=== PATIENT | male | born 1940 | race Hispanic/Latino ===

== ENCOUNTER 2017-03-26 11:15 | Emergency (ER) | payer OTHER, MEDICARE ==
[~2017-03-26] VITALS: Ht 170.2 cm; Wt 89.8 kg
[~2017-03-26 11:15] MED LIST: ASPIR 8181 MG PO; BYETTA5 MCG/0.02; EFFIENT10 MG PO; GABAPENTIN100 MG PO; HUMULIN N100 UNITS/; LISINOPRIL-HCT1 EAC1 PO; LOPRESSOR25 MG PO; METFORMIN HCL500 M1 PO; SIMVASTATIN40 MG PO
--- OUTSIDE RECORDS SUMMARY | 2017-03-26 11:18 | XMS REPORT | Clinical Summary ---
Author Author [facility] Organization [facility] Address Unknown Phone Unavailable Care Team Providers Care Intervention Manager Name Role Phone Shima Virgen MD PCP Allergies No Known Allergies Current Medications Prescription Sig. Disp. Refills Start End Date Status Date clopidogrel (PLAVIX) 75 Take 75 mg by mouth every 09/27/19 Active mg tablet morning. 17 gabapentin (NEURONTIN) Take 300 mg by mouth 2 09/27/19 Active 300 mg capsule (two) times a day. 17 lisinopril-hydrochlorothi Take 1 tablet by mouth 09/27/19 Active azide every morning. 17 (PRINZIDE,ZESTORETIC) 20-25 mg per tablet metFORMIN (GLUCOPHAGE) Take 1,000 mg by mouth 2 09/27/19 Active 1,000 mg tablet (two) times a day. 17 metoprolol tartrate Take 25 mg by mouth every 1 09/27/19 Active (LOPRESSOR) 25 mg tablet morning. 17 LANTUS SOLOSTAR 100 Inject 30 Units under the 09/27/19 Active unit/mL injection (pen) skin every evening. 17 simvastatin (ZOCOR) 20 MG Take 20 mg by mouth Active tablet nightly. insulin ASPART (NovoLOG) Inject 15 Units under the Active 100 unit/mL injection skin 3 (three) times a day before meals. atorvastatin (LIPITOR) 40 Take 40 mg by mouth every 09/27/19 Discontin MG tablet evening. 17 17 ued isosorbide mononitrate Take 1 tablet (30 mg 30 tablet 0 12/01/1902/06 (IMDUR) 30 MG 24 hr total) by mouth daily for 17 17 tablet 30 days. Active Problems Problem Noted Date Diabetic ketoacidosis without coma associated with type 1 diabetes mellitus 11/28/2016 Encounters Date Type Specialty Care Team Description 11/28/2016 [facility] General Internal Medicine Brennan Guillen MD Diabetic ketoacidosis - Encounter Maura Escobar MD without coma associated 11/30/2016 with type 1 diabetes mellitus (Primary Dx);Dizziness;Near syncope;Hyperglycemia 11/28/2016 Procedure Pass General Internal Medicine after 03/25/2016 Social History Tobacco Use Types Packs/Day Years Used Date Former Smoker Cigarettes Alcohol Use Drinks/Week oz/Week Comments No Sex Assigned at Date Recorded Not on file Last Filed Vital Signs Vital Sign Reading Time Taken Blood Pressure 126/84 11/30/2016 7:18 AM CDT Pulse 65 11/30/2016 12:59 PM CDT Temperature 36.3 C (97.4 F) 11/30/2016 7:18 AM CDT Respiratory Rate 14 11/30/2016 7:18 AM CDT Oxygen Saturation 96% 11/30/2016 7:18 AM CDT Inhaled Oxygen - - Concentration Weight 83.5 kg (184 lb) 11/28/2016 10:51 PM CDT Height 170.2 cm (5' 7") 11/28/2016 10:51 PM CDT Body Mass Index 28.82 11/28/2016 10:51 PM CDT Plan of Treatment Health Maintenance Due Date Last Done Comments FOOT EXAM 1950 OPHTHALMOLOGY EXAM 1950 URINE MICROALBUMIN 1950 ZOSTER VACCINE 2000 PNEUMOCOCCAL 2005 POLYSACCHARIDE VACCINE AGE 65 AND OVER PNEUMOCOCCAL-13 2005 INFLUENZA VACCINE 09/18/2016 Procedures Procedure Name Priority Date/Time Associated Diagnosis Comments ECHOCARDIOGRAM 2D Routine 11/29/2016 Results for this COMPLETE W MMODE SPECTRAL 1:45 PM CDT procedure are in the [facility] (51713) results section. SC CRITICAL CARE, E/M Routine 11/29/2016 Results for this 30-74 MINUTES 1:25 PM CDT procedure are in the results section. after 03/25/2016 Results * POC glucose (11/30/2016 11:36 AM) Only the most recent of 16 results within the time period is included. Component Value Ref Range POC glucose 312 (H) 65 - 99 mg/dL Comment: Meter ID: [id number] Footwear Production Machine Operator: Stacie Olvera Specimen Performing Laboratory [facility] DEPARTMENT OF PATHOLOGY AND GENOMIC MEDICINE [address] [place] [address] * Estimated GFR (11/30/2016 4:17 AM) Only the most recent of 6 results within the time period is included. Component Value Ref Range GFR Non Af Amer >90 mL/min/1.73 m2 GFR Af Amer >90 mL/min/1.73 m2 Comment: Chronic kidney disease: <60 mL/min/1.73m2 Kidney failure: <15 mL/min/1.73m2 The estimated GFR is calculated from the IDMS-traceable Modification of Diet in Renal Disease Equation. The accuracy of the calculation is poor when the creatinine is normal. Calculated values >90 mL/min/1.73m2 are not reported. This equation has not been validated in children (<18 years), women, the elderly (>70 years), or ethnic groups other than Caucasians and Americans. Specimen Performing Laboratory Plasma specimen [facility] DEPARTMENT OF PATHOLOGY AND [employer] MEDICINE [address] [place] [address] * CBC with platelet and differential (11/30/2016 4:17 AM) Only the most recent of 2 results within the time period is included. Component Value Ref Range WBC 6.35 4.50 - 11.00 k/uL RBC 4.35 (L) 4.40 - 6.00 m/uL HGB 13.0 (L) 14.0 - 18.0 g/dL HCT 37.6 (L) 41.0 - 51.0 % MCV 86.4 82.0 - 100.0 fL MCH 29.9 27.0 - 34.0 pg MCHC 34.6 31.0 - 37.0 g/dL RDW - SD 40.1 37.0 - 55.0 fL MPV 12.2 8.8 - 13.2 fL Platelet count 189 150 - 400 k/uL Nucleated RBC 0.00 /100 WBC Neutrophils 57.2 39.0 - 69.0 % Lymphocytes 29.8 25.0 - 45.0 % Monocytes 7.9 0.0 - 10.0 % Eosinophils 4.6 0.0 - 5.0 % Basophils 0.3 0.0 - 1.0 % Immature granulocytes 0.2Comment: "Immature granulocytes" 0.0 - 1.0 % (promyelocytes, myelocytes, metamyelocytes) Specimen Performing Laboratory Blood [facility] DEPARTMENT OF PATHOLOGY AND [address] [place] [address] * Magnesium level (11/30/2016 4:17 AM) Component Value Ref Range Magnesium 1.8 1.6 - 2.4 mg/dL Specimen Performing Laboratory Plasma specimen [facility] DEPARTMENT PATHOLOGY AND [address] [place] [address] * Basic metabolic panel (11/30/2016 4:17 AM) Only the most recent of 5 results within the time period is included. Component Value Ref Range Sodium 140 135 - 148 mEq/L Potassium 3.3 (L) 3.5 - 5.0 mEq/L Chloride 104 98 - 112 mEq/L CO2 24 24 - 31 mEq/L Anion gap 12 7 - 15 mEq/L Comment: Starting from May , anion gap calculation no longer incorporates potassium. Please note the change. BUN 11 8 - 23 mg/dL Creatinine 0.6 (L) 0.7 - 1.2 mg/dL Glucose 104 (H) 65 - 99 mg/dL Calcium 8.7 (L) 8.8 - 10.2 mg/dL Specimen Performing Laboratory Plasma specimen [facility] DEPARTMENT OF PATHOLOGY AND [address] [place] [address] * MRI Brain Wo Contrast (11/29/2016 10:00 PM) Specimen Performing Laboratory [facility] [address] [place] [id number] Narrative Study:MRI BRAIN WO CONTRAST History:dizziness with hx of cva COMPARISON:CT head yesterday TECHNIQUE: Precontrast Sagittal, coronal, axial T1, T2, FLAIR, gradient, diffusionMR images of the brain performed. FINDINGS: Parenchymal volume is normal. There are changes of chronic small vessel ischemic disease, moderate. There is no acute infarct, hemorrhage, midline shift , hydrocephalus, extra-axial collections, or edema. The orbits are unremarkable. There is some mild mucosal thickening of the paranasal sinuses. The mastoid air cells are without significant fluid signal. The calvarium is unremarkable. IMPRESSION: No acute intracranial abnormality. [facility]-[id number] Procedure Note Interface, Radiology Results Incoming - 11/29/2016 10:07 PM CDT Study:MRI BRAIN WO CONTRAST History:dizziness with hx of cva COMPARISON:CT head yesterday TECHNIQUE: Precontrast Sagittal, coronal, axial T1, T2, FLAIR, gradient, diffusion MR images of the brain performed. FINDINGS: Parenchymal volume is normal. There are changes of chronic small vessel ischemic disease, moderate. There is no acute infarct, hemorrhage, midline shift , hydrocephalus, extra-axial collections, or edema. The orbits are unremarkable. There is some mild mucosal thickening of the paranasal sinuses. The mastoid air cells are without significant fluid signal. The calvarium is unremarkable. IMPRESSION: No acute intracranial abnormality. [facility]-[id number] * Echocardiogram complete w contrast and 3D if needed (11/29/2016 1:45 PM) Component Value Ref Range Velocity Ratio (V1/V2) 0.77 m/s IVS,d 1.14 0.6 - 1.2 cm EF 54.94 % LVPWD,d 1.20 cm AoV Mean PG 3.67 mmHg AV LVOT peak gradient 3.93 mmHg MV valve area p 1/2 4.12 cm2 method E/A ratio 0.93 E wave decelartion time 160.74 msec LVOT Diam,S 2.09 cm LVOT area 3.43 cm2 LVOT Vmax 0.99 m/s LVOT VTI 0.19 m AoV Peak PG 6.56 mmHg MV Peak E Viraj 1.10 m/s MV stenosis pressure 1/2 53.35 ms time MV Peak A Viraj 1.18 m/s AoV Area, Vmax 2.65 cm2 AoV Area, VTI 2.52 cm2 AoV Vmax 1.28 m/s LV,d 4.21 cm LV,s 3.02 cm TR Vpeak 2.70 mm/s MV E A ratio 0.94 mmHg TR pk grad 29.27 mmHg MR peak grad 77.94 mmHg AR Press Half Time 705.26 ms LV SYS VOL 35.54 ml LV JAVIER VOL 78.87 ml LV SV Teich 2D 43.33 ml LVOT SI 33.06 ml/m2 AoV Cusp sep 2.07 AoV Vmn 0.91 AR slope 2.13 Ar Vmax 5.19 IVS s 2D 1.36 LA Ao Ratio Mmode 0.97 PV AT 93.43 msec AoV VTI 0.26 m MR Vmax 4.41 m/s LVOT Vmn 0.65 Pt Size 170.18 Pt Wt 83.46 LVOT mean grad 1.86 mmHg AR DT 2431.91 msec AR pk grad 107.61 mmHg LVPW s PLAX 1.63 cm MV Decel slope 6.87 m/s2 RVSP (TR) 34.27 mmHg RA pressure 5 mmHg RVSP 34.27 mmHg LA diam s 3.50 cm LA area s A4C 19.70 cm2 Aortic Root 3.65 SC End Javier Grad 2.59 SC End Diat Viraj 0.80 AR maxPG 107.61 D E excurs 2.20 E f slope 0.07 E prime lat 0.07 E brayden sept 0.05 PV acc T slope 8.40 Specimen Performing Laboratory [facility] [address] [place] [address] Narrative The left ventricle chamber size is normal. Left Ventricular ejection fraction is 55 - 60%. Right ventricular size is normal. No pericardial effusion Spectral Doppler shows impaired relaxation pattern of left ventricular diastolic filling. * ECG ED Preliminary Interpretation - NOT AN ORDER (11/29/2016 1:25 PM) Hill Guillen MD 11/29/20161:25 PM ECG ED Preliminary Interpretation - Not an Order Performed by: BRENNAN GUILLEN Authorized by: BRENNAN GUILLEN ECG reviewed by ED Physician in the absence of a air export operations agent: yes Rate: ECG rate:111 ECG rate assessment: tachycardic Rhythm: Rhythm: sinus rhythm Ectopy: Ectopy: none QRS: QRS axis:Normal Conduction: Conduction: abnormal Abnormal conduction: 1st degree * Critical Care (11/29/2016 1:25 PM) Hill Guillen MD 11/29/20161:25 PM Critical Care Performed by: BRENNAN GUILLEN Authorized by: BRENNAN GUILLEN Critical care provider statement: Critical care time (minutes):35 Critical care time was exclusive of:Separately billable procedures and treating other patients Critical care was necessary to treat or prevent imminent or life-threatening deterioration of the following conditions:Endocrine crisis, 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 or 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 and renal failure (DKA) Critical care was time spent personally by me on the following activities:Development of treatment plan with patient or surrogate, discussions with consultants, evaluation of patient's response to treatment, examination of patient, interpretation of cardiac output measurements, obtaining history from patient or surrogate, ordering and performing treatments and interventions, ordering and review of laboratory studies, ordering and review of radiographic studies and re-evaluation of patient's condition * Troponin (11/28/2016 11:21 PM) Only the most recent of 2 results within the time period is included. Component Value Ref Range Troponin <0.300 0.000 - 0.300 ng/mL Comment: 0.30 - 1.49 ng/ml May indicate increased risk of acute coronary syndrome. >=1.5 ng/ml Consistent with acute myocardial infarction. The diagnostic value of a single normal or non-diagnostic result is questionable. Serial samples at 2-6 hour intervals are required to rule out acute myocardial injury. Specimen Performing Laboratory Plasma specimen [facility] PATHOLOGY AND [address] [place] [address] * Lactic acid level (11/28/2016 11:21 PM) Only the most recent of 2 results within the time period is included. Component Value Ref Range Lactic acid 1.7 0.5 - 2.2 mmol/L Specimen Performing Laboratory Plasma specimen [address] [place] [address] * Hemoglobin A1c (11/28/2016 7:34 PM) Component Value Ref Range Hemoglobin A1C 12.4 (H) 4.0 - 6.0 % Comment: Less than 6% - Goal of therapy for Type II Diabetes Less than 7%- Goal of therapy for Type I Diabetes Less than 8%- Acceptable control for Type I or Type II Diabetes Greater than 8%- Unacceptable control; action indicated. (A DA94) Specimen Performing Laboratory Blood [address] [place] [address] * Venous blood gas (11/28/2016 7:34 PM) Component Value Ref Range pH, venous 7.47 (H) 7.32 - 7.42 pCO2, venous 32 (L) 45 - 51 mmHg pO2, venous 50 (H) 25 - 40 mmHg Base excess, venous 0 -2 - 2 meq/L O2 saturation, venous 88 (H) 40 - 70 % Bicarbonate, venous 24.5 21.0 - 28.0 mmol/L FiO2, inspired O2% NT % Specimen Performing Laboratory Blood [address] [place] [address] * ECG 12 lead (11/28/2016 6:42 PM) Component Value Ref Range Ventricular rate 111 Atrial rate 111 SC interval 218 QRSD interval 80 QT interval 314 QTC interval 427 P axis 1 34 QRS axis 1 -54 T wave axis 16 EKG impression Sinus tachycardia with 1st degree AV block-Left axis deviation-Inferior infarct , age undetermined-Abnormal ECG-No previous ECGs available- Specimen Performing Laboratory [facility] [address] [place] [address] * CT Head Wo Contrast (11/28/2016 6:27 PM) Specimen Performing Laboratory [facility] [address] [place] [address] Narrative EXAMINATION: CT HEAD WO CONTRAST CLINICAL HISTORY: dizziness COMPARISON:None TECHNIQUE: Noncontrast enhanced images of the brain were obtained from the skull base to the vertex. Both soft tissue and bone reconstruction algorithms were performed.CT imaging was performed with iterative reconstruction technique and/or automated exposure control to reduce radiation dose. FINDINGS: There is no evidence of acute intracranial hemorrhage, intracranial mass, mass effect, midline shift or focal extra-axial collection. The young-white matter differentiation is preserved. There are predominantly confluent foci of low density involving the periventricular and deep white matter at the level of the centrum semiovale and garcia radiata. Although these are nonspecific by imaging, they are most commonly associated with chronic small vessel ischemic disease. Small lacune in the right putamen. There are extensive vascular calcifications along the cavernous segments of the internal carotid arteries and intradural vertebral arteries. No acute soft tissue hematoma or laceration. Paranasal sinuses shows no acute air-fluid levels. Mastoid air cells are clear.No skull fractures or aggressive bony lesions. IMPRESSION: No acute intracranial abnormality identified. [id number] Procedure Note Interface, Radiology Results Incoming - 11/28/2016 6:37 PM CDT EXAMINATION: CT HEAD WO CONTRAST CLINICAL HISTORY: dizziness COMPARISON: None TECHNIQUE: Noncontrast enhanced images of the brain were obtained from the skull base to the vertex. Both soft tissue and bone reconstruction algorithms were performed. CT imaging was performed with iterative reconstruction technique and/or automated exposure control to reduce radiation dose. FINDINGS: There is no evidence of acute intracranial hemorrhage, intracranial mass, mass effect, midline shift or focal extra-axial collection. The young-white matter differentiation is preserved. There are predominantly confluent foci of low density involving the periventricular and deep white matter at the level of the centrum semiovale and garcia radiata. Although these are nonspecific by imaging, they are most commonly associated with chronic small vessel ischemic disease. Small lacune in the right putamen. There are extensive vascular calcifications along the cavernous segments of the internal carotid arteries and intradural vertebral arteries. No acute soft tissue hematoma or laceration. Paranasal sinuses shows no acute air-fluid levels. Mastoid air cells are clear. No skull fractures or aggressive bony lesions. IMPRESSION: No acute intracranial abnormality identified. [id number] * Partial thromboplastin time, activated (11/28/2016 6:25 PM) Component Value Ref Range PTT 25.9 23.0 - 36.0 sec Comment: PTT therapeutic range for unfractionated heparin is 61.0-112.0 seconds which corresponds to Anti-Xa 0.3-0.7 U/ml. Specimen Performing Laboratory Blood [facility] DEPARTMENT OF PATHOLOGY AND GENOMIC MEDICINE [address] [place] [address] * Prothrombin time with INR (11/28/2016 6:25 PM) Component Value Ref Range Prothrombin time 12.7 12.0 - 15.0 sec INR 1.0 Comment: The International Normalized Ratio (INR) is a therapeutic monitoring tool for patients who are stable on oral anticoagulant therapy. An INR of 2.0-3.0 is suggested for deep vein thrombosis/pulmonary embolism. Specimen Performing Laboratory Blood [facility] DEPARTMENT OF PATHOLOGY AND [facility] MEDICINE [address] [place] [address] * B natriuretic peptide (11/28/2016 6:25 PM) Component Value Ref Range BNP 45 0 - 100 pg/mL Specimen Performing Laboratory Blood [facility] DEPARTMENT OF PATHOLOGY AND GENOMIC MEDICINE [address] [place] [address] * Comprehensive metabolic panel (11/28/2016 6:25 PM) Component Value Ref Range Sodium 132 (L) 135 - 148 mEq/L Potassium 3.6 3.5 - 5.0 mEq/L Chloride 92 (L) 98 - 112 mEq/L CO2 21 (L) 24 - 31 mEq/L Anion gap 19 (H) 7 - 15 mEq/L Comment: Starting from May , anion gap calculation no longer incorporates potassium. Please note the change. BUN 24 (H) 8 - 23 mg/dL Creatinine 0.7 0.7 - 1.2 mg/dL Glucose 569 (HH)Comment: Results called to and read back 65 - 99 mg/dL by RIC TAYLOR at 19:04 11/28/2016 Calcium 9.1 8.8 - 10.2 mg/dL Protein 7.1 6.3 - 8.3 g/dL Comment: 4.6-7.0 g/dL 1 week 4.4-7.6 g/dL 7 months-1year 5.1-7.3 g/dL 1-2 years 5.6-7.5 g/dL >3 years 6.0-8.0 g/dL 18-150 6.3-8.3 g/dL Albumin 3.6 3.5 - 5.0 g/dL A/G ratio 1.0 0.7 - 3.8 Alkaline phosphatase 101 40 - 129 U/L AST 14 10 - 50 U/L ALT 11 5 - 50 U/L Total bilirubin 0.4 0.0 - 1.2 mg/dL Specimen Performing Laboratory Plasma specimen [facility] DEPARTMENT OF PATHOLOGY AND GENOMIC MEDICINE [address] [place] [address] * XR Chest 1 Vw Portable (11/28/2016 6:21 PM) Specimen Performing Laboratory [facility] [address] [place] [address] Narrative EXAMINATION:XR CHEST 1 VW PORTABLE CLINICAL HISTORY:lightheaded COMPARISON:None. IMPRESSION: Single frontal view reveals a normal cardiomediastinal silhouette, apart from a tortuous atherosclerotic aorta. Lungs are clear. Pleural margins as visualized are sharp. The remainder of the examination is unremarkable. [facility]-[id number] Procedure Note Interface, Radiology Results Incoming - 11/28/2016 6:26 PM CDT EXAMINATION: XR CHEST 1 VW PORTABLE CLINICAL HISTORY: lightheaded COMPARISON: None. IMPRESSION: Single frontal view reveals a normal cardiomediastinal silhouette, apart from a tortuous atherosclerotic aorta. Lungs are clear. Pleural margins as visualized are sharp. The remainder of the examination is unremarkable. [facility]-[id number] after 03/25/2016 Insurance Payer Benefit Subscriber ID Type Phone Address Plan / Group BELÉN MELISSA OPEN [id number] HMO ACCESS/NET WORK MEDICARE MEDICARE [id number] Medicare [place], [place] PART A AND B
[2017-03-26] MEDS ORDERED: LEVAQUIN500 MG PO (12:00)
[2017-03-26] MEDS ORDERED: INSULIN SC (12:00)
[2017-03-26] MEDS ORDERED: ISOSORBIDE MONO30 MG PO (12:03)
[2017-03-26] MEDS ORDERED: GABAPENTIN300 MG PO (12:03)
[2017-03-26] MEDS ORDERED: SIMVASTATIN20 MG PO (12:03)
[2017-03-26] MEDS ORDERED: LISINOPRIL10 MG PO (12:03)
[2017-03-26] MEDS ORDERED: PLAVIX75 MG PO (12:03)
[2017-03-26] MEDS ORDERED: METFORMIN HCL500 MG PO (12:03)
[2017-03-26] MEDS ORDERED: HYDROCHLOROTHIA25 MG PO (12:03)
[2017-03-26] MEDS ORDERED: LISINOPRIL-HCT1 EAC1 PO (13:26)
[2017-03-26 13:37] LABS: BASOPHILS % 0.2 % (0.0-1.0); EOSINOPHILS # (AUTO) 0.1 (0.0-0.4); EOSINOPHILS % 1.2 % (0.0-6.0); HEMATOCRIT 40.1 % (38.2-49.6); LYMPHOCYTES # (AUTO) 1.7 (1.0-3.2); LYMPHOCYTES % 27.8 % (18.0-39.1); MEAN CORPUSCULAR HEMOGLOBIN 30.3 pg (28-32); MEAN CORPUSCULAR HGB CONC 34.9 g/dL (31-35); MEAN CORPUSCULAR VOLUME 86.8 fL (81-99); MONOCYTES # (AUTO) 0.5 (0.2-0.8); MONOCYTES % 8.7 % (4.4-11.3); NEUTROPHILS # (AUTO) 3.7 (2.1-6.9); NEUTROPHILS % 61.9 % (38.7-80.0); PLATELET COUNT 217 x10e3/uL (140-360); RED BLOOD COUNT 4.62 x10e6/uL (4.3-5.7); RED CELL DISTRIBUTION WIDTH 12.5 % (11.7-14.4)
[2017-03-26 13:47] LABS: INR 0.95; PROTHROMBIN TIME 13.2 seconds (11.9-14.5)
[2017-03-26 13:48] LABS: PARTIAL THROMBOPLASTIN TIME 26.6 seconds (23.8-35.5)
--- NOTE | 2017-03-26 13:48 | Diagnostic Imaging Report ---
Exam: Head CT without contrast History: Nausea, blurry vision Comparison studies: None Technique: Axial images were obtained from the skull base to the vertex. Coronal and sagittal images reconstructed from the axial data. Intravenous contrast: None Findings: Scalp: No abnormalities. Bones: No fractures, blastic or lytic lesions. Brain sulci: Appropriate for age. Ventricles: Normal in size and configuration. No hydrocephalus. Extra-axial spaces: No masses, no fluid collection. Parenchyma: No mass, acute hemorrhage or acute or chronic cortical vascular insults. Confluent hypodensities in the supratentorial white matter are nonspecific but most compatible with chronic small vessel ischemic changes. Small chronic lacunar infarct in the posterior right putamen. Sellar/suprasellar region: No abnormalities. Craniocervical junction: Patent foramen magnum. No Chiari one malformation. Incidental findings: Atherosclerotic calcifications in the carotid siphons and intradural vertebral arteries. IMPRESSION: 1. No acute abnormalities. 2. Moderately confluent supratentorial chronic microvascular changes with small chronic right putaminal lacunar infarct. Signed by: Dr. Josh Elkins M.D. on 03/26/2017 1:44 PM
--- NOTE | 2017-03-26 13:53 | Diagnostic Imaging Report ---
PROCEDURE: Frontal and lateral views of the chest. COMPARISON: Patients [facility], , CHEST 2 VIEWS, 01/18/2014, 10:16. INDICATIONS: COUGH, ALTERED MENTAL STATUS FINDINGS: Lines/tubes: None. Lungs: The lungs are well inflated and clear. There is no evidence of pneumonia or pulmonary edema. Pleura: There is no pleural effusion or pneumothorax. Heart and mediastinum: The thoracic aorta is tortuous. Cardiac silhouette is mildly enlarged. Bones: No acute bony abnormality. IMPRESSION: 1. mild cardiomegaly without pulmonary edema. No acute thoracic abnormality. Ladonna Naik M.D. Dictated by: Ladonna Naik M.D. on 03/26/2017 at 14:03 Electronically approved by: Ladonna Naik M.D. on 03/26/2017 at 14:03
[2017-03-26 13:57] LABS: ALBUMIN 3.4 g/dL (3.5-5.0); ALBUMIN/GLOBULIN RATIO 0.8 (0.8-2.0); CALCIUM 8.8 mg/dL (8.4-10.2); CREATININE, SERUM 1.29 mg/dL (0.72-1.25)
[2017-03-26 14:12] LABS: ANION GAP 16.3 mmol/L (8-16); POTASSIUM 3.3 mmol/L (3.5-5.1)
[2017-03-26 15:22] LABS: CREATINE KINASE MB 4.5 ng/mL (0.00-5.00)
[2017-03-26 18:40] VITALS: BP 128/80
== END 2017-03-26 18:31 | disposition home or self-care (01) ==
LOC: ER 11:15
DX: R11.2 Nausea with vomiting, unspecified (principal); R05 Cough; E11.9 Type 2 diabetes mellitus without complications; I10 Essential (primary) hypertension; I25.10 Atherosclerotic heart disease of native coronary artery without angina pectoris
CPT/HCPCS: 36415; 70450; 71046; 80053; 82550; 82553; 82948; 83880; 84484; 85025; 85610; 85730; 87040; 93005; 99283

== ENCOUNTER → 2017-12-19 | Day surgery (SDC) | payer OTHER, MEDICARE ==
[~2017-12-19] MED LIST changes: +ATORVASTATIN CA20 MG PO; +ATORVASTATIN CA40 MG PO; +CYMBALTA20 MG PO; +FENTANYL CITRATE/PF 100MCG/2 ML INJ ONE; +GABAPENTIN300 MG PO; +GLUCAGON FOR INJ 1 MG VIAL ONE; +HUMALOG100 UNIT/3 SC; +HUMULIN 70100 UNIT/1 SC; +HYDROCHLOROTHIA25 MG PO; +INSULIN REGULAR, HUMAN 100 UNIT/1 ML 3ML VIAL ONE; +INSULIN SC; +ISOSORBIDE MONO30 MG PO; +LEVAQUIN500 MG PO; +LEXAPRO10 MG PO; +LIDOCAINE HCL 2% LOCAL INJ 5 ML SDV VIAL INJ ONE; +LISINOPRIL10 MG PO; +METFORMIN HCL500 MG PO; +METOPROLOL TART50 MG PO; +MIDAZOLAM HCL 2 MG/2 ML VIAL ONE; +NORCO 7.5-3251 EACH PO; +NOVOLIN 70/30 SC; +NOVOLIN N100 UNIT/1 SC; +NYSTATIN100000 UNI PO; +OMEPRAZOLE40 MG PO; +PANTOPRAZOLE SO40 MG PO; +PLAVIX75 MG PO; +SIMVASTATIN20 MG PO; +TRESIBA SC
--- OUTSIDE RECORDS SUMMARY | 2017-12-19 12:30 | XMS REPORT ---
[facility] Address Unknown Phone Unavailable Care Team Providers Care Clinic Nurse Name Role Phone Ling LIANG Unavailable Unavailable Problems This patient has no known problems. Allergies, Adverse Reactions, Alerts This patient has no known allergies or adverse reactions. Medications This patient has no known medications. Results Test Description Test Time Test Comments Text Results Atomic Results Result Comments CT BRAIN WO [place] [address] Patient Name: CHARISSE FELIZ MR #: [id number] : 1940 Age/Sex: 76/M Req #: [id number] Adm Physician: Ordered by: THOMAS LIANG MD Report #: [id number] Location: ER Room/Bed: Procedure: [id number] CT/CT BRAIN WO Exam Date: 03/26/17 Exam Time: 1313 REPORT STATUS: Signed Exam: Head CT without contrast History: Nausea, blurry vision Comparison studies: None Technique: Axial images were obtained from the skull base to the vertex. Coronal and sagittal images reconstructed from the axial data. Intravenous contrast: None Findings: Scalp: No abnormalities. Bones: No fractures, blastic or lytic lesions. Brain sulci: Appropriate for age. Ventricles: Normal in size and configuration. No hydrocephalus. Extra- axial spaces: No masses, no fluid collection. Parenchyma: No mass, acute hemorrhage or acute or chronic cortical vascular insults. Confluent hypodensities in the supratentorial white matter are nonspecific but most compatible with chronic small vessel ischemic changes. Small chronic lacunar infarct in the posterior right putamen. Sellar/suprasellar region: No abnormalities. Craniocervical junction: Patent foramen magnum. No Chiari one malformation. Incidental findings: Atherosclerotic calcifications in the carotid siphons and intradural vertebral arteries. IMPRESSION: 1. No acute abnormalities. 2. Moderately confluent supratentorial chronic microvascular changes with small chronic right putaminal lacunar infarct. Signed by: Dr. Sarath Elkins M.D. on 03/26/2017 1:44 PM Dictated By: SARATH ELKINS MD 1344 Transcribed By: FLACO on 03/26/17 1344 COPY TO: THOMAS LIANG MD CHEST 2 VIEWS [place] [address] Patient Name: CHARISSE FELIZ MR #: [id number] : 1940 Age/Sex: 76/M Req #: [id number] Adm Physician: Ordered by: THOMAS LIANG MD Report #: [id number] Location: ER Room/Bed: Procedure: [id number] DX/CHEST 2 VIEWS Exam Date: 03/26/17 Exam Time: 1315 REPORT STATUS: Signed PROCEDURE: Frontal and lateral views of the chest. COMPARISON: [facility], DX, CHEST 2 VIEWS, 01/18/2014, 10:16. INDICATIONS: COUGH, ALTERED MENTAL STATUS FINDINGS: Lines/tubes: None. Lungs: The lungs are well inflated and clear. There is no evidence of pneumonia or pulmonary edema. Pleura: There is no pleural effusion or pneumothorax. Heart and mediastinum: The thoracic aorta is tortuous. Cardiac silhouette is mildly enlarged. Bones: No acute bony abnormality. IMPRESSION: 1. mild cardiomegaly without pulmonary edema. No acute thoracic abnormality. Ladonna Savage M.D. Dictated by: Ladonna Savage M.D. on 03/26/2017 at 14:03 Electronically approved by: Ladonna Savage M.D. on 03/26/2017 at 14:03 Dictated By: BEAU SAVAGE MD, MD 1403 Transcribed By: AMISH on 03/26/17 1403 COPY TO: THOMAS LIANG MD
--- OUTSIDE RECORDS SUMMARY | 2017-12-19 12:30 | XMS REPORT | Clinical Summary ---
Author Author [facility] Address Unknown Phone Unavailable Care Team Providers Care Creative Strategist Name Role Phone Caroline Virgen MD PCP Allergies No Known Allergies [...] 3 (three) times a day before meals. isosorbide mononitrate Take 1 tablet (30 mg 30 tablet 0 12/01/19 12/31/19 (IMDUR) 30 MG 24 hr total) by mouth daily for 17 17 tablet 30 days. Active Problems Problem Noted Date Diabetic ketoacidosis without coma associated with type 1 diabetes mellitus 11/28/2016 ([facility]) Social History Tobacco Use Types Packs/Day Years Used Date Former Smoker Cigarettes Alcohol Use Drinks/Week oz/Week Comments No Sex Assigned at Date Recorded Not on file Last Filed Vital Signs Not on file Plan of Treatment Health Maintenance Due Date Last Done Comments DIABETIC RETINAL EYE EXAM 1940 DIABETIC FOOT EXAM 1950 URINE MICROALBUMIN 1950 SHINGRIX VACCINE (#1) 1990 ZOSTER VACCINE 2000 PNEUMOCOCCAL 2005 POLYSACCHARIDE VACCINE AGE 65 AND OVER PNEUMOCOCCAL-13 2005 INFLUENZA VACCINE 09/18/2017 Results Not on fileafter 12/18/2016 Insurance Payer Benefit Subscriber ID Type Phone Address Plan / Group CIGNA CIGNA OPEN xxxxxxxxxxx HMO ACCESS/NET WORK MEDICARE MEDICARE xxxxxxxxxx Medicare [place], [place] [address]
--- NOTE | 2017-12-19 16:28 | Operative Report ---
DATE OF PROCEDURE: December 19, 2017 REFERRING PHYSICIAN: Dr. Caroline Muhammad. PROCEDURES PERFORMED: 1. Esophagogastroduodenoscopy with biopsies. 2. Colonoscopy with polypectomy. INDICATIONS FOR ESOPHAGOGASTRODUODENOSCOPY: Upper abdominal pain. INDICATIONS FOR COLONOSCOPY: Colorectal cancer screening. MEDICATION: Patient was done under MAC. Please see anesthesiologist's note. PROCEDURE: With patient in the left lateral decubitus position, the flexible fiberoptic Olympus gastroscope was introduced into the esophagus under direct visualization without any difficulty. There was some patchy erythema noted in the distal esophagus. The scope was then advanced with ease into the stomach, and the mucosa overlying the antrum revealed some patchy erythema and low-grade to moderate edema, and biopsies were obtained and sent to stain for H. pylori. There was somewhat atrophic gastric mucosa noted in the distal body, and biopsies were obtained to rule out atrophic gastritis. Pylorus appeared to be of normal contour and shape, was intubated with ease, and the scope was advanced all the way to the 2nd portion of the duodenum. Biopsies were obtained from the proximal 2nd portion to rule out sprue. Mucosa overlying the duodenal bulb appeared to be within normal limits. The scope was then withdrawn back into the stomach and retroflexed, and the mucosa overlying the fundus and the cardia appeared to be within normal limits. The scope was then straightened out. It was subsequently withdrawn. Patient tolerated the procedure well. IMPRESSION: 1. Distal esophagitis, mild. 2. Rule out atrophic gastritis, body, biopsied. 3. Gastritis, antrum, biopsied. Biopsies sent to stain for H. pylori. 4. Rule out sprue. PLAN: Follow up histology. Initiate Protonix 40 mg 1 p.o. q.a.m. a.c. Patient was then turned around and after adequate lubrication of the anal canal, a flexible fiberoptic Olympus colonoscope was inserted into the rectum with ease and advanced all the way to the cecum. An approximately 8 mm sessile polyp was snared from the cecum. The ascending, transverse, descending, sigmoid and rectum appeared to be within normal limits. The scope was then retroflexed into the distal rectum and small internal hemorrhoids were noted, none of which was actively bleeding. The scope was then straightened out. It was subsequently withdrawn. Patient tolerated the procedure well. IMPRESSION: 1. Cecal polyp snared. 2. Internal hemorrhoids, none actively bleeding. PLAN: Follow up histology. Initiate high-fiber low-fat diet. Initiate high-fiber supplement. Patient might benefit from a followup colonoscopy in 3 years. Job#: [id number] EV cc:CAROLINE MUHAMMAD MD
[2017-12-19 16:30] VITALS: BP 152/97
== END | disposition home or self-care (01) ==
LOC: OR 12:28
PROVIDERS: ATTEND Internal Medicine Gastroenterology
DX: Z12.11 Encounter for screening for malignant neoplasm of colon (principal); K20.9 Esophagitis, unspecified; K29.70 Gastritis, unspecified, without bleeding; D12.0 Benign neoplasm of cecum; K64.8 Other hemorrhoids; R10.10 Upper abdominal pain, unspecified; R19.7 Diarrhea, unspecified; R07.2 Precordial pain; I25.119 Atherosclerotic heart disease of native coronary artery with unspecified angina pectoris; R06.09 Other forms of dyspnea; Z95.5 Presence of coronary angioplasty implant and graft; I70.213 Atherosclerosis of native arteries of extremities with intermittent claudication, bilateral legs; I11.9 Hypertensive heart disease without heart failure; R94.31 Abnormal electrocardiogram [ECG] [EKG]; R26.81 Unsteadiness on feet; E78.00 Pure hypercholesterolemia, unspecified; E11.9 Type 2 diabetes mellitus without complications; Z87.891 Personal history of nicotine dependence; Z86.73 Personal history of transient ischemic attack (TIA), and cerebral infarction without residual deficits; E66.09 Other obesity due to excess calories; Z78.9 Other specified health status; G47.33 Obstructive sleep apnea (adult) (pediatric); Z79.4 Long term (current) use of insulin; Z83.3 Family history of diabetes mellitus; Z80.9 Family history of malignant neoplasm, unspecified; Z68.32 Body mass index [BMI] 32.0-32.9, adult
CPT/HCPCS: 36415; 43239; 45385; 82948; J1610; J1817; J2001; J2250

== ENCOUNTER 2017-12-23 13:11 | Inpatient (IN) | payer OTHER, MEDICARE ==
[~2017-12-23] VITALS: Ht 172.7 cm; Wt 91.6 kg
[~2017-12-23 13:11] MED LIST changes: -ATORVASTATIN CA40 MG PO; -CYMBALTA20 MG PO; -FENTANYL CITRATE/PF 100MCG/2 ML INJ ONE; -GLUCAGON FOR INJ 1 MG VIAL ONE; -HUMALOG100 UNIT/3 SC; -INSULIN REGULAR, HUMAN 100 UNIT/1 ML 3ML VIAL ONE; -LIDOCAINE HCL 2% LOCAL INJ 5 ML SDV VIAL INJ ONE; -MIDAZOLAM HCL 2 MG/2 ML VIAL ONE; -NORCO 7.5-3251 EACH PO; -OMEPRAZOLE40 MG PO; -PANTOPRAZOLE SO40 MG PO; -TRESIBA SC
--- OUTSIDE RECORDS SUMMARY | 2017-12-23 13:14 | XMS REPORT | Clinical Summary ---
Author Author [facility] Address Unknown Phone Unavailable Care Team Providers Care Brusher Tender Name Role Phone Caroline Virgen MD PCP [...] associated with type 1 diabetes mellitus 11/28/2016 ([facility]) Social History Tobacco Use Types Packs/Day Years [...] INFLUENZA VACCINE 09/18/2017 Results Not on fileafter 12/22/2016 Insurance Payer Benefit Subscriber ID Type Phone Address Plan / Group CIGNA CIGNA OPEN xxxxxxxxxxx HMO ACCESS/NET WORK MEDICARE MEDICARE xxxxxxxxxx Medicare [place], [place] [address]
[2017-12-23 13:58] LABS: BASOPHILS % 0.4 % (0.0-1.0); EOSINOPHILS # (AUTO) 0.3 (0.0-0.4); EOSINOPHILS % 3.7 % (0.0-6.0); HEMATOCRIT 40.7 % (38.2-49.6); HEMOGLOBIN 14.2 g/dL (14.0-18.0); LYMPHOCYTES % 23.5 % (18.0-39.1); MEAN CORPUSCULAR HEMOGLOBIN 30.3 pg (28-32); MEAN CORPUSCULAR HGB CONC 34.9 g/dL (31-35); MEAN CORPUSCULAR VOLUME 86.8 fL (81-99); MONOCYTES # (AUTO) 0.8 (0.2-0.8); MONOCYTES % 9.3 % (4.4-11.3); NEUTROPHILS # (AUTO) 5.3 (2.1-6.9); NEUTROPHILS % 62.9 % (38.7-80.0); PLATELET COUNT 241 x10e3/uL (140-360); RED BLOOD COUNT 4.69 x10e6/uL (4.3-5.7)
[2017-12-23 14:02] LABS: INR 0.9
[2017-12-23 14:03] LABS: PARTIAL THROMBOPLASTIN TIME 25.7 seconds (23.8-35.5)
[2017-12-23] MEDS ORDERED: LABETALOL HCL 5 MG/ML 20ML VIAL IV STA (14:04)
[2017-12-23 14:12] LABS: ALANINE AMINOTRANSFERASE 21 IU/L (0-55); ALBUMIN 3.4 g/dL (3.5-5.0); ALBUMIN/GLOBULIN RATIO 0.9 (0.8-2.0); ALKALINE PHOSPHATASE 79 IU/L (40-150); ANION GAP 14.1 mmol/L (8-16); BLOOD UREA NITROGEN 17 mg/dL (7-26); BUN/CREATININE RATIO 18 (6-25); CALCIUM 9.3 mg/dL (8.4-10.2); CARBON DIOXIDE 25 mmol/L (22-29); CHLORIDE 103 mmol/L (98-107); CREATINE KINASE 173 IU/L (30-200); CREATININE, SERUM 0.96 mg/dL (0.72-1.25); EST GLOMERULAR FILTRATION RATE > 60 ML/MIN (60-); GLUCOSE 240 mg/dL (74-118); POTASSIUM 3.1 mmol/L (3.5-5.1); SODIUM 139 mmol/L (136-145)
[2017-12-23] MEDS ORDERED: ASPIRIN 325 MG TAB PO ONE (14:15)
[2017-12-23] MEDS ORDERED: NITROGLYCERIN 0.4 MG SUBL SL ONE (14:15)
[2017-12-23] MEDS ORDERED: KETOROLAC TROMETHAMINE 30 MG/ML VIAL IV STA (14:28)
[2017-12-23] MEDS ORDERED: DEXAMETHASONE SOD PHOS 10 MG/1 ML VIAL IV ONE (14:30)
[2017-12-23] MEDS ORDERED: HYDROCODONE/APAP 7.5MG-325MG 1 EA TAB PO ONE (14:30)
--- NOTE | 2017-12-23 15:18 | Diagnostic Imaging Report ---
Examination: Single AP view of the chest. COMPARISON: None. INDICATION: Chest pain DISCUSSION: Lines/tubes: None. Lungs: The lungs are well inflated and clear. No pneumonia or pulmonary edema. Pleura: No pleural effusion or pneumothorax. Heart and mediastinum: Prominent heart size. Bones and soft tissues: No acute bony abnormalities. IMPRESSION: 1. No acute cardiopulmonary abnormalities. Signed by: Dr. Sergey Milton M.D. on 12/23/2017 3:15 PM
[2017-12-23] MEDS ORDERED: HYDROCODONE/APAP 5MG-325MG TAB PO PRN (15:30)
[2017-12-23] MEDS ORDERED: ASPIRIN 81 MG CHEW TAB PO ONE (15:30)
--- OUTSIDE RECORDS SUMMARY | 2017-12-23 15:53 | XMS REPORT | Clinical Summary ---
Author Author [facility] Address Unknown Phone Unavailable Care Team Providers Care Food Sampler Name Role Phone Caroline Virgen MD PCP [...] Medicare [place], [place] [address]
[2017-12-23] MEDS ORDERED: ENALAPRILAT IV INJ 1.25 MG/ML VIAL ONE (16:15)
[2017-12-23] MEDS ORDERED: ENALAPRILAT IV INJ 1.25 MG/ML VIAL IV STA (16:19)
[2017-12-23 18:00] LABS: BILIRUBIN,URINE NEGATIVE (NEGATIVE); CLARITY,URINE SL CLOUDY (CLEAR); COLOR,URINE YELLOW (YELLOW); KETONES,URINE NEGATIVE (NEGATIVE); LEUKOCYTE ESTERASE ,URINE NEGATIVE (NEGATIVE); NITRITE,URINE NEGATIVE (NEGATIVE); PROTEIN,URINE DIPSTICK 2+ (NEGATIVE); URINE UROBILINOGEN 0.2 mg/dL (0.2 - 1)
[2017-12-23] MEDS ORDERED: ATORVASTATIN CA40 MG PO (18:09)
[2017-12-23] MEDS ORDERED: HUMALOG100 UNIT/3 SC (18:09)
[2017-12-23] MEDS ORDERED: GABAPENTIN300 MG PO (18:09)
[2017-12-23] MEDS ORDERED: PANTOPRAZOLE SO40 MG PO (18:09)
[2017-12-23] MEDS ORDERED: TRESIBA SC (18:09)
[2017-12-23 18:11] LABS: AMORPHOUS SEDIMENT,URINE FEW (FEW); BACTERIA,URINE FEW /HPF; RBC,URINE 0-5 /HPF (0-5)
[2017-12-23 18:12] LABS: HYALINE CASTS 0-1 (0-1); MUCUS,URINE FEW (RARE)
--- NOTE | 2017-12-23 18:53 | Diagnostic Imaging Report ---
History: 77-year-old male with back pain and chest pain Comparison studies: None Technique: Axial were obtained without IV contrast through the thoracic region. Coronal and sagittal images reconstructed from the axial data. Dose modulation, iterative reconstruction, and/or weight based adjustment of the mA/kV was utilized to reduce the radiation dose to as low as reasonably achievable. Intravenous contrast: None Findings: Alignment: Normal kyphosis. No scoliosis. Soft tissues: No abnormalities.. Paraspinal muscles: Unremarkable Spinal cord: Can not be evaluated. Vertebrae: Incomplete fusion of the posterior elements of T2 and T3. A couple 5 mm bone islands are in the L1 vertebral body. Degenerative changes: The C5 and C6 vertebral bodies are fused. Severe right facet arthropathy at C5-C6 with moderate right foraminal stenosis. Moderate right facet arthropathy at C6-C7 with mild foraminal stenosis on the right. No thoracic degenerative changes. Incidental: * Subsegmental atelectasis in the dependent portion of both lower lobes. * Moderate coronary artery atherosclerosis. * Mild amount of calcified atherosclerotic in the aortic arch and proximal branch vessels. * Mild plaque in the upper abdominal aorta and proximal branch vessels. The common hepatic artery arises directly from the aorta. IMPRESSION: No acute abnormalities. Specifically, no fractures or dislocations. Preliminary report provided by Dr. Ana Valdovinos, neuroradiology fellow, on 12/23/2017 at 1852 hours. The images and preliminary report were reviewed and signed by Dr. Pinky Garces, neuroradiology faculty, on 12/23/2017 at 1940 hours.. Signed by: Dr. Pinky Garces M.D. on 12/23/2017 7:40 PM
[2017-12-23] MEDS ORDERED: DEXTROSE 50% SYRINGE 50 ML IV PRN (19:30)
[2017-12-23 20:30] VITALS: BP 171/92
[2017-12-23 20:45] VITALS: BP 171/92
[2017-12-23] MEDS: TRESIBA 30 UNIT SC SCH (21:00)
[2017-12-23] MEDS ORDERED: SIMVASTATIN 20 MG TAB PO SCH (21:00)
[2017-12-23] MEDS ORDERED: NON-FORMULARY MEDICATION (Atorvastatin Calcium 40 MG) PO SCH (21:00)
[2017-12-23] MEDS: GABAPENTIN 300 MG CAP PO SCH (21:28)
[2017-12-23] MEDS: INSULIN LISPRO 100 UNIT/1 ML 3ML VIAL SQ SCH (21:28)
[2017-12-23] MEDS: ATORVASTATIN 40 MG TAB PO SCH (21:29)
[2017-12-24] VITALS (16 sets, daily range): BP systolic 136–184; BP diastolic 80–99
[2017-12-24] MEDS: ENALAPRILAT IV INJ 1.25 MG/ML VIAL IV PRN ×2 (00:28→06:07)
[2017-12-24 05:10] LABS: BASOPHILS % 0.1 % (0.0-1.0); HEMATOCRIT 36.7 % (38.2-49.6); HEMOGLOBIN 12.9 g/dL (14.0-18.0); LYMPHOCYTES # (AUTO) 0.8 (1.0-3.2); LYMPHOCYTES % 9.1 % (18.0-39.1); MEAN CORPUSCULAR HEMOGLOBIN 30.1 pg (28-32); MEAN CORPUSCULAR HGB CONC 35.1 g/dL (31-35); MEAN CORPUSCULAR VOLUME 85.7 fL (81-99); MONOCYTES # (AUTO) 0.2 (0.2-0.8); MONOCYTES % 2.4 % (4.4-11.3); NEUTROPHILS # (AUTO) 7.5 (2.1-6.9); NEUTROPHILS % 88.2 % (38.7-80.0); PLATELET COUNT 206 x10e3/uL (140-360); RED BLOOD COUNT 4.28 x10e6/uL (4.3-5.7); RED CELL DISTRIBUTION WIDTH 13.1 % (11.7-14.4)
[2017-12-24 05:36] LABS: CREATINE KINASE MB 2.6 ng/mL (0-5.0)
[2017-12-24 05:52] LABS: ANION GAP 15.4 mmol/L (8-16); BLOOD UREA NITROGEN 20 mg/dL (7-26); BUN/CREATININE RATIO 22 (6-25); CARBON DIOXIDE 21 mmol/L (22-29); CHLORIDE 103 mmol/L (98-107); CHOL/HDL RATIO 2.8 (3.9-4.7); CHOLESTEROL 118 MD/DL (0-199); CREATININE, SERUM 0.93 mg/dL (0.72-1.25); EST GLOMERULAR FILTRATION RATE > 60 ML/MIN (60-); GLUCOSE 337 mg/dL (74-118); HDL CHOLESTEROL 42 MG/DL (40-60); LDL CHOLESTEROL 68 MG/DL (60-130); POTASSIUM 3.4 mmol/L (3.5-5.1); SODIUM 136 mmol/L (136-145); TRIGLYCERIDES 42 MG/DL (0-149)
[2017-12-24] MEDS: INSULIN LISPRO 100 UNIT/1 ML 3ML VIAL SQ SCH ×7 (08:30→21:10)
[2017-12-24] MEDS ORDERED: CLOPIDOGREL BISULFATE 75 MG TAB PO SCH (09:00)
[2017-12-24] MEDS ORDERED: METOPROLOL TARTRATE 50 MG TAB PO SCH (09:00)
[2017-12-24] MEDS ORDERED: ESCITALOPRAM OXALATE 10 MG TAB PO SCH (09:00)
[2017-12-24] MEDS ORDERED: ASPIRIN 81 MG ENTERIC COATED PO SCH (09:00)
[2017-12-24] MEDS ORDERED: PANTOPRAZOLE SOD 40 MG TABEC PO SCH (09:00)
[2017-12-24] MEDS: LISINOPRIL 20 MG TAB PO SCH (09:20)
[2017-12-24] MEDS: GABAPENTIN 300 MG CAP PO SCH ×3 (09:20→21:33)
[2017-12-24] MEDS: HYDROCHLOROTHIAZIDE 25 MG TAB PO SCH (09:20)
[2017-12-24] MEDS ORDERED: SODIUM CHLORIDE 0.9% 1000ML 1,000 ML IV SCH (09:30)
--- NOTE | 2017-12-24 09:40 | History and Physical ---
Mr. Arroyo is a 77-year-old man with a history of diabetes, coronary artery disease, status post stent, hypertension, hyperlipidemia, depression, who came to the clinic to see me complaining of 2 months of left-sided chest pain on and of that is getting worse and annoying and wakes him up at night. So, the patient was sent to the emergency room for further treatment and workup. PAST MEDICAL HISTORY: He has diabetes, coronary artery disease, status post stent times 4, hypertension, hyperlipidemia, depression. ALLERGIES: NO KNOWN DRUG ALLERGIES. SOCIAL HISTORY: He lives at home with his . He does not smoke and he does not drink. PAST SURGICAL HISTORY: He had appendectomy, left ankle surgery, prostate surgery. PHYSICAL EXAMINATION GENERAL: Today, he is awake and alert. He is feeling a little better. He states the pain woke him up at 3 in the morning. VITALS: Temperature 96.9, blood pressure 181/93. HEART: Regular rate. LUNGS: Clear to auscultation. ABDOMEN: Soft. BLOOD WORK: Potassium 3.4, glucose 313, creatinine is 0.93. Cardiac enzymes have been negative. Cholesterol was 118. Upon admission, he had a chest x-ray done that shows no acute findings. Had a CT of the thoracic spine that shows no acute abnormalities. ASSESSMENT AND PLAN 1. Left-sided chest pain: Rule out angina. 2. Uncontrolled hypertension. 3. Coronary artery disease: Status post stent times 4. 4. Diabetes, type 2 with hyperglycemia. 5. Depression. 6. Hyperlipidemia. PLAN: At the present time, is to admit the patient to the hospital. ADA diet and sliding scale with insulin. Continue his home medications. Continue aspirin 81 mg daily. Continue on statin. He is getting hydrocodone every 6 hours p.r.n. for pain. We are requesting cardiology consult. We continue to monitor blood pressure and adjust blood pressure medications. All this was discussed with the patient. All questions were answered to satisfaction. Job#: [id number] SHAYLA
[2017-12-24] MEDS ORDERED: FENTANYL CITRATE/PF 100MCG/2 ML INJ ONE (10:36)
[2017-12-24] MEDS ORDERED: IOPAMIDOL 370 MG/ML 200 ML INFUS..BTL INJ ONE (10:36)
[2017-12-24] MEDS ORDERED: MIDAZOLAM HCL 2 MG/2 ML VIAL ONE (10:36)
[2017-12-24] MEDS ORDERED: LIDOCAINE HCL 2% LOCAL 20 ML VIAL ONE (10:36)
[2017-12-24] MEDS ORDERED: HEPARIN SOD/SOD CHLORIDE 2,000 ML ONE (10:36)
[2017-12-24] MEDS ORDERED: SODIUM CHLORIDE 0.9% 1000ML 1,000 ML ONE (10:36)
[2017-12-24] MEDS ORDERED: IOPAMIDOL 300MG/ML 100 ML INFUS..BTL IV ONE (11:25)
--- NOTE | 2017-12-24 11:30 | Consultation ---
DATE OF CONSULTATION: December 24, 2017 CARDIOLOGY CONSULTATION REASON FOR CONSULTATION: Chest pain. HPI: This is a 77-year-old male well known to practice with history of CAD, status post PCI most recently in May 2016, hypertension, hyperlipidemia, diabetes, history of stroke with mild left-sided weakness, and reflux. Patient presents to [facility] with complaints of left-sided chest pain. He was at his PCP and continued to have left-sided chest pain so, therefore, he came to the ER for further evaluation. Of note, the patient has been seen in the office on multiple visits. He had an ischemic evaluation in August of this year. He has been on observation. However, the patient continues to have left-sided chest pain. Was suggested to have an EGD and colonoscopy for further evaluation. Patient underwent EGD and colonoscopy on December 19, 2017, which reportedly found some mild gastritis and mild esophagitis. Patient was seen in room with daughter at bedside. Reports the left-sided chest pain is sharp in nature, lasting a few minutes to hours. He went to his PCP yesterday because of the chest pain. At the PCP's office, the patient reports he was having chest pain was told to go to the ER. The patient reports symptoms have become worse in recent weeks. He states the symptoms are more frequent in nature. The patient reports being compliant with his prescriptions. Currently, the patient had an episode of chest pain while I was speaking to the patient. PAST MEDICAL HISTORY 1. CAD, status post PCI to LAD in January 2017. Subsequent PCI to the right posterolateral ventricle and right PDA in May 2016. 2. Hypertension. 3. Diabetes. 4. Peripheral vascular disease. 5. GERD. 6. History of stroke with left-sided weakness. PAST SURGICAL HISTORY 1. Left ankle surgery in 1969. 2. Lumbar laminectomy in 2011. 3. TURP in 2012. 4. Bilateral cataract surgery in 2013. 5. Left shoulder surgery in 2015. FAMILY HISTORY: Mother at age 72. History of hypertension and diabetes. Father is , unknown cause. He has 2 brothers apparently from murders. One from liver cirrhosis. One brother from cancer. HOME MEDICATIONS: Include: 1. Aspirin 81 mg once a day. 2. Plavix 75 mg once a day. 3. Simvastatin 20 mg once a day. 4. Metoprolol 25 mg twice a day. 5. Lisinopril/hydrochlorothiazide 20 and 25 mg once a day. 6. Insulin 70 per 30, 40 units q.a.m. and 35 units q.p.m. 7. Metformin 1,000 mg twice a day. 8. Gabapentin 1,000 mg twice a day. ALLERGIES: NO KNOWN ALLERGIES. REVIEW OF SYSTEMS General: Denies any weight changes, fatigue, weakness, fever, chills, night sweats. Skin: No rashes or bruises. HEENT: No nausea or vomiting. No vision changes. No blurred vision or double vision, vertigo, tinnitus, stuffiness, sneezing, epistaxis. CARDIAC: Positive chest pain as above. Occasional palpitations. Positive for dyspnea on exertion. Denies any orthopnea or PND. RESPIRATORY: Positive for shortness of breath. Denies any wheezing, coughing, any hemoptysis. GI: Good appetite. No nausea, vomiting, hematemesis. : Positive for frequency. Denies any hematuria. VASCULAR: Denies any lower extremity edema. Denies any claudication or varicose veins. MUSCULOSKELETAL: Slight left-sided muscle weakness. Uses a cane for assistance. NEUROLOGIC: Denies any tremors, paralysis, blackouts, seizures. HEMATOLOGY: Denies any anemia, any bruising. ENDOCRINE: Denies any heat or cold intolerance, any polyuria or polydipsia. PHYSICAL EXAMINATION VITALS: Height 68 inches. Weight 202 pounds. Current vital signs are temperature 96.9, pulse 62, respiratory rate 20, blood pressure 181/93. Pulse ox 96% on room air. GENERAL: Appears stated age. Reliable informant. SKIN: No rashes or bruises noted. HEENT: Normocephalic. Pupils are equal and reactive to light. Extraocular motor intact. Trachea is midline. Oral mucosa is pink. NECK: No JVD. No carotid bruit. HEART: Regular rate and rhythm. No murmur. No clicks. PMI in the 4th intercostal space. LUNGS: Bilaterally clear to auscultation. No wheezing. No rales. ABDOMEN: Soft. Nontender, nondistended. MUSCULOSKELETAL: Slight muscle weakness on the left side. VASCULAR: +2 bilateral radial pulses, +1 DP and PT pulses bilaterally. LABS: Sodium 136, potassium 3.4, chloride 103, BUN 20, creatinine 0.9. BNP 66. Troponin 0.05. Hematology: White count 8, hemoglobin 14.2, hematocrit 40, platelets 241. IMAGING: Chest x-ray showing no acute abnormalities. CT scan of chest showing severe right facet arthropathy at C5-C6 with moderate right foraminal stenosis. EKG showing 2nd degree type 1 and 2nd degree type 2. ASSESSMENT 1. Coronary artery disease with chest pain, unstable in nature with increased frequency in the past couple of weeks. 2. Hypertension. 3. Hyperlipidemia. 4. Diabetes. 5. History of cerebrovascular accident with residual left-sided weakness. 6. Gastroesophageal reflux disease. PLAN 1. The patient presents with chest pain ongoing. Reports the chest pain has been getting worse in the past couple of weeks and more intensity and frequency. Long discussion with patient and daughter at bedside regarding options for therapy and management. The patient wishes to proceed with left heart catheterization. Risks and benefits discussed with the patient and daughter at length. The patient, as stated, wants to proceed with left heart catheterization. Continue aspirin, Plavix and statin. Will hold beta elvia for now. On tele, the patient had intermittent 2nd degree type 1 and type 2, heart rates in the 70s. Denies any dizziness, lightheadedness or syncope. 2. Will continue tele monitoring. 3. Further recommendations post left heart catheterization. Seen and evaluated For cath/ PCI if needed, explained to patient and Dictated by: Josh Kamara NP Job#: [id number] BAM
[2017-12-24] MEDS: SODIUM CHLORIDE 0.9% 1000ML 1,000 ML IV SCH ×2 (11:48→21:45)
[2017-12-24] MEDS ORDERED: ACETAMINOPHEN 325 MG TAB PO PRN (12:00)
[2017-12-24] MEDS ORDERED: ONDANSETRON HCL INJ 2 MG/ML VIAL IV PRN (12:00)
--- NOTE | 2017-12-24 14:21 | Operative Report ---
DATE OF PROCEDURE: December 24, 2017 PROCEDURES PERFORMED 1. Left heart cardiac catheterization with coronary angiography. 1. Left ventriculography. INDICATION FOR PROCEDURE: A 77-year-old gentleman with a history of hypertension, hypercholesterolemia, type 2 diabetes, coronary artery disease with a prior history of PCI to the LAD as well as the RCA, who presents to this institution with chest pain at rest concerning for unstable angina pectoris. Patient had, of note, recent GI evaluation without any clear-cut source of his complaints within the past week. In light of his presenting symptoms and recent ischemic risk stratification a couple months ago, we decided to proceed with definitive ischemic evaluation due to this ongoing complaint. DESCRIPTION OF PROCEDURE: After risks, benefits, pros and cons of today's procedure were explained, patient agreed to proceed. Patient was brought to the cardiac catheterization laboratory where the right groin was prepped and draped in the usual sterile fashion. Lidocaine 1% solution was used to numb the right groin region. Access to the right femoral artery was obtained, and a 4-Albanian femoral sheath was placed. Selective coronary angiography of the [place] left and right coronary arteries was performed with a JL-4 and 3DRC diagnostic catheters respectively. An angled pigtail catheter was placed into the ventricle for ventriculography and hemodynamics assessment and ventricular filling pressures. After noting unchanged coronary anatomy from his previous heart catheterization in May of 2016, we decided to conclude the case. The 4-Albanian femoral sheath was then removed, and manual compression was applied successfully, achieving hemostasis. COMPLICATIONS: None. ESTIMATED BLOOD LOSS: Minimal. FINDINGS 1. The left main is angiographically normal and gives rise to an LAD and circumflex branch. 2. The LAD has a 40% proximal stenosis and gives rise to a midsegment LAD stent that jails the 1st diagonal branch with 30% in-segment restenosis. There is a distal LAD stent with 40% in-segment restenosis. The 1st diagonal branch is a small to moderate caliber vessel with 80% mid stenosis. Again, this is a jailed vessel and, hence, will not be revascularized. 3. The left circumflex artery gives rise to a small OM 1, a moderate caliber OM2 and moderate caliber OM3 which is a posterolateral marginal branch. Mid OM2 there is a 60% focal stenosis in its midsegment. 4. The RCA is dominant, quite large, gives rise to a right PDA and 2 large right PLV branches. There is a 40% mid RCA stenosis. The proximal right PDA and proximal right PLV branch stents are widely patent. The remainder of this vessel has just mild luminal irregularities. 5. The left ventricular ejection fraction is 60% with end-diastolic pressure of 20 mmHg. There is no significant LV to aortic pullback gradient. PLAN/RECOMMENDATIONS 1. Overall, patient's coronary anatomy is unchanged from May of 2016. His right PDA and right PLV branch stents are widely patent, and his LAD stents are with just mild in-stent restenosis. The OM2 branch stenosis at 60% is moderate with largely unchanged severity. 2. Will recommend just aggressive risk-factor modification medical therapy. 3. Will need to entertain alternative causes of chest pain symptoms. 4. Five-hour bed rest post cardiac catheterization today. Job#: [id number] EV
[2017-12-24] MEDS ORDERED: PANTOPRAZOLE SOD 40 MG TABEC PO PRN (16:45)
[2017-12-24] MEDS ORDERED: ESCITALOPRAM OXALATE 10 MG TAB PO PRN (16:45)
--- NOTE | 2017-12-24 17:28 | Consultation ---
DATE OF CONSULTATION: December 24, 2017 REASON FOR CONSULTATION: Left-sided chest pain. HISTORY OF PRESENT ILLNESS: Patient is a 77-year-old man who is well known to me status post lumbar laminectomy several years ago with good results. He now presents with a 3 month history of left-sided chest and shoulder pain. He also has had chronic neck pain for at least a year. The neck pain is exacerbated by neck extension and neck tilt to the left. He denies any radiating pain down the arm or numbness in the arms. He does, however, say that his gait has become progressively more unstable over the past year. He has been using a cane for several years and walker intermittently for the past year. He has undergone a full workup including a GI workup which has been negative. Today, he had a cardiac cath which did not reveal any severe disease that would account for his left-sided chest pain. CT of the thoracic spine revealed cervical spondylosis. An MRI of the cervical spine was performed today which is described below. PHYSICAL EXAMINATION: GENERAL: The patient is alert and oriented with intact memory and fluent speech. Cranial nerves are intact. Motor strength is mildly diminished in the deltoid, graded as 4/5. Sensory testing reveals no sensory level. Deep tendon reflexes are 1+ and symmetric throughout. Plantar responses are equivocal on the left and flexor on the. NECK: Limited range of motion and pain is provoked by neck extension and neck tilt to the left. EXTREMITIES: The Spurling test is positive on the left. Gait is mildly unstable. MRI of the cervical spine was reviewed. 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 He has developed C4-5 spondylolisthesis with a broad-based disk herniation eccentric to the left which produces severe spinal stenosis. worse on the left than on the right. The left side of the cord and the left C5 nerve root are flattened, likely responsible for the left C5 radiculopathy that accounts for his left-sided neck and upper chest pain. RECOMMENDATIONS: I recommend C4-5 anterior cervical diskectomy, Allograft fusion, and plating. We will plan to proceed with surgery on . Please keep him off Plavix until then. I have reviewed the patient's MRI with him and his daughter. I have gone over the operation and its risks and benefits and alternatives. Specifically, I have gone over the risk of infection, bleeding, nerve root injury, cerebrospinal fluid leakage, graft nonfusion, hardware failure, recurrent laryngeal nerve palsy, swallowing problems and the possibility of persistent pain. He fully understands all of these issues and gives informed consent to proceed with surgery. Job#: [id number]
[2017-12-24] MEDS ORDERED: OMEPRAZOLE40 MG PO (18:38)
[2017-12-24] MEDS: ATORVASTATIN 40 MG TAB PO SCH (21:33)
[2017-12-24] MEDS: TRESIBA 30 UNIT SC SCH (21:33)
[2017-12-25] VITALS (8 sets, daily range): BP systolic 147–198; BP diastolic 80–97
[2017-12-25] MEDS: ENALAPRILAT IV INJ 1.25 MG/ML VIAL IV PRN ×2 (05:50→12:07)
[2017-12-25 06:11] LABS: BASOPHILS % 0.3 % (0.0-1.0); EOSINOPHILS # (AUTO) 0.2 (0.0-0.4); EOSINOPHILS % 1.9 % (0.0-6.0); HEMATOCRIT 35.2 % (38.2-49.6); HEMOGLOBIN 12.1 g/dL (14.0-18.0); LYMPHOCYTES # (AUTO) 2.1 (1.0-3.2); LYMPHOCYTES % 23.7 % (18.0-39.1); MEAN CORPUSCULAR HEMOGLOBIN 30.1 pg (28-32); MEAN CORPUSCULAR HGB CONC 34.4 g/dL (31-35); MEAN CORPUSCULAR VOLUME 87.6 fL (81-99); MONOCYTES # (AUTO) 0.8 (0.2-0.8); MONOCYTES % 8.8 % (4.4-11.3); NEUTROPHILS # (AUTO) 5.8 (2.1-6.9); PLATELET COUNT 193 x10e3/uL (140-360); RED BLOOD COUNT 4.02 x10e6/uL (4.3-5.7); RED CELL DISTRIBUTION WIDTH 13.2 % (11.7-14.4)
[2017-12-25 06:13] LABS: ALANINE AMINOTRANSFERASE 16 IU/L (0-55); ALBUMIN 2.8 g/dL (3.5-5.0); ALBUMIN/GLOBULIN RATIO 0.9 (0.8-2.0); ALKALINE PHOSPHATASE 62 IU/L (40-150); ANION GAP 11.5 mmol/L (8-16); BLOOD UREA NITROGEN 17 mg/dL (7-26); BUN/CREATININE RATIO 21 (6-25); CALCIUM 8.8 mg/dL (8.4-10.2); CARBON DIOXIDE 27 mmol/L (22-29); CHLORIDE 101 mmol/L (98-107); CREATININE, SERUM 0.81 mg/dL (0.72-1.25); EST GLOMERULAR FILTRATION RATE > 60 ML/MIN (60-); GLUCOSE 219 mg/dL (74-118); POTASSIUM 3.5 mmol/L (3.5-5.1); SODIUM 136 mmol/L (136-145)
[2017-12-25] MEDS: SODIUM CHLORIDE 0.9% 1000ML 1,000 ML IV SCH (07:48)
[2017-12-25] MEDS: INSULIN LISPRO 100 UNIT/1 ML 3ML VIAL SQ SCH ×7 (08:30→22:00)
--- NOTE | 2017-12-25 08:33 | Consultation ---
DATE OF CONSULTATION: December 24, 2017 PSYCHIATRIC CONSULTATION REASON FOR CONSULTATION: Evaluate the patient's mood. HISTORY OF PRESENT ILLNESS: The patient is a 77-year-old male admitted to the hospital for chest pain. Psychiatric consultation is called to evaluate the patient's mood. As per medical record, the patient has a history of diabetes, coronary artery disease, status post stent, hypertension, hyperlipidemia, depression. The patient is admitted to the hospital for chest pain. Upon evaluation today, the patient is found to be in the room with his daughter. He is alert, awake and oriented to situation. The patient denies depression or anxiety. He does make comments randomly. He denies any hallucinations. He denies any suicidal or homicidal ideation. He denies any problems with sleep or appetite. He is evasive regarding the reason why he is seen by a psychiatrist. [facility] Denies any history of PTSD or taking any medications for psychiatry. As per the daughter, the patient was in the room while provider was not there. He made a statement about wanting to shoot himself. Daughter states that the patient does not mean it. This is his personality, and he has been doing this for many years as per the daughter. The patient does not own a gun as per the daughter. Daughter states that the patient has never attempted suicide. This is also confirmed by the patient. Daughter understands that because of his statement psychiatry was consulted to rule out any depression. The patient states he does not want any medication extra. PAST PSYCHIATRIC HISTORY: The patient denies any past psychiatric history, although in the note he does have a history of depression. He denies past suicide attempts. He denies alcohol or drug use. FAMILY HISTORY: Denied. SOCIAL HISTORY: States he lives with his and granddaughter. CURRENT MEDICATIONS 1. Insulin. 2. Sodium. 3. Hydrochlorothiazide. 4. Lisinopril. 5. Neurontin 300 mg p.o. 3 times a day. 6. Clopidogrel. 7. Enalapril. 8. Atorvastatin. 9. Pantoprazole. 10. Lexapro 10 mg p.o. daily. 11. Aspirin. 12. Ondansetron. 13. Hydrocodone. 14. Dextrose. CURRENT LABS: WBC is 8.46, RBC 4.28, hemoglobin 12.9, hematocrit is 36.7, and platelets 206,000. Potassium 3.4, creatinine is 0.93 and BUN is 2. ASSESSMENT: Adjustment disorder with mixed mood. PLAN: Continue with Lexapro 10 mg p.o. daily. Continue with Neurontin 300 mg p.o. 3 times a day. Monitor for mood. Supportive therapy. Discussed with family members. Discussed with nursing staff. Thank you for this consultation. DICTATED BY MARLEN LION Job#: [id number] SHAYLA
--- NOTE | 2017-12-25 09:15 | Progress Note ---
DATE: December 25, 2017 Mr. Arroyo is a 77-year-old man with a history of diabetes, coronary artery disease, status post stent, hypertension, hyperlipidemia, depression. He came to the emergency room complaining of a 2-month history of left-sided chest pain that wakes him up at night. He had an angiogram done yesterday where he had a stent. It did not show much change. He was seen by neurosurgeon because of cervical spinal stenosis. He is going for a surgical procedure tomorrow. PHYSICAL EXAMINATION GENERAL: Today, he is awake and alert. VITALS: Temperature 96.4, blood pressure 185/96. HEART: Regular rate. LUNGS: Clear to auscultation. ABDOMEN: Soft. BLOOD WORK: White count 8.9, hemoglobin 12.1, hematocrit 35.2. Glucose 183. Cervical spine MRI is pending. ASSESSMENT AND PLAN 1. Left-sided chest pain. 2. Uncontrolled hypertension. 3. Coronary artery disease, status post stent. 4. Diabetes, type 2, with hyperglycemia. 5. Depression. 6. Hyperlipidemia. 7. Spinal stenosis of the cervical spine. PLAN: At the present time, continue ADA diet. Continue aspirin and statin. The patient was seen already by straw boss. He is going to go for a laminectomy tomorrow morning. The plan is to discharge him home on Saturday if stable. All of this was discussed with the patient, and all questions were answered to satisfaction. Job#: [id number]
[2017-12-25] MEDS: LISINOPRIL 20 MG TAB PO SCH (09:35)
[2017-12-25] MEDS: HYDROCHLOROTHIAZIDE 25 MG TAB PO SCH (09:35)
[2017-12-25] MEDS: GABAPENTIN 300 MG CAP PO SCH ×2 (09:35→22:00)
--- NOTE | 2017-12-25 10:50 | Diagnostic Imaging Report ---
History: Neck pain Comparison studies: None Technique: Sagittal T1, T2 and IR, axial T2 and axial gradient echo Intravenous contrast: None Findings: Alignment: Straightening of the cervical spine lordosis. Grade 1 anterolisthesis of C4 over C5 (4 mm). No scoliosis. Cervicomedullary junction: No abnormalities. Patent foramen magnum. Soft tissues: No T2 hyperintense inflammatory changes. Spinal cord: Increased signal at the right lateral cord with associated volume loss at C4-5, the remaining signal intensity of the spinal cord appears normal down to T4. Vertebrae: Normal in height and signal intensity. No fractures, infection or neoplasm. Degenerative changes: C2-C3: Disc degeneration with loss of T2 signal. Moderate right facet hypertrophy without significant canal stenosis and moderate right foraminal narrowing. Bone marrow edema at the right facet joint C3-C4: Disc degeneration with loss of T2 signal. Central disc osteophyte complex, bilateral uncinate process hypertrophy, moderate right and mild left facet hypertrophy results in mild canal stenosis, moderate right and mild left foraminal narrowing. Bone marrow edema at the right facet joint C4-C5: Disc degeneration with low T2 signal and decreased intervertebral space. Central disc osteophyte complex, intermittently thickening, uncinate process and facet hypertrophy results in severe central canal stenosis, severe right and moderate left foraminal narrowing C5-C6: Fused intervertebral disc. Right uncinate process hypertrophy without significant canal stenosis and mild right foraminal narrowing C6-C7: Disc degeneration with loss of T2 signal. Bilateral uncinate process and facet hypertrophy results in no significant canal stenosis and mild bilateral foraminal narrowing C7-T1: Disc degeneration with loss of T2 signal. Uncinate process and facet hypertrophy results in no significant canal stenosis and mild bilateral foraminal narrowing IMPRESSION: 1. Severe canal stenosis, severe right and moderate left foraminal narrowing at C4-5 secondary to degenerative changes and grade 1 anterolisthesis. Spinal cord signal intensity changes at this level with associated volume loss, likely related to myelomalacia 2. Multilevel degenerative foraminal narrowing, moderate right at C2-C3, moderate right and mild left at C3-4, mild right at C5-6, mild bilateral at C6-7 and C7-T1. 3. Diffuse disc degeneration more significant at C4-5 without Modic type I changes. Moderate right facet hypertrophy at C2-3 and C3-4 with associated bone marrow edema Signed by: DR Alvin Jean M.D. on 12/25/2017 10:47 AM
[2017-12-25] MEDS ORDERED: LORAZEPAM 0.5 MG TAB PO PRN (14:00)
--- NOTE | 2017-12-25 14:43 | Progress Note ---
DATE: December 25, 2017 PSYCHIATRIC PROGRESS NOTE Vital signs and meds reviewed. Patient is not in his room. He is alert, awake and oriented to situation. He states he is feeling fair. He continues to complain of pain. He denies any depression or anxiety. He denies any hallucinations. He is getting Lexapro for depression and anxiety. He denies any problem with medications. ASSESSMENT: Adjustment disorder with mixed mood. PLAN 1. Discontinue Lexapro p.r.n. 2. Continue Neurontin 300 mg p.o. 3 times a day. 3. Add Cymbalta 20 mg p.o. daily. 4. Add Ativan 0.5 mg p.o. q.6 h. p.r.n. for anxiety as the patient is getting p.r.n. for anxiety. 5. Supportive therapy. 6. Monitor for mood. Dictated by: MARLEN Agarwal Job#: [id number]
[2017-12-25] MEDS: ATORVASTATIN 40 MG TAB PO SCH (22:00)
[2017-12-25] MEDS: TRESIBA 30 UNIT SC SCH (22:00)
[2017-12-26] MEDS: HYDROCODONE/APAP 5MG-325MG TAB PO PRN ×2 (00:21→21:35)
[2017-12-26 04:00] VITALS: BP 180/97
[2017-12-26] MEDS: ENALAPRILAT IV INJ 1.25 MG/ML VIAL IV PRN (05:20)
[2017-12-26] MEDS ORDERED: BUPIVACAINE 0.5%/EPI 30 ML SDV INJ ONE (06:07)
[2017-12-26] MEDS ORDERED: GELATIN SPONGE 12-7MM ONE (06:07)
[2017-12-26] MEDS ORDERED: BACITRACIN 50,000 UNIT VIAL ONE (06:07)
[2017-12-26] MEDS ORDERED: LIDOCAINE HCL (LTA) 4 ML SOLN ONE (07:26)
[2017-12-26] MEDS ORDERED: ACETAMINOPHEN 1000 MG/100 ML 100 ML IV ONE (07:26)
[2017-12-26] MEDS: INSULIN LISPRO 100 UNIT/1 ML 3ML VIAL SQ SCH ×7 (07:30→21:58)
[2017-12-26] MEDS ORDERED: THROMBIN-JMI W/DIL SPRAY PUMP ACTUATOR 20000 UNIT KIT ONE (07:45)
[2017-12-26 08:03] VITALS: BP 170/88
[2017-12-26] MEDS: LACTATED RINGER'S 1,000 ML IV SCH ×2 (09:01→15:24)
[2017-12-26] MEDS ORDERED: MORPHINE SULFATE 5 MG/ML VIAL IM PRN (09:15)
[2017-12-26] MEDS ORDERED: OXYCODONE/ACETAMINOPHEN 5-325 1 EACH TABLET PO PRN (09:15)
[2017-12-26] MEDS ORDERED: CEPACOL SORE THROAT LOZENGES PO PRN (09:15)
[2017-12-26] MEDS ORDERED: MAGNESIUM/ALUMINUM/SIMETHICONE 30 ML UDC PO PRN (09:15)
[2017-12-26] MEDS ORDERED: ONDANSETRON HCL INJ 2 MG/ML VIAL IV PRN (09:15)
[2017-12-26] MEDS ORDERED: CARISOPRODOL 350 MG TAB PO PRN (09:15)
[2017-12-26] MEDS ORDERED: PROMETHAZINE HCL (IM) 25 MG/ML VIAL IM PRN (09:15)
[2017-12-26] MEDS ORDERED: ACETAMINOPHEN 325 MG TAB PO PRN (09:15)
[2017-12-26] MEDS ORDERED: HYDROMORPHONE 2MG/ML 2 MG/ML ML IV PRN (09:15)
--- NOTE | 2017-12-26 09:23 | Progress Note ---
DATE: December 26, 2017 Mr. Arroyo is a 77-year-old man with a history of diabetes, coronary artery disease, status post stent, hypertension, hyperlipidemia, depression, sent to the emergency room with a 2-month history of chest pain that wakes him up at night, and is making him very agitated and upset. He has been seen by cardiology. He had an angiogram done that does not show any new blockages. CT scan showed spinal stenosis. Neurosurgery consult was requested with Dr. Naranjo. The patient is going to go for surgery today. PHYSICAL EXAMINATION GENERAL: He is awake and alert. VITALS: Temperature is 96.1, blood pressure 170/88. HEART: Regular rate. LUNGS: Clear to auscultation. ABDOMEN: Soft. BLOOD WORK: White count 8.9, hemoglobin 12.5, hematocrit 35.2. Glucose is 75. Urine did not show any white cells. Cervical spine MRI showed severe canal stenosis narrowing at C4-C5 secondary to degenerative changes. PLAN: At the present time with this patient is he is going to go for surgery today. He is going to have a diskectomy, allograft fusion and plating. We are going to continue all his heart medications. Continue ADA diet. Sliding scale with insulin. If stable, the patient probably will be discharged home tomorrow. Job#: [id number] SHAYLA
[2017-12-26] MEDS ORDERED: MORPHINE SULFATE 2 MG/ML SYR ONE ×2 (10:55→11:04)
[2017-12-26] MEDS: LISINOPRIL 20 MG TAB PO SCH (11:24)
[2017-12-26] MEDS: DULOXETINE HCL 20 MG DELAYED RELEASE PO SCH (11:24)
[2017-12-26] MEDS: HYDROCHLOROTHIAZIDE 25 MG TAB PO SCH (11:24)
[2017-12-26] MEDS: GABAPENTIN 300 MG CAP PO SCH ×2 (11:24→21:46)
[2017-12-26 12:21] VITALS: BP 166/91
--- NOTE | 2017-12-26 12:29 | Operative Report ---
DATE OF PROCEDURE: December 25, 2017 PREOPERATIVE DIAGNOSIS: C4-5 spondylosis and spondylolisthesis with left C5 radiculopathy, M50.121. POSTOPERATIVE DIAGNOSIS: C4-5 spondylosis and spondylolisthesis with left C5 radiculopathy, M50.121. PROCEDURES: 1. C4-5 anterior cervical diskectomy and microsurgical osteophyte resection and allograft fusion, 95704. 2. Preparation of [employer] cortical cancellous allograft, 78432. 3. C4-5 anterior cervical plating with Synthes Zero-Profile Natural plate, [id number]. ANESTHESIA: General. INDICATIONS: The patient is a man who presents with left C5 radiculopathy due to C4-5 spondylosis and grade 1 spondylolisthesis producing central and bilateral foraminal stenosis, worse on the left. He was taken to the operating room for anterior cervical decompression and fusion. PROCEDURE: After induction of general anesthesia, the patient was placed on the operating table in the supine position. The right side of the neck was prepped and draped in sterile fashion, and a small transverse incision was created on the right side of the neck, superimposed on the C4-5 disk space as determined by fluoroscopy. The platysma was divided in line with the incision, and a subplatysmal dissection was carried out. An avascular plane of dissection was developed medial to the sternocleidomastoid muscle and was followed medial to the carotid sheath to the anterior border of the cervical spine. The deep cervical fascia was opened. The esophagus was retracted to the left. The attachments of longus coli muscles to the anterior lateral aspects of vertebral bodies of C4 and C5 were divided. The anterior longitudinal ligament was resected. [place] posts were inserted into C4 and C5. The [place] distractor was used to distract the disk space. The anterior annulus of the disk was incised with a number 11 blade. The contents of the disk were thoroughly evacuated with angled curets and pituitary rongeurs. The posterior osteophytes were meticulously drilled with a 2 mm cutting bur on a high-speed drill until they were completely removed. The posterior annulus of the disk, herniated disk material, and the posterior longitudinal ligament were resected layer by layer until the dura was fully exposed and decompressed. The medial aspects of the uncinate processes were resected bilaterally to further expose and decompress the origins of the corresponding nerve roots. After a satisfactory decompression had been achieved, the endplates were prepared for fusion. A piece of MTF cortical cancellous allograft measuring 9 mm in height was selected and prepared in saline and loaded onto a Synthes ZPN plate. The construct was inserted into the C4-5 disk space under distraction and fluoroscopic guidance and tamped in place until the anterior margin of the plate was flush with the anterior margin of vertebral bodies. The plate was then screwed to the endplates of C4 and C5 with 2 pairs of 14 mm screws. All screws were locked. An excellent construct was obtained. The wound was copiously irrigated with Bacitracin solution. Meticulous hemostasis was secured. The retractor was removed. The platysma was closed with 3-0 Vicryl sutures. The skin was closed with 4-0 Monocryl sutures in a subcuticular fashion. Steri-Strips and a dressing were applied. The patient was awakened, extubated, and taken to the postanesthesia care unit in stable condition. No intraoperative complications were encountered. Estimated blood loss was 20 mL. Job#: [id number] EV
[2017-12-26 12:36] VITALS: BP 166/91
[2017-12-26] MEDS ORDERED: FENTANYL CITRATE/PF 100MCG/2 ML INJ ONE (12:41)
[2017-12-26] MEDS ORDERED: MIDAZOLAM HCL 2 MG/2 ML VIAL ONE (12:41)
[2017-12-26] MEDS ORDERED: CEFAZOLIN SOD 1 GM/D5W 50ML 50 ML IV SCH (14:00)
[2017-12-26] MEDS: CEFAZOLIN SOD 1 GM VIAL IV SCH ×2 (14:08→21:47)
[2017-12-26 16:12] VITALS: BP 117/87
[2017-12-26 20:00] VITALS: BP 158/91
[2017-12-26] MEDS ORDERED: ZOLPIDEM TARTRATE 5 MG TAB PO PRN (21:00)
[2017-12-26] MEDS: ATORVASTATIN 40 MG TAB PO SCH (21:46)
[2017-12-26] MEDS: TRESIBA 30 UNIT SC SCH (21:58)
[2017-12-27] VITALS: BP 161/93
[2017-12-27] MEDS: LACTATED RINGER'S 1,000 ML IV SCH ×2 (01:41→10:01)
[2017-12-27 04:00] VITALS: BP 172/96
[2017-12-27] MEDS: CEFAZOLIN SOD 1 GM VIAL IV SCH (05:40)
[2017-12-27] MEDS: HYDROCODONE/APAP 5MG-325MG TAB PO PRN (05:44)
[2017-12-27] MEDS: INSULIN LISPRO 100 UNIT/1 ML 3ML VIAL SQ SCH ×4 (07:30→12:39)
[2017-12-27] MEDS ORDERED: PANTOPRAZOLE SOD 40 MG TABEC PO SCH (07:30)
[2017-12-27] MEDS: DULOXETINE HCL 20 MG DELAYED RELEASE PO SCH (09:38)
[2017-12-27] MEDS: HYDROCHLOROTHIAZIDE 25 MG TAB PO SCH (09:38)
[2017-12-27] MEDS: GABAPENTIN 300 MG CAP PO SCH (09:38)
[2017-12-27] MEDS: LISINOPRIL 20 MG TAB PO SCH (09:39)
[2017-12-27] MEDS: ENALAPRILAT IV INJ 1.25 MG/ML VIAL IV PRN (09:39)
[2017-12-27] MEDS ORDERED: MAGNESIUM HYDROXIDE 30 ML UDC PO ONE (09:45)
[2017-12-27 10:09] VITALS: BP 197/96
[2017-12-27] MEDS ORDERED: NORCO 7.5-3251 EACH PO (10:32)
[2017-12-27 10:59] VITALS: BP 197/96
[2017-12-27] MEDS ORDERED: CYMBALTA20 MG PO (12:21)
[2017-12-27] MEDS ORDERED: PROPOFOL IV EMULSION 10 MG/ML 20 ML VIAL IV ONE (12:29)
[2017-12-27] MEDS ORDERED: GLYCOPYRROLATE INJ 1MG/ 5 ML SYR IV ONE (12:29)
[2017-12-27] MEDS ORDERED: ROCURONIUM BROMIDE 10 MG/ML 5ML VIAL IV ONE (12:29)
[2017-12-27] MEDS ORDERED: LIDOCAINE HCL 2% LOCAL INJ 5 ML SDV VIAL INJ ONE (12:29)
[2017-12-27] MEDS ORDERED: ONDANSETRON HCL INJ 2 MG/ML VIAL IV ONE (12:29)
[2017-12-27] MEDS ORDERED: SEVOFLURANE INHAL SOLN 250 ML PEN BTL INH ONE (12:29)
[2017-12-27] MEDS ORDERED: NEOSTIGMINE 1 MG/ML 10ML VIAL IV ONE (12:29)
[2017-12-27] MEDS ORDERED: DEXAMETHASONE SOD PHOS INJ 4 MG/ML VIAL IV ONE (12:29)
--- NOTE | 2017-12-27 12:35 | Diagnostic Imaging Report ---
PROCEDURE: X-RAY CERVICAL SPINE, TWO VIEWS COMPARISON:MRI of cervical spine dated 12/24/2017 INDICATIONS:POST CERVICAL SPINE SURGERY FINDINGS: See conclusion. CONCLUSION: AP and lateral views of the cervical spine from the skull base to C7 show anterior cervical spine surgical fusion from C4-C5 with an intervertebral body disc spacer. There is anterior subluxation of C4 on C5 that was present on the prior MRI. Complete fusion of C5-C6 is noted that is old. The visualized vertebral bodies are well-aligned. There is mild pre-vertebral soft-tissue swelling consistent with recent surgery. Ervin Ruvalcaba D.O. Dictated by: Ervin Ruvalcaba D.O. on 12/27/2017 at 12:44 Electronically approved by: Ervin Ruvalcaba D.O. on 12/27/2017 at 12:44
--- NOTE | 2017-12-27 14:44 | Discharge Summary ---
HISTORY/HOSPITAL COURSE: Mr. Arroyo is a 77-year-old man with history of diabetes, coronary artery disease status post stent, hypertension, hyperlipidemia, depression. Sent to the emergency room with 2 months' history of chest pain radiated to the back. Patient was not able to sleep. He was found to have a compression of cervical spine, spinal stenosis in the cervical area. He was seen by Dr. Naranjo. He underwent surgery yesterday, and the plan is to discharge him today if it is okay with Dr. Naranjo. PHYSICAL EXAMINATION GENERAL: He is awake and alert. VITAL SIGNS: Temperature 96.3. Blood pressure 172/96. HEART: Regular rate. LUNGS: Clear to auscultation. ABDOMEN: Soft. BLOOD WORK: Hemoglobin 12.1, hematocrit 35.2. Glucose 235. X-RAY: Still pending. DISCHARGE DIAGNOSES 1. Left-sided chest pain secondary to spinal stenosis status post surgery. 2. Uncontrolled hypertension. 3. Coronary artery disease status post stent. 4. Diabetes type 2 with hyperglycemia. 5. Depression. 6. Hyperlipidemia. PLAN AT THE PRESENT TIME: Patient underwent surgery yesterday. He is going for an x-ray today. If he is stable and okay with Dr. Naranjo, patient is going to be able to go home. Continue ADA diet. Continue aspirin and statins and continue all other home medications. Follow up with me in 1 week. All this was discussed with . Her questions were answered to satisfaction. Please see home medication reconciliation list. SERGO MUHAMMAD MD Job#: [id number] EV
[2017-12-27 14:57] VITALS: BP 157/86
[2017-12-28] MEDS ORDERED: DOCUSATE SODIUM 100 MG CAP PO SCH (09:00)
--- NOTE | 2017-12-30 11:34 | Progress Note ---
DATE: December 26, 2017 PSYCHIATRIC PROGRESS NOTE Patient evaluated and events noted. Patient is in the room. He is alert, awake and oriented to situation. He states he is doing well. He denies depression or anxiety. He states he had surgery. He denies any suicidal ideation. He denies any side effects of medication. ASSESSMENT: Adjustment disorder with mixed mood. PLAN 1. Continue Cymbalta 20 mg p.o. daily. 2. Continue Ambien 5 mg p.o. nightly p.r.n. 3. Monitor for mood. 4. Continue Neurontin 300 mg p.o. q.12 h. 5. Supportive therapy. Dictated by: MARLEN Agarwal Job#: [id number]
--- NOTE | 2017-12-30 12:17 | Progress Note ---
DATE: December 27, 2017 PSYCHIATRIC PROGRESS NOTE Patient evaluated and events noted. Patient is in the room. He is alert, awake and oriented to situation. He states he is doing better. He denies depression or anxiety. He denies any hallucinations. He denies any issues, appetite issues. He denies side effects of medications. ASSESSMENT: Adjustment disorder with mixed mood. PLAN 1. Continue Cymbalta. 2. Continue Neurontin. 3. Continue Ambien p.r.n. 4. Supportive therapy. Dictated by: MARLEN Agarwal Job#: [id number] GH
== END 2017-12-27 13:30 | disposition home or self-care (01) | DRG 472 ==
LOC: ER 13:11 → ERHOLD 15:30 → INTOOBSV 15:30 → MED/SURG 20:20 → OBSVTOIN 12-26 14:34
PROVIDERS: ADMIT Internal Medicine; ATTEND Internal Medicine
PROC: 4A023N7 Measurement of Cardiac Sampling and Pressure, Left Heart, Percutaneous Approach (ICD-10-PCS; 2017-12-24)
PROC: B2111ZZ Fluoroscopy of Multiple Coronary Arteries using Low Osmolar Contrast (ICD-10-PCS; 2017-12-24)
PROC: B2151ZZ Fluoroscopy of Left Heart using Low Osmolar Contrast (ICD-10-PCS; 2017-12-24)
PROC: 0RG10K0 Fusion of Cervical Vertebral Joint with Nonautologous Tissue Substitute, Anterior Approach, Anterior Column, Open Approach (ICD-10-PCS; 2017-12-26)
PROC: 0RB30ZZ Excision of Cervical Vertebral Disc, Open Approach (ICD-10-PCS; principal; 2017-12-26 08:30)
DX: M50.121 Cervical disc disorder at C4-C5 level with radiculopathy (principal); I69.354 Hemiplegia and hemiparesis following cerebral infarction affecting left non-dominant side; M47.22 Other spondylosis with radiculopathy, cervical region; M43.12 Spondylolisthesis, cervical region; M48.02 Spinal stenosis, cervical region; I25.10 Atherosclerotic heart disease of native coronary artery without angina pectoris; Z95.5 Presence of coronary angioplasty implant and graft; E11.65 Type 2 diabetes mellitus with hyperglycemia; E11.51 Type 2 diabetes mellitus with diabetic peripheral angiopathy without gangrene; I10 Essential (primary) hypertension; E78.5 Hyperlipidemia, unspecified; F43.23 Adjustment disorder with mixed anxiety and depressed mood; K21.9 Gastro-esophageal reflux disease without esophagitis; E87.6 Hypokalemia; Z83.3 Family history of diabetes mellitus; Z82.49 Family history of ischemic heart disease and other diseases of the circulatory system; Z80.9 Family history of malignant neoplasm, unspecified; Z84.89 Family history of other specified conditions; Z79.02 Long term (current) use of antithrombotics/antiplatelets; Z79.82 Long term (current) use of aspirin; Z79.4 Long term (current) use of insulin
CPT/HCPCS: 36415; 71045; 72040; 72128; 72141; 77003; 80048; 80053; 80061; 81001; 82550; 82553; 82948; 83880; 84443; 84484; 85025; 85610; 85730; 88304; 93005; 93458; 96361; 96372; 99284; C1713; C1766; C9359; G0378; J0690; J1100; J1885; J2001; J2250; J2270; J2405; J2710; J7030; J7120; Q9967

== ENCOUNTER → 2018-02-05 | Outpatient (CLI) | payer OTHER, MEDICARE ==
[~2018-02-05] MED LIST changes: +ATORVASTATIN CA40 MG PO; +CYMBALTA20 MG PO; +HUMALOG100 UNIT/3 SC; +NORCO 7.5-3251 EACH PO; +OMEPRAZOLE40 MG PO; +PANTOPRAZOLE SO40 MG PO; +TRESIBA SC
--- NOTE | 2018-02-05 14:48 | Diagnostic Imaging Report ---
Exam: Left breast ultrasound History: Pain in the lower aspect of the left breast Comparison: None available Findings: Real-time scanning of the left breast was performed in all four quadrants and the retroareolar region. There is no cystic or solid mass. Impression: Normal breast ultrasound. Signed by: Dr. Ervin Ruvalcaba DO on 02/05/2018 2:45 PM
== END ==
LOC: US 13:17
PROVIDERS: ATTEND Internal Medicine
DX: N64.4 Mastodynia (principal); R07.9 Chest pain, unspecified

== ENCOUNTER 2018-07-11 12:09 | Observation (INO) | payer OTHER, MEDICARE ==
[~2018-07-11] VITALS: Ht 172.7 cm; Wt 95.0 kg
--- OUTSIDE RECORDS SUMMARY | 2018-07-11 12:13 | XMS REPORT | Clinical Summary ---
Author Author [facility] Organization [facility] Address Unknown Phone Unavailable Care Team Providers Care Shell Molder Name Role Phone Caroline Virgen MD PCP Allergies No Known Allergies Medications End Date Status Medication Sig Dispensed Refills Start Date Active clopidogrel (PLAVIX) 75 Take 75 mg by 1 mg tablet mouth every 7 morning. Active gabapentin (NEURONTIN) Take 300 mg 1 300 mg capsule by mouth 2 7 (two) times a day. Active lisinopril-hydrochlorothi Take 1 tablet 1 azide by mouth 7 (PRINZIDE,ZESTORETIC) every 20-25 mg per tablet morning. Active metFORMIN (GLUCOPHAGE) Take 1,000 mg 1 1,000 mg tablet by mouth 2 7 (two) times a day. Active metoprolol tartrate Take 25 mg by 1 (LOPRESSOR) 25 mg tablet mouth every 7 morning. Active LANTUS SOLOSTAR 100 Inject 30 1 unit/mL injection (pen) Units under 7 the skin every evening. Active simvastatin (ZOCOR) 20 MG Take 20 mg by 0 tablet mouth nightly. Active insulin ASPART (NovoLOG) Inject 15 0 100 unit/mL injection Units under the skin 3 (three) times a day before meals. Active Problems Problem Noted Date Diabetic ketoacidosis without coma associated with type 1 diabetes mellitus 11/28/2016 Social History Date Tobacco Use Types Packs/Day Years Used Former Smoker Cigarettes Alcohol Use Drinks/Week oz/Week Comments No Sex Assigned at Date Recorded Not on file Industry Job Start Date Occupation Not on file Not on file Not on file Travel End Travel History Travel Start No recent travel history available. Last Filed Vital Signs Not on file Plan of Treatment Health Maintenance Due Date Last Done Comments DIABETIC RETINAL EYE EXAM 1940 DIABETIC FOOT EXAM 1950 URINE MICROALBUMIN 1950 SHINGLES VACCINES (#1) 1990 65+ PNEUMOCOCCAL VACCINE 2005 (1 of 2 - PCV13) PNEUMOCOCCAL 2005 POLYSACCHARIDE VACCINE AGE 65 AND OVER INFLUENZA VACCINE 09/18/2018 Results Not on fileafter 07/10/2017 Insurance Type Payer Benefit Subscriber ID Effective Phone Address Plan / Dates Group HMO CIGNA CIGNA OPEN xxxxxxxxxxx 2015-P ACCESS/NET resent WORK Medicare MEDICARE MEDICARE xxxxxxxxxx 2005- AUGUSTUS, PART A AND Present [place] B Advance Directives Patient has advance care planning documents on file. For more information, daniel rodas contact: Augustus Barboza [address] [place] [address]
[2018-07-11] MEDS ORDERED: SODIUM CHLORIDE 0.9% 1000ML 1,000 ML ONE ×2 (12:28→12:37)
[2018-07-11] MEDS ORDERED: DEXTROSE 50% SYRINGE 50 ML IV ONE (12:33)
[2018-07-11] MEDS ORDERED: DEXTROSE 50% SYRINGE 50 ML IV STA (12:35)
[2018-07-11] MEDS ORDERED: SODIUM CHLORIDE 0.9% 1000ML 1,000 ML IV ONE ×2 (12:45)
[2018-07-11] MEDS ORDERED: ASPIRIN 81 MG CHEW TAB PO ONE (13:15)
[2018-07-11 13:17] LABS: BASOPHILS % 0.4 % (0.0-1.0); EOSINOPHILS # (AUTO) 0.3 (0.0-0.4); EOSINOPHILS % 3.2 % (0.0-6.0); HEMATOCRIT 39.1 % (38.2-49.6); HEMOGLOBIN 13.7 g/dL (14.0-18.0); LYMPHOCYTES # (AUTO) 2.7 (1.0-3.2); LYMPHOCYTES % 30.2 % (18.0-39.1); MEAN CORPUSCULAR HEMOGLOBIN 29.8 pg (28-32); MEAN CORPUSCULAR VOLUME 85.2 fL (81-99); MONOCYTES % 11.5 % (4.4-11.3); NEUTROPHILS # (AUTO) 4.9 (2.1-6.9); NEUTROPHILS % 54.4 % (38.7-80.0); PLATELET COUNT 226 x10e3/uL (140-360); RED BLOOD COUNT 4.59 x10e6/uL (4.3-5.7); RED CELL DISTRIBUTION WIDTH 13.3 % (11.7-14.4)
[2018-07-11 13:27] LABS: INR 0.93; PARTIAL THROMBOPLASTIN TIME 24.7 seconds (23.8-35.5)
[2018-07-11 13:38] LABS: ALBUMIN 3.3 g/dL (3.5-5.0); ALBUMIN/GLOBULIN RATIO 0.9 (0.8-2.0); ANION GAP 10.9 mmol/L (8-16); CALCIUM 9.5 mg/dL (8.4-10.2); CREATININE, SERUM 1.46 mg/dL (0.72-1.25)
[2018-07-11] MEDS ORDERED: FUROSEMIDE40 MG PO (13:39)
[2018-07-11] MEDS ORDERED: METFORMIN HCL500 M1 PO (13:39)
[2018-07-11 13:40] LABS: POTASSIUM 2.9 mmol/L (3.5-5.1)
[2018-07-11 13:47] LABS: CREATINE KINASE MB 5.4 ng/mL (0-5.0)
--- NOTE | 2018-07-11 14:29 | Diagnostic Imaging Report ---
Examination: Single AP view of the chest. COMPARISON: 12/23/2017 INDICATION: Shortness of breath DISCUSSION: Lungs are well-inflated and without focal consolidation, pleural effusion, or pneumothorax. Hazy left hemidiaphragmatic contour is unchanged and likely related to prominent mediastinal fat. Cardiomediastinal contour is notable for tortuous thoracic aorta. No overt pulmonary edema. No acute osseous abnormality. IMPRESSION: No acute cardiopulmonary abnormality. Stable chest relative to 12/23/2017. Signed by: Dr. Josh Castle M.D. on 07/11/2018 2:26 PM
[2018-07-11] MEDS ORDERED: POTASSIUM CHLORIDE 20 MEQ TAB CR PO ONE (14:34)
[2018-07-11 15:47] LABS: BILIRUBIN,URINE NEGATIVE (NEGATIVE); COLOR,URINE YELLOW (YELLOW); KETONES,URINE NEGATIVE (NEGATIVE); LEUKOCYTE ESTERASE ,URINE NEGATIVE (NEGATIVE); NITRITE,URINE NEGATIVE (NEGATIVE); PROTEIN,URINE DIPSTICK 1+ (NEGATIVE); URINE UROBILINOGEN 0.2 mg/dL (0.2 - 1)
[2018-07-11 15:49] LABS: CLARITY,URINE CLEAR (CLEAR)
[2018-07-11 16:00] LABS: HYALINE CASTS 0-1 (0-1); RBC,URINE 0-5 /HPF (0-5)
[2018-07-11] MEDS ORDERED: ONDANSETRON HCL INJ 2MG/ML 2ML 2 MG/ML VIAL IV PRN (17:45)
[2018-07-11] MEDS ORDERED: SODIUM CHLORIDE FLUSH 10 ML SYR INJ PRN (17:45)
[2018-07-11] MEDS: SODIUM CHLORIDE 0.9% 1000ML 1,000 ML IV SCH (18:17)
[2018-07-11] MEDS: FAMOTIDINE 20 MG TAB PO SCH (18:17)
--- OUTSIDE RECORDS SUMMARY | 2018-07-11 19:13 | XMS REPORT | Clinical Summary ---
Author Author [facility] Organization [facility] Address Unknown Phone Unavailable Care Team Providers Care Acds Block 1 Operator Name Role Phone Caroline Virgen MD PCP [...] more information, daniel rodas contact: Augustus Barboza [address] [place] [address]
--- NOTE | 2018-07-11 20:25 | NUR ---
PT SUMMARY REPORT GIVEN TO NGA DIAMOND RM [id number].
--- NOTE | 2018-07-11 20:30 | NUR ---
Patient transferred from ER via wheelchair, patient is A&Ox4 & ambulatory w/o assist. Respirations even & unlabored, no distress noted. Tele in place. IV to R AC 18g SL & L FA 18g w/ fluids running, both are patent and no infiltration noted. Mild edema noted to bilateral extremities. Patient denies any issues or needs at this time. Call barron within reach, side rails x2 raised & bed set to lowest position.
[2018-07-11 21:27] VITALS: BP 151/74
--- NOTE | 2018-07-11 21:54 | NUR ---
Consult call placed w/ Dr. Liriano, order was given to hold Metoprolol
--- NOTE | 2018-07-11 21:58 | NUR ---
Call placed w/ Dr. Jones to request an order for sliding scale
[2018-07-12] VITALS (10 sets, daily range): BP systolic 137–181; BP diastolic 70–92
[2018-07-12] MEDS: SODIUM CHLORIDE 0.9% 1000ML 1,000 ML IV SCH (03:45)
--- NOTE | 2018-07-12 07:00 | NUR ---
RECEIVED REPORT FROM NIGHT NURSE. PT IS AWAKE LYING IN BED. NO S/S OF DISTRESS. FAMILY IS AT THE BEDSIDE.
--- NOTE | 2018-07-12 08:30 | NUR ---
PAGED DR. MUHAMMAD FOR NEW ORDERS: LABS TO RE-CHECK POTASSIUM LEVEL AND SLIDING SCALE. BS: 225MG/DL WITH NO INSULIN ORDERED TO COVER WAITING FOR NEW ORDERS/RESPONSE FROM PHYSICIAN
[2018-07-12] MEDS ORDERED: ASPIRIN 81 MG ENTERIC COATED PO SCH (09:00)
[2018-07-12] MEDS ORDERED: POTASSIUM CHLORIDE 20 MEQ TAB CR PO SCH (09:00)
[2018-07-12] MEDS: FAMOTIDINE 20 MG TAB PO SCH ×2 (09:15→16:43)
[2018-07-12] MEDS ORDERED: DEXTROSE 50% SYRINGE 50 ML IV PRN (12:30)
[2018-07-12] MEDS: INSULIN REGULAR, HUMAN 100 UNIT/1 ML 3ML VIAL SQ SCH ×3 (12:30→21:00)
[2018-07-12 13:44] LABS: ANION GAP 14.5 mmol/L (8-16); BLOOD UREA NITROGEN 17 mg/dL (7-26); BUN/CREATININE RATIO 16 (6-25); CALCIUM 9.2 mg/dL (8.4-10.2); CARBON DIOXIDE 23 mmol/L (22-29); CHLORIDE 102 mmol/L (98-107); CREATININE, SERUM 1.07 mg/dL (0.72-1.25); EST GLOMERULAR FILTRATION RATE > 60 ML/MIN (60-); GLUCOSE 328 mg/dL (74-118); MAGNESIUM 1.5 MG/DL (1.3-2.1); POTASSIUM 3.5 mmol/L (3.5-5.1); SODIUM 136 mmol/L (136-145)
[2018-07-12] MEDS ORDERED: PANTOPRAZOLE SOD 40 MG TABEC PO PRN (14:15)
[2018-07-12] MEDS ORDERED: POTASSIUM CHLO10 ME1 PO (14:53)
[2018-07-12] MEDS ORDERED: HUMULIN N100 UNITS/ SC (14:53)
[2018-07-12] MEDS ORDERED: POTASSIUM CHLO20 ME1 (14:53)
[2018-07-12] MEDS ORDERED: LEXAPRO10 MG PO (14:53)
[2018-07-12] MEDS ORDERED: GABAPENTIN 300 MG CAP PO SCH (15:00)
[2018-07-12] MEDS: METFORMIN HCL 500 MG TAB CR PO SCH (16:41)
[2018-07-12] MEDS: INSULIN LISPRO 100 UNIT/1 ML 3ML VIAL SQ SCH (16:45)
[2018-07-12] MEDS ORDERED: HYDROCODONE/APAP 7.5MG-325MG 1 EA TAB PO PRN (18:00)
--- NOTE | 2018-07-12 18:43 | NUR ---
PT IS SLEEPING IN BED, NO S/S OF DISTRESS NOTED. SIDE RAILS ARE UP, BED IN LOWEST POSITION, CALL LIGHT WITHIN REACH.
--- NOTE | 2018-07-12 19:32 | NUR ---
Received bedside shift report from dayshift RN. Patient is laying on the bed with call light within reach, bed set low and side rails up x2. The patient is not in distress and requested to have something to help sleep at night.
--- NOTE | 2018-07-12 20:26 | Consultation ---
DATE OF CONSULTATION: 07/12/2018 Cardiac Consultation REASON FOR CONSULTATION: Bradycardia, hypotension, electrolyte imbalance, confusion with medication. HISTORY: A 77-year-old gentleman, who is known with coronary artery disease, status post PCI, most recent in May 2016; hypertension; hyperlipidemia; diabetes; history of CVA; mild left body sided weakness, using a walker to walk, and GERD. The patient came to this institution with altered mental status, weakness. He was hypotensive, hypoglycemic, and bradycardic. The patient was given IV fluid, given glucose and his beta-elvia stopped. The patient today is feeling good. He wants to go home. The patient's latest cardiac catheterization was on December 24, 2017, which showed the presence of 40% diffuse LAD disease, patency of the stent 80% in small diagonal and that is a jailed vessel. The circumflex, there are several lesions at 60%. The PDA got 40%-50% disease. His left ventricular ejection fraction is preserved. The patient maintained on medical therapy. At home, they are giving him his medication and the list with them, but we went over the list, there is duplication of the medication, but more importantly really truly the duplication in the bottles where there is more than one bottle of the same medication and the patient taking twice. For example, metoprolol he is taking probably 50 mg twice a day by mistake, the Lasix he is taking 80 mg twice a day, etc. I need to go over the medication and take them out and combined them and explained to the patient and his . Currently, the patient wants to go home. He claims feeling well. His heart rate on telemetry in the 80s. His blood pressure is 170/90. On admission, his heart rate was in the 50s, . PAST MEDICAL HISTORY: 1. Coronary artery disease, status post PCI, most recent one in 2017 to the LAD and to the right posterolateral ventricular branch and right PDA in 2017. 2. Hypertension. 3. Diabetes mellitus. 4. Peripheral vascular disease. 5. GERD. 6. History of CVA with left body sided weakness. 7. Walking with a walker. 8. Left ankle surgery. 9. Lumbar laminectomy. 10. Bilateral cataract surgery. 11. Left shoulder surgery. FAMILY HISTORY: Mother at age 72 with complication of hypertension, diabetes mellitus. Father of unknown cause of . Two brother from murder. One brother from liver cirrhosis. One brother of cancer. HOME MEDICATIONS: The patient is confused with the medication. He is supposed to be on the following medication: 1. Aspirin 81 mg a day. 2. Plavix 75 mg a day. 3. Lipitor 40 mg a day. 4. Metoprolol 25 mg twice a day. 5. Lisinopril/hydrochlorothiazide 20/25 one tablet a day. 6. Lasix 40 mg daily. He is taking more than that. 7. Insulin. 8. Tarceva. 9. Metformin. 10. Gabapentin. ALLERGIES: NONE. REVIEW OF SYSTEMS: GENERAL: Weakness. No energy. HEENT: No vision. No hearing problem. CARDIAC AND PULMONARY: As per acute illness. No angina. No orthopnea. No paroxysmal nocturnal dyspnea. GASTROINTESTINAL: Good appetite. GENITOURINARY: Increased frequency of urination. VASCULAR: No claudication. Edema is better. NEUROLOGIC: Left body sided weakness. PHYSICAL EXAMINATION: VITAL SIGNS: Height of 5 feet 8 inches and weight of 216 pounds. Blood pressure was currently 170/90, heart rate of 80, and respiratory rate of 18. HEENT: Pupils are reactive. NECK: No elevation of jugular venous pulsation. CHEST: Decreased air entry. HEART: PMI 5th left intercostal space. Normal first and second heart sounds. ABDOMEN: Soft. EXTREMITIES: No cyanosis. No clubbing. No edema. NEUROLOGIC: Left body sided weakness. LABORATORY DATA: Sodium of 139, potassium of 2.9, BUN 29, and creatinine of 1.46. Hemoglobin of 13.7, hematocrit 39%, platelet count of 226, and white blood cell count of 8.9. IMPRESSION AND PLAN: 1. Admission with hypoglycemia, electrolyte imbalance, bradycardia with confusion on medication, increasing dosage of beta elvia, Lasix and other medication. 2. Coronary artery disease with no active angina, status post PCIs. 3. Hypertension. 4. Hyperlipidemia. 5. Diabetes mellitus. 6. Chronic swelling of the lower extremity. 7. Worsening of renal function. RECOMMENDATIONS: Cardiac joseph recommendation, to keep the patient on telemetry to minimize the number of medication. We went over his medication list. We will repeat his lab in the morning. We will keep him one more day on observation on telemetry for the bradycardia. Definitely no more beta-elvia. All this are explained and discussed with the patient. We will re-evaluate in the morning. MD MICHAEL Urrutia/LEODAN /[id number]
[2018-07-12] MEDS: NPH, HUMAN INSULIN ISOPHANE 100 UNIT/1 ML 3ML VIAL SQ SCH (21:00)
--- NOTE | 2018-07-12 21:01 | History and Physical ---
HISTORY OF PRESENT ILLNESS: The patient is a 77-year-old male. Past medical history is positive for hypertension, diabetes, coronary artery disease, peripheral neuropathy, came to the hospital because of hypoglycemia, confusion, and hypotension. The patient received IV fluids. The patient is doing better right now. He wants to go home, but the heart rate was very low and the blood sugar extremely out of control. REVIEW OF SYSTEMS: CARDIOVASCULAR: No chest pain or palpitation. RESPIRATORY: No shortness of breath. No cough. GASTROINTESTINAL: No nausea or vomiting. No diarrhea. GENITOURINARY: No frequency or dysuria. ALLERGIES: HE IS NOT ALLERGIC TO ANYTHING. SOCIAL HISTORY: He does not smoke. He does not drink. PAST MEDICAL HISTORY: Coronary artery disease, hypertension, diabetes, diabetic neuropathy, chronic renal failure. PHYSICAL EXAMINATION: HEART: Shows regular rhythm. Normal S1, S2 sound. LUNGS: Clear bilaterally. ABDOMEN: Soft. EXTREMITIES: Show no evidence of cyanosis or hematoma. LABORATORY DATA: On the BMP, sodium 139, potassium 2.9, chloride 102, CO2 of 29, BUN 29, creatinine 1.46, glucose 60. On CBC, white blood count 8.96, hemoglobin 13.7, hematocrit 39.1, platelet count 226,000. PT 15.0, INR 0.93, PTT 24.7. AST 16, ALT 16, total bilirubin 0.7, alkaline phosphatase 104. IMPRESSION: 1. Episode of hypoglycemia. 2. Confusion. 3. Bradycardia. 4. Uncontrolled diabetes mellitus type 2 with diabetic neuropathy and diabetic nephropathy. 5. Obesity. 6. Coronary artery disease. 7. Chronic renal insufficiency stage 3. PLAN OF TREATMENT: We are going to discontinue the IV fluids. Continue aspirin 81 mg daily. Continue Pepcid 20 mg twice a day. Continue potassium supplementation 20 mEq twice a day. We are going to recheck potassium, magnesium levels. We are going to resume the insulin regimen once the blood sugar is more stable. I want to switch him to Tresiba, as he was talking Humalog before. We are going to continue with Lipitor. Continue escitalopram. We are going to put him on Ambien 10 mg at night p.r.n. for sleep. Metoprolol has been discontinued because of the patient's bradycardia. The patient was seen also by Dr. Liriano, who discontinued metoprolol. We are going to continue telemetry. Tentative discharge tomorrow if he is doing better. MD MARA Gomez/LEODAN /[id number]
[2018-07-12] MEDS: ATORVASTATIN 40 MG TAB PO SCH (22:16)
[2018-07-12] MEDS: ZOLPIDEM TARTRATE 5 MG TAB PO PRN (22:21)
[2018-07-13] VITALS (8 sets, daily range): BP systolic 129–190; BP diastolic 70–93
[2018-07-13 06:43] LABS: BASOPHILS % 0.5 % (0.0-1.0); EOSINOPHILS # (AUTO) 0.3 (0.0-0.4); EOSINOPHILS % 5.2 % (0.0-6.0); HEMATOCRIT 33.9 % (38.2-49.6); HEMOGLOBIN 11.8 g/dL (14.0-18.0); LYMPHOCYTES # (AUTO) 1.9 (1.0-3.2); LYMPHOCYTES % 29.7 % (18.0-39.1); MEAN CORPUSCULAR HEMOGLOBIN 29.6 pg (28-32); MEAN CORPUSCULAR HGB CONC 34.8 g/dL (31-35); MONOCYTES # (AUTO) 0.7 (0.2-0.8); MONOCYTES % 11.1 % (4.4-11.3); NEUTROPHILS # (AUTO) 3.5 (2.1-6.9); NEUTROPHILS % 53.2 % (38.7-80.0); PLATELET COUNT 183 x10e3/uL (140-360); RED BLOOD COUNT 3.99 x10e6/uL (4.3-5.7); RED CELL DISTRIBUTION WIDTH 13.2 % (11.7-14.4)
--- NOTE | 2018-07-13 07:00 | NUR ---
RECEIVED AM REPORT FROM NURSE. PT IS AWAKE LYING IN BED. NO S/S OF DISTRESS. IS AT THE BEDSIDE
[2018-07-13 07:45] LABS: ALANINE AMINOTRANSFERASE 13 IU/L (0-55); ALBUMIN 2.7 g/dL (3.5-5.0); ALBUMIN/GLOBULIN RATIO 0.8 (0.8-2.0); ALKALINE PHOSPHATASE 84 IU/L (40-150); ANION GAP 11.1 mmol/L (8-16); BLOOD UREA NITROGEN 14 mg/dL (7-26); BUN/CREATININE RATIO 16 (6-25); CALCIUM 8.8 mg/dL (8.4-10.2); CARBON DIOXIDE 27 mmol/L (22-29); CHLORIDE 107 mmol/L (98-107); CHOLESTEROL 95 MD/DL (0-199); CREATININE, SERUM 0.85 mg/dL (0.72-1.25); EST GLOMERULAR FILTRATION RATE > 60 ML/MIN (60-); GLUCOSE 137 mg/dL (74-118); HDL CHOLESTEROL 32 MG/DL (40-60); LDL CHOLESTEROL 44 MG/DL (60-130); POTASSIUM 3.1 mmol/L (3.5-5.1); SODIUM 142 mmol/L (136-145); TRIGLYCERIDES 97 MG/DL (0-149)
[2018-07-13] MEDS: PANTOPRAZOLE SOD 40 MG TABEC PO SCH (08:27)
[2018-07-13] MEDS: FAMOTIDINE 20 MG TAB PO SCH ×2 (08:27→16:24)
[2018-07-13] MEDS: ASPIRIN 81 MG CHEW TAB PO SCH (08:28)
[2018-07-13] MEDS: METFORMIN HCL 500 MG TAB CR PO SCH ×2 (08:28→16:24)
[2018-07-13] MEDS: GABAPENTIN 300 MG CAP PO SCH ×2 (08:28→20:01)
[2018-07-13] MEDS: POTASSIUM CHLORIDE 10MEQ EA PO SCH (08:28)
[2018-07-13] MEDS: FUROSEMIDE 40 MG TAB PO SCH (08:29)
[2018-07-13] MEDS: CLOPIDOGREL BISULFATE 75 MG TAB PO SCH (08:30)
[2018-07-13] MEDS: ESCITALOPRAM OXALATE 10 MG TAB PO SCH (08:31)
[2018-07-13] MEDS: INSULIN REGULAR, HUMAN 100 UNIT/1 ML 3ML VIAL SQ SCH ×4 (08:35→20:01)
[2018-07-13] MEDS: INSULIN LISPRO 100 UNIT/1 ML 3ML VIAL SQ SCH ×3 (08:35→16:37)
[2018-07-13] MEDS: HYDRALAZINE HCL 20 MG/ML VIAL IV PRN (08:38)
[2018-07-13] MEDS ORDERED: DULOXETINE HCL 20 MG DELAYED RELEASE PO SCH (09:00)
[2018-07-13] MEDS ORDERED: METOPROLOL TARTRATE 50 MG TAB PO SCH (09:00)
[2018-07-13] MEDS ORDERED: LISINOPRIL 20 MG TAB PO SCH (09:00)
[2018-07-13] MEDS ORDERED: ESCITALOPRAM OXALATE 10 MG TAB PO SCH (09:00)
[2018-07-13] MEDS ORDERED: HYDROCHLOROTHIAZIDE 25 MG TAB PO SCH (09:00)
[2018-07-13] MEDS ORDERED: POTASSIUM CHLORIDE 20 MEQ TAB CR PO ONE (14:30)
--- NOTE | 2018-07-13 15:05 | NUR ---
Visit made by the Spiritual Care Department Pastoral Visitor, Sarah Fish. PV provided pastoral presence, communion, prayer, hospitality, and supportive listening. Pastoral Visitor informed pt/family of the scope of [facility] and availability. JASEN VILLATORO Nurse Care Manager Spiritual Care Department O: [phone] Pager: [phone] ([phone] number calling from)
--- NOTE | 2018-07-13 16:29 | Progress Note ---
DATE: Internal Medicine Progress Note SUBJECTIVE: This patient is doing better today. Blood sugar is high and blood pressure is high. OBJECTIVE: VITAL SIGNS: Blood pressure 190/93, temperature 96.1, heart rate 64 per minute, respiratory rate 20 per minute, oxygen saturation 94%. HEART: Showed regular rhythm. Normal S1, S2 sounds. LUNGS: Clear bilaterally. ABDOMEN: Soft. LABORATORY DATA: On the BMP, sodium 142, potassium 3.1, chloride 107, CO2 27, BUN 14, creatinine 0.85, glucose 137. On CBC, white blood count 6.50, hemoglobin 11.8, hematocrit 33.9, platelet count 183,000. PT 13.0, INR 0.83, PTT 24.7. AST 17, ALT 13, total bilirubin 0.9, alkaline phosphatase 84. FINAL IMPRESSION: 1. Episode of hypoglycemia, which is resolved. 2. Uncontrolled hypertension. 3. Hypokalemia. 4. Bradycardia, which is resolved. 5. Uncontrolled diabetes mellitus type 2 with diabetic neuropathy and diabetic nephropathy. 6. Chronic renal failure, stage 3. 7. Coronary artery disease. 8. Obesity. PLAN OF TREATMENT: Continue with Zofran 4 mg IV q.4 hours as needed. Continue Pepcid 20 mg twice a day. Continue D50 IV push as needed for hypoglycemia. Continue furosemide 40 mg daily, Lipitor 40 mg daily. Continue potassium chloride 10 mEq daily; we are going to give an extra tablet of 40 mEq of potassium also. Continue gabapentin 300 mg twice a day. Continue monitoring blood sugar before meals and at bedtime. Continue diabetic renal diet. Continue Protonix 40 mg daily. Continue Humalog 10 units before meals. Continue metformin 1000 mg twice a day. Continue aspirin 81 mg daily, hydralazine 10 mg IV q.4 hours as needed for hypertension, escitalopram 10 mg daily. Continue Plavix 75 mg daily. Continue Ambien 5 mg at night p.r.n. for sleep. He is also taking NPH insulin 40 units at bedtime. We are going to start the patient on Norvasc 5 mg daily to get a better blood pressure control, also tentative discharge for tomorrow. Low and blood sugars were stable. Blood pressure is better and potassium under control. We are going to recheck the potassium initially tomorrow. MD MARA Gomez/LEODAN /[id number]
[2018-07-13] MEDS ORDERED: ONDANSETRON HCL 4 MG ORAL DISINTEGRATING TAB PO PRN (17:30)
--- NOTE | 2018-07-13 18:59 | NUR ---
Received bedside shift report from day shift RN. The patient is downstairs with family members.
--- NOTE | 2018-07-13 19:59 | NUR ---
Patient's blood sugar reported at 55. The patient is encourage to eat and drink to help elevate blood sugar. Hold off schedule fast acting insulin and administer long active insulin. Continue to monitor the patient's blood sugar.
[2018-07-13] MEDS: NPH, HUMAN INSULIN ISOPHANE 100 UNIT/1 ML 3ML VIAL SQ SCH (20:00)
[2018-07-13] MEDS: ATORVASTATIN 40 MG TAB PO SCH (20:01)
--- NOTE | 2018-07-13 21:48 | NUR ---
AUTOMATIC DRY STARCH OPERATOR checked patient's blood sugar at 62 after patient has already ate a sandwich, and two oranges. AUTOMATIC DRY STARCH OPERATOR gave patient another 2 pints of orange and patient will take own glucose tablet to help elevate blood sugar. Continue to monitor blood glucose.
--- NOTE | 2018-07-13 22:36 | NUR ---
Patient's blood sugar recorded at 88. Continue to monitor the patient closely
[2018-07-13] MEDS: ZOLPIDEM TARTRATE 5 MG TAB PO PRN (22:45)
[2018-07-14] VITALS (10 sets, daily range): BP systolic 120–188; BP diastolic 58–100
[2018-07-14 06:45] LABS: ANION GAP 9.5 mmol/L (8-16); BLOOD UREA NITROGEN 15 mg/dL (7-26); BUN/CREATININE RATIO 17 (6-25); CALCIUM 8.5 mg/dL (8.4-10.2); CARBON DIOXIDE 26 mmol/L (22-29); CHLORIDE 106 mmol/L (98-107); CREATININE, SERUM 0.87 mg/dL (0.72-1.25); EST GLOMERULAR FILTRATION RATE > 60 ML/MIN (60-); GLUCOSE 177 mg/dL (74-118); POTASSIUM 3.5 mmol/L (3.5-5.1); SODIUM 138 mmol/L (136-145)
[2018-07-14] MEDS: INSULIN LISPRO 100 UNIT/1 ML 3ML VIAL SQ SCH ×3 (07:30→16:30)
[2018-07-14] MEDS: INSULIN REGULAR, HUMAN 100 UNIT/1 ML 3ML VIAL SQ SCH ×4 (07:30→21:00)
--- NOTE | 2018-07-14 07:40 | NUR ---
PATIENT IS AWAKE, ALERT, AND IN STABLE CONDITION WITH NO S/S OF RESPIRATORY DISTRESS. NO PAIN VOICED. TELEMETRY APPLIED. PRESENT IN THE ROOM. CALL LIGHT IS WITHIN REACH, PATIENT INSTRUCTED TO CALL FOR ASSISTANCE NEEDED.
[2018-07-14] MEDS ORDERED: AMLODIPINE BESYLATE 5 MG TAB PO SCH (09:00)
[2018-07-14] MEDS: ESCITALOPRAM OXALATE 10 MG TAB PO SCH (09:01)
[2018-07-14] MEDS: FUROSEMIDE 40 MG TAB PO SCH (09:01)
[2018-07-14] MEDS: CLOPIDOGREL BISULFATE 75 MG TAB PO SCH (09:01)
[2018-07-14] MEDS: ASPIRIN 81 MG CHEW TAB PO SCH (09:02)
[2018-07-14] MEDS: POTASSIUM CHLORIDE 10MEQ EA PO SCH (09:02)
[2018-07-14] MEDS: PANTOPRAZOLE SOD 40 MG TABEC PO SCH (09:02)
[2018-07-14] MEDS: METFORMIN HCL 500 MG TAB CR PO SCH ×2 (09:02→16:27)
[2018-07-14] MEDS: GABAPENTIN 300 MG CAP PO SCH ×2 (09:02→21:06)
[2018-07-14] MEDS: FAMOTIDINE 20 MG TAB PO SCH ×2 (09:02→16:27)
--- NOTE | 2018-07-14 09:31 | Progress Note ---
DATE: 07/14/2018 SUBJECTIVE: Mr. Arroyo is a 77-year-old man with history of coronary artery disease, status post stent, hypertension, hyperlipidemia, diabetes, difficulty walking, peripheral artery disease, who was brought to the emergency room with some changes in mental status and weakness. He was found to have low blood pressure, bradycardia, hypoglycemia. Beta blockers were stopped. He was started on IV fluids and given some glucose. He did better and at the present time, sugar is doing a little better. Blood pressure is still elevated. PHYSICAL EXAMINATION: GENERAL: Today, he is awake and alert. VITAL SIGNS: Temperature is 96.1, blood pressure 145/92. HEART: Regular rate. LUNGS: Clear to auscultation. ABDOMEN: Soft. EXTREMITIES: Lower extremity, mild pitting edema. LABORATORY AND DIAGNOSTIC DATA: On the blood work, potassium 3.5, creatinine is 0.87, glucose 177. White count 6.50, hemoglobin 11.8, hematocrit 33.9. On admission he had a chest x-ray done that shows no acute cardiopulmonary abnormalities. ASSESSMENT: 1. Episode of hypoglycemia. 2. Uncontrolled hypertension. 3. Hypokalemia. 4. Bradycardia. Beta blockers were stopped. 5. Uncontrolled diabetes with peripheral vascular disease and neuropathy. 6. Coronary artery disease, status post stent. 7. Peripheral neuropathy. 8. Obesity. PLAN: The plan at present time with this patient is continue ADA diet, sliding scale with insulin. Continue diuretics. Beta-blockers were stopped due to the bradycardia. Continue Norvasc for hypertension. He is also on hydralazine p.r.n. Continue aspirin and Plavix. All this was discussed with the patient and at bedside. All questions were answered to satisfaction. If stable he may go home tomorrow. I spent more than 35 minutes examining patient, reviewing overnight event, lab results, x-ray, and discussing plan of care with the patient and family. MD TRESSA Rodriguez/MODL /[id number]
--- NOTE | 2018-07-14 10:24 | NUR ---
CALLED AND SPOKE WITH DR. DICKINSON REGARDING EKG RESULT FROM THIS MORNING- INFORMED DR. DICKINSON OF VENT HR RATE OF 58BPM. NO NEW ORDERS GIVEN.
[2018-07-14] MEDS: HYDRALAZINE HCL 20 MG/ML VIAL IV PRN (12:29)
--- NOTE | 2018-07-14 14:42 | NUR ---
DR. DICKINSON ON THE UNIT AND INFORMED ON THE PATIENT'S ELEVATED BP WELL THE EKG RESULTS AGAIN. NEW ORDER RECEIVED TO CONSULT DR. HOOK.
[2018-07-14] MEDS: AMLODIPINE BESYLATE 5 MG TAB PO SCH (16:27)
--- NOTE | 2018-07-14 16:53 | NUR ---
RECEIVED CALL FROM DR. HOOK- DR. HOOK INFORMED OF CONSULT AND PATIENT'S EKG FINDING. ORDER TO HAVE PATIENT TO AMBULATE THIS EVENING. DR. HOOK INFORMED THERE IS A PT EVAL AND SAFETY CONCERN WITH THE PATIENT. PATIENT AND HIS INFORMED DR. HOOK WANTS THE PATIENT TO WALK.
--- NOTE | 2018-07-14 19:00 | NUR ---
Received bedside shift report from dayshift RN. Patient is laying on the bed with call light within reach, bed set low and side rails up x2. The patient is not in distress. The patient would like to take a shower. Patient instructed to wait with the ATHLETIC GEAR CUSTODIAN for the shower. Verbalized understanding.
--- NOTE | 2018-07-14 19:21 | NUR ---
PATIENT IS SITTING IN THE RECLINER- IN STABLE CONDITION WITH NO S/S OF RESPIRATORY DISTRESS. NO PAIN VOICED. TELEMETRY APPLIED. SON PRESENT IN THE ROOM. CALL LIGHT IS WITHIN REACH, PATIENT INSTRUCTED TO CALL FOR ASSISTANCE NEEDED. BEDSIDE SHIFT REPORT GIVEN TO ONCOMING NURSE.
[2018-07-14] MEDS: NPH, HUMAN INSULIN ISOPHANE 100 UNIT/1 ML 3ML VIAL SQ SCH (21:00)
[2018-07-14] MEDS: ATORVASTATIN 40 MG TAB PO SCH (21:06)
[2018-07-14] MEDS: ZOLPIDEM TARTRATE 5 MG TAB PO PRN (21:13)
[2018-07-15] VITALS (8 sets, daily range): BP systolic 131–169; BP diastolic 80–89
[2018-07-15 06:39] LABS: ANION GAP 10.3 mmol/L (8-16); BLOOD UREA NITROGEN 15 mg/dL (7-26); BUN/CREATININE RATIO 18 (6-25); CALCIUM 8.8 mg/dL (8.4-10.2); CARBON DIOXIDE 25 mmol/L (22-29); CHLORIDE 105 mmol/L (98-107); CREATININE, SERUM 0.84 mg/dL (0.72-1.25); EST GLOMERULAR FILTRATION RATE > 60 ML/MIN (60-); GLUCOSE 92 mg/dL (74-118); POTASSIUM 3.3 mmol/L (3.5-5.1); SODIUM 137 mmol/L (136-145)
[2018-07-15] MEDS: INSULIN LISPRO 100 UNIT/1 ML 3ML VIAL SQ SCH ×3 (07:30→16:30)
[2018-07-15] MEDS: INSULIN REGULAR, HUMAN 100 UNIT/1 ML 3ML VIAL SQ SCH ×4 (07:30→21:17)
[2018-07-15] MEDS ORDERED: POTASSIUM CHLORIDE 10MEQ EA PO ONE ×2 (07:30→07:45)
--- NOTE | 2018-07-15 08:31 | Progress Note ---
DATE: 07/15/2018 SUBJECTIVE: Mr. Arroyo is a 77-year-old man with history of coronary artery disease, status post stent, hypertension, hyperlipidemia, diabetes, peripheral vascular disease, and difficulty walking, brought to the emergency room with changes in mental status and weakness. He was found to be bradycardic with low blood pressure and hypoglycemia. He was started on IV fluids and some glucose. Beta blockers were stopped. At the present time, the patient is doing a little better. Blood pressure still elevated. Electrophysiology consult was replaced with to see the patient today. PHYSICAL EXAMINATION: GENERAL: Today, he is awake and alert. VITAL SIGNS: Temperature is 96.4, blood pressure is 144/88. HEART: Regular rate at around 72 per minute. LUNGS: Clear to auscultation. ABDOMEN: Distended and soft. EXTREMITIES: Lower extremity, bilateral pedal edema. LABORATORY DATA: Potassium is 3.3, creatinine is 0.84, and glucose is 92. White count is 6.5, hemoglobin is 11.8, and hematocrit 33.9. ASSESSMENT AND PLAN: 1. Episode of hypoglycemia. 2. Hypotension and bradycardia. Beta-blockers were stopped. 3. Hypokalemia. 4. At the present time, uncontrolled hypertension. 5. Diabetes with peripheral vascular disease. 6. Diabetes with neuropathy. 7. Peripheral neuropathy. 8. Peripheral vascular disease. 9. Coronary artery disease, status post stent. 10. Obesity. PLAN: At the present time is continue ADA diet and sliding scale with insulin. Continue regular insulin. Beta blockers were stopped. Continue Norvasc and Lasix for blood pressure. Hydralazine p.r.n. Continue aspirin and Plavix. Electrophysiology consult was requested for possible pacemaker today. Continue PT/OT. Once patient is stable, we will discharge him home may be tomorrow depending if he needs a pacemaker or not. I spent more than 35 minutes examining the patient, reviewing overnight events, lab results, x-rays, and discussing plan of care with him and nurse. Caroline Jones MD TRESSA/MODL /[id number]
[2018-07-15] MEDS: FAMOTIDINE 20 MG TAB PO SCH ×2 (09:22→15:58)
[2018-07-15] MEDS: PANTOPRAZOLE SOD 40 MG TABEC PO SCH (09:22)
[2018-07-15] MEDS: METFORMIN HCL 500 MG TAB CR PO SCH ×2 (09:22→16:44)
[2018-07-15] MEDS: GABAPENTIN 300 MG CAP PO SCH ×2 (09:22→21:16)
[2018-07-15] MEDS: ASPIRIN 81 MG CHEW TAB PO SCH (09:22)
[2018-07-15] MEDS: ESCITALOPRAM OXALATE 10 MG TAB PO SCH (09:23)
[2018-07-15] MEDS: AMLODIPINE BESYLATE 5 MG TAB PO SCH ×2 (09:23→15:58)
[2018-07-15] MEDS: FUROSEMIDE 40 MG TAB PO SCH (09:23)
[2018-07-15] MEDS: POTASSIUM CHLORIDE 10MEQ EA PO SCH (09:23)
[2018-07-15] MEDS: CLOPIDOGREL BISULFATE 75 MG TAB PO SCH (09:24)
--- NOTE | 2018-07-15 19:29 | NUR ---
PATIENT IS AWAKE AND IN STABLE CONDITION WITH NO S/S OF RESPIRATORY DISTRESS. NO PAIN VOICED. TELEMETRY APPLIED. CALL LIGHT IS WITHIN REACH, PATIENT INSTRUCTED TO CALL FOR ASSISTANCE NEEDED. BEDSIDE REPORT GIVEN TO ONCOMING NURSE.
[2018-07-15] MEDS: ATORVASTATIN 40 MG TAB PO SCH (21:16)
[2018-07-15] MEDS: NPH, HUMAN INSULIN ISOPHANE 100 UNIT/1 ML 3ML VIAL SQ SCH (21:17)
--- NOTE | 2018-07-15 21:20 | NUR ---
PATIENT CONDITION STABLE WITHOUT ACUTE DISTRESS, HE'S COHERENT. HE WAS MEDICATED WITH AMBIEN FOR SLEEP PER HIS REQUEST. CALL LIGHT WITHIN EASY REACH, HE'S INSTRUCTED TO CALL FOR ASSISTANCE NEEDED.
[2018-07-16 00:22] VITALS: BP 165/83
--- NOTE | 2018-07-16 00:37 | NUR ---
SOUNDLY ASLEEP, NO DISTRESS OBSERVED AND CALL LIGHT WITHIN EASY REACH.
--- NOTE | 2018-07-16 03:35 | NUR ---
WALKING ROUNDS MADE, PATIENT SOUNDLY ASLEEP. HE'S EASY TO AROUSE AND HE DENIES PAIN. CALL LIGHT WITHIN EASY REACH, NO DISTRESS OBSERVED.
[2018-07-16 04:30] VITALS: BP 131/77
[2018-07-16 07:10] LABS: ANION GAP 9.2 mmol/L (8-16); BLOOD UREA NITROGEN 13 mg/dL (7-26); BUN/CREATININE RATIO 16 (6-25); CALCIUM 8.8 mg/dL (8.4-10.2); CARBON DIOXIDE 26 mmol/L (22-29); CHLORIDE 104 mmol/L (98-107); CREATININE, SERUM 0.79 mg/dL (0.72-1.25); EST GLOMERULAR FILTRATION RATE > 60 ML/MIN (60-); POTASSIUM 3.2 mmol/L (3.5-5.1); SODIUM 136 mmol/L (136-145)
[2018-07-16] MEDS: INSULIN LISPRO 100 UNIT/1 ML 3ML VIAL SQ SCH ×3 (07:30→16:40)
[2018-07-16] MEDS: INSULIN REGULAR, HUMAN 100 UNIT/1 ML 3ML VIAL SQ SCH ×3 (07:30→16:40)
[2018-07-16 07:31] LABS: GLUCOSE 55 mg/dL (74-118)
[2018-07-16 07:32] VITALS: BP 129/72
--- NOTE | 2018-07-16 07:41 | NUR ---
BS 62, [place] juice given bs 101 now
[2018-07-16] MEDS ORDERED: POTASSIUM CHLORIDE 20 MEQ TAB CR PO STA (07:42)
[2018-07-16] MEDS: FAMOTIDINE 20 MG TAB PO SCH ×2 (08:06→17:15)
[2018-07-16] MEDS: PANTOPRAZOLE SOD 40 MG TABEC PO SCH (08:17)
[2018-07-16] MEDS: GABAPENTIN 300 MG CAP PO SCH (08:35)
[2018-07-16] MEDS: AMLODIPINE BESYLATE 5 MG TAB PO SCH ×2 (08:35→17:49)
[2018-07-16] MEDS: POTASSIUM CHLORIDE 10MEQ EA PO SCH (08:35)
[2018-07-16] MEDS: ESCITALOPRAM OXALATE 10 MG TAB PO SCH (08:35)
[2018-07-16] MEDS: METFORMIN HCL 500 MG TAB CR PO SCH ×2 (08:35→17:49)
[2018-07-16] MEDS: FUROSEMIDE 40 MG TAB PO SCH (08:35)
[2018-07-16] MEDS: CLOPIDOGREL BISULFATE 75 MG TAB PO SCH (08:35)
[2018-07-16] MEDS: ASPIRIN 81 MG CHEW TAB PO SCH (08:35)
--- NOTE | 2018-07-16 10:05 | NUR ---
patient ambulating on hallway with PT
[2018-07-16 11:30] VITALS: BP 139/85
--- NOTE | 2018-07-16 12:03 | Discharge Summary ---
HOSPITAL COURSE: Mr. Arroyo is a 77-year-old man with history of coronary artery disease, status post stent, hypertension, hyperlipidemia, diabetes, peripheral vascular disease, difficulty walking, history of CVA, came to the emergency room with hypotension, hypoglycemia, and bradycardia and metoprolol has been stopped. Blood pressure is doing better. Blood sugar is kind of fluctuating, but the patient is feeling better. Charge Lpn wants to see him as an outpatient. The plan today if it is okay with quality assurance supervisor to discharge him home and follow him as an outpatient. PHYSICAL EXAMINATION: GENERAL: He is awake and alert. VITAL SIGNS: Temperature is 97.3, blood pressure 131/77, and heart rate is 70 per minute. HEART: Regular rate. LUNGS: Clear to auscultation. ABDOMEN: Soft. EXTREMITIES: Lower extremity, mild pedal edema. LAB WORK: Potassium today is 3.2, we are going to replace it. Sugar was 55, we are going to recheck it. Creatinine 0.79. White count 6.50, hemoglobin 11.8, hematocrit 33.9. Blood cultures were negative. Chest x-ray shows no acute findings. DISCHARGE DIAGNOSES: 1. Episode of hypoglycemia, we are going to adjust the insulin. 2. Hypotension and bradycardia, resolved. 3. Hypokalemia. We are going to replace potassium. 4. Hypertension. Blood pressure is doing better. 5. Diabetes with peripheral vascular disease. 6. Diabetes with neuropathy. 7. Peripheral neuropathy. 8. Peripheral vascular disease. 9. Coronary artery disease, status post stent. 10. Obesity. PLAN: At the present time, we are going to replace potassium. Repeat potassium level in the afternoon. We are going to stop beta blockers. We are going to continue aspirin and Plavix. The patient's lisinopril and the HCTZ also were stopped by Dr. Liriano. We are going to continue Norvasc 5 mg twice a day and continue atorvastatin 40 mg daily. He needs follow up with power house control room operator apparently in three weeks. He needs follow up with me in one week, so the plan is to discharge him home today. After we fix the potassium, the sugar level gets better. Please see home medication reconciliation list. All this was discussed with the patient and at bedside. All questions were answered to satisfaction. I explained to them how he has to take his medications and how to use insulin. I spent more than 35 minutes examining the patient, reviewing overnight events, lab results, and discussing plan of care with the patient and at bedside. MD TRESSA Rodriguez/LEODAN /[id number]
[2018-07-16] MEDS ORDERED: POTASSIUM CHLORIDE 20 MEQ TAB CR PO ONE (14:00)
[2018-07-16 14:43] VITALS: BP 139/85
[2018-07-16 15:40] VITALS: BP 107/73
[2018-07-16 16:09] LABS: ANION GAP 12.2 mmol/L (8-16); BLOOD UREA NITROGEN 14 mg/dL (7-26); BUN/CREATININE RATIO 14 (6-25); CALCIUM 9.2 mg/dL (8.4-10.2); CARBON DIOXIDE 22 mmol/L (22-29); CHLORIDE 102 mmol/L (98-107); CREATININE, SERUM 0.97 mg/dL (0.72-1.25); EST GLOMERULAR FILTRATION RATE > 60 ML/MIN (60-); GLUCOSE 179 mg/dL (74-118); POTASSIUM 4.2 mmol/L (3.5-5.1); SODIUM 132 mmol/L (136-145)
[2018-07-16] MEDS ORDERED: AMLODIPINE BESYL5 MG PO (17:22)
--- NOTE | 2018-07-16 17:42 | NUR ---
patient discharged home, prescription given, IV canula removed with tip intact, no ss of infiltration, tele box returned, he aware about f/up appointments. family at bed side, denies any pain, not in any distress, transported via wheelchair [facility]
--- NOTE | 2018-07-17 16:50 | Consultation ---
DATE OF CONSULTATION: 07/15/2018 REASON FOR CONSULT: Bradycardia. HISTORY OF PRESENT ILLNESS: This is a 77-year-old gentleman with history of hypertension, who was brought into the hospital with bradycardia. He was found to have bradycardia with second-degree type 1 AV block. He had been on metoprolol and reported one single episode of dizziness and he stated that he almost lost his balance, however, did not fall or had any other problems. The patient states had not had dizziness in the past, has not experienced any weakness or tiredness or any other symptoms related to this. In the hospital, he has remained hemodynamically stable. The metoprolol was discontinued. He remains in sinus rhythm with 1:1 conduction with occasional second-degree type 1 AV block. REVIEW OF SYSTEMS: CONSTITUTIONAL: As per HPI. CARDIOVASCULAR: Negative. RESPIRATORY: Negative. GASTROINTESTINAL: Negative. GENITOURINARY: Negative. MUSCULOSKELETAL: Negative. EYES: Negative. ENT: Negative. ALLERGIC/IMMUNOLOGIC: Negative. PSYCHIATRIC: Negative. PAST MEDICAL HISTORY: Hypertension. PAST SURGICAL HISTORY: Denies. FAMILY HISTORY: No premature coronary artery disease. SOCIAL HISTORY: Denies alcohol or smoking. PHYSICAL EXAMINATION: VITAL SIGNS: Blood pressure 148/60, pulse 68, respiration 20, and O2 saturation 99%. GENERAL: No acute distress. HEENT: Moist mucous membranes. CARDIOVASCULAR: Regular. RESPIRATORY: Clear. ABDOMEN: Soft and nontender. MUSCULOSKELETAL: 2+ pedal pulses. NEUROLOGIC: No focal deficits. SKIN: No lesions. PSYCHIATRIC: Normal thought process. IMAGING DATA: EKG; sinus rhythm, 1:1 conduction. Episodes of second-degree type 1 AV block. IMPRESSION: Bradycardia worsened by metoprolol with second-degree type 1 AV block, but mostly sinus, 1:1 conduction. RECOMMENDATIONS: I had a long discussion with the patient. At this time, appears to have reversible causes with the metoprolol causing this worsening, however, no strong indication for a pacemaker at this time. Explained to the patient best course of action is to stop the metoprolol and avoid beta blockers, and just continue conservative treatment. If he experience any dizziness in the future or any other complaints, then will have an event monitor, as he may need a pacemaker in the future. Thank you for letting us to participate in Mr. Arroyo's healthcare. MD MARII Dunbar/ILAL /[id number]
== END 2018-07-16 18:04 | disposition home or self-care (01) ==
LOC: ER 12:09 → ERHOLD 19:10 → MED/SURG3 20:54
PROVIDERS: ADMIT Internal Medicine; ATTEND Internal Medicine
DX: E11.649 Type 2 diabetes mellitus with hypoglycemia without coma (principal); I95.0 Idiopathic hypotension; I44.1 Atrioventricular block, second degree; Z86.73 Personal history of transient ischemic attack (TIA), and cerebral infarction without residual deficits; I25.10 Atherosclerotic heart disease of native coronary artery without angina pectoris; E11.42 Type 2 diabetes mellitus with diabetic polyneuropathy; E11.22 Type 2 diabetes mellitus with diabetic chronic kidney disease; E11.21 Type 2 diabetes mellitus with diabetic nephropathy; R00.1 Bradycardia, unspecified; N18.3 Chronic kidney disease, stage 3 (moderate); I12.9 Hypertensive chronic kidney disease with stage 1 through stage 4 chronic kidney disease, or unspecified chronic kidney disease; E78.5 Hyperlipidemia, unspecified; E87.6 Hypokalemia; E66.9 Obesity, unspecified; Z68.32 Body mass index [BMI] 32.0-32.9, adult; Z79.4 Long term (current) use of insulin; Z79.82 Long term (current) use of aspirin
CPT/HCPCS: 36415 ×6; 71045; 80048 ×4; 80053 ×2; 80061; 81001; 82550; 82553; 82948 ×6; 83036; 83605; 83735; 84443; 84484; 85025 ×2; 85610; 85730; 87040; 93005 ×2; 96372; 97116 ×2; 97139; 97161; 99284; G0378 ×6; J0360 ×2; J1817; J7030; J7799; S0164 ×4

== ENCOUNTER → 2018-09-29 | Outpatient (CLI) | payer OTHER, MEDICARE ==
[~2018-09-29] MED LIST changes: +AMLODIPINE BESYL5 MG PO; +FUROSEMIDE40 MG PO; +HUMULIN N100 UNITS/ SC; +POTASSIUM CHLO10 ME1 PO; +POTASSIUM CHLO20 ME1
--- NOTE | 2018-09-29 10:08 | Diagnostic Imaging Report ---
EXAM: US ABDOMEN COMPLETE DATE: 09/29/2018 8:49 AM INDICATION: Left-sided back, flank pain COMPARISON: None TECHNIQUE: Transverse and longitudinal young scale and color doppler sonographic images of the upper abdomen were obtained. FINDINGS: There is no evidence of fluid or masses seen in the area of clinical concern in the right lower quadrant. LIVER 16.7 cm in the right midclavicular line, upper limits of normal Normal echogenicity of the liver with normal contour, no masses. SPLEEN 10.2 cm in maximum diameter. Normal echogenicity, no masses. GALLBLADDER No gallbladder wall thickening, distension, stone, or pericholecystic fluid. NEgative reported sonographic Jaimes's sign. 2 mm gallbladder wall BILE DUCTS No intra nor extra-hepatic biliary dilation. Common bile duct measures 0.4cm PANCREAS: Not well seen due to overlying bowel gas. RIGHT KIDNEY: 10.6 cm Echogenicity: Normal Collecting System: No hydronephrosis Stones: None Cyst/Mass: None LEFT KIDNEY: 12.5 cm Echogenicity: Normal Collecting System: No hydronephrosis Stones: None Cyst/Mass: None VESSELS: Aorta: Proximal aorta are not well-seen due to overlying bowel gas. Mid aorta measures 1.9 cm. Inferior Vena Cava: Not well seen due to overlying bowel gas. Main Portal Vein: 1.1 cm, normal size with hepatopetal flow. FREE FLUID: None IMPRESSION: No hydronephrosis or renal calculi. No cholelithiasis or cholecystitis. Liver size at the upper limits of normal. Signed by: Victoriano Olson MD on 09/29/2018 10:05 AM
== END ==
LOC: US 08:39
PROVIDERS: ATTEND Internal Medicine
DX: M54.5 Low back pain (principal); R10.9 Unspecified abdominal pain
CPT/HCPCS: 76700

== ENCOUNTER 2018-10-03 13:40 | Emergency (ER) | payer MEDICARE, OTHER ==
[~2018-10-03] VITALS: Ht 172.7 cm; Wt 94.8 kg
--- OUTSIDE RECORDS SUMMARY | 2018-10-03 13:42 | XMS REPORT | Clinical Summary ---
Author Author [facility] Organization [facility] Address Unknown Phone Unavailable Care Team Providers Care Technical Sales Representatives Name Role Phone Caroline Virgen MD PCP [...] VACCINE 2005 (1 of 2 - PCV13) INFLUENZA VACCINE 09/18/2018 Results Not on fileafter 10/02/2017 Insurance Type Payer Benefit Subscriber ID Effective Phone Address Plan / Dates Group HMO CIGNA CIGNA OPEN xxxxxxxxxxx 2015-P ACCESS/NET resent WORK Medicare MEDICARE MEDICARE xxxxxxxxxx 2005- AUGUSTUS, PART A AND Present [place] B Advance Directives Patient has advance care planning documents on file. For more information, daniel rodas contact: Augustus Barboza [address] [place] [address]
--- OUTSIDE RECORDS SUMMARY | 2018-10-03 13:43 | XMS REPORT ---
Author Author Jorge Luis Liriano Organization [employer] Address Unknown Phone Unavailable Care Team Providers Care Cattle Sorter Name Role Phone Jorge Luis Liriano CP Unavailable Allergies, Adverse Reactions, Alerts Substance Reaction Event Type N.K.D.A. Info Not Available Non Drug Allergy Problems Problem Type Condition Code Onset Dates Condition Status Problem Type 2 diabetes mellitus with complication E11.8 Active Problem Non morbid obesity due to excess calories E66.09 Active Problem Atherosclerosis of [place] coronary artery of [place] heart with angina pectoris I25.119 Active Problem History of CVA (cerebrovascular accident) Z86.73 Active Assessment Non morbid obesity due to excess calories E66.09 Active Problem Abnormal EKG R94.31 Active Problem Unsteady gait R26.81 Active Problem Former smoker Z87.891 Active Problem 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.5 Active Problem Preoperative cardiovascular examination Z01.810 Active Problem CAD in [place] artery I25.10 Active Assessment Hypercholesteremia E78.00 Active Assessment Hypertensive heart disease without heart failure I11.9 Active Assessment Former smoker Z87.891 Active Assessment Type 2 diabetes mellitus with complication E11.8 Active Assessment 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.5 Active Assessment CAD in [place] artery I25.10 Active Assessment Abnormal EKG R94.31 Active Problem Hypertensive heart disease without heart failure I11.9 Active Assessment Preoperative cardiovascular examination Z01.810 Active Problem Hypercholesteremia E78.00 Active Medications Medication Code System Code Instructions Start Date End Date Status Dosage Metformin HCl [facility] 31714014140 1000 mg Orally Twice a day Active 1 tablet Aspir-81 [facility] [address]-61 81 MG Orally Once a day Active 1 tablet Apidra [facility] 00025425622 100 UNIT/ML Injection Twice a Day Active as directed Pantoprazole Sodium [facility] [address]-08 40 mg Orally PRN Active 1 tablet Simvastatin [facility] 41854306812 20 mg Orally Once a day Active 1 tablet Metoprolol Tartrate [facility] 65377794814 25 MG Orally Twice a day Active 1 tablet Gabapentin [facility] 05296688210 100 mg Orally twice a day (bid) Active 2 capsules Lisinopril-Hydrochlorothiazide [facility] 93259169242 20-25 MG Orally Once a day Active 1 tablet Byetta 10 MCG Pen [facility] 47625093934 10 MCG/0.04ML Subcutaneous Once a day Active 0.02 ml up to 1 hour before breakfast and evening meal Clopidogrel Bisulfate [facility] 32299792245 75 mg Orally Once a day Active 1 tablet HumuLIN N KwikPen [facility] 37394833748 100 UNIT/ML Subcutaneous Once a Day Active as directed Vital Signs Date/Time: Jan 17, 2015 BMI 32.10 Index Weight 205 lbs Height 67 in Temperature 97.0 F Cardiac Monitoring Heart Rate 71 /min Blood Pressure Diastolic 64 mm Hg Blood Pressure Systolic 118 mm Hg Results No Known Results Summary Purpose [employer] Submission
--- OUTSIDE RECORDS SUMMARY | 2018-10-03 13:43 | XMS REPORT ---
Author Author Jorge Luis Liriano Organization [employer] Address Unknown Phone Unavailable Care Team Providers Care Shoe Laster Name Role Phone Jorge Luis Liriano CP Unavailable Allergies, Adverse Reactions, Alerts Substance Reaction Event Type N.K.D.A. 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.5 Active Problem Preoperative cardiovascular examination Z01.810 Active Problem CAD in [place] artery I25.10 Active Assessment 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 Active Assessment Carotid Bruit 785.9 Active Assessment Former smoker V15.82 Active Assessment Hypercholesterolemia 272.0 Active Assessment Diabetes mellitus with complication 250.90 Active Assessment Angina pectoris 413.9 Active Assessment Abnormal electrocardiogram 794.31 Active Problem Hypertensive heart disease without heart failure I11.9 Active Assessment Diastolic dysfunction, left ventricle 429.9 Active Problem Hypercholesteremia E78.00 Active Medications Medication Code System Code Instructions Start Date End Date Status Dosage Pantoprazole Sodium [facility] [address]-40 40 mg Orally PRN Active 1 tablet Byetta 10 MCG Pen [facility] 05775853742 10 MCG/0.04ML Subcutaneous Once a day Active 0.02 ml up to 1 hour before breakfast and evening meal Lisinopril-Hydrochlorothiazide [facility] 87284264103 20-25 MG Orally Once a day Active 1 tablet Simvastatin [facility] [address]-97 20 mg Orally Once a day Active 1 tablet Metformin HCl [facility] [address]-19 1000 mg Orally Twice a day Active 1 tablet Gabapentin [facility] [address]-04 100 mg Orally twice a day (bid) Active 2 capsules HumuLIN N KwikPen [facility] 35613023217 100 UNIT/ML Subcutaneous Once a Day Active as directed Apidra [facility] 46743328168 100 UNIT/ML Injection Twice a Day Active as directed Aspir-81 [facility] 10306863301 81 MG Orally Once a day Active 1 tablet Metoprolol Tartrate [facility] 60575955118 25 MG Orally Twice a day Jan 06, 2014 Active 1 tablet Vital Signs Date/Time: Jan 06, 2014 BMI 32.57 Index Weight 208 lbs Height 67 in Temperature 97.6 F Cardiac Monitoring Heart Rate 77 /min Blood Pressure Diastolic 80 mm Hg Blood Pressure Systolic 122 mm Hg Results No Known Results Summary Purpose [employer] Submission
--- OUTSIDE RECORDS SUMMARY | 2018-10-03 13:43 | XMS REPORT ---
Author Author Amanda Liriano Organization [employer] Address Unknown Phone Unavailable Care Team Providers Care Motion Picture Actor Name Role Phone Amanda Liriano Unavailable Allergies, Adverse Reactions, Alerts Substance Reaction Event Type N.K.D.A. 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.5 Active Problem Preoperative cardiovascular examination Z01.810 Active Problem CAD in [place] artery I25.10 Active Assessment Type 2 diabetes mellitus with complication E11.8 Active Assessment Hypercholesteremia E78.00 Active Assessment Non morbid obesity due to excess calories E66.09 Active Assessment Former smoker Z87.891 Active Assessment 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.5 Active Assessment CAD in [place] artery I25.10 Active Assessment Hypertensive heart disease without heart failure I11.9 Active Problem Hypertensive heart disease without heart failure I11.9 Active Assessment Abnormal EKG R94.31 Active Problem Hypercholesteremia E78.00 Active Medications Medication Code System Code Instructions Start Date End Date Status Dosage Insulin 70/30 ND 0 Active not defined Simvastatin [facility] 99520456075 20 mg Orally Once a day Active 1 tablet Aspir-81 [facility] [address]-69 81 MG Orally Once a day Active 1 tablet Metformin HCl [facility] 67958939202 1000 mg Orally Twice a day Active 1 tablet Gabapentin [facility] 08344901582 100 mg Orally twice a day (bid) Active 2 capsules Lisinopril-Hydrochlorothiazide [facility] 74569267926 20-25 MG Orally Once a day Active 1 tablet Metoprolol Tartrate [facility] 30623884692 25 MG Orally Twice a day Active 1 tablet Clopidogrel Bisulfate [facility] 13988409000 75MG by mouth daily Active 1 tablet Clopidogrel Bisulfate [facility] 60962160925 75MG by mouth daily Active 1 tablet Vital Signs Date/Time: Dec 22, 2015 BMI 30.54 Index Weight 195 lbs Height 67 in Temperature 96.5 F Cardiac Monitoring Heart Rate 74 /min Blood Pressure Diastolic 80 mm Hg Blood Pressure Systolic 112 mm Hg Results No Known Results Summary Purpose [employer] Submission
--- OUTSIDE RECORDS SUMMARY | 2018-10-03 13:43 | XMS REPORT ---
Author Author Jorge Luis Liriano Organization [employer] Address Unknown Phone Unavailable Care Team Providers Care Manager Retail Sales Name Role Phone Jorge Luis Liriano CP Unavailable Allergies, Adverse Reactions, Alerts Substance Reaction Event Type N.K.D.A. 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.5 Active Problem Preoperative cardiovascular examination Z01.810 Active Problem CAD in [place] artery I25.10 Active Assessment Hypercholesterolemia 272.0 Active Assessment Coronary angioplasty status V45.82 Active Assessment Obesity (BMI 30.0-34.9) 278.00 Active Assessment Former smoker V15.82 Active Assessment Coronary atherosclerosis of [place] coronary artery 414.01 Active Assessment Angina pectoris 413.9 Active Assessment Abnormal electrocardiogram 794.31 Active Problem Hypertensive heart disease without heart failure I11.9 Active Assessment Diabetes mellitus with complication 250.90 Active Problem Hypercholesteremia E78.00 Active Medications Medication Code System Code Instructions Start Date End Date Status Dosage Lisinopril-Hydrochlorothiazide [facility] 87091225906 20-25 MG Orally Once a day Active 1 tablet Metformin HCl [place] 40497455827 1000 mg Orally Twice a day Active 1 tablet Byetta 10 MCG Pen [facility] 03082023509 10 MCG/0.04ML Subcutaneous Once a day Active 0.02 ml up to 1 hour before breakfast and evening meal Gabapentin [place] 45209948847 100 mg Orally twice a day (bid) Active 2 capsules Simvastatin [place] 71321565369 20 mg Orally Once a day Active 1 tablet HumuLIN N KwikPen [facility] 23254291377 100 UNIT/ML Subcutaneous Once a Day Active as directed Clopidogrel Bisulfate [facility] 78799050356 75 mg Orally Once a day Active 1 tablet Apidra [facility] 30545584700 100 UNIT/ML Injection Twice a Day Active as directed Pantoprazole Sodium [facility] [address]-34 40 mg Orally PRN Active 1 tablet Aspir-81 [facility] [address]-33 81 MG Orally Once a day Active 1 tablet Metoprolol Tartrate [facility] 38342277552 25 MG Orally Twice a day Active 1 tablet Vital Signs Date/Time: Oct 14, 2014 BMI 32.10 Index Weight 205 lbs Height 67 in Temperature 97.4 F Cardiac Monitoring Heart Rate 77 /min Blood Pressure Diastolic 66 mm Hg Blood Pressure Systolic 118 mm Hg Results No Known Results Summary Purpose [employer] Submission
--- OUTSIDE RECORDS SUMMARY | 2018-10-03 13:43 | XMS REPORT ---
Author Author Jorge Luis Liriano Organization [employer] Address Unknown Phone Unavailable Care Team Providers Care Steak Tenderizer Machine Name Role Phone Jorge Luis Liriano CP Unavailable Allergies, Adverse Reactions, Alerts Substance Reaction Event Type N.K.D.A. 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 Problem History of CVA (cerebrovascular accident) Z86.73 Active Assessment Non morbid obesity due to excess calories E66.09 Active Problem Abnormal EKG R94.31 Active Assessment History of CVA (cerebrovascular accident) Z86.73 Active Assessment Patient unable to exercise Z78.9 Active Problem Unsteady gait R26.81 Active Problem Former smoker Z87.891 Active Problem 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.5 Active Problem Preoperative cardiovascular examination Z01.810 Active Problem CAD in [place] artery I25.10 Active Assessment Hypercholesteremia E78.00 Active Assessment Unsteady gait R26.81 Active Assessment Former smoker Z87.891 Active Assessment Type 2 diabetes mellitus with complication E11.8 Active Assessment 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.5 Active Assessment 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 15197405187 4 MG Orally twice a day (bid) Active 1 tablet Humulin N [facility] 56140776255 100 UNIT/ML Subcutaneous twice a day (bid) Active 20 units Metoprolol Tartrate [facility] 74995317733 25 MG Orally Twice a day Active 1 tablet Simvastatin [facility] 76889418428 20 mg Orally Once a day Active 1 tablet Metformin HCl [facility] 72158668710 1000 mg Orally Twice a day Active 1 tablet Clopidogrel Bisulfate [facility] 79805832049 75MG Active TAKE 1 TABLET DAILY Gabapentin [facility] 12545392276 100 mg Orally twice a day (bid) Active 2 capsules Lisinopril-Hydrochlorothiazide [facility] 63937154582 20-25 MG Orally Once a day Active 1 tablet Clopidogrel Bisulfate [facility] 47031344997 75MG Active TAKE 1 TABLET DAILY Vital Signs Date/Time: May 17, 2016 BMI 31.32 Index Weight 200 lbs Height 67 in Temperature 97.0 F Cardiac Monitoring Heart Rate 60 /min Blood Pressure Diastolic 72 mm Hg Blood Pressure Systolic 132 mm Hg Results No Known Results Summary Purpose [employer] Submission
--- OUTSIDE RECORDS SUMMARY | 2018-10-03 13:43 | XMS REPORT ---
Author Author Amanda Liriano Organization [employer] Address Unknown Phone Unavailable Care Team Providers Care System Sales Consultant Name Role Phone Amanda Liriano Unavailable Allergies, Adverse Reactions, Alerts Substance Reaction Event Type N.K.D.A. 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 Problem [...] cardiovascular examination Z01.810 Active Problem CAD in [place] artery I25.10 Active Assessment Hypercholesteremia E78.00 Active Assessment Unsteady gait R26.81 Active Assessment Former smoker Z87.891 Active Assessment Type 2 diabetes mellitus with complication E11.8 Active Assessment 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.5 Active Assessment 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 Assessment Abnormal EKG R94.31 Active Problem Hypertensive heart disease without heart failure I11.9 Active Assessment Hypertensive heart disease without heart failure I11.9 Active Problem Hypercholesteremia E78.00 Active Medications Medication Code System Code Instructions Start Date End Date Status Dosage Simvastatin [facility] 89443445722 20 mg Orally Once a day Active 1 tablet Gabapentin [facility] 14098967730 100 mg Orally twice a day (bid) Active 2 capsules Aspirin EC Lo-Dose [facility] 53928960323 81 MG Orally Once a day Active 1 tablet Metformin HCl [facility] 98645629445 1000 mg Orally Twice a day Active 1 tablet Lisinopril-Hydrochlorothiazide [facility] 04798557638 20-25 MG Orally Once a day Active 1 tablet Clopidogrel Bisulfate [facility] 63581593457 75 MG Orally daily Active 1 tablet Humulin N [facility] 45087197520 100 UNIT/ML Subcutaneous twice a day (bid) Active 20 units Metoprolol Tartrate [facility] 79806272620 25 MG Orally Twice a day Active 1 tablet Glimepiride [facility] 04129100708 4 MG Orally twice a day (bid) Active 1 tablet Vital Signs Date/Time: May 29, 2016 BMI 31.01 Index Weight 198 lbs Height 67 in Temperature 97.6 F Cardiac Monitoring Heart Rate 62 /min Blood Pressure Diastolic 86 mm Hg Blood Pressure Systolic 132 mm Hg Results No Known Results Summary Purpose [employer] Submission
--- OUTSIDE RECORDS SUMMARY | 2018-10-03 13:43 | XMS REPORT | Continuity of Care Document ---
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 Role Phone [employer] Unavailable Unavailable Problems Problem Status Onset Date Classification Date Reported Comments Source Type 2 diabetes mellitus with complication Active Problem 12/18/2017 Jorge Luis Liriano Non morbid obesity due to excess calories Active Problem 12/18/2017 Jorge Luis Liriano Atherosclerosis of [place] coronary artery of [place] heart with angina pectoris Active Problem 12/18/2017 Jorge Luis Liriano History of CVA (cerebrovascular accident) Active Problem 12/18/2017 Jorge Luis Liriano Abnormal EKG Active Problem 12/18/2017 Jorge Luis Liriano Patient unable to exercise Active Problem 12/18/2017 Jorge Luis Liriano Unsteady gait Active Problem 12/18/2017 Jorge Luis Liriano Former smoker Active Problem 12/18/2017 Jorge Luis Liriano 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 Active Problem 12/18/2017 Jorge Luis Liriano Preoperative cardiovascular examination Active Problem 12/18/2017 Jorge Luis Liriano CAD in [place] artery Active Problem 12/18/2017 Jorge Luis Liriano Hypercholesteremia Active Problem 12/18/2017 Jorge Luis Liriano Hypertensive heart disease without heart failure Active Problem 12/18/2017 Jorge Luis Liriano Obesity (BMI 30.0-34.9) Active Diagnosis 04/13/2017 Jorge Luis Liriano Abnormal electrocardiogram Active Diagnosis 04/13/2017 Jorge Luis Liriano Coronary angioplasty status Active Diagnosis 04/13/2017 Jorge uLis Liriano Former smoker Active Diagnosis 04/13/2017 Jorge Luis Liriano Hypercholesterolemia Active Diagnosis 04/13/2017 Jorge Luis Liriano Angina pectoris Active Diagnosis 04/13/2017 Jorge Luis Liriano Coronary atherosclerosis of [place] coronary artery Active Diagnosis 04/13/2017 Jorge Luis Liriano Diastolic dysfunction, left ventricle Active Diagnosis 04/13/2017 Jorge Luis Liriano Diabetes mellitus with complication Active Diagnosis 04/13/2017 Jorge Luis Liriano Old myocardial infarction Active Diagnosis 04/13/2017 Jorge Luis Liriano Carotid Bruit Active Diagnosis 04/13/2017 Jorge Luis Liriano Hypercholesteremia Active Problem 08/30/2015 Jorge Luis Liriano WHYTE (dyspnea on exertion) Active Problem 12/18/2017 Jorge Luis Liriano Non-rheumatic tricuspid valve insufficiency Active Problem 12/18/2017 Jorge Luis Liriano 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 Active Problem 12/18/2017 Jorge Luis Liriano Atherosclerosis of [place] artery of both lower extremities with intermittent claudication Active Problem 12/18/2017 Jorge Luis Liriano Chest pain Active Problem 07/16/2018 [facility] Thoracic radiculopathy Active Problem 07/16/2018 [facility] Medications Medication Details Route Status Patient Instructions Ordering Provider Order Date Source Duloxetine Hcl (Cymbalta) 20 Mg Capcr, 20 Mg Oral Daily Active 07/12/2018 [facility] Potassium Chloride 20 Meq Tab.er.prt, Active 07/12/2018 [facility] Simvastatin 20 Mg Tablet, 20 Mg Oral Today At 9:00PM Active 07/11/2018 [facility] Escitalopram Oxalate (Lexapro) 10 Mg Tablet, 10 Mg Oral Bedtime Active 12/27/2017 [facility] Atorvastatin Calcium 20 Mg Tablet, 40 Mg Oral Bedtime Active 12/24/2017 [facility] Nystatin 100,000 Unit/1 Ml Oral.susp, Oral Twice A Day Active 12/24/2017 [facility] Hum Insulin Nph/Reg Insulin Hm (Humulin 70-30 Vial) 100 Unit/1 Ml Vial, 20 Units Subcutaneously Twice A Day Active 12/23/2017 [facility] Metformin Hcl 500 Mg Tablet, 1000 Mg Oral Twice A Day Active 12/19/2017 [facility] Novolin 70/30 , 45 Units Subcutaneously Daily Active 12/19/2017 [facility] Novolin 70/30 , 35 Units Subcutaneously Bedtime Active 12/19/2017 [facility] Gabapentin 300 Mg Capsule, 300 Mg Oral Twice A Day Active 12/17/2017 [facility] Insulin 70-30 , 40 Units Subcutaneously Twice A Day Active 12/17/2017 [facility] Isosorbide Mononitrate (Isosorbide Mononitrate Er) 30 Mg Tab.er.24h, 30 Mg Oral Daily Active 12/17/2017 [facility] Levofloxacin (Levaquin) 500 Mg Tablet, 500 Mg Oral Daily Active 12/17/2017 [facility] Nph, Human Insulin Isophane (Novolin N) 100 Unit/1 Ml Vial, 45 Units Subcutaneously Daily Active 12/17/2017 [facility] Nph, Human Insulin Isophane (Novolin N) 100 Unit/1 Ml Vial, 35 Units Subcutaneously Bedtime Active 12/17/2017 [facility] Exenatide (Byetta) 5 Mcg/0.02 Ml Pen.injctr, Active 03/26/2017 [facility] Hydrochlorothiazide 25 Mg Tablet, 25 Mg Oral Daily Active 03/26/2017 [facility] Lisinopril 10 Mg Tablet, 20 Mg Oral Daily Active 03/26/2017 [facility] Aspirin (Aspir 81) 81 Mg Tablet.dr, 81 Mg Oral Daily Active 08/23/2014 [facility] Gabapentin 100 Mg Capsule, 200 Mg Oral Twice A Day Active 08/23/2014 [facility] Insulin Human Nph (Humulin N) 100 Units/Ml Ml, Active 08/23/2014 [facility] Lisinopril/Hydrochlorothiazide (Lisinopril-Hctz 20-25 Mg Tab) 1 Each Tablet, 25 Mg Oral Twice A Day Active 08/23/2014 [facility] Metformin Hcl (Metformin Hcl Er) 500 Mg Tab.er.24h, 1000 Mg Oral Twice A Day Active 08/23/2014 [facility] Simvastatin 40 Mg Tablet, 40 Mg Oral Daily Active 08/23/2014 [facility] Metoprolol Tartrate (Lopressor) 25 Mg Tab, 25 Mg Oral Twice A Day Active [facility] 01/22/2014 [facility] Prasugrel Hcl (Effient) 10 Mg Tablet, 10 Mg Oral Daily Active [facility] 01/22/2014 [facility] Metoprolol Tartrate 1 tablet Orally Active 25 MG Orally Twice a day [facility] 01/06/2014 Jorge Luis Liriano NovoLog 10 units Subcutaneous Active 100 UNIT/ML Subcutaneous twice a day (bid) Joelr[facility]ell Liriano Metoprolol Tartrate 1 tablet Orally Active 25 MG Orally Twice a day [facility] L[facility] Clopidogrel Bisulfate 1 tablet Orally Active 75 MG Orally daily [facility] Estee Liriano Metformin HCl 1 tablet Orally Active 1000 mg Orally Twice a day [facility] Estee Liriano Gabapentin 2 capsules Orally Active 100 mg Orally twice a day (bid) [facility] Liriano Simvastatin 1 tablet Orally Active 20 mg Orally Once a day [facility]ell Liriano Lisinopril-Hydrochlorothiazide 1 tablet Orally Active 20-25 MG Orally Once a day [facility] Jorge Luis Liriano Aspirin EC Lo-Dose 1 tablet Orally Active 81 MG Orally Once a day [facility] Jorge Luis Liriano Atorvastatin Calcium 1 tablet Orally Active 40 MG Orally Once a day [facility] Jorge Luis Liriano HumuLIN N KwikPen as directed Subcutaneous Active 100 UNIT/ML Subcutaneous Once a Day Joelrussell Liriano Apidra as directed Injection Active 100 UNIT/ML Injection Twice a Day [facility] Jorge Luis Liriano Aspir-81 1 tablet Orally Active 81 MG Orally Once a day [facility] Jorge Luis Liriano Metformin HCl 1 tablet Orally Active 1000 mg Orally Twice a day [facility] Jorge Luis Liriano Gabapentin 2 capsules Orally Active 100 mg Orally twice a day (bid) Joelrussell Liriano Byetta 10 MCG Pen 0.02 ml up to 1 hour before breakfast and evening meal Subcutaneous Active 10 MCG/0.04ML Subcutaneous [facility] a [facility] Pantoprazole Sodium 1 tablet Orally Active 40 mg Orally PRN Joelrussell Liriano Humulin N 20 units Subcutaneous Active 100 UNIT/ML Subcutaneous twice a day (bid) [facility] Jorge Luis Liriano Glimepiride 1 tablet Orally Active 4 MG Orally twice a day (bid) Deandra Liriano Aspir-81 1 tablet Orally Active 81 MG Orally Once a day Joelrussell Liriano Simvastatin 1 tablet Orally Active 20 mg Orally Once a day Joelrussell Liriano Humulin 70/30 25 units Subcutaneous Active (70-30) 100 UNIT/ML Subcutaneous BID Deandra Liriano Clopidogrel Bisulfate TAKE 1 TABLET DAILY NA Active 75MG Joelrussell Liriano Insulin 70/30 not defined NA Active [facility] Liriano Clopidogrel Bisulfate 1 tablet by mouth Active 75MG by mouth daily [facility] Jorge Luis Liriano Metoprolol Tartrate 1 tablet Orally Active 25 MG Orally Twice a day [facility] Jorge Luis Liriano Lisinopril-Hydrochlorothiazide 1 tablet Orally Active 20-25 MG Orally Once a day Joelrussell Liriano Clopidogrel Bisulfate 1 tablet Orally Active 75 mg Orally [facility] a [facility] Clopidogrel Bisulfate TAKE 1 TABLET DAILY NA Active 75MG Joelrussell Liriano Aspirin (Aspir 81) 81 Mg Tablet.dr Daily Active [facility] Atorvastatin Calcium 40 Mg Tablet Bedtime Active [facility] Clopidogrel Bisulfate (Plavix) 75 Mg Tablet Daily Active [facility] Duloxetine Hcl (Cymbalta) 20 Mg Capcr Daily Active [facility] Furosemide 40 Mg Tablet Daily Active [facility] Gabapentin 300 Mg Capsule Every 12 Hours Active [facility] Hydrocodone Bit/Acetaminophen ([place] 7.5-325 Tablet) 1 Each Tablet As Needed Active GIVE 1 TABLET EVERY 4-6 HOURS NEEDED FOR PAIN [facility] Insulin Lispro (Humalog) 100 Unit/1 Ml Insuln.pen Before Meals Active [facility] Lisinopril/Hydrochlorothiazide (Lisinopril-Hctz 20-25 Mg Tab) 1 Each Tablet Daily Active [facility] Metformin Hcl (Metformin Hcl Er) 500 Mg Tab.er.24h Twice A Day Active [facility] Metoprolol Tartrate 50 Mg Tablet Daily Active [facility] Omeprazole 40 Mg Capsule. Before Breakfast Active [facility] Pantoprazole Sodium (Protonix) 40 Mg Tablet. Daily as needed for Indigestion Active [facility] Tresiba Units Bedtime Active [facility] Amlodipine Besylate 5 Mg Tablet Daily Active [facility] Escitalopram Oxalate (Lexapro) 10 Mg Tablet Daily Active [facility] Insulin Human Nph (Humulin N) 100 Units/Ml Ml Bedtime Active [facility] Potassium Chloride 10 Meq Tab.er.prt Daily Active [facility] Allergies, Adverse Reactions, Alerts Substance Category Reaction Severity Reaction type Status Date Reported Comments Source N.K.D.A. Adverse Reaction Info Not Available Adverse Reaction Active 12/04/2016 Jorge Luis Liriano No Known Drug Allergies Unknown Allergy to Substance Active 12/23/2017 [facility] Immunizations No Data Provided for This Section Results Order Name Results Value Reference Range Date Interpretation Comments Source Serum or plasma sodium measurement (moles/volume) 132 136 - 145 07/16/2018 [facility] Serum or plasma potassium measurement (moles/volume) 4.2 3.5 - 5.1 07/16/2018 [facility] Serum or plasma chloride measurement (moles/volume) 102 98 - 107 07/16/2018 [facility] Serum or plasma carbon dioxide, total measurement (moles/volume) 22 22 - 29 07/16/2018 [facility] Serum or plasma anion gap 12.2 8 - 16 07/16/2018 [facility] Serum or plasma urea nitrogen measurement (mass/volume) 14 7 - 26 07/16/2018 [facility] Serum or plasma creatinine measurement (mass/volume) 0.97 0.72 - 1.25 07/16/2018 [facility] Serum or plasma urea nitrogen/creatinine mass ratio 14 6 - 25 07/16/2018 [facility] Estimated glomerular filtration rate (GFR) determination > 60 60 07/16/2018 [facility] Glucose measurement 179 74 - 118 07/16/2018 [facility] Serum or plasma calcium measurement (mass/volume) 9.2 8.4 - 10.2 07/16/2018 [facility] Capillary blood glucose measurement by glucometer (mass/volume) 168 70 - 120 07/16/2018 [facility] Blood leukocytes automated count (number/volume) 6.50 4.8 - 10.8 07/13/2018 [facility] Blood erythrocytes automated count (number/volume) 3.99 4.3 - 5.7 07/13/2018 [facility] Blood hemoglobin measurement (moles/volume) 11.8 14.0 - 18.0 07/13/2018 [facility] Automated blood hematocrit (volume fraction) 33.9 38.2 - 49.6 07/13/2018 [facility] Automated erythrocyte mean corpuscular volume 85.0 81 - 99 07/13/2018 [facility] Automated erythrocyte mean corpuscular hemoglobin (mass per erythrocyte) 29.6 28 - 32 07/13/2018 [facility] Automated erythrocyte mean corpuscular hemoglobin concentration measurement (mass/volume) 34.8 31 - 35 07/13/2018 [facility] RDW BldCo-Rto 13.2 11.7 - 14.4 07/13/2018 [facility] Automated blood platelet count (count/volume) 183 140 - 360 07/13/2018 [facility] Automated blood segmented neutrophil count as percentage of total leukocytes 53.2 38.7 - 80.0 07/13/2018 [facility] Automated blood lymphocyte count as percentage ot total leukocytes 29.7 18.0 - 39.1 07/13/2018 [facility] Automated blood monocyte count as percentage of total leukocytes 11.1 4.4 - 11.3 07/13/2018 [facility] Automated blood eosinophil count as percentage of total leukocytes 5.2 0.0 - 6.0 07/13/2018 [facility] Automated blood basophil count as percentage of total leukocytes 0.5 0.0 - 1.0 07/13/2018 [facility] IM GRANULOCYTES % 0.3 0.0 - 1.0 07/13/2018 [facility] Automated blood neutrophil count 3.5 2.1 - 6.9 07/13/2018 [facility] Blood lymphocytes count (number/volume) 1.9 1.0 - 3.2 07/13/2018 [facility] Blood monocytes automated count (number/volume) 0.7 0.2 - 0.8 07/13/2018 [facility] Automated blood eosinophil count 0.3 0.0 - 0.4 07/13/2018 [facility] Automated blood basophil count (count/volume) 0.0 0.0 - 0.1 07/13/2018 [facility] Absolute Immature Granulocyte (auto 0.02 0 - 0.1 07/13/2018 [facility] Hemoglobin A1c Percent 11.7 4.0 - 7.0 07/13/2018 [facility] Serum or plasma total bilirubin measurement (mass/volume) 0.9 0.2 - 1.2 07/13/2018 [facility] Aspartate Amino Transf (AST/SGOT) 17 5 - 34 07/13/2018 [facility] Serum or plasma alanine aminotransferase measurement (enzymatic activity/volume) 13 0 - 55 07/13/2018 [facility] Serum or plasma protein measurement (mass/volume) 5.9 6.5 - 8.1 07/13/2018 [facility] Serum or plasma albumin measurement (mass/volume) 2.7 3.5 - 5.0 07/13/2018 [facility] Plasma globulin measurement (mass/volume) 3.2 2.3 - 3.5 07/13/2018 [facility] Serum or plasma albumin/globulin mass ratio 0.8 0.8 - 2.0 07/13/2018 [facility] Serum or plasma alkaline phosphatase measurement (enzymatic activity/volume) 84 40 - 150 07/13/2018 [facility] Serum or plasma triglyceride measurement (mass/volume) 97 0 - 149 07/13/2018 [facility] Serum or plasma cholesterol measurement (mass/volume) 95 0 - 199 07/13/2018 [facility] Serum or plasma cholesterol in LDL measurement (mass/volume) 44 60 - 130 07/13/2018 [facility] Serum or plasma cholesterol in HDL measurement (mass/volume) 32 40 - 60 07/13/2018 [facility] Serum or plasma total cholesterol/cholesterol in HDL mass ratio 3.0 3.9 - 4.7 07/13/2018 [facility] Serum or plasma thyrotropin measurement by detection limit <=0.005 miu/l (units/volume) 0.860 0.350 - 4.940 07/13/2018 [facility] Serum or plasma magnesium measurement (mass/volume) 1.5 1.3 - 2.1 07/12/2018 [facility] Urine glucose detection by automated test strip NEGATIVE NEGATIVE 07/11/2018 [facility] Urine ketones detection by automated test strip NEGATIVE NEGATIVE 07/11/2018 [facility] Urine urobilinogen measurement by test strip (mass/volume) 0.2 0.2 - 1 07/11/2018 [facility] Urine total bilirubin detection NEGATIVE NEGATIVE 07/11/2018 [facility] Urine erythrocytes detection TRACE NEGATIVE 07/11/2018 [facility] Automated urine sediment leukocyte count by microscopy (number/high power field) NONE 0 - 5 07/11/2018 [facility] Erythrocytes detection in urine sediment by light microscopy 0-5 0 - 5 07/11/2018 [facility] Bacteria detection in urine sediment by light microscopy NONE NONE 07/11/2018 [facility] Epithelial cells detection in urine sediment by light microscopy NONE NONE 07/11/2018 [facility] Hyaline casts detection in urine sediment by light microscopy 0-1 0 - 1 07/11/2018 [facility] Urine total bilirubin detection NEGATIVE NEGATIVE 07/11/2018 [facility] Urine erythrocytes detection TRACE NEGATIVE 07/11/2018 [facility] Automated urine sediment leukocyte count by microscopy (number/high power field) NONE 0 - 5 07/11/2018 [facility] Erythrocytes detection in urine sediment by light microscopy 0-5 0 - 5 07/11/2018 [facility] Bacteria detection in urine sediment by light microscopy NONE NONE 07/11/2018 [facility] Epithelial cells detection in urine sediment by light microscopy NONE NONE 07/11/2018 [facility] Hyaline casts detection in urine sediment by light microscopy 0-1 0 - 1 07/11/2018 [facility] Urine color determination YELLOW YELLOW 07/11/2018 [facility] Urine clarity CLEAR CLEAR 07/11/2018 [facility] Specific gravity of Urine by Test strip 1.005 1.010 - 1.025 07/11/2018 [facility] Urine pH measurement by automated test strip 6 5 - 7 07/11/2018 [facility] Urine leukocyte esterase detection by automated test strip NEGATIVE NEGATIVE 07/11/2018 [facility] Urine nitrite detection by automated test strip NEGATIVE NEGATIVE 07/11/2018 [facility] Urine protein detection by automated test strip 1+ NEGATIVE 07/11/2018 [facility] Blood leukocytes automated count (number/volume) 8.96 4.8 - 10.8 07/11/2018 [facility] Blood erythrocytes automated count (number/volume) 4.59 4.3 - 5.7 07/11/2018 [facility] Blood hemoglobin measurement (moles/volume) 13.7 14.0 - 18.0 07/11/2018 [facility] Automated blood hematocrit (volume fraction) 39.1 38.2 - 49.6 07/11/2018 [facility] Automated erythrocyte mean corpuscular volume 85.2 81 - 99 07/11/2018 [facility] Automated erythrocyte mean corpuscular hemoglobin (mass per erythrocyte) 29.8 28 - 32 07/11/2018 [facility] Automated erythrocyte mean corpuscular hemoglobin concentration measurement (mass/volume) 35.0 31 - 35 07/11/2018 [facility] RDW BldCo-Rto 13.3 11.7 - 14.4 07/11/2018 [facility] Automated blood platelet count (count/volume) 226 140 - 360 07/11/2018 [facility] Automated blood segmented neutrophil count as percentage of total leukocytes 54.4 38.7 - 80.0 07/11/2018 [facility] Automated blood lymphocyte count as percentage ot total leukocytes 30.2 18.0 - 39.1 07/11/2018 [facility] Automated blood monocyte count as percentage of total leukocytes 11.5 4.4 - 11.3 07/11/2018 [facility] Automated blood eosinophil count as percentage of total leukocytes 3.2 0.0 - 6.0 07/11/2018 [facility] Automated blood basophil count as percentage of total leukocytes 0.4 0.0 - 1.0 07/11/2018 [facility] Prothrombin time (PT) in platelet poor plasma by coagulation assay 13.0 11.9 - 14.5 07/11/2018 [facility] INR in Platelet poor plasma by Coagulation assay 0.93 07/11/2018 [facility] Activated partial thromboplastin time (aPTT) in platelet poor plasma bycoagulation assay 24.7 23.8 - 35.5 07/11/2018 [facility] Blood monocytes automated count (number/volume) 1.0 0.2 - 0.8 07/11/2018 [facility] Automated blood eosinophil count 0.3 0.0 - 0.4 07/11/2018 [facility] Automated blood basophil count (count/volume) 0.0 0.0 - 0.1 07/11/2018 [facility] Absolute Immature Granulocyte (auto 0.03 0 - 0.1 07/11/2018 [facility] Prothrombin time (PT) in platelet poor plasma by coagulation assay 13.0 11.9 - 14.5 07/11/2018 [facility] INR in Platelet poor plasma by Coagulation assay 0.93 07/11/2018 [facility] Activated partial thromboplastin time (aPTT) in platelet poor plasma bycoagulation assay 24.7 23.8 - 35.5 07/11/2018 [facility] Serum or plasma sodium measurement (moles/volume) 139 136 - 145 07/11/2018 [facility] Serum or plasma potassium measurement (moles/volume) 2.9 3.5 - 5.1 07/11/2018 [facility] Serum or plasma chloride measurement (moles/volume) 102 98 - 107 07/11/2018 [facility] Serum or plasma carbon dioxide, total measurement (moles/volume) 29 22 - 29 07/11/2018 [facility] Serum or plasma anion gap 10.9 8 - 16 07/11/2018 [facility] Serum or plasma urea nitrogen measurement (mass/volume) 29 7 - 26 07/11/2018 [facility] Lactic Acid Level 20.3 4.5 - 19.8 07/11/2018 [facility] Serum or plasma urea nitrogen/creatinine mass ratio 20 6 - 25 07/11/2018 [facility] Estimated glomerular filtration rate (GFR) determination 47 60 07/11/2018 [facility] Glucose measurement 60 74 - 118 07/11/2018 [facility] Serum or plasma calcium measurement (mass/volume) 9.5 8.4 - 10.2 07/11/2018 [facility] Lactic Acid Level 20.3 4.5 - 19.8 07/11/2018 [facility] Serum or plasma total bilirubin measurement (mass/volume) 0.7 0.2 - 1.2 07/11/2018 [facility] Aspartate Amino Transf (AST/SGOT) 16 5 - 34 07/11/2018 [facility] Serum or plasma alanine aminotransferase measurement (enzymatic activity/volume) 16 0 - 55 07/11/2018 [facility] Serum or plasma protein measurement (mass/volume) 7.0 6.5 - 8.1 07/11/2018 [facility] Serum or plasma albumin measurement (mass/volume) 3.3 3.5 - 5.0 07/11/2018 [facility] Plasma globulin measurement (mass/volume) 3.7 2.3 - 3.5 07/11/2018 [facility] Serum or plasma albumin/globulin mass ratio 0.9 0.8 - 2.0 07/11/2018 [facility] Serum or plasma alkaline phosphatase measurement (enzymatic activity/volume) 104 40 - 150 07/11/2018 [facility] Serum or plasma creatine kinase measurement (enzymatic activity/volume) 156 30 - 200 07/11/2018 [facility] Serum or plasma creatine kinase measurement (enzymatic activity/volume) 156 30 - 200 07/11/2018 [facility] Serum or plasma creatine kinase MB measurement (mass/volume) 5.40 0 - 5.0 07/11/2018 [facility] Troponin I measurement by highly sensitive enzyme immunoassay 0.010 0 - 0.300 07/11/2018 [facility] Blood culture NO GROWTH AFTER 5 DAYS, FINAL REPORT 07/11/2018 [facility] Capillary blood glucose measurement by glucometer (mass/volume) 138 70 - 120 12/27/2017 [facility] Serum or plasma triglyceride measurement (mass/volume) 42 0 - 149 12/24/2017 [facility] Serum or plasma cholesterol measurement (mass/volume) 118 0 - 199 12/24/2017 [facility] Serum or plasma cholesterol in LDL measurement (mass/volume) 68 60 - 130 12/24/2017 [facility] Serum or plasma cholesterol in HDL measurement (mass/volume) 42 40 - 60 12/24/2017 [facility] Serum or plasma total cholesterol/cholesterol in HDL mass ratio 2.8 3.9 - 4.7 12/24/2017 [facility] Serum or plasma thyrotropin measurement by detection limit <=0.005 miu/l (units/volume) 0.519 0.350 - 4.940 12/24/2017 [facility] Amorphous sediment detection in urine sediment by light microscopy FEW FEW 12/23/2017 [facility] Mucus detection in urine sediment by light microscopy FEW RARE 12/23/2017 [facility] BNP Bld-mCnc 66.2 0 - 100 12/23/2017 [facility] BNP Bld-mCnc 66.2 0 - 100 12/23/2017 [facility] Pathology Reports No Data Provided for This Section Diagnostic Reports No Data Provided for This Section Consultation Notes No Data Provided for This Section Discharge Summaries No Data Provided for This Section History and Physicals No Data Provided for This Section Vital Signs Vital Sign Value Date Comments Source Weight 193 12/04/2016 Moh[facility] O Jeroudi Height 67 12/04/2016 [facility] Temperature Oral (F) 96.8 F 12/04/2016 [facility] Heart Rate 82 12/04/2016 [facility] Diastolic (mm Hg) 72 12/04/2016 [facility] Systolic (mm Hg) 130 12/04/2016 [facility] Weight 190 2016 [facility] Height 67 2016 [facility] Temperature Oral (F) 95.4 F 2016 [facility] Heart Rate 82 2016 [facility] Diastolic (mm Hg) 78 2016 [facility] Systolic (mm Hg) 132 2016 [facility] Weight 198 05/29/2016 [facility] Height 67 05/29/2016 [facility] Temperature Oral (F) 97.6 F 05/29/2016 [facility] Heart Rate 62 05/29/2016 [facility] Diastolic (mm Hg) 86 05/29/2016 Mohamed O Jeroudi Systolic (mm Hg) 132 05/29/2016 Mohamed O Jeroudi Weight 200 05/17/2016 Mohamed O Jeroudi Height 67 05/17/2016 Mohamed O Jeroudi Temperature Oral (F) 97.0 F 05/17/2016 Mohamed O Jeroudi Heart Rate 60 05/17/2016 Mohamed O Jeroudi Diastolic (mm Hg) 72 05/17/2016 Mohamed O Jeroudi Systolic (mm Hg) 132 05/17/2016 Mohamed O Jeroudi Weight 196 04/26/2016 Mohamed O Jeroudi Height 67 04/26/2016 Mohamed O Jeroudi Temperature Oral (F) 97.6 F 04/26/2016 Mohamed O Jeroudi Heart Rate 61 04/26/2016 Mohamed O Jeroudi Diastolic (mm Hg) 76 04/26/2016 Mohamed O Jeroudi Systolic (mm Hg) 122 04/26/2016 Mohamed O Jeroudi Weight 195 12/22/2015 Mohamed O Jeroudi Height 67 12/22/2015 Mohamed O Jeroudi Temperature Oral (F) 96.5 F 12/22/2015 Mohamed O Jeroudi Heart Rate 74 12/22/2015 Mohamed O Jeroudi Diastolic (mm Hg) 80 12/22/2015 Mohamed O Jeroudi Systolic (mm Hg) 112 12/22/2015 Mohamed O Jeroudi Weight 205 01/17/2015 Mohamed O Jeroudi Height 67 01/17/2015 Mohamed O Jeroudi Temperature Oral (F) 97.0 F 01/17/2015 Mohamed O Jeroudi Heart Rate 71 01/17/2015 Mohamed O Jeroudi Diastolic (mm Hg) 64 01/17/2015 Mohamed O Jeroudi Systolic (mm Hg) 118 01/17/2015 Mohamed O Jeroudi Weight 205 10/14/2014 Mohamed O Jeroudi Height 67 10/14/2014 Mohamed O Jeroudi Temperature Oral (F) 97.4 F 10/14/2014 Mohamed O Jeroudi Heart Rate 77 10/14/2014 Mohamed O Jeroudi Diastolic (mm Hg) 66 10/14/2014 Mohamed O Jeroudi Systolic (mm Hg) 118 10/14/2014 Mohamed O Jeroudi Weight 207 04/07/2014 Mohamed O Jeroudi Height 67 04/07/2014 Mohamed O Jeroudi Temperature Oral (F) 97.0 F 04/07/2014 Mohamed O Jeroudi Heart Rate 71 04/07/2014 Mohamed O Jeroudi Diastolic (mm Hg) 80 04/07/2014 Mohamed O Jeroudi Systolic (mm Hg) 130 04/07/2014 Mohamed O Jeroudi Weight 207 03/23/2014 Mohamed O Jeroudi Height 67 03/23/2014 Mohamed O Jeroudi Temperature Oral (F) 95.4 F 03/23/2014 Mohamed O Jeroudi Heart Rate 71 03/23/2014 Mohamed O Jeroudi Diastolic (mm Hg) 80 03/23/2014 Mohamed O Jeroudi Systolic (mm Hg) 120 03/23/2014 Mohamed O Jeroudi Weight 206 02/08/2014 Mohamed O Jeroudi Height 67 02/08/2014 Mohamed O Jeroudi Temperature Oral (F) 95.9 F 02/08/2014 Mohamed O Jeroudi Heart Rate 58 02/08/2014 Mohamed O Jeroudi Diastolic (mm Hg) 80 02/08/2014 Mohamed O Jeroudi Systolic (mm Hg) 125 02/08/2014 Mohamed O Jeroudi Weight 208 01/06/2014 Mohamed O Jeroudi Height 67 01/06/2014 Mohamed O Jeroudi Temperature Oral (F) 97.6 F 01/06/2014 Mohamed O Jeroudi Heart Rate 77 01/06/2014 Mohamed O Jeroudi Diastolic (mm Hg) 80 01/06/2014 Mohamed O Jeroudi Systolic (mm Hg) 122 01/06/2014 Mohamed O Jeroudi Weight 208 12/15/2013 Mohamed O Jeroudi Height 67 12/15/2013 Mohamed O Jeroudi Temperature Oral (F) 97.1 F 12/15/2013 Mohamed O Jeroudi Heart Rate 77 12/15/2013 Mohamed O Jeroudi Diastolic (mm Hg) 70 12/15/2013 Mohamed O Jeroudi Systolic (mm Hg) 120 12/15/2013 Mohamed O Jeroudi Encounters Location Location Details Encounter Type Encounter Number Reason For Visit Attending Provider ADM Date DC Date Status Source Jorge Luis Liriano MD [facility] [id number] 01/11/2014 01/11/2014 Jorge Luis Liriano MD PA procedures for 01/18/15 &01/21/14 concerning medications. [id number] 01/15/2014 01/15/2014 Jorge Luis Liriano MD PA Unknown [id number] 08/29/2015 08/29/2015 Jorge Luis Liriano [facility] [id number] DERRICK MCLEOD MD 12/19/2017 [facility] Discharged Inpatient [id number] SERGO MUHAMMAD MD 12/26/2017 12/27/2017 [facility] [id number] SERGO MUHAMMAD MD 02/05/2018 [facility] Discharged Inpatient (obs) [id number] SERGO MUHAMMAD MD 07/11/2018 07/16/2018 [facility] Procedures Procedure Code Date Perfomer Comments Source Ultrasound of left breast [id number] 02/05/2018 [facility] EXCISION OF CERVICAL VERTEBRAL DISC, OPEN APPROACH [id number] 12/26[facility] FUSION CERV JT W NONAUT SUB, ANT APPR A COL, OPEN [id number] 12/26/2017 [facility] MEASURE OF CARDIAC SAMPL & PRESSURE, L HEART, PERC APPROACH [id number] 12/24/2017 [facility] FLUOROSCOPY OF MULT COR ART USING L OSM CONTRAST [id number] 12/24/2017 [facility] FLUOROSCOPY OF LEFT HEART USING LOW OSMOLAR CONTRAST [id number] 12/24/2017 [facility] Magnetic resonance imaging of cervical spine without contrast [id number] 12/24/2017 [facility] Computed tomography of thoracic spine without contrast [id number] 12/23/2017 [facility]NAL[facility] EGD BIOPSY SINGLE/MULTIPLE [id number] 12/19/2017 [facility] COLONOSCOPY W/LESION REMOVAL [id number] 12/19/2017 [facility] Assessment and Plan No Data Provided for This Section Plan of Care Plan of Care Date Source Discharge Date 07/16/18 6:04pm Disposition HOME, SELF-CARE Instructions/Education Provided Hypertension Prescriptions See Medication Section Additional Instructions/Education Follow up Dr Morgan in 1 week ([phone]) Follow up Dr Liriano after appointment with Dr Morgan ([phone]) Follow up Dr Muhammad in 2 weeks ([phone]) 07/16/2018 [facility] Discharge Date 07/11/18 6:35pm Disposition ADMITTED Condition at Discharge Stable Forms Provided Work/School Excuse Prescriptions See Medication Section 07/11/2018 [facility] Social History Social History Date Source Social History Problem Response Recorded Date/Time Onset Date Status Hx Psychiatric Problems No 01/21/2014 10:46am Not Applicable Not Applicable Hx Eating Disorder No 01/21/2014 10:46am Not Applicable Not Applicable Hx Substance Use Disorder No 01/21/2014 10:46am Not Applicable Not Applicable Hx Depression No 01/21/2014 10:46am Not Applicable Not Applicable Hx Alcohol Use Y - used to drink heavy, now drinks beer socially 01/21/2014 10:46am Not Applicable Not Applicable Hx Substance Use Treatment No 01/21/2014 10:46am Not Applicable Not Applicable Hx Physical Abuse No 01/21/2014 10:46am Not Applicable Not Applicable Smoking Status Start Date Stop Date Former smoker 07/16/2018 [facility] Social History ElementQualifiersDate Reported Smoking . Status Former Smoker Quit in 1980June 16, 2015 Alcohol Use Yes. June 16, 2015 Alcohol Screening: Yes. Did you have a drink containing alcohol in the past year?: Yes, How often did you have a drink containing alcohol in the past year?: Monthly or less (1 point), How many drinks did you have on a typical day when you were drinking in the past year?: 1 or 2 (0 points), How often did you have six or more drinks on one occasion in the past year?: Less than monthly (1 point), Points: 2, Interpretation: Negative June 16, 2015 Marital Status: . June 16, 2015 Do you drink alcohol? Yes. June 16, 2015 Occupation: . Retired [employer] June 16, 2015 06/16/2015 Rosaurajenniffer Estee Joelemily Family History No Data Provided for This Section Advance Directives Order Name Results Value Date Source Advance Directives Advance Directives Directive Response Recorded Date/Time Does the patient have an advance directive? No 07/12/18 5:30am If yes, is advance directive on file with [facility]? No 07/12/18 5:30am If not on file with [facility] will patient provide a copy? No 07/12/18 5:30am Do you have a Directive to Physician? No 07/11/18 12:40pm Do you have a Medical Power of Graining Press Operator? No 07/11/18 12:40pm Do you have an out of hospital Do Not Resuscitate Order? No 07/11/18 12:40pm Do you have any special needs we should be aware of? No 07/11/18 12:40pm Do you have a support person here with you today? No 07/11/18 12:40pm Did patient receive Notice of Privacy Practices? Yes 07/11/18 12:40pm Did patient receive patient rights and responsibilities? Yes 07/11/18 12:40pm 07/16/2018 [facility] Advance Directives Advance Directives Directive Response Recorded Date/Time Does the patient have an advance directive? No 12/24/17 1:29am Do you have a Directive to Physician? No 07/11/18 12:40pm Do you have a Medical Power of Graining Press Operator? No 07/11/18 12:40pm Do you have an out of hospital Do Not Resuscitate Order? No 07/11/18 12:40pm Do you have any special needs we should be aware of? No 07/11/18 12:40pm Do you have a support person here with you today? No 07/11/18 12:40pm Did patient receive Notice of Privacy Practices? Yes 07/11/18 12:40pm Did patient receive patient rights and responsibilities? Yes 07/11/18 12:40pm 07/11/2018 [facility] Functional Status No Data Provided for This Section
--- OUTSIDE RECORDS SUMMARY | 2018-10-03 13:43 | XMS REPORT ---
Author Author Amanda Liriano Organization [employer] Address Unknown Phone Unavailable Care Team Providers Care Railroad Repairer Name Role Phone Amanda Liriano Unavailable Allergies, Adverse Reactions, Alerts Substance Reaction Event Type N.K.D.A. 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 Problem History of CVA (cerebrovascular accident) Z86.73 Active Assessment Obesity (BMI 30.0-34.9) 278.00 Active Problem Abnormal EKG R94.31 Active Problem Unsteady gait R26.81 Active Problem Former smoker Z87.891 Active Problem 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.5 Active Problem Preoperative cardiovascular examination Z01.810 Active Problem CAD in [place] artery I25.10 Active Assessment Abnormal electrocardiogram 794.31 Active Assessment Coronary angioplasty status V45.82 Active Assessment Former smoker V15.82 Active Assessment Hypercholesterolemia 272.0 Active Assessment Angina pectoris 413.9 Active Assessment Coronary atherosclerosis of [place] coronary artery 414.01 Active Assessment Diastolic dysfunction, left ventricle 429.9 Active Problem Hypertensive heart disease without heart failure I11.9 Active Assessment Diabetes mellitus with complication 250.90 Active Problem Hypercholesteremia E78.00 Active Medications Medication Code System Code Instructions Start Date End Date Status Dosage Simvastatin ND 01166907753 20 mg Orally Once a day Active 1 tablet Lisinopril-Hydrochlorothiazide ND 21911806219 20-25 MG Orally Once a day Active 1 tablet HumuLIN N KwikPen [facility] 80337237987 100 UNIT/ML Subcutaneous Once a Day Active as directed Apidra ND 61117199518 100 UNIT/ML Injection Twice a Day Active as directed Metoprolol Tartrate ND 57128630018 25 MG Orally Twice a day Jan 06, 2014 Active 1 tablet Aspir-[address] [facility] 67114984084 81 MG Orally Once a day Active 1 tablet Metformin HCl [facility] [address]-76 1000 mg Orally Twice a day Active 1 tablet Gabapentin [facility] [address]-17 100 mg Orally twice a day (bid) Active 2 capsules Byetta 10 MCG Pen [facility] 47875100646 10 MCG/0.04ML Subcutaneous Once a day Active 0.02 ml up to 1 hour before breakfast and evening meal Pantoprazole Sodium [facility] [address]-83 40 mg Orally PRN Active 1 tablet Clopidogrel Bisulfate [facility] 80346683626 75 mg Orally Once a day Active 1 tablet Vital Signs Date/Time: Feb 08, 2014 BMI 32.26 Index Weight 206 lbs Height 67 in Temperature 95.9 F Cardiac Monitoring Heart Rate 58 /min Blood Pressure Diastolic 80 mm Hg Blood Pressure Systolic 125 mm Hg Results No Known Results Summary Purpose [employer] Submission
--- OUTSIDE RECORDS SUMMARY | 2018-10-03 13:43 | XMS REPORT ---
Author Author Amanda Liriano Organization [employer] Address Unknown Phone Unavailable Care Team Providers Care Under Cutter Name Role Phone Amanda Liriano Unavailable Allergies, Adverse Reactions, Alerts Substance Reaction Event Type N.K.D.A. 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 Problem [...] cardiovascular examination Z01.810 Active Problem CAD in [place] artery I25.10 Active Assessment Hypercholesteremia E78.00 Active Assessment Unsteady gait R26.81 Active Assessment Former smoker Z87.891 Active Assessment Type 2 diabetes mellitus with complication E11.8 Active Assessment 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.5 Active Assessment 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 Assessment Abnormal EKG R94.31 Active Problem Hypertensive heart disease without heart failure I11.9 Active Assessment Hypertensive heart disease without heart failure I11.9 Active Problem Hypercholesteremia E78.00 Active Medications Medication Code System Code Instructions Start Date End Date Status Dosage Gabapentin [facility] 74637457587 100 mg Orally twice a day (bid) Active 2 capsules Lisinopril-Hydrochlorothiazide [facility] 79619740010 20-25 MG Orally Once a day Active 1 tablet Metoprolol Tartrate ND 59540263727 25 MG Orally Twice a day Active 1 tablet Humulin 70/30 [facility] 55953941720 (70-30) 100 UNIT/ML Subcutaneous BID Active 25 units Metformin HCl [facility] 52602760506 1000 mg Orally Twice a day Active 1 tablet Simvastatin [facility] 69648770366 20 mg Orally Once a day Active 1 tablet Clopidogrel Bisulfate [facility] 93971321574 75MG Active TAKE 1 TABLET DAILY Vital Signs Date/Time: April 26, 2016 BMI 30.69 Index Weight 196 lbs Height 67 in Temperature 97.6 F Cardiac Monitoring Heart Rate 61 /min Blood Pressure Diastolic 76 mm Hg Blood Pressure Systolic 122 mm Hg Results No Known Results Summary Purpose [employer] Submission
--- OUTSIDE RECORDS SUMMARY | 2018-10-03 13:43 | XMS REPORT ---
Author Author Amanda Liriano Organization [employer] Address Unknown Phone Unavailable Care Team Providers Care Instrument Repairer Helper Name Role Phone Amanda Liriano Unavailable Allergies, [...] Instructions Start Date End Date Status Dosage NovoLog [facility] [address]-62 100 UNIT/ML Subcutaneous twice a day (bid) Active 10 units Metoprolol Tartrate [facility] 02713196833 25 MG Orally Twice a day Active 1 tablet Clopidogrel Bisulfate [facility] 70930623418 75 MG Orally daily Active 1 tablet Metformin HCl [facility] 25457551379 1000 mg Orally Twice a day Active 1 tablet Gabapentin NDC 80192656050 100 mg Orally twice a day (bid) Active 2 capsules Simvastatin [facility] 88131612580 20 mg Orally Once a day Active 1 tablet Lisinopril-Hydrochlorothiazide [facility] 61180635120 20-25 MG Orally Once a day Active 1 tablet Aspirin EC Lo-Dose [facility] 79256927366 81 MG Orally Once a day Active 1 tablet Atorvastatin Calcium [facility] 19745962479 40 MG Orally Once a day Active 1 tablet Vital Signs Date/Time: Dec 04, 2016 BMI 30.22 Index Weight 193 lbs Height 67 in Temperature 96.8 F Cardiac Monitoring Heart Rate 82 /min Blood Pressure Diastolic 72 mm Hg Blood Pressure Systolic 130 mm Hg Results No Known Results Summary Purpose [employer] Submission
--- OUTSIDE RECORDS SUMMARY | 2018-10-03 13:43 | XMS REPORT ---
Author Author Jorge Luis Liriano Organization [employer] Address Unknown Phone Unavailable Care Team Providers Care Police Captain Name Role Phone Jorge Luis Liriano CP Unavailable Allergies, Adverse Reactions, Alerts Substance Reaction Event Type N.K.D.A. 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 Problem [...] cardiovascular examination Z01.810 Active Problem CAD in [place] artery I25.10 Active Assessment Hypercholesteremia E78.00 Active Assessment Unsteady gait R26.81 Active Assessment Former smoker Z87.891 Active Assessment Type 2 diabetes mellitus with complication E11.8 Active Assessment 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.5 Active Assessment 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 Assessment Abnormal EKG R94.31 Active Problem Hypertensive heart disease without heart failure I11.9 Active Assessment Hypertensive heart disease without heart failure I11.9 Active Problem Hypercholesteremia E78.00 Active Medications Medication Code System Code Instructions Start Date End Date Status Dosage Metoprolol Tartrate [facility] 63979428851 25 MG Orally Twice a day Active 1 tablet Clopidogrel Bisulfate [facility] 74772745597 75 MG Orally daily Active 1 tablet Humulin N [facility] 88289409226 100 UNIT/ML Subcutaneous twice a day (bid) Active 20 units Glimepiride [facility] 55494638175 4 MG Orally twice a day (bid) Active 1 tablet Lisinopril-Hydrochlorothiazide [facility] 67666220954 20-25 MG Orally Once a day Active 1 tablet Simvastatin [facility] 11198048966 20 mg Orally Once a day Active 1 tablet Gabapentin [facility] 65639284747 100 mg Orally twice a day (bid) Active 2 capsules Aspirin EC Lo-Dose [facility] 63440463169 81 MG Orally Once a day Active 1 tablet Metformin HCl [facility] 04702427699 1000 mg Orally Twice a day Active 1 tablet Clopidogrel Bisulfate [facility] 03750514942 75MG Active TAKE 1 TABLET DAILY Vital Signs Date/Time: 2016 BMI 29.75 Index Weight 190 lbs Height 67 in Temperature 95.4 F Cardiac Monitoring Heart Rate 82 /min Blood Pressure Diastolic 78 mm Hg Blood Pressure Systolic 132 mm Hg Results No Known Results Summary Purpose [employer] Submission
--- OUTSIDE RECORDS SUMMARY | 2018-10-03 13:43 | XMS REPORT ---
Author Author Jorge Luis Liriano Organization [employer] Address Unknown Phone Unavailable Care Team Providers Care Lamp Cleaner Name Role Phone Jorge Luis Liriano CP Unavailable Allergies, Adverse Reactions, Alerts Substance Reaction Event Type N.K.D.A. 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 Problem History of CVA (cerebrovascular accident) Z86.73 Active Problem Abnormal EKG R94.31 Active Problem Unsteady gait R26.81 Active Problem Former smoker Z87.891 Active Problem 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.5 Active Problem Preoperative cardiovascular examination Z01.810 Active Problem CAD in [place] artery I25.10 Active Assessment 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 Active Assessment Carotid Bruit 785.9 Active Assessment Diabetes mellitus with complication 250.90 Active Assessment Angina pectoris 413.9 Active Assessment Abnormal electrocardiogram 794.31 Active Problem Hypertensive heart disease without heart failure I11.9 Active Assessment Diastolic dysfunction, left ventricle 429.9 Active Problem Hypercholesteremia E78.00 Active Medications Medication Code System Code Instructions Start Date End Date Status Dosage Gabapentin [facility] [address]-84 100 mg Orally twice a day (bid) Active 2 capsules Aspir-81 [facility] 66988716858 81 MG Orally Once a day Active 1 tablet Apidra [facility] 24643255420 100 UNIT/ML Injection Twice a Day Active as directed Pantoprazole Sodium [facility] [address]-51 40 mg Orally PRN Active 1 tablet Metformin HCl [facility] [address]-16 1000 mg Orally Twice a day Active 1 tablet Simvastatin [facility] [address]-42 20 mg Orally Once a day Active 1 tablet Lisinopril-Hydrochlorothiazide [facility] 71648343581 20-25 MG Orally Once a day Active 1 tablet HumuLIN N KwikPen [facility] 11862261886 100 UNIT/ML Subcutaneous Once a Day Active as directed Bydaksha 10 MCG Pen [facility] 96802985402 10 MCG/0.04ML Subcutaneous Once a day Active 0.02 ml up to 1 hour before breakfast and evening meal Vital Signs Date/Time: Dec 15, 2013 BMI 32.57 Index Weight 208 lbs Height 67 in Temperature 97.1 F Cardiac Monitoring Heart Rate 77 /min Blood Pressure Diastolic 70 mm Hg Blood Pressure Systolic 120 mm Hg Results No Known Results Summary Purpose [employer]Works Submission
--- OUTSIDE RECORDS SUMMARY | 2018-10-03 13:44 | XMS REPORT ---
Author Author Jorge Luis Liriano Organization [employer] Address Unknown Phone Unavailable Care Team Providers Care Manager Community Outreach Name Role Phone Jorge Luis Liriano CP Unavailable Allergies, Adverse Reactions, Alerts Substance Reaction Event Type N.K.D.A. 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 Problem History of CVA (cerebrovascular accident) Z86.73 Active Assessment Obesity (BMI 30.0-34.9) 278.00 Active Problem Abnormal EKG R94.31 Active Problem Unsteady gait R26.81 Active Problem Former smoker Z87.891 Active Problem 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.5 Active Problem Preoperative cardiovascular examination Z01.810 Active Problem CAD in [place] artery I25.10 Active Assessment Coronary angioplasty status V45.82 Active Assessment Diastolic dysfunction, left ventricle 429.9 Active Assessment Former smoker V15.82 Active Assessment Hypercholesterolemia 272.0 Active Assessment Coronary atherosclerosis of [place] coronary artery 414.01 Active Assessment Angina pectoris 413.9 Active Assessment Abnormal electrocardiogram 794.31 Active Problem Hypertensive heart disease without heart failure I11.9 Active Assessment Diabetes mellitus with complication 250.90 Active Problem Hypercholesteremia E78.00 Active Medications Medication Code System Code Instructions Start Date End Date Status Dosage Clopidogrel Bisulfate [facility] 42093425651 75 mg Orally Once a day Active 1 tablet Metoprolol Tartrate [facility] 40781689602 25 MG Orally Twice a day Active 1 tablet Pantoprazole Sodium [facility] [address]-58 40 mg Orally PRN Active 1 tablet Gabapentin [facility] 80685376346 100 mg Orally twice a day (bid) Active 2 capsules HumuLIN N KwikPen [facility] 77668759353 100 UNIT/ML Subcutaneous Once a Day Active as directed Aspir-[address] [facility] [address]-57 81 MG Orally Once a day Active 1 tablet Apidra NDC 04707031938 100 UNIT/ML Injection Twice a Day Active as directed Bydaksha 10 MCG [address] [facility] 83845464430 10 MCG/0.04ML Subcutaneous Once a day Active 0.02 ml up to 1 hour before breakfast and evening meal Lisinopril-Hydrochlorothiazide [facility] 71542093394 20-25 MG Orally Once a day Active 1 tablet Simvastatin [facility] 03527078351 20 mg Orally Once a day Active 1 tablet Clopidogrel Bisulfate [facility] 77555663524 75 mg Orally Once a day Active 1 tablet Metoprolol Tartrate [facility] 07619756862 25 MG Orally Twice a day Active 1 tablet Metformin HCl [facility] 21521818481 1000 mg Orally Twice a day Active 1 tablet Aspir-[address] [facility] [address]-89 81 MG Orally Once a day Active 1 tablet Simvastatin [facility] 69409560184 20 mg Orally Once a day Active 1 tablet Lisinopril-Hydrochlorothiazide [facility] 46729201307 20-25 MG Orally Once a day Active 1 tablet Vital Signs Date/Time: Apr 07, 2014 BMI 32.42 Index Weight 207 lbs Height 67 in Temperature 97.0 F Cardiac Monitoring Heart Rate 71 /min Blood Pressure Diastolic 80 mm Hg Blood Pressure Systolic 130 mm Hg Results No Known Results Summary Purpose [employer] Submission
--- OUTSIDE RECORDS SUMMARY | 2018-10-03 13:44 | XMS REPORT ---
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 Problem History of CVA (cerebrovascular accident) Z86.73 Active Problem Unsteady gait R26.81 Active Problem Atherosclerosis of [place] artery of both lower extremities with rest pain I70.223 Active Problem 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
--- OUTSIDE RECORDS SUMMARY | 2018-10-03 13:44 | XMS REPORT ---
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
--- OUTSIDE RECORDS SUMMARY | 2018-10-03 13:44 | XMS REPORT ---
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.5 Active Problem Preoperative cardiovascular examination Z01.810 Active Problem CAD in [place] artery I25.10 Active Assessment Coronary angioplasty status V45.82 Active Assessment Diastolic dysfunction, left ventricle 429.9 Active Assessment Former smoker V15.82 Active Assessment Hypercholesterolemia 272.0 Active Assessment Coronary atherosclerosis of [place] coronary artery 414.01 Active Assessment Angina pectoris 413.9 Active Assessment Abnormal electrocardiogram 794.31 Active Problem Hypertensive heart disease without heart failure I11.9 Active Assessment Diabetes mellitus with complication 250.90 Active Problem Hypercholesteremia E78.00 Active Medications Medication Code System Code Instructions Start Date End Date Status Dosage Simvastatin [facility] [address]-72 20 mg Orally Once a day Active 1 tablet Lisinopril-Hydrochlorothiazide [facility] 78899736902 20-25 MG Orally Once a day Active 1 tablet Apidra [facility] 19322245869 100 UNIT/ML Injection Twice a Day Active as directed Metoprolol Tartrate [facility] [address]-47 25 MG Orally Twice a day Active 1 tablet Pantoprazole Sodium [facility] [address]-55 40 mg Orally PRN Active 1 tablet Aspir-81 [facility] 14403651834 81 MG Orally Once a day Active 1 tablet Lisinopril-Hydrochlorothiazide [facility] [address]-58 20-25 MG Orally Once a day Active 1 tablet Simvastatin [facility] [address]-93 20 mg Orally Once a day Active 1 tablet Gabapentin [facility] [address]-65 100 mg Orally twice a day (bid) Active 2 capsules Aspir-81 [facility] [address]-71 81 MG Orally Once a day Active 1 tablet Clopidogrel Bisulfate [facility] 21412521093 75 mg Orally Once a day Active 1 tablet Metformin HCl [facility] [address]-88 1000 mg Orally Twice a day Active 1 tablet [place] 10 MCG Pen [facility] 51442099710 10 MCG/0.04ML Subcutaneous Once a day Active 0.02 ml up to 1 hour before breakfast and evening meal Metoprolol Tartrate [facility] 63228259121 25 MG Orally Twice a day Jan 06, 2014 Active 1 tablet Clopidogrel Bisulfate [facility] [address]-63 75 mg Orally Once a day Active 1 tablet HumuLIN N KwikPen [facility] 39036556881 100 UNIT/ML Subcutaneous Once a Day Active as directed Vital Signs Date/Time: Mar 23, 2014 BMI 32.42 Index Weight 207 lbs Height 67 in Temperature 95.4 F Cardiac Monitoring Heart Rate 71 /min Blood Pressure Diastolic 80 mm Hg Blood Pressure Systolic 120 mm Hg Results No Known Results Summary Purpose [employer] Submission
--- OUTSIDE RECORDS SUMMARY | 2018-10-03 13:44 | XMS REPORT ---
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 Status Former Smoker Quit [...] Occupation: . Retired [employer] June 16, 2015 Summary Purpose [employer] Submission
[2018-10-03 14:39] LABS: BILIRUBIN,URINE NEGATIVE (NEGATIVE); CLARITY,URINE SL CLOUDY (CLEAR); COLOR,URINE YELLOW (YELLOW); KETONES,URINE NEGATIVE (NEGATIVE); LEUKOCYTE ESTERASE ,URINE NEGATIVE (NEGATIVE); NITRITE,URINE NEGATIVE (NEGATIVE); PROTEIN,URINE DIPSTICK 2+ (NEGATIVE); URINE UROBILINOGEN 0.2 mg/dL (0.2 - 1)
[2018-10-03 14:54] LABS: BACTERIA,URINE FEW /HPF; EPITHELIAL CELLS,URINE FEW /LPF; RBC,URINE 0-5 /HPF (0-5); WBC,URINE (MAN) 0-5 /HPF (0-5)
[2018-10-03 15:56] LABS: BASOPHILS % 0.3 % (0.0-1.0); EOSINOPHILS # (AUTO) 0.2 (0.0-0.4); EOSINOPHILS % 2.7 % (0.0-6.0); HEMATOCRIT 41.7 % (38.2-49.6); HEMOGLOBIN 14.7 g/dL (14.0-18.0); LYMPHOCYTES # (AUTO) 1.4 (1.0-3.2); LYMPHOCYTES % 20.7 % (18.0-39.1); MEAN CORPUSCULAR HEMOGLOBIN 30.4 pg (28-32); MEAN CORPUSCULAR HGB CONC 35.3 g/dL (31-35); MEAN CORPUSCULAR VOLUME 86.2 fL (81-99); MONOCYTES # (AUTO) 0.6 (0.2-0.8); MONOCYTES % 9.4 % (4.4-11.3); NEUTROPHILS # (AUTO) 4.4 (2.1-6.9); NEUTROPHILS % 66.6 % (38.7-80.0); PLATELET COUNT 243 x10e3/uL (140-360); RED BLOOD COUNT 4.84 x10e6/uL (4.3-5.7); RED CELL DISTRIBUTION WIDTH 12.6 % (11.7-14.4)
[2018-10-03 16:09] LABS: INR 0.91; PARTIAL THROMBOPLASTIN TIME 25.8 seconds (23.8-35.5); PROTHROMBIN TIME 12.7 seconds (11.9-14.5)
[2018-10-03 16:26] LABS: ALANINE AMINOTRANSFERASE 17 IU/L (0-55); ALBUMIN 3.6 g/dL (3.5-5.0); ALBUMIN/GLOBULIN RATIO 0.9 (0.8-2.0); ALKALINE PHOSPHATASE 119 IU/L (40-150); AMYLASE 51 U/L (25-125); ANION GAP 13.8 mmol/L (8-16); BLOOD UREA NITROGEN 20 mg/dL (7-26); BUN/CREATININE RATIO 17 (6-25); CALCIUM 9.4 mg/dL (8.4-10.2); CARBON DIOXIDE 27 mmol/L (22-29); CHLORIDE 95 mmol/L (98-107); CREATINE KINASE 86 IU/L (30-200); CREATININE, SERUM 1.16 mg/dL (0.72-1.25); EST GLOMERULAR FILTRATION RATE > 60 ML/MIN (60-); GLUCOSE 399 mg/dL (74-118); LIPASE 28 U/L (8-78); MAGNESIUM 1.9 MG/DL (1.3-2.1); POTASSIUM 3.8 mmol/L (3.5-5.1); SODIUM 132 mmol/L (136-145)
[2018-10-03] MEDS ORDERED: MORPHINE SULFATE 5 MG/ML VIAL IV ONE (16:45)
[2018-10-03] MEDS ORDERED: MORPHINE SULFATE INJ 4 MG/ML INJ 1ML IV ONE (16:45)
[2018-10-03] MEDS ORDERED: ONDANSETRON HCL INJ 2MG/ML 2ML 2 MG/ML VIAL IV ONE (16:46)
[2018-10-03] MEDS ORDERED: IOPAMIDOL 370 MG/ML 200 ML INFUS..BTL INJ ONE (18:24)
[2018-10-03] MEDS ORDERED: SODIUM CHLORIDE 0.9% 50ML 50 ML ONE (18:24)
--- NOTE | 2018-10-03 18:37 | Diagnostic Imaging Report ---
EXAM: CT Abdomen and Pelvis WITH contrast INDICATION: Abdominal pain. COMPARISON: None. TECHNIQUE: Abdomen and pelvis were scanned utilizing a multidetector helical scanner from the lung base to the pubic symphysis after administration of IV contrast. Coronal and sagittal reformations were obtained. Routine protocol was performed. Scan was performed when during portal venous phase. IV CONTRAST: 100 cc isovue 300 ORAL CONTRAST: Water RADIATION DOSE: Total DLP: 747.15 mGy*cm Estimated effective dose: (DLP x 0.015 x size factor) mSv COMPLICATIONS: None FINDINGS: LINES and TUBES: None. LOWER THORAX: Multivessel coronary artery calcifications. HEPATOBILIARY: No focal hepatic lesions. No biliary ductal dilation. GALLBLADDER: No radio-opaque stones or sludge. No wall thickening. SPLEEN: No splenomegaly. PANCREAS: No focal masses or ductal dilatation. ADRENALS: No adrenal nodules KIDNEYS/URETERS: Kidneys enhance symmetrically. No hydronephrosis. No cystic or solid mass lesions. No stones. GI TRACT: No abnormal distention, wall thickening, or evidence of bowel obstruction. Appendix is normal. PELVIC ORGANS/BLADDER: Unremarkable. LYMPH NODES: No lymphadenopathy. VESSELS: There is mild atherosclerotic disease in the aorta and major arterial branches. PERITONEUM / RETROPERITONEUM: No free air or fluid. BONES: There are degenerative changes in the lumbar spine. Status post L4 laminectomy. Remote healed lower left-sided rib fractures. SOFT TISSUES: Unremarkable. IMPRESSION: 1. No acute abdominopelvic abnormality. Signed by: Dr. Ladonna Naik M.D. on 10/03/2018 6:33 PM
[2018-10-03 20:20] VITALS: BP 168/98
== END 2018-10-03 20:22 | disposition home or self-care (01) ==
LOC: ER 13:40
DX: R10.13 Epigastric pain (principal); R10.12 Left upper quadrant pain; I10 Essential (primary) hypertension; E11.40 Type 2 diabetes mellitus with diabetic neuropathy, unspecified; I25.10 Atherosclerotic heart disease of native coronary artery without angina pectoris; Z86.73 Personal history of transient ischemic attack (TIA), and cerebral infarction without residual deficits; Z95.5 Presence of coronary angioplasty implant and graft
CPT/HCPCS: 36415; 74177; 80053; 81001; 82150; 82550; 82553; 83690; 83735; 84484; 85025; 85610; 85730; 93005; 99284; J2270; J2405; Q9967

== ENCOUNTER → 2018-11-06 | Day surgery (SDC) | payer OTHER, MEDICARE ==
[2018-11-04 10:28] LABS: BASOPHILS % 0.3 % (0.0-1.0); EOSINOPHILS # (AUTO) 0.2 (0.0-0.4); EOSINOPHILS % 3.7 % (0.0-6.0); HEMATOCRIT 41.5 % (38.2-49.6); HEMOGLOBIN 14.6 g/dL (14.0-18.0); LYMPHOCYTES # (AUTO) 1.6 (1.0-3.2); LYMPHOCYTES % 25.1 % (18.0-39.1); MEAN CORPUSCULAR HEMOGLOBIN 30.4 pg (28-32); MEAN CORPUSCULAR HGB CONC 35.2 g/dL (31-35); MEAN CORPUSCULAR VOLUME 86.5 fL (81-99); MONOCYTES # (AUTO) 0.6 (0.2-0.8); NEUTROPHILS # (AUTO) 3.8 (2.1-6.9); NEUTROPHILS % 60.7 % (38.7-80.0); PLATELET COUNT 225 x10e3/uL (140-360); RED CELL DISTRIBUTION WIDTH 12.7 % (11.7-14.4)
[~2018-11-06] MED LIST changes: +FENTANYL CITRATE/PF 100MCG/2 ML INJ ONE; +HYOSCYAMINE 0.125 MG TAB ONE; +INSULIN REGULAR, HUMAN 100 UNIT/1 ML 3ML VIAL ONE; +MIDAZOLAM HCL 2 MG/2 ML VIAL ONE; +PROPOFOL IV EMULSION 10 MG/ML 50 ML VIAL ONE
--- OUTSIDE RECORDS SUMMARY | 2018-11-06 08:23 | XMS REPORT | Clinical Summary ---
Author Author Kenner Shinto Organization [facility] Address Unknown Phone Unavailable Care Team Providers Care [place] [facility]inary Name Role Phone Caroline Virgen MD PCP [...] Types Packs/Day Years Used Former Smoker Cigarettes Drinks/Week oz/Week Comments Alcohol Use No Sex Assigned at Date Recorded Not [...] INFLUENZA VACCINE 09/18/2018 Results Not on fileafter 11/05/2017 Insurance Type Payer Benefit Subscriber ID Effective Phone Address Plan / Dates Group HMO CIGNA CIGNA OPEN xxxxxxxxxxx [id number] ACCESS/NET resent WORK Medicare MEDICARE MEDICARE xxxxxxxxxx 2005- [place], PART A AND Present [place] Advance Directives For more information, please contact: [phone] 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
--- OUTSIDE RECORDS SUMMARY | 2018-11-06 08:24 | XMS REPORT | Continuity of Care Document ---
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 Problem 12/18/2017 [...] Problem 12/18/2017 Jorge Luis Liriano CAD in [place] artery Active Problem 12/18/2017 Jorge Luis Liriano Hypercholesteremia Active Problem 12/18/2017 Jorge Luis Liriano Hypertensive heart disease without heart failure Active Problem 12/18/2017 Jorge Luis Liriano Obesity (BMI 30.0-34.9) Active Diagnosis 04/13/2017 Jorge Luis Liriano Abnormal electrocardiogram Active Diagnosis 04/13/2017 Jorge Luis Liriano Coronary angioplasty status Active Diagnosis 04/13/2017 Jorge Luis Liriano Former smoker Active Diagnosis 04/13/2017 Jorge Luis Liriano Hypercholesterolemia Active Diagnosis 04/13/2017 Jorge Luis Liriano Angina pectoris Active Diagnosis 04/13/2017 Jorge Luis Liriano Coronary atherosclerosis of [place] coronary artery Active Diagnosis 04/13/2017 Jorge Luis [...] Problem 12/18/2017 Jorge Luis Liriano 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 Active Problem 12/18/2017 Jorge Luis Liriano Atherosclerosis of [place] artery of both lower extremities with intermittent claudication Active Problem 12/18/2017 Jorge Luis Liriano Chest pain Active Problem 07/16/2018 [facility] Thoracic radiculopathy Active Problem 07/16/2018 [facility] Medications Medication Details Route Status Patient Instructions Ordering Provider Order Date Source Duloxetine Hcl (Cymbalta) 20 Mg Capcr, 20 Mg Oral Daily Active 07/12/2018 [facility] Potassium Chloride 20 Meq Tab.er.prt, Active 07/12/2018 [facility] Simvastatin 20 Mg Tablet, 20 Mg Oral Today At 9:00PM Active 07/11/2018 [facility] Escitalopram Oxalate (Lexapro) 10 Mg Tablet, 10 Mg Oral Bedtime Active 12/27/2017 [facility] Atorvastatin Calcium 20 Mg Tablet, 40 Mg Oral Bedtime Active 12/24/2017 [facility] Nystatin 100,000 Unit/1 Ml Oral.susp, Oral Twice A Day Active 12/24/2017 [facility] Hum Insulin Nph/Reg Insulin Hm (Humulin 70-30 Vial) 100 Unit/1 Ml Vial, 20 Units Subcutaneously Twice A Day Active 12/23/2017 [facility] Metformin Hcl 500 Mg Tablet, 1000 Mg Oral Twice A Day Active 12/19/2017 [facility] Novolin 70/30 , 45 Units Subcutaneously Daily Active 12/19/2017 [facility] Novolin 70/30 , 35 Units Subcutaneously Bedtime Active 12/19/2017 [facility] Gabapentin 300 Mg Capsule, 300 Mg Oral Twice A Day Active 12/17/2017 [facility] Insulin 70-30 , 40 Units Subcutaneously Twice A Day Active 12/17/2017 [facility] Isosorbide Mononitrate (Isosorbide Mononitrate Er) 30 Mg Tab.er.24h, 30 Mg Oral Daily Active 12/17/2017 [facility] Levofloxacin (Levaquin) 500 Mg Tablet, 500 Mg Oral Daily Active 12/17/2017 [facility] Nph, Human Insulin Isophane (Novolin N) 100 Unit/1 Ml Vial, 45 Units Subcutaneously Daily Active 12/17/2017 [facility] Nph, Human Insulin Isophane (Novolin N) 100 Unit/1 Ml Vial, 35 Units Subcutaneously Bedtime Active 12/17/2017 [facility] Exenatide (Byetta) 5 Mcg/0.02 Ml Pen.injctr, Active 03/26/2017 [facility] Hydrochlorothiazide 25 Mg Tablet, 25 Mg Oral Daily Active 03/26/2017 [facility] Lisinopril 10 Mg Tablet, 20 Mg Oral Daily Active 03/26/2017 [facility] Aspirin (Aspir 81) 81 Mg Tablet.dr, 81 Mg Oral Daily Active 08/23/2014 [facility] Gabapentin 100 Mg Capsule, 200 Mg Oral Twice A Day Active 08/23/2014 [facility] Insulin Human Nph (Humulin N) 100 Units/Ml Ml, Active 08/23/2014 [facility] Lisinopril/Hydrochlorothiazide (Lisinopril-Hctz 20-25 Mg Tab) 1 Each Tablet, 25 Mg Oral Twice A Day Active 08/23/2014 [facility] Metformin Hcl (Metformin Hcl Er) 500 Mg Tab.er.24h, 1000 Mg Oral Twice A Day Active 08/23/2014 [facility] Simvastatin 40 Mg Tablet, 40 Mg Oral Daily Active 08/23/2014 [facility] Metoprolol Tartrate (Lopressor) 25 Mg Tab, 25 Mg Oral Twice A Day Active Jeroudi 01/22/2014 [facility] Prasugrel Hcl (Effient) 10 Mg Tablet, 10 Mg Oral Daily Active [facility] 01/22/2014 [facility] Metoprolol Tartrate 1 tablet Orally Active 25 MG Orally Twice a [facility] Jorge Luis Liriano NovoLog 10 units Subcutaneous Active 100 UNIT/ML Subcutaneous twice a day (bid) Joelrussell Liriano Metoprolol Tartrate 1 tablet Orally Active 25 MG Orally [facility] Clopidogrel Bisulfate 1 tablet Orally Active 75 MG Orally daily [facility] Metformin HCl 1 tablet Orally Active 1000 mg Orally Twice a [facility] Gabapentin 2 capsules Orally Active 100 mg Orally twice a day (bid) Joelrussell Liriano Simvastatin 1 tablet Orally Active 20 mg Orally Once a day Joelrussell Liriano Lisinopril-Hydrochlorothiazide 1 tablet Orally Active 20-25 MG Orally Once a day [facility] Jorge Luis Liriano Aspirin EC Lo-Dose 1 tablet Orally Active 81 MG Orally Once a day [facility] Jorge Luis Liriano Atorvastatin Calcium 1 tablet Orally Active 40 MG Orally Once a day [facility] Jorge Luis Liriano HumuLIN N KwikPen as directed Subcutaneous Active 100 UNIT/ML Subcutaneous Once a Day Joelrussell Liriano Apidra as directed Injection Active 100 UNIT/ML Injection Twice a Day [facility] Jorge Luis Liriano Aspir-81 1 tablet Orally Active 81 MG Orally Once a day [facility] Jorge Luis Liriano Metformin HCl 1 tablet Orally Active 1000 mg Orally Twice a day [facility] Jorge Luis Liriano Gabapentin 2 capsules Orally Active 100 mg Orally twice a day (bid) Joelrussell Liriano Byetta 10 MCG Pen 0.02 ml up to 1 hour before breakfast and evening meal Subcutaneous Active 10 MCG/0.04ML Subcutaneous [facility] Pantoprazole Sodium 1 tablet Orally Active 40 mg Orally PRN Joelrussell Liriano Humulin N 20 units Subcutaneous Active 100 UNIT/ML Subcutaneous twice a day (bid) [facility] Jorge Luis Liriano Glimepiride 1 tablet Orally Active 4 MG Orally twice a day (bid) Deandra Liriano Aspir-81 1 tablet Orally Active 81 MG Orally Once a day Joelrussell Liriano Simvastatin 1 tablet Orally Active 20 mg Orally Once a day Joelrussell Liriano Humulin 70/30 25 units Subcutaneous Active (70-30) 100 UNIT/ML Subcutaneous BID Deandra Liirano Clopidogrel Bisulfate TAKE 1 TABLET DAILY NA Active 75MG Joelrussell Liriano Insulin 70/30 not defined NA Active Joelrussell Liriano Clopidogrel Bisulfate 1 tablet by mouth Active 75MG by mouth daily [facility] Jorge Luis Liriano Metoprolol Tartrate 1 tablet Orally Active 25 MG Orally Twice a day [facility] Jorge Luis Liriano Lisinopril-Hydrochlorothiazide 1 tablet Orally Active 20-25 MG Orally Once a day Joelrussell Liriano Clopidogrel Bisulfate 1 tablet Orally Active 75 mg Orally [facility] a [facility] Clopidogrel Bisulfate TAKE 1 TABLET DAILY NA Active 75MG Joelrussell Liriano Aspirin (Aspir 81) 81 Mg Tablet.dr Daily Active [facility] Atorvastatin Calcium 40 Mg Tablet Bedtime Active [facility] Clopidogrel Bisulfate (Plavix) 75 Mg Tablet Daily Active [facility] Duloxetine Hcl (Cymbalta) 20 Mg Capcr Daily Active [facility] Furosemide 40 Mg Tablet Daily Active [facility] Gabapentin 300 Mg Capsule Every 12 Hours Active [facility] Hydrocodone Bit/Acetaminophen ([place] 7.5-325 Tablet) 1 Each Tablet As Needed Active GIVE 1 TABLET EVERY 4-6 HOURS NEEDED FOR PAIN [facility] Insulin Lispro (Humalog) 100 Unit/1 Ml Insuln.pen Before Meals Active [facility] Lisinopril/Hydrochlorothiazide (Lisinopril-Hctz 20-25 Mg Tab) 1 Each Tablet Daily Active [facility] Metformin Hcl (Metformin Hcl Er) 500 Mg Tab.er.24h Twice A Day Active [facility] Metoprolol Tartrate 50 Mg Tablet Daily Active [facility] Omeprazole 40 Mg Capsule. Before Breakfast Active [facility] Pantoprazole Sodium (Protonix) 40 Mg Tablet. Daily as needed for Indigestion Active [facility] Tresiba Units Bedtime Active [facility] Amlodipine Besylate 5 Mg Tablet Daily Active [facility] Escitalopram Oxalate (Lexapro) 10 Mg Tablet Daily Active [facility] Insulin Human Nph (Humulin N) 100 Units/Ml Ml Bedtime Active [facility] Potassium Chloride 10 Meq Tab.er.prt Daily Active [facility] Allergies, Adverse Reactions, Alerts Substance Category Reaction Severity Reaction type Status Date Reported Comments Source N.K.D.A. Adverse Reaction Info Not Available Adverse Reaction Active 12/04/2016 Jorge Luis Liriano No Known Drug Allergies Unknown Allergy to Substance Active 12/23/2017 [facility] Immunizations No Data Provided for This Section Results Order Name Results Value Reference Range Date Interpretation Comments Source Serum or plasma sodium measurement (moles/volume) 132 136 - 145 07/16/2018 [facility] Serum or plasma potassium measurement (moles/volume) 4.2 3.5 - 5.1 07/16/2018 [facility] Serum or plasma chloride measurement (moles/volume) 102 98 - 107 07/16/2018 [facility] Serum or plasma carbon dioxide, total measurement (moles/volume) 22 22 - 29 07/16/2018 [facility] Serum or plasma anion gap 12.2 8 - 16 07/16/2018 [facility] Serum or plasma urea nitrogen measurement (mass/volume) 14 7 - 26 07/16/2018 [facility] Serum or plasma creatinine measurement (mass/volume) 0.97 0.72 - 1.25 07/16/2018 [facility] Serum or plasma urea nitrogen/creatinine mass ratio 14 6 - 25 07/16/2018 [facility] Estimated glomerular filtration rate (GFR) determination > 60 60 07/16/2018 [facility] Glucose measurement 179 74 - 118 07/16/2018 [facility] Serum or plasma calcium measurement (mass/volume) 9.2 8.4 - 10.2 07/16/2018 [facility] Capillary blood glucose measurement by glucometer (mass/volume) 168 70 - 120 07/16/2018 [facility] Blood leukocytes automated count (number/volume) 6.50 4.8 - 10.8 07/13/2018 [facility] Blood erythrocytes automated count (number/volume) 3.99 4.3 - 5.7 07/13/2018 [facility] Blood hemoglobin measurement (moles/volume) 11.8 14.0 - 18.0 07/13/2018 [facility] Automated blood hematocrit (volume fraction) 33.9 38.2 - 49.6 07/13/2018 [facility] Automated erythrocyte mean corpuscular volume 85.0 81 - 99 07/13/2018 [facility] Automated erythrocyte mean corpuscular hemoglobin (mass per erythrocyte) 29.6 28 - 32 07/13/2018 [facility] Automated erythrocyte mean corpuscular hemoglobin concentration measurement (mass/volume) 34.8 31 - 35 07/13/2018 [facility] RDW BldCo-Rto 13.2 11.7 - 14.4 07/13/2018 [facility] Automated blood platelet count (count/volume) 183 140 - 360 07/13/2018 [facility] Automated blood segmented neutrophil count as percentage of total leukocytes 53.2 38.7 - 80.0 07/13/2018 [facility] Automated blood lymphocyte count as percentage ot total leukocytes 29.7 18.0 - 39.1 07/13/2018 [facility] Automated blood monocyte count as percentage of total leukocytes 11.1 4.4 - 11.3 07/13/2018 [facility] Automated blood eosinophil count as percentage of total leukocytes 5.2 0.0 - 6.0 07/13/2018 [facility] Automated blood basophil count as percentage of total leukocytes 0.5 0.0 - 1.0 07/13/2018 [facility] IM GRANULOCYTES % 0.3 0.0 - 1.0 07/13/2018 [facility] Automated blood neutrophil count 3.5 2.1 - 6.9 07/13/2018 [facility] Blood lymphocytes count (number/volume) 1.9 1.0 - 3.2 07/13/2018 [facility] Blood monocytes automated count (number/volume) 0.7 0.2 - 0.8 07/13/2018 [facility] Automated blood eosinophil count 0.3 0.0 - 0.4 07/13/2018 [facility] Automated blood basophil count (count/volume) 0.0 0.0 - 0.1 07/13/2018 [facility] Absolute Immature Granulocyte (auto 0.02 0 - 0.1 07/13/2018 [facility] Hemoglobin A1c Percent 11.7 4.0 - 7.0 07/13/2018 [facility] Serum or plasma total bilirubin measurement (mass/volume) 0.9 0.2 - 1.2 07/13/2018 [facility] Aspartate Amino Transf (AST/SGOT) 17 5 - 34 07/13/2018 [facility] Serum or plasma alanine aminotransferase measurement (enzymatic activity/volume) 13 0 - 55 07/13/2018 [facility] Serum or plasma protein measurement (mass/volume) 5.9 6.5 - 8.1 07/13/2018 [facility] Serum or plasma albumin measurement (mass/volume) 2.7 3.5 - 5.0 07/13/2018 [facility] Plasma globulin measurement (mass/volume) 3.2 2.3 - 3.5 07/13/2018 [facility] Serum or plasma albumin/globulin mass ratio 0.8 0.8 - 2.0 07/13/2018 [facility] Serum or plasma alkaline phosphatase measurement (enzymatic activity/volume) 84 40 - 150 07/13/2018 [facility] Serum or plasma triglyceride measurement (mass/volume) 97 0 - 149 07/13/2018 [facility] Serum or plasma cholesterol measurement (mass/volume) 95 0 - 199 07/13/2018 [facility] Serum or plasma cholesterol in LDL measurement (mass/volume) 44 60 - 130 07/13/2018 [facility] Serum or plasma cholesterol in HDL measurement (mass/volume) 32 40 - 60 07/13/2018 [facility] Serum or plasma total cholesterol/cholesterol in HDL mass ratio 3.0 3.9 - 4.7 07/13/2018 [facility] Serum or plasma thyrotropin measurement by detection limit <=0.005 miu/l (units/volume) 0.860 0.350 - 4.940 07/13/2018 [facility] Serum or plasma magnesium measurement (mass/volume) 1.5 1.3 - 2.1 07/12/2018 [facility] Urine glucose detection by automated test strip NEGATIVE NEGATIVE 07/11/2018 [facility] Urine ketones detection by automated test strip NEGATIVE NEGATIVE 07/11/2018 [facility] Urine urobilinogen measurement by test strip (mass/volume) 0.2 0.2 - 1 07/11/2018 [facility] Urine total bilirubin detection NEGATIVE NEGATIVE 07/11/2018 [facility] Urine erythrocytes detection TRACE NEGATIVE 07/11/2018 [facility] Automated urine sediment leukocyte count by microscopy (number/high power field) NONE 0 - 5 07/11/2018 [facility] Erythrocytes detection in urine sediment by light microscopy 0-5 0 - 5 07/11/2018 [facility] Bacteria detection in urine sediment by light microscopy NONE NONE 07/11/2018 [facility] Epithelial cells detection in urine sediment by light microscopy NONE NONE 07/11/2018 [facility] Hyaline casts detection in urine sediment by light microscopy 0-1 0 - 1 07/11/2018 [facility] Urine total bilirubin detection NEGATIVE NEGATIVE 07/11/2018 [facility] Urine erythrocytes detection TRACE NEGATIVE 07/11/2018 [facility] Automated urine sediment leukocyte count by microscopy (number/high power field) NONE 0 - 5 07/11/2018 [facility] Erythrocytes detection in urine sediment by light microscopy 0-5 0 - 5 07/11/2018 [facility] Bacteria detection in urine sediment by light microscopy NONE NONE 07/11/2018 [facility] Epithelial cells detection in urine sediment by light microscopy NONE NONE 07/11/2018 [facility] Hyaline casts detection in urine sediment by light microscopy 0-1 0 - 1 07/11/2018 [facility] Urine color determination YELLOW YELLOW 07/11/2018 [facility] Urine clarity CLEAR CLEAR 07/11/2018 [facility] Specific gravity of Urine by Test strip 1.005 1.010 - 1.025 07/11/2018 [facility] Urine pH measurement by automated test strip 6 5 - 7 07/11/2018 [facility] Urine leukocyte esterase detection by automated test strip NEGATIVE NEGATIVE 07/11/2018 [facility] Urine nitrite detection by automated test strip NEGATIVE NEGATIVE 07/11/2018 [facility] Urine protein detection by automated test strip 1+ NEGATIVE 07/11/2018 [facility] Blood leukocytes automated count (number/volume) 8.96 4.8 - 10.8 07/11/2018 [facility] Blood erythrocytes automated count (number/volume) 4.59 4.3 - 5.7 07/11/2018 [facility] Blood hemoglobin measurement (moles/volume) 13.7 14.0 - 18.0 07/11/2018 [facility] Automated blood hematocrit (volume fraction) 39.1 38.2 - 49.6 07/11/2018 [facility] Automated erythrocyte mean corpuscular volume 85.2 81 - 99 07/11/2018 [facility] Automated erythrocyte mean corpuscular hemoglobin (mass per erythrocyte) 29.8 28 - 32 07/11/2018 [facility] Automated erythrocyte mean corpuscular hemoglobin concentration measurement (mass/volume) 35.0 31 - 35 07/11/2018 [facility] RDW BldCo-Rto 13.3 11.7 - 14.4 07/11/2018 [facility] Automated blood platelet count (count/volume) 226 140 - 360 07/11/2018 [facility] Automated blood segmented neutrophil count as percentage of total leukocytes 54.4 38.7 - 80.0 07/11/2018 [facility] Automated blood lymphocyte count as percentage ot total leukocytes 30.2 18.0 - 39.1 07/11/2018 [facility] Automated blood monocyte count as percentage of total leukocytes 11.5 4.4 - 11.3 07/11/2018 [facility] Automated blood eosinophil count as percentage of total leukocytes 3.2 0.0 - 6.0 07/11/2018 [facility] Automated blood basophil count as percentage of total leukocytes 0.4 0.0 - 1.0 07/11/2018 [facility] Prothrombin time (PT) in platelet poor plasma by coagulation assay 13.0 11.9 - 14.5 07/11/2018 [facility] INR in Platelet poor plasma by Coagulation assay 0.93 07/11/2018 [facility] Activated partial thromboplastin time (aPTT) in platelet poor plasma bycoagulation assay 24.7 23.8 - 35.5 07/11/2018 [facility] Blood monocytes automated count (number/volume) 1.0 0.2 - 0.8 07/11/2018 [facility] Automated blood eosinophil count 0.3 0.0 - 0.4 07/11/2018 [facility] Automated blood basophil count (count/volume) 0.0 0.0 - 0.1 07/11/2018 [facility] Absolute Immature Granulocyte (auto 0.03 0 - 0.1 07/11/2018 [facility] Prothrombin time (PT) in platelet poor plasma by coagulation assay 13.0 11.9 - 14.5 07/11/2018 [facility] INR in Platelet poor plasma by Coagulation assay 0.93 07/11/2018 [facility] Activated partial thromboplastin time (aPTT) in platelet poor plasma bycoagulation assay 24.7 23.8 - 35.5 07/11/2018 [facility] Serum or plasma sodium measurement (moles/volume) 139 136 - 145 07/11/2018 [facility] Serum or plasma potassium measurement (moles/volume) 2.9 3.5 - 5.1 07/11/2018 [facility] Serum or plasma chloride measurement (moles/volume) 102 98 - 107 07/11/2018 [facility] Serum or plasma carbon dioxide, total measurement (moles/volume) 29 22 - 29 07/11/2018 [facility] Serum or plasma anion gap 10.9 8 - 16 07/11/2018 [facility] Serum or plasma urea nitrogen measurement (mass/volume) 29 7 - 26 07/11/2018 [facility] Lactic Acid Level 20.3 4.5 - 19.8 07/11/2018 [facility] Serum or plasma urea nitrogen/creatinine mass ratio 20 6 - 25 07/11/2018 [facility] Estimated glomerular filtration rate (GFR) determination 47 60 07/11/2018 [facility] Glucose measurement 60 74 - 118 07/11/2018 [facility] Serum or plasma calcium measurement (mass/volume) 9.5 8.4 - 10.2 07/11/2018 [facility] Lactic Acid Level 20.3 4.5 - 19.8 07/11/2018 [facility] Serum or plasma total bilirubin measurement (mass/volume) 0.7 0.2 - 1.2 07/11/2018 [facility] Aspartate Amino Transf (AST/SGOT) 16 5 - 34 07/11/2018 [facility] [facility] Serum or plasma alanine aminotransferase measurement (enzymatic activity/volume) 16 0 - 55 07/11/2018 [facility] Serum or plasma protein measurement (mass/volume) 7.0 6.5 - 8.1 07/11/2018 [facility] Serum or plasma albumin measurement (mass/volume) 3.3 3.5 - 5.0 07/11/2018 [facility] Plasma globulin measurement (mass/volume) 3.7 2.3 - 3.5 07/11/2018 [facility] Serum or plasma albumin/globulin mass ratio 0.9 0.8 - 2.0 07/11/2018 [facility] Serum or plasma alkaline phosphatase measurement (enzymatic activity/volume) 104 40 - 150 07/11/2018 [facility] Serum or plasma creatine kinase measurement (enzymatic activity/volume) 156 30 - 200 07/11/2018 [facility] Serum or plasma creatine kinase measurement (enzymatic activity/volume) 156 30 - 200 07/11/2018 [facility] Serum or plasma creatine kinase MB measurement (mass/volume) 5.40 0 - 5.0 07/11/2018 [facility] Troponin I measurement by highly sensitive enzyme immunoassay 0.010 0 - 0.300 07/11/2018 [facility] Blood culture NO GROWTH AFTER 5 DAYS, FINAL REPORT 07/11/2018 [facility] Capillary blood glucose measurement by glucometer (mass/volume) 138 70 - 120 12/27/2017 [facility] Serum or plasma triglyceride measurement (mass/volume) 42 0 - 149 12/24/2017 [facility] Serum or plasma cholesterol measurement (mass/volume) 118 0 - 199 12/24/2017 [facility] Serum or plasma cholesterol in LDL measurement (mass/volume) 68 60 - 130 12/24/2017 [facility] Serum or plasma cholesterol in HDL measurement (mass/volume) 42 40 - 60 12/24/2017 [facility] Serum or plasma total cholesterol/cholesterol in HDL mass ratio 2.8 3.9 - 4.7 12/24/2017 [facility] Serum or plasma thyrotropin measurement by detection limit <=0.005 miu/l (units/volume) 0.519 0.350 - 4.940 12/24/2017 [facility] Amorphous sediment detection in urine sediment by light microscopy FEW FEW 12/23/2017 [facility] Mucus detection in urine sediment by light microscopy FEW RARE 12/23/2017 [facility] BNP Bld-mCnc 66.2 0 - 100 12/23/2017 [facility] BNP Bld-mCnc 66.2 0 - 100 12/23/2017 [facility] Pathology Reports No Data Provided for This [...] Jorge Luis Liriano MD [facility] HEALTH PORTAL [id number] 01/11/2014 01/11/2014 Jorge Luis Liriano MD PA procedures for 01/18/15 &01/21/14 concerning medications. [id number] 01/15/2014 01/15/2014 Jorge Luis Liriano MD PA Unknown [id number] 08/29/2015 08/29/2015 Jorge Luis Liriano Registered [facility] [id number] DERRICK MCLEOD MD 12/19/2017 [facility] Discharged Inpatient [id number] SERGO MUHAMMAD MD 12/26/2017 12/27/2017 [facility] Registered Clinic [id number] SERGO MUHAMMAD MD 02/05/2018 [facility] Discharged Inpatient (obs) [id number] SERGO MUHAMMAD MD 07/11/2018 07/16/2018 [facility] Procedures Procedure Code Date Perfomer Comments Source Ultrasound of left breast [id number] 02/05/2018 [facility] EXCISION OF CERVICAL VERTEBRAL DISC, OPEN APPROACH [id number] 12/26/2017 [facility] FUSION CERV JT W NONAUT SUB, ANT APPR A COL, OPEN [id number] 12/26/2017 [facility] MEASURE OF CARDIAC SAMPL & PRESSURE, L HEART, PERC APPROACH [id number] 12/24/2017 [facility] FLUOROSCOPY OF MULT COR ART USING L OSM CONTRAST [id number] 12/24/2017 [facility] FLUOROSCOPY OF LEFT HEART USING LOW OSMOLAR CONTRAST [id number] 12/24/2017 [facility] Magnetic resonance imaging of cervical spine without contrast [id number] 12/24/2017 [facility] [facility] Computed tomography of thoracic spine without contrast [id number] 12/23/2017 [facility] [facility] EGD BIOPSY SINGLE/MULTIPLE [id number] 12/19/2017 [facility] COLONOSCOPY W/LESION REMOVAL [id number] 12/19/2017 [facility] Assessment and Plan No Data Provided for This Section Plan of Care Plan of Care Date Source Discharge Date 07/16/18 6:04pm Disposition HOME, SELF-CARE Instructions/Education Provided Hypertension Prescriptions See Medication Section Additional Instructions/Education Follow up Dr Morgan in 1 week ([phone]) [address] Liriano after appointment with Dr Morgan ([phone]) Follow up Dr Muhammad in 2 weeks ([phone]) 07/16/2018 [facility] Discharge Date 07/11/18 6:35pm Disposition ADMITTED Condition at Discharge Stable Forms Provided Work/School Excuse Prescriptions See Medication Section 07/11/2018 [facility] Social History Social History Date Source Social [...] Start Date Stop Date Former smoker 07/16/2018 [facility] Social History ElementQualifiersDate Reported Smoking . Status [...] yes, is advance directive on file with [facility]? No 07/12/18 5:30am If not on file with [facility] will patient provide a copy? No 07/12/18 5:30am Do you have a Directive to Physician? No 07/11/18 12:40pm Do you have a Medical Power of Supervisor Landscape? No 07/11/18 12:40pm Do you have an [...] rights and responsibilities? Yes 07/11/18 12:40pm 07/16/2018 [facility] Advance Directives Advance Directives Directive Response Recorded Date/Time Does the patient have an advance directive? No 12/24/17 1:29am Do you have a Directive to Physician? No 07/11/18 12:40pm Do you have a Medical Power of Supervisor Landscape? No 07/11/18 12:40pm Do you have an [...] rights and responsibilities? Yes 07/11/18 12:40pm 07/11/2018 [facility] Functional Status No Data Provided for This Section
[2018-11-06 11:45] VITALS: BP 115/80
--- NOTE | 2018-11-06 17:44 | Operative Report ---
DATE OF PROCEDURE: 11/06/2018 SURGEON: Jonathan Guajardo MD PROCEDURE: Colonoscopy and polypectomy. INDICATIONS FOR COLONOSCOPY: Lower abdominal pain, change in bowel habits, personal history of colon polyps. MEDICATIONS: The patient was done under MAC, please see anesthesiologist's note. PROCEDURE IN DETAIL: With the patient in left lateral decubitus position, a flexible fiberoptic Olympus colonoscope was inserted into the rectum with ease and advanced all the way to the cecum. The scope was then withdrawn slowly. Mucosa overlying the cecum and ascending colon appeared to be within normal limits. One polyp was removed per cold biopsy forceps from the transverse colon. Two polyps were hot biopsied in the descending. The sigmoid grossly appeared to be within normal limits. One polyp was hot biopsied in the rectum. The scope was then retroflexed into the distal rectum and small internal hemorrhoids were noted, none of which was actively bleeding. The scope was then straightened out, it was subsequently withdrawn, and the patient tolerated the procedure well. IMPRESSION: 1. Transverse colon polyp removed per the cold biopsy forceps. 2. Descending colon polyps x2, hot biopsied. 3. Rectal polyp x1, hot biopsied. 4. Internal hemorrhoids, none actively bleeding. PLAN: Follow up histology. Initiate high-fiber, low-fat diet. Initiate high-fiber supplement. Start Visbiome one p.o. b.i.d. The patient might benefit from a followup colonoscopy in 3 to 5 years. Jonathan Guajardo MD [facility]/MODL /[id number] cc: Caroline Jones MD
== END | disposition home or self-care (01) ==
LOC: OR 08:05
PROVIDERS: ATTEND Internal Medicine Gastroenterology
DX: K59.00 Constipation, unspecified (principal); D12.4 Benign neoplasm of descending colon; K62.1 Rectal polyp; K64.8 Other hemorrhoids; K29.70 Gastritis, unspecified, without bleeding; K20.8 Other esophagitis; E11.9 Type 2 diabetes mellitus without complications; E78.00 Pure hypercholesterolemia, unspecified; I25.10 Atherosclerotic heart disease of native coronary artery without angina pectoris; I25.2 Old myocardial infarction; Z95.5 Presence of coronary angioplasty implant and graft; I10 Essential (primary) hypertension; I44.0 Atrioventricular block, first degree; Z01.810 Encounter for preprocedural cardiovascular examination; Z01.812 Encounter for preprocedural laboratory examination; Z79.02 Long term (current) use of antithrombotics/antiplatelets; Z79.82 Long term (current) use of aspirin; Z79.4 Long term (current) use of insulin; Z79.84 Long term (current) use of oral hypoglycemic drugs
CPT/HCPCS: 36415 ×2; 45380; 45384; 82948; 84132; 85025; 93005; J2250; J2704; J3010; 45378; J1817

== ENCOUNTER 2019-03-23 12:11 | Emergency (ER) | payer OTHER, MEDICARE ==
[~2019-03-23] VITALS: Ht 172.7 cm; Wt 94.8 kg
[~2019-03-23 12:11] MED LIST changes: -FENTANYL CITRATE/PF 100MCG/2 ML INJ ONE; -HYOSCYAMINE 0.125 MG TAB ONE; -INSULIN REGULAR, HUMAN 100 UNIT/1 ML 3ML VIAL ONE; -MIDAZOLAM HCL 2 MG/2 ML VIAL ONE; -PROPOFOL IV EMULSION 10 MG/ML 50 ML VIAL ONE
--- NOTE | 2019-03-23 12:53 | NUR ---
BLADDER SCAN DONE POST RISIDUAL VOID. MEASURED 52,12,48. REPORTED TO MD. PT STATES HE SPILLED HIS URINE SAMPLE HE GOT IN RESTROOM, NOTIFIED.
[2019-03-23 12:56] LABS: BASOPHILS % 0.4 % (0.0-1.0); EOSINOPHILS # (AUTO) 0.3 (0.0-0.4); EOSINOPHILS % 2.9 % (0.0-6.0); HEMATOCRIT 38.6 % (38.2-49.6); HEMOGLOBIN 12.9 g/dL (14.0-18.0); LYMPHOCYTES # (AUTO) 1.7 (1.0-3.2); LYMPHOCYTES % 15.4 % (18.0-39.1); MEAN CORPUSCULAR HEMOGLOBIN 29.3 pg (28-32); MEAN CORPUSCULAR HGB CONC 33.4 g/dL (31-35); MEAN CORPUSCULAR VOLUME 87.5 fL (81-99); MONOCYTES # (AUTO) 0.7 (0.2-0.8); MONOCYTES % 6.3 % (4.4-11.3); NEUTROPHILS # (AUTO) 8.1 (2.1-6.9); NEUTROPHILS % 74.7 % (38.7-80.0); PLATELET COUNT 353 x10e3/uL (140-360); RED BLOOD COUNT 4.41 x10e6/uL (4.3-5.7); RED CELL DISTRIBUTION WIDTH 12.7 % (11.7-14.4)
[2019-03-23 13:19] LABS: ALANINE AMINOTRANSFERASE 15 IU/L (0-55); ALBUMIN/GLOBULIN RATIO 0.7 (0.8-2.0); ALKALINE PHOSPHATASE 80 IU/L (40-150); ANION GAP 17.8 mmol/L (8-16); BLOOD UREA NITROGEN 15 mg/dL (7-26); BUN/CREATININE RATIO 18 (6-25); CALCIUM 8.9 mg/dL (8.4-10.2); CARBON DIOXIDE 19 mmol/L (22-29); CHLORIDE 104 mmol/L (98-107); CREATININE, SERUM 0.85 mg/dL (0.72-1.25); EST GLOMERULAR FILTRATION RATE > 60 ML/MIN (60-); GLUCOSE 223 mg/dL (74-118); POTASSIUM 3.8 mmol/L (3.5-5.1); SODIUM 137 mmol/L (136-145)
[2019-03-23 14:06] LABS: COLOR,URINE YELLOW (YELLOW)
[2019-03-23 14:07] LABS: BILIRUBIN,URINE NEGATIVE (NEGATIVE); CLARITY,URINE SL CLOUDY (CLEAR); KETONES,URINE NEGATIVE (NEGATIVE); LEUKOCYTE ESTERASE ,URINE NEGATIVE (NEGATIVE); NITRITE,URINE NEGATIVE (NEGATIVE); PROTEIN,URINE DIPSTICK 2+ (NEGATIVE); URINE UROBILINOGEN 0.2 mg/dL (0.2 - 1)
[2019-03-23 14:20] LABS: BACTERIA,URINE FEW /HPF; EPITHELIAL CELLS,URINE FEW /LPF
== END 2019-03-23 15:41 | disposition home or self-care (01) ==
LOC: ER 12:11
DX: R33.9 Retention of urine, unspecified (principal); I10 Essential (primary) hypertension; E11.9 Type 2 diabetes mellitus without complications; I51.9 Heart disease, unspecified; I25.10 Atherosclerotic heart disease of native coronary artery without angina pectoris; Z95.5 Presence of coronary angioplasty implant and graft; Z86.73 Personal history of transient ischemic attack (TIA), and cerebral infarction without residual deficits
CPT/HCPCS: 36415; 80053; 81001; 85025; 87086; 87186; 99284

== ENCOUNTER 2019-07-29 09:20 | Inpatient (IN) | payer OTHER, MEDICARE ==
[2019-07-24 17:53] LABS: BASOPHILS % 0.6 % (0.0-1.0); EOSINOPHILS # (AUTO) 0.2 (0.0-0.4); EOSINOPHILS % 2.8 % (0.0-6.0); HEMATOCRIT 40.9 % (38.2-49.6); HEMOGLOBIN 13.7 g/dL (14.0-18.0); LYMPHOCYTES # (AUTO) 1.4 (1.0-3.2); LYMPHOCYTES % 20.2 % (18.0-39.1); MEAN CORPUSCULAR HEMOGLOBIN 29.1 pg (28-32); MEAN CORPUSCULAR HGB CONC 33.5 g/dL (31-35); MONOCYTES # (AUTO) 0.5 (0.2-0.8); MONOCYTES % 7.6 % (4.4-11.3); NEUTROPHILS # (AUTO) 4.6 (2.1-6.9); NEUTROPHILS % 68.5 % (38.7-80.0); PLATELET COUNT 240 x10e3/uL (140-360); RED CELL DISTRIBUTION WIDTH 13.2 % (11.7-14.4)
[2019-07-24 18:08] LABS: ANION GAP 12.1 mmol/L (8-16); CALCIUM 9.1 mg/dL (8.4-10.2); CREATININE, SERUM 1.27 mg/dL (0.72-1.25); POTASSIUM 4.1 mmol/L (3.5-5.1)
--- NOTE | 2019-07-24 18:20 | Diagnostic Imaging Report ---
EXAMINATION: CHEST 2 VIEWS INDICATION: Prostatism. Preoperative evaluation. COMPARISON: 07/11/2018. FINDINGS: TUBES and LINES: None. LUNGS: Lungs are well inflated. There are bibasilar atelectasis. There is no evidence of pneumonia or pulmonary edema. PLEURA: No pleural effusion or pneumothorax. HEART AND MEDIASTINUM: The cardiomediastinal silhouette is unremarkable. There are atherosclerotic calcifications within the aorta. BONES AND SOFT TISSUES: No acute osseous lesion. Lower cervical fusion hardware. UPPER ABDOMEN: No free air under the diaphragm. IMPRESSION: No acute thoracic abnormality. Signed by: Dr. Ladonna Naik M.D. on 07/24/2019 6:17 PM
[~2019-07-29] VITALS: Ht 172.7 cm; Wt 94.8 kg
[2019-07-29] MEDS ORDERED: GENTAMICIN 80MG/NS 100 ML 200 ML IV ONE (09:48)
[2019-07-29] MEDS ORDERED: CEFTRIAXONE SOD 1 GM/NS 50 ML 50 ML IV ONE (09:48)
[2019-07-29] MEDS ORDERED: GABAPENTIN300 MG PO (10:04)
[2019-07-29] MEDS ORDERED: B&O 60MG R/S 60 MG SUPP PR ONE (12:08)
[2019-07-29] MEDS ORDERED: IOPAMIDOL 300MG/ML 50ML INFUS..BTL IV ONE (12:09)
[2019-07-29] MEDS ORDERED: PHENAZOPYRIDINE HCL 100 MG TAB PO PRN (12:15)
[2019-07-29] MEDS ORDERED: DIPHENHYDRAMINE HCL 25 MG CAP PO PRN (12:15)
[2019-07-29] MEDS ORDERED: B&O 60MG R/S 60 MG SUPP PR PRN (12:15)
[2019-07-29] MEDS ORDERED: ACETAMINOPHEN/CODEINE 300MG - 30MG TAB PO PRN (12:15)
[2019-07-29] MEDS ORDERED: ONDANSETRON HCL INJ 2MG/ML 2ML 2 MG/ML VIAL IV PRN (12:15)
[2019-07-29] MEDS ORDERED: BUPIVACAINE 0.25% 30ML SDV INJ ONE (12:39)
[2019-07-29] MEDS ORDERED: BACITRACIN ZINC 15 GM OINT ONE (13:24)
[2019-07-29] MEDS ORDERED: FENTANYL CITRATE/PF 100MCG/2 ML INJ ONE ×2 (13:56→14:58)
[2019-07-29] MEDS ORDERED: HYDROMORPHONE 1MG/1ML INJ ONE ×2 (14:07→14:20)
--- OUTSIDE RECORDS SUMMARY | 2019-07-29 14:45 | XMS REPORT | Clinical Summary ---
Author Author [facility] Address Unknown Phone Unavailable Care Team Providers Care Him Specialists Name Role Phone Caroline Virgen MD PCP [phone] Allergies No Known Allergies Medications End Date [...] Active metFORMIN (GLUCOPHAGE) Take 1,000 mg 1 01 1,000 mg tablet by mouth 2 7 [...] Date Diabetic ketoacidosis without coma associated with ty pe 1 diabetes mellitus 11/28/2016 Social History Date [...] (1 of 2 - PCV13) INFLUENZA VACCINE 09/19/2019 Results Not on fileafter 07/28/2018 Insurance Type Payer Benefit Subscriber ID Effective Phone Address Plan / Dates Group HMO CIGNA CIGNA OPEN xxxxxxxxxxx 2015-P ACCESS/NET resent WORK Medicare MEDICARE MEDICARE xxxxxxxxxx 2005- GONZALE[place], PART A AND Present [place] Advance Directives For more information, please contact: [phone] 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
--- OUTSIDE RECORDS SUMMARY | 2019-07-29 14:45 | XMS REPORT | Continuity of Care Document ---
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 Active Problem 12/18/2017 Jorge Luis Liriano History of CVA (cerebrovascular accident) Active Problem 12/18/2017 Jorge Luis Liriano Abnormal EKG Active Problem 12/18/2017 Jorge Luis Liriano Patient unable to exercise Act marilee Problem Jorge Luis Liriano Unsteady gait Active Problem 12/18/2017 Jorge Luis Liriano Former smoker Active Problem 12/18/2017 Jorge Luis Liriano 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 Active Problem 12/18/2017 Jorge Luis Liriano Preoperative cardiovascular examination Active Problem 12/18/2017 Jorge Luis Liriano CAD in [place] artery Active Problem 12/18/2017 Jorge Luis Liriano Hypercholesteremia Active Problem 12/18/2017 Jorge Luis Liriano Hypertensive heart disease without heart failure Active Problem 12/18/2017 Jorge Luis Liriano Obesity (BMI 30.0-34.9) Active Diagnosis 04/13/2017 Jorge Luis Liriano Abnormal electrocardiogram Act marilee Diagnosis 0 04/13/2017 Jorge Luis Liriano Coronary angioplasty status Ac tive Diagnosis 0 04/13/2017 Jorge Luis Liriano Former smoker Active Diagnosis 04/13/2017 Jorge Luis Liriano Hypercholesterolemia Active Diagnosis 04/13/2017 Jorge Luis Liriano Angina pectoris Active Diagnosis 04/13/2017 Jorge Luis Liriano Coronary atherosclerosis of [place] coronary artery Active Diagnosis 04/13/2017 Jorge Luis Liriano Diastolic dysfunction, left ventricle Active Diagnosis 04/13/2017 Jorge Luis Liriano Diabetes mellitus with complication Active Diagnosis 0 04/13/2017 Jorge Luis Liriano Old myocardial infarction Acti ve Diagnosis 0 04/13/2017 Jorge Luis Liriano Carotid Bruit Active Diagnosis 04/13/2017 Jorge Luis Liriano WHYTE (dyspnea on exertion) Acti ve Problem Jorge Luis Liriano Non-rheumatic tricuspid valve insufficiency Active Problem 12/18/2017 Jorge Luis Liriano Atherosclerosis of [place] artery of both lower extremities with rest pain Active Prob darrin 12/18/2017 Jorge Luis Liriano Atherosclerosis of [place] artery of both lower extremities with intermittent claudication Active Problem 12/18/2017 Jorge Luis Liriano Hypercholesteremia Active Problem 08/30/2015 Jorge Luis Liriano Medications Medication Details Route Status Patient Instructions Ordering Provider Order Date Source Metoprolol Tartrate 1 tablet Orally Active 25 MG Orally Twice a day Deandra 01/06/2014 Jorge Luis Liriano Simvastatin 1 tablet Orally Active 20 mg Orally Once a day Deandra Liriano Gabapentin 2 capsules Orally Active 100 mg Orally twice a d ay (bid) Deandra Liriano Aspirin EC Lo-Dose 1 tablet Orally Active 81 MG Orally Once a day Deandra Liriano Metformin HCl 1 tablet Orally Active 1000 mg Orally Twice a day Deandra Liriano Lisinopril-Hydrochlorothiazide 1 tablet Orally Active 20-25 MG Orally Once a day Jeolrussell Liriano Clopidogrel Bisulfate 1 tablet Orally Active 75 MG Orally daily Deandra Liriano Humulin N 20 units Subcutaneous Active 100 UNIT/ML Subcutaneou s twice a day (bid) Deandra Liriano Metoprolol Tartrate 1 tablet Orally Active 25 MG Orally Twice a day Deandra Liriano Glimepiride 1 tablet Orally Active 4 MG Orally twice a day (bid) Deandra Liriano HumuLIN N KwikPen as directed Subcutaneous Active 100 UNIT/ML Subcutaneous Once a Day Deandra Liriano Apidra as directed Injection Active 100 UNIT/ML Injection T wice a Day Deandra Liriano Aspir-81 1 tablet Orally Active 81 MG Orally Once a day Deandra Kaplan jenniffer Liriano Metformin HCl 1 tablet Orally Active 1000 mg Orally Twice a day Deandra Liriano Gabapentin 2 capsules Orally Active 100 mg Orally twice a d ay (bid) Deandra Liriano Byetta 10 MCG Pen 0.02 ml up t o 1 hour before breakfast and evening meal Subcutaneous Active 10 MCG/0.04ML Subcutaneous Once a day Deandra Liriano Pantoprazole Sodium 1 tablet Orally Active 40 mg Orally PRN Deandra Liriano NovoLog 10 units Subcutaneous Active 100 UNIT/ML Subcutaneou s twice a day (bid) Deandra Liriano Atorvastatin Calcium 1 tablet Orally Active 40 MG Orally Once a day Deandra Liriano Simvastatin 1 tablet Orally Active 20 mg Orally Once a day Deandra Liriano Humulin 70/30 25 units Subcutaneous Active (70-30) 100 UNIT/ML Subcutaneous BID Deandra Liriano Clopidogrel Bisulfate TAKE 1 T ABLET DAILY NA Active 75 MG Deandra Liriano Insulin 70/30 not defined NA Active Deandra Liriano Aspir-81 1 tablet Orally Active 81 MG Orally Once a day Deandra Liriano Clopidogrel Bisulfate 1 tablet by mouth Active 75MG by mouth daily Deandra Liriano Clopidogrel Bisulfate TAKE 1 T ABLET DAILY NA Active 75 MG Deandra Liriano Metoprolol Tartrate 1 tablet Orally Active 25 MG Orally Twice a day Deandra Liriano Lisinopril-Hydrochlorothiazide 1 tablet Orally Active 20-25 MG Orally Once a day Deandra Liriano Clopidogrel Bisulfate 1 tablet Orally Active 75 mg Orally Once a day Deandra Liriano Allergies, Adverse Reactions, Alerts Substance Category Reaction Severity Reaction type Status Date Reported Comments Source N.K.D.A. Adverse Reaction Info Not Available Adverse Reaction Active 12/04/2016 Jorge Luis Liriano Immunizations No Data Provided for This Section Results No Data Provided for This Section Pathology Reports No Data Provided for This Section Diagnostic Reports No Data Provided for This Section Consultation Notes No Data Provided for This Section Discharge Summaries No Data Provided for This Section History and Physicals No Data Provided for This Section Vital Signs Vital Sign Value Date Comments Source Weight 193 12/04/2016 Mohamed O Jeroudi Height 67 1 Mohamed O Jeroudi Temperature Oral (F) 96.8 F 12/04/2016 Mohamed O Jeroudi Heart Rate 82 12/04/2016 Mohamed O Jeroudi Diastolic (mm Hg) 72 12/04/2016 Mohamed O Jeroudi Systolic (mm Hg) 130 12/04/2016 Mohamed O Jeroudi Weight 190 2016 Mohamed O Jeroudi Height 67 1 Mohamed O Jeroudi Temperature Oral (F) 95.4 F 2016 Mohamed O Jeroudi Heart Rate 82 2016 Mohamed O Jeroudi Diastolic (mm Hg) 78 2016 Mohamed O Jeroudi Systolic (mm Hg) 132 2016 Mohamed O Jeroudi Weight 198 05/29/2016 Mohamed O Jeroudi Height 67 0 05/29/2016 Mohamed O Jeroudi Temperature Oral (F) 97.6 F 05/29/2016 Mohamed O Jeroudi Heart Rate 62 05/29/2016 Mohamed O Jeroudi Diastolic (mm Hg) 86 05/29/2016 Mohamed O Jeroudi Systolic (mm Hg) 132 05/29/2016 Mohamed O Jeroudi Weight 200 05/17/2016 Mohamed O Jeroudi Height 67 0 05/17/2016 Mohamed O Jeroudi Temperature Oral (F) 97.0 F 05/17/2016 Mohamed O Jeroudi Heart Rate 60 05/17/2016 Mohamed O Jeroudi Diastolic (mm Hg) 72 05/17/2016 Mohamed O Jeroudi Systolic (mm Hg) 132 05/17/2016 Mohamed O Jeroudi Weight 196 04/26/2016 Mohamed O Jeroudi Height 67 0 04/26/2016 Mohamed O Jeroudi Temperature Oral (F) 97.6 F 04/26/2016 Mohamed O Jeroudi Heart Rate 61 04/26/2016 Mohamed O Jeroudi Diastolic (mm Hg) 76 04/26/2016 Mohamed O Jeroudi Systolic (mm Hg) 122 04/26/2016 Mohamed O Jeroudi Weight 195 12/22/2015 Mohamed O Jeroudi Height 67 1 02/20/2015 Mohamed O Jeroudi Temperature Oral (F) 96.5 F 12/22/2015 Mohamed O Jeroudi Heart Rate 74 12/22/2015 Mohamed O Jeroudi Diastolic (mm Hg) 80 12/22/2015 Mohamed O Jeroudi Systolic (mm Hg) 112 12/22/2015 Mohamed O Jeroudi Weight 205 01/17/2015 Mohamed O Jeroudi Height 67 1 03/19/2014 Mohamed O Jeroudi Temperature Oral (F) 97.0 F 01/17/2015 Mohamed O Jeroudi Heart Rate 71 01/17/2015 Mohamed O Jeroudi Diastolic (mm Hg) 64 01/17/2015 Mohamed O Jeroudi Systolic (mm Hg) 118 01/17/2015 Mohamed O Jeroudi Weight 205 10/14/2014 Mohamed O Jeroudi Height 67 0 10/14/2014 Mohamed O Jeroudi Temperature Oral (F) 97.4 F 10/14/2014 Mohamed O Jeroudi Heart Rate 77 10/14/2014 Mohamed O Jeroudi Diastolic (mm Hg) 66 10/14/2014 Mohamed O Jeroudi Systolic (mm Hg) 118 10/14/2014 Mohamed O Jeroudi Weight 207 04/07/2014 Mohamed O Jeroudi Height 67 0 04/07/2014 Mohamed O Jeroudi Temperature Oral (F) 97.0 F 04/07/2014 Mohamed O Jeroudi Heart Rate 71 04/07/2014 Mohamed O Jeroudi Diastolic (mm Hg) 80 04/07/2014 Mohamed O Jeroudi Systolic (mm Hg) 130 04/07/2014 Mohamed O Jeroudi Weight 207 03/23/2014 Mohamed O Jeroudi Height 67 0 03/23/2014 Mohamed O Jeroudi Temperature Oral (F) 95.4 F 03/23/2014 Mohamed O Jeroudi Heart Rate 71 03/23/2014 Mohamed O Jeroudi Diastolic (mm Hg) 80 03/23/2014 Mohamed O Jeroudi Systolic (mm Hg) 120 03/23/2014 Mohamed O Jeroudi Weight 206 02/08/2014 Mohamed O Jeroudi Height 67 1 04/11/2013 Mohamed O Jeroudi Temperature Oral (F) 95.9 F 02/08/2014 Mohamed O Jeroudi Heart Rate 58 02/08/2014 Mohamed O Jeroudi Diastolic (mm Hg) 80 02/08/2014 Mohamed O Jeroudi Systolic (mm Hg) 125 02/08/2014 Mohamed O Jeroudi Weight 208 01/06/2014 Mohamed O Jeroudi Height 67 1 03/08/2013 Mohamed O Jeroudi Temperature Oral (F) 97.6 F 01/06/2014 Mohamed O Jeroudi Heart Rate 77 01/06/2014 Mohamed O Jeroudi Diastolic (mm Hg) 80 01/06/2014 Mohamed O Jeroudi Systolic (mm Hg) 122 01/06/2014 Mohamed O Jeroudi Weight 208 12/15/2013 Mohamed O Jeroudi Height 67 1 Mohamed O Jeroudi Temperature Oral (F) 97.1 F 12/15/2013 Mohamed O Jeroudi Heart Rate 77 12/15/2013 Mohamed O Jeroudi Diastolic (mm Hg) 70 12/15/2013 Mohamed O Jeroudi Systolic (mm Hg) 120 12/15/2013 Mohamed O Jeroudi Encounters Location Location Details Encounter Type Encounter Number Reason For Visit Attending Provider ADM Date DC Date Status Source Jorge Luis Liriano MD [facility] [id number] 01/12/20 14 01/11/2014 Jorge Luis Liriano MD PA procedures for 01/18/15 &01/21/14 concerning medications. [id number] 01/15/2014 01/15/2014 Jorge Luis Liriano MD [place] Unknown [id number] 08/29/19 16 08/29/2015 Jorge Luis Liriano Procedures No Data Provided for This Section Assessment and Plan No Data Provided for This Section Plan of Care No Data Provided for This Section Social History Social History Date Source Social History ElementQualifiersDate Rep orted Smoking . Status Former Smoker Quit in [...] . Retired [employer] June 16, 2015 06/16/2015 Jorge Luis Liriano Family History No Data Provided for This Section Advance Directives No Data Provided for This Section Functional Status No Data Provided for This Section
--- OUTSIDE RECORDS SUMMARY | 2019-07-29 14:46 | XMS REPORT | Summary of Care ---
Author Author [facility] - Health Organization [facility] - Health Address Unknown Phone Unavailable Care Team Providers Care Medical Technologist Name Role Phone Doctor Unassigned, [place] PCP Unavailable Reason for Visit * Reason Comments LAB WORK Encounter Details Care Team Description Date Type Department Indra Bryant, [facility] [address] [place] [address] Draw, [facility] Lab Type 2 diabetes mellitus with both eyes affected by moderate nonproliferative retinopathy without macular edema, with long-term current use of insulin; Type 2 diabetes mellitus with diabetic polyneuropathy, with long-term current use of insulin 03/06/2019 Clinical Phlebotomist [facility] Clinic l Visit Laboratory, [address] [address] Allergies No Known Allergiesdocumented as of this encounter (statuses as of 03/06/2019) Medications End Date Status Medication Sig Dispensed Refills Start Date Active METOPROLOL TARTRATE 25 mg TAKE 1 TABLET 30 tablet 4 tablet BY MOUTH 9 EVERY DAY Active LISINOPRIL-HYDROCHLOROTHI TAKE 1 TABLET 30 tablet 4 AZIDE 20-25 mg per tablet BY MOUTH 9 EVERY DAY Active ONETOUCH VERIO strip Use to check 200 Strip 0 07/19 blood glucose 9 twice daily. Dx: E11.42 Active furosemide 40 mg tablet Take 40 mg by 0 mouth daily. Active potassium chloride 20 mEq Take by 0 tablet mouth. Active gabapentin 300 mg capsule Take 1 270 capsule 1 capsule by 9 mouth 3 (three) times daily. Active insulin degludec (TRESIBA inject 50 20 Syringe 1 FLEXTOUCH U-100) 100 Units under 9 unit/mL (3 mL) the skin at InPnIndications: Type 2 bedtime. diabetes mellitus with diabetic polyneuropathy, with long-term current use of insulin Additional information Patient taking differently: 30 Units Subcutaneous BID, Reported on 03/06/2019 11:30 AM Active insulin lispro (HUMALOG inject 25 4 Box 1 KWIKPEN INSULIN) 100 Units under 9 unit/mL pen the skin 2 injectorIndications: Type (two) times 2 diabetes mellitus with daily before diabetic polyneuropathy, breakfast and with long-term current dinner. use of insulin Additional information Patient taking differently: 15 Units Subcutaneous TIDAC, Reported on 03/06/2019 11:30 AM Active metformin ER 500 mg 24 hr Take 2 360 tablet 1 tabletIndications: Type 2 tablets by 9 diabetes mellitus with mouth 2 (two) diabetic polyneuropathy, times daily. with long-term current use of insulin Additional information Patient taking differently: 500 mg Oral BID, Reported on 03/06/2019 11:30 AM Active atorvastatin 40 mg Take 1 tablet 90 tablet 1 01/02 tabletIndications: Mixed by mouth at 9 hyperlipidemia bedtime. Active flash glucose sensor 2 Devices 2 Kit 4 01/02 (FREESTYLE WERO 14 DAY every 14 9 SENSOR) KitIndications: (fourteen) Type 2 diabetes mellitus days. 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 Dx: E11.42 documented as of this encounter (statuses as of 03/06/2019) Active Problems Problem Noted Date Type 2 diabetes mellitus with both eyes affected by m oderate 01/02/2019 nonproliferative retinopathy without ma cular edema, with long-term current use of insulin Type 2 diabetes mellitus with diabetic polyneuropathy , with long-term 04/30/2018 current use of insulin Coronary artery disease involving [place] coronary art carlo of [place] heart 04/30/2018 without angina pectoris Mixed hyperlipidemia 04/30/2018 documented as of this encounter (statuses as of 03/06/2019) Social History Date Tobacco Use Types Packs/Day Years Used Former Smoker Smokeless Tobacco: Never Used Comments: stopped in 1981 Drinks/Week oz/Week Comments Alcohol Use Not Currently Sex Assigned at Date Recorded Not on file Industry Job Start Date Occupation Not on file Not on file Not on file Travel End Travel History Travel Start No recent travel history available. 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 METABOLIC PANEL LAB Routine Type 2 d iabetes mellitus (80408) with diabetic polyneuropathy, with long-term current use of insulin 03/06/2019 12:27 PM DESIGN MAINTENANCE ENGINEER CBC WITH DIFF LAB Routine Type 2 diabetes mellitus with diabetic polyneuropathy, with long-term current use of insulin 03/06/2019 12:27 PM DESIGN MAINTENANCE ENGINEER CBC WITH DIFFERENTIAL LAB Routine Type 2 d iabetes mellitus with diabetic polyneuropathy, with long-term current use of insulin Health Maintenance Due Date Last Done Comments HgA1C 1941 CREATININE (SERUM) 1950 EYE EXAM 1950 LDL-C 1950 URINE MICROALBUMIN 1950 DTaP,Tdap,and Td Vaccines 11/27/1951 (1 - Tdap) FOOT EXAM 1958 Zoster Recombinant 1990 Vaccine (SHINGRIX) (1 of 2) LUNG CANCER SCREEN: 11/27/1995 Recommended for age 55-80 with 30 + pack year history Medicare Wellness Visit 2005 PNEUMOCOCCAL VACCINES 65+ 2005 (1 of 2 - PCV13) INFLUENZA VACCINE (#1) 2018 documented as of this encounter Results Not on filedocumented in this encounter Visit Diagnoses Diagnosis Type 2 diabetes mellitus with both eyes affected by moderate nonproliferative retinopathy without macular edema, with long-term current u se of insulin Type 2 diabetes mellitus with diabetic polyneuropathy, with long-term current use of insulin documented in this encounter Insurance Type Payer Benefit Subscriber ID Effective Phone Address Plan / Dates Group Medicare MEDICARE MEDICARE xxxxxxxxxxx 2005- [phone] [address] PART A & B Present [id number] [place] [address] HMO/PPO/POS CIGMARLYS CIGNA II [id number] 2015-P resent documented as of this encounter
--- OUTSIDE RECORDS SUMMARY | 2019-07-29 14:46 | XMS REPORT | Summary of Care ---
Author Author [facility] - Health Organization [facility] - Health Address Unknown Phone Unavailable Care Team Providers Care Heel Former Name Role Phone Doctor Unassigned, [place] PCP Unavailable Reason for Visit * Reason Comments Follow-up pt confirm all meds and pha rmacy Diabetes Mellitus II pt stated he is fasting to have labs done today Encounter Details Care Team Description Date Type Department Leanna Michelle MD [address] [place] [address] [id number] Indra Bryant, [facility] [address] [place] [address] Type 2 diabetes mellitus with diabetic p olyneuropathy, with long-term current use of insulin (Primary Dx); Mixed hyperlipidemia 03/06/2019 Office Visit [facility] Endocrinology, [address] [address] Allergies No Known Allergiesdocumented as of this encounter (statuses as of 03/07/2019) Medications End Date Status Medication Sig Dispensed [...] 9 mouth 3 (three) times daily. Active flash glucose sensor 2 Devices 2 Kit 4 01/02 (FREESTYLE WERO 14 DAY every 14 9 SENSOR) KitIndications: (fourteen) Type 2 diabetes mellitus days. 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 Dx: E11.42 Active atorvastatin 40 mg Take 1 tablet 90 tablet 1 03/07 tabletIndications: Mixed by mouth at 0 hyperlipidemia bedtime. Active insulin lispro (HUMALOG inject 20 4 Each 1 KWIKPEN INSULIN) 100 Units under 0 unit/mL pen the skin 3 injectorIndications: Type (three) times 2 diabetes mellitus with daily before diabetic polyneuropathy, meals. with long-term current use of insulin Active insulin degludec (TRESIBA inject 30 4 Syringe 1 FLEXTOUCH U-100) 100 Units under 0 unit/mL (3 mL) the skin 2 InPnIndications: Type 2 (two) times diabetes mellitus with daily. diabetic polyneuropathy, with long-term current use of insulin Active metformin ER 500 mg 24 hr Take 2 360 tablet 1 tabletIndications: Type 2 tablets by 0 diabetes mellitus with mouth 2 (two) diabetic polyneuropathy, times daily. with long-term current use of insulin 03/07/2019 Discontinued (Reorder) insulin degludec (TRESIBA inject 50 20 Syringe 1 FLEXTOUCH U-100) 100 Units under 9 unit/mL (3 mL) the skin at InPnIndications: Type 2 bedtime. diabetes mellitus with diabetic polyneuropathy, with long-term current use of insulin 03/07/2019 Discontinued (Reorder) insulin lispro (HUMALOG inject 25 4 Box 1 KWIKPEN INSULIN) 100 Units under 9 unit/mL pen the skin 2 injectorIndications: Type (two) times 2 diabetes mellitus with daily before diabetic polyneuropathy, breakfast and with long-term current dinner. use of insulin 03/07/2019 Discontinued (Reorder) metformin ER 500 mg 24 hr Take 2 360 tablet 1 tabletIndications: Type 2 tablets by 9 diabetes mellitus with mouth 2 (two) diabetic polyneuropathy, times daily. with long-term current use of insulin 03/07/2019 Discontinued (Reorder) atorvastatin 40 mg Take 1 tablet 90 tablet 1 01/02 tabletIndications: Mixed by mouth at 9 hyperlipidemia bedtime. 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 ma cular edema, with long-term current use of insulin Type 2 diabetes mellitus with diabetic polyneuropathy , with long-term 04/30/2018 current use of insulin Coronary artery disease involving [place] coronary art carlo of [place] heart 04/30/2018 without angina pectoris Mixed hyperlipidemia 04/30/2018 documented as of this encounter (statuses as of 03/07/2019) Social History Date Tobacco Use Types Packs/Day [...] of this encounter Last Filed Vital Signs Reading Time Taken Comments Vital Sign 116/79 03/06/2019 11:24 AM [employer] Blood Pressure 87 03/06/2019 11:24 AM RE[employer] Pulse - - Temperature - - Respiratory Rate 95% 03/06/2019 11:24 AM REPA[employer] Oxygen Saturation - - Inhaled Oxygen Concentration 91 kg (200 lb 9.6 oz) 03/06/2019 11:24 AM [employer] Weight 170.2 cm (5' 7") 03/06/2019 11:24 AM [employer] Height 31.42 03/06/2019 11:24 AM REPA[employer] Body Mass Index documented in this encounter Progress Notes * Indra Bryant, ADDICTION NURSE - 03/06/2019 11:00 AM REPA[employer] Cc: Chief Complaint Patient presents with Follow-up pt confirm all meds and pharmacy Diabetes Mellitus II pt stated he is fasting to have labs done today HPI Vikram Arroyo is a 78 year old male for follow-up of: DIABETES MELLITUS II: Currently on Tresiba 30 units twice daily, Humalog 15 unit s TID with meals, and metformin 500mg BID..spouse informs patients noncomplianc e with insulin and would like to know of options to help him . He does monitor s ugars at home, readings ranged drom 200-300.Denies numbness or foot burning. Mo st recent Hgb A1c was 10.2. Last Ophthalmology Visit:July 2018 Patient on JOSSELIN/ARB Therapy: yes Patient on Statin: Yes Last foot Exam: 03/06/19 Nutrition/Diabetes Education: 03/06/19 Allergies Vikram has No Known Allergies. Medications Outpatient Medications Prior to Visit Medication Sig Dispense Refill ONETOUCH VERIO SYSTEM Misc Use to check blood glucose twice daily. Dx: E11.4 2 1 Each 0 atorvastatin 40 mg tablet Take 1 tablet by mouth at bedtime. 90 tablet 1 flash glucose sensor (FREESTYLE WERO 14 DAY SENSOR) Kit 2 Devices every 14 (fourteen) days. 2 Kit 4 insulin degludec (TRESIBA FLEXTOUCH U-100) 100 unit/mL (3 mL) InPn inject 50 Units under the skin at bedtime. (Patient taking differently: inject 30 Units u nder the skin 2 (two) times daily.) 20 Syringe 1 insulin lispro (HUMALOG KWIKPEN INSULIN) 100 unit/mL pen injector inject 25 Units under the skin 2 (two) times daily before breakfast and dinner. (Patient t aking differently: inject 15 Units under the skin 3 (three) times daily before m eals.) 4 Box 1 metformin ER 500 mg 24 hr tablet Take 2 tablets by mouth 2 (two) times daily . (Patient taking differently: Take 500 mg by mouth 2 (two) times daily.) 360 ta blet 1 furosemide 40 mg tablet Take 40 mg by mouth daily. gabapentin 300 mg capsule Take 1 capsule by mouth 3 (three) times daily. 270 capsule 1 potassium chloride 20 mEq tablet Take by mouth. ONETOUCH VERIO strip Use to check blood glucose twice daily. Dx: E11.42 200 Strip 0 LISINOPRIL-HYDROCHLOROTHIAZIDE 20-25 mg per tablet TAKE 1 TABLET BY MOUTH EV CARLO DAY 30 tablet 4 METOPROLOL TARTRATE 25 mg tablet TAKE 1 TABLET BY MOUTH EVERY DAY 30 tablet 4 No facility-administered medications prior to visit. Histories Past Medical History: Diagnosis Date Diabetes mellitus Hyperlipidemia Hypertension History reviewed. No pertinent surgical history. Social History Socioeconomic History Marital status: Spouse name: Not on file Number of children: Not on file Years of education: Not on file Highest education level: Not on file Occupational History Not on file Social Needs Financial resource strain: Not on file Food insecurity: Worry: Not on file Inability: Not on file Transportation needs: Medical: Not on file Non-medical: Not on file Tobacco Use Smoking status: Former Smoker Smokeless tobacco: Never Used Tobacco comment: stopped in 1980 Substance and Sexual Activity Alcohol use: Not Currently Drug use: Never Sexual activity: Not on file Lifestyle Physical activity: Days per week: Not on file Minutes per session: Not on file Stress: Not on file Relationships Social connections: Talks on phone: Not on file Gets together: Not on file Attends jew service: Not on file Active member of club or organization: Not on file Attends meetings of clubs or organizations: Not on file Relationship status: Not on file Intimate partner violence: Fear of current or ex partner: Not on file Emotionally abused: Not on file Physically abused: Not on file Forced sexual activity: Not on file Other Topics Concern Not on file Social History Narrative Not on file History reviewed. No pertinent family history. Review of Systems Constitutional:negative. Eyes: no recent changes Neck: negative Cardiovascular: negative. Respiratory: negative Genitourinary: negative Neuro: negative Endocrine: negative. Vital Signs BP 116/79 (BP Location: Right arm, Patient Position: Sitting, BP CUFF SIZE: Adul t Large) | Pulse 87 | Ht 5' 7" (1.702 m) | Wt 200 lb 9.6 oz (91 kg) | SpO2 9 5% | BMI 31.42 kg/m Physical Exam Feet: Right Foot: Protective Sensation: 8 sites tested. 10 sites sensed. Skin Integrity: Positive for callus. Negative for ulcer, skin breakdown or dry s kin. Left Foot: Protective Sensation: 8 sites tested. 10 sites sensed. Skin Integrity: Positive for callus. Negative for ulcer, blister, skin breakdown or dry skin. Constitutional: oriented to person, place, and time.appears well-developed and well-nourished. Eyes: Pupils are equal, round, and reactive to light. Conjunctivae and EOM are n ormal. No scleral icterus. Lymph: No JVD present. No tracheal deviation present. No thyromegaly present. Cardiovascular: Normal rate, regular rhythm, normal heart sounds and intact dist al pulses. No murmur heard. Pulmonary/Chest: Effort normal and breath sounds normal. No respiratory distress . no wheezes, no rales Assessment/Plan Type 2 diabetes mellitus with diabetic polyneuropathy, with long-term current us e of insulin (primary encounter diagnosis) Plan: COMP. METABOLIC PANEL (73748), CBC WITH DIFF -metformin 1000 mg BID Tresiba 30 units BID Humalog 20 units TIDAC - patient had education on insulin pump with [employer] staff today - educated on ADA diet, BS goals - f/u in 1 month with BS log Appropriate plan of care, desired health behaviors, goals and medications discus sed with patient and educational resources and self-management tools provided, a s applicable. Patient/family/guardian voice understanding. Barriers to adherence: none Ability to manage care: Good As necessary, prescribed medications and potential significant medication side e ffects or medication interactions were discussed with the patient and pt will le t me know if any occur. Call or return to clinic prn if these symptoms worsen or fail to improve as anti cipated. Call or report to ER if symptoms should symptoms progress or worsen. The patient indicates understanding of these issues and agrees with the plan. AVS printed and given to patient/family/guardian [employer] documented in this encounter Plan of Treatment Order Schedule Name Type Priority Associated Diag noses Expected: 03/07/2019, Expires: 1 C-PEPTIDE, SERUM OR LAB Routine Type 2 [place] mellitus PLASMA with diabetic polyneuropathy, with long-term current use of insulin Expected: 03/07/2019, Expires: 1 GLUCOSE FASTING LAB Routine Type 2 diabete s mellitus with diabetic polyneuropathy, with long-term current use of insulin Expected: 06/06/2019, Expires: 0 GLYCOSYLATED HEMOGLOBIN LAB Routine Type 2 diabetes mellitus (A1C) with diabetic polyneuropathy, with long-term current use of insulin Health Maintenance Due Date Last Done Comments EYE EXAM 1950 LDL-C 1950 URINE MICROALBUMIN 1950 DTaP,Tdap,and Td Vaccines [birth year]/27/1951 (1 - Tdap) Zoster Recombinant 1990 Vaccine (SHINGRIX) (1 of 2) LUNG CANCER SCREEN: 11/27/1995 Recommended for age 55-80 with 30 + pack year history Medicare Wellness Visit 2005 PNEUMOCOCCAL VACCINES 65+ 2005 (1 of 2 - PCV13) INFLUENZA VACCINE (#1) 2018 HgA1C 09/04/2019 03/06/2019 CREATININE (SERUM) 03/06/2020 03/06/2019 FOOT EXAM 03/06/2020 03/06/2019 documented as of this encounter Results * COMP. METABOLIC PANEL (76680) (03/06/2019 12:27 PM REPA[employer]) NA 137 135 - 145 mmol/L [facility] K 4.0 3.5 - 5.0 mmol/L [facility] CL 98 98 - 108 mmol/L [facility] CO2 TOTAL 25 23 - 31 mmol/L [facility] AGAP 14 2 - 16 [facility] BUN 21 7 - 23 mg/dL [facility] GLUCOSE 165 (H) 70 - 110 mg/dL [facility] CREATININE 1.03 0.60 - 1.25 mg/dL [facility] TOTAL BILI 0.9 0.1 - 1.1 mg/dL [facility] CALCIUM 8.7 8.6 - 10.6 mg/dL [facility] T PROTEIN 6.9 6.3 - 8.2 g/dL [facility] ALBUMIN 3.7 3.5 - 5.0 g/dL [facility] ALK PHOS 85 34 - 122 U/L [facility] ALTv 20 5 - 50 U/L [facility] AST(SGOT) 25 13 - 40 U/L [facility] eGFR 69.8 mL/min/1.73m2 [facility] Calculation [facility] (Non-[facility] [place]) eGFR 84.7 mL/min/1.73m2 [facility] Calculation [facility] ([facility] [place]) Specimen Blood - ARM, RIGHT Narrative Performed At Association of Glomerular Filtration Rate (GFR) and S taging of Kidney Disease* [facility] + + +------ + [facility] [place] | GFR (mL/min/1.73 m2) | With Kidney Damage | [facility] Kidney [facility] + + -------+ + | >90 | S tage one | Normal + + -------+ + | 60-89 | St age two | Decreased GFR + + -------+ + | 30-59 | St age three | Stage three + + -------+ + | 15-29 | St age four | Stage four + + -------+ + | <15 (or dialysis) | Stage fi ve | Stage five + + -------+ + *Each stage assumes the associated GFR level has been in effect for at least three months. Stages 1 to 5, with or without kidney disease, indicate chronic kidney disease. Notes: Determination of stages one and two (with eGFR >59mL/min/1.73 m2) requires estimation of kidney damage fo r at least three months as defined by structural or functional abnormalities of the kidney, manifested by either: Pathological abnormalities or Markers o f kidney damage (including abnormalities in the composition of the blood or urin e or abnormalities in imaging tests). Performing Organization Address City/State/Zipcode Ph one Number [facility] CLIA: [id number], [address] [place], [place] [address] [facility] documented in this encounter Visit Diagnoses Diagnosis Type 2 diabetes mellitus with diabetic polyneuropathy, with long-term current use of insulin - Primary Mixed hyperlipidemia documented in this encounter Insurance Type Payer Benefit Subscriber ID Effective Phone Address Plan / Dates Group Medicare MEDICARE MEDICARE xxxxxxxxxxx 2005- [phone] [address] PART A & B Present [id number] [place] [id number] HMO/PPO/POS CIGNA CIGNA II [id number] 2015-P resent documented as of this encounter
--- OUTSIDE RECORDS SUMMARY | 2019-07-29 14:46 | XMS REPORT | Continuity of Care Document ---
Author Author [facility] t Organization Formerly [facility] Address [address] [place] [address] Dr. Bruner [address] [place] [id number] Phone Unavailable Care Team Providers Care Quality Assurance Nurse Name Role Phone SERGO MUHAMMAD MD PCP LOU ADAMS Attphys Unavailable Miguel Angel PORTER, Star Ram Attphys Elizabeth Hidalgo Attphys MARIBEL ANTONIO Attphys Unavailable Abhijit BOWLING Attphys Unavailable SABINA SERGO Attphys Unavailable Ling LIANG Attphys Unavailable BOCCAR, SERGO Admphys Unavailable Payers Payer Name Policy Type Policy Number Effective Date Expiration Date Abhijit Figueroa o [id number] 2015 00:00:00 [facility] Medicare A & B [id number] 2005 00:00:00 [facility] Problems Condition Name Condition Details Condition Category Status Onset Date Resolution Date Last Treatment Date Treating Clinician Comments Source Diabetic ketoacidosis without coma associated with typ e 1 diabetes mellitus Diabetic ketoacidosis without coma associated with type 1 diabetes mellitus Disease Active 2016-11-28 00:00:00 Augustus Taoist Chest pain Chest pain Problem Active C 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 Active Problem 12/18/2017 Jorge Luis Liriano Problem A ctive 2017-12-18 02:45:37 Eros Her romero History of CVA (cerebrovascular accident) History of CVA (cerebrovascular accident) Active Problem 12/18/2017 Jorge Luis Liriano Problem Active 2017-12-18 02:45:37 Bettye Kathleen Abnormal EKG Abno rmal EKG Active Problem 12/18/2017 Jorge Luis Liriano Problem Active 2017-12-18 02:45:37 [facility] Patient unable to exercise Pat ient unable to exercise Active Problem 12/18/2017 Jorge Luis Liriano Problem Active 2017-12-18 02:45:37 Eros Kathleen Unsteady gait Unst osiel gait Active Problem 12/18/2017 Jorge Luis Liriano Problem Active 2017-12-18 02:45:37 Eros Kathleen Former smoker Form er smoker Active Problem 12/18/2017 Jorge Luis Liriano Problem Active 2017-12-18 02:45:37 Eros Kathleen 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 Active Problem 12/18/2017 Jorge Luis Liriano Problem Active 2017-12-18 02:45:37 Bettye Kathleen Preoperative cardiovascular examination Preoperative cardiovascular examination Active Problem 12/18/2017 Jorge Luis Liriano Problem Active 2017-12-18 02:45:37 Bettye Kathleen CAD in [place] artery CAD in [place] artery Active Problem 12/18/2017 Jorge Luis Liriano Problem Active 2017-12-18 02:45:37 Eros Kathleen Hypercholesteremia Hype rcholesteremia Active Problem 12/18/2017 Jorge Luis Liriano Problem Active 2017-12-18 02:45:37 Eros Kathleen Hypertensive heart disease without heart failure Hypertensive heart disease without heart failure Active Problem 12/18/2017 Jorge Luis Liriano Problem Active 2017-12-18 02:45:37 [facility] Obesity (BMI 30.0-34.9) Obes ity (BMI 30.0-34.9) Active Diagnosis 04/13/2017 Jorge Luis Liriano Diagnosis Active 2017-04-13 03:45:35 [facility] Abnormal electrocardiogram Abn ormal electrocardiogram Active Diagnosis 04/13/2017 Jorge Luis Liriano Diagnosis Active 2017-04-13 03:45:35 [facility] Coronary angioplasty status Co ronary angioplasty status Active Diagnosis 04/13/2017 Jorge Luis Liriano Diagnosis Active 2017-04-13 03:45:35 [facility] Former smoker Form er smoker Active Diagnosis 04/13/2017 Jorge Luis Liriano Diagnosis Active 2017-04-13 03:45:3 5 [facility] Hypercholesterolemia Hype rcholesterolemia Active Diagnosis 04/13/2017 Jorge Luis Liriano Diagnosis Active 2017-04-13 03:45 :35 [facility] Angina pectoris Libby na pectoris Active Diagnosis 04/13/2017 Jorge Luis Liriano Diagnosis Active 2017-04-13 03:45:3 5 [facility] Coronary atherosclerosis of [place] coronary artery Coronary atherosclerosis of [place] coronary artery Active Diagnosis 04/13/2017 Jorge Luis Liriano Diagnosis Active 2017-04-13 03:45:35 [facility] Diastolic dysfunction, left ventricle Diastolic dysfunction, left ventricle Active Diagnosis 04/13/2017 Jorge Luis Liriano Diagnosis Active 2017-04-13 03:45:31 [facility] Diabetes mellitus with complication Diabetes mellitus with complication Active Diagnosis 04/13/2017 Jorge Luis Liriano Diagnosis Active 2017-04-13 03:45:35 [facility] Old myocardial infarction Old myocardial infarction Active Diagnosis 04/13/2017 Jorge Luis Liriano Diagnosis Active 2017-04-13 03:45:15 [facility] Carotid Bruit Curry tid Bruit Active Diagnosis 04/13/2017 Jorge Luis Liriano Diagnosis Active 2017-04-13 03:45:1 5 [facility] WHYTE (dyspnea on exertion) WHYTE (dyspnea on exertion) Active Problem 12/18/2017 Jorge Luis Liriano Problem Active 05-12-30 02:45:37 [facility] 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 Active Problem 12/18/2017 Jorge Luis Liriano Problem Active 2017-12-18 02:45:37 Sanjay woody [place] Atherosclerosis of [place] artery of both lower extremi ties with rest pain Atherosclerosis of [place] artery of both lower extremities with rest pain Active Problem 12/18/2017 Jorge Luis Liriano Problem Active 2017-12-18 02:45:37 [facility] Atherosclerosis of [place] artery of both lower extremities with intermittent claudication Atherosclerosis of [place] artery of both lower extremities with intermittent claudication Active Problem 12/18/2017 Jorge Luis Liriano Problem Active 2017-12-18 02:45:37 [facility] Hypercholesteremia Hype rcholesteremia Active Problem 08/30/2015 Jorge Luis Liriano Problem Active 2015-08-30 02:45:02 [facility] Allergies, Adverse Reactions, Alerts Allergy Name Allergy Type Status Severity Reaction(s) Onset Date Inacti ve Date Treating Clinician Comments Source StephA. NDavidA. Active Info Not Available 2016-12-04 00:00:00 [facility] Social History Social Habit Start Date Stop Date Quantity Comments Source History of tobacco use Cigarette Smoker [facility] Sex Assigned At [place] [facility] Alcohol intake 2016-11-28 00:00:00 2016-11-28 00:00:00 Current non-drinker of alcohol (finding) [facility] Smoking 2015-06-16 00:00:00 2015-06-16 00:00:00 [facility] Smoking Status Start Date Stop Date Source Former smoker 2016-11-28 00:00:00 2016-11-28 00:00:00 [facility] Medications Ordered Medication Name Filled Medication Name Start Date Stop Da te Current Medication? Ordering Clinician Indication Dosage Frequency Signature (SIG) Comments Components Source Simvastatin 2017-04-13 03:45:56 Yes Ahmad Jeroudi 1 tablet [facility] Gabapentin 2017-04-13 03:45:56 Yes Ahmad Jeroudi 2 capsules [facility] Aspirin EC Lo-Dose 2017-04-13 03:45:56 Yes Ahmad Jeroudi 1 tablet [facility] Metformin HCl 2017-04-13 03:45:56 Yes Ahmad Jeroudi 1 tablet [facility] Lisinopril-Hydrochlorothiazide 2017-04-13 03:45:56 Yes A hmad Jeroudi 1 tablet [facility] Clopidogrel Bisulfate 2017-04-13 03:45:56 Yes Ahmad Jeroudi 1 tablet [facility] Metoprolol Tartrate 2017-04-13 03:45:56 Yes Ahmad Jeroudi 1 tablet [facility] NovoLog 2017-04-13 03:45:56 Yes Ahmad Jeroudi 10 units [facility] Atorvastatin Calcium 2017-04-13 03:45:56 Yes Ahmad Jeroudi 1 tablet [facility] Humulin N 2017-04-13 03:45:54 Yes Mohamed Jeroudi 20 units [facility] Glimepiride 2017-04-13 03:45:54 Yes Rosauraamed Jeroudi 1 tablet [facility] Clopidogrel Bisulfate 2017-04-13 03:45:54 Yes Jorge Luis Cherry roudi TAKE 1 TABLET DAILY [facility] Clopidogrel Bisulfate 2017-04-13 03:45:48 Yes Jorge Luis Je roudi TAKE 1 TABLET DAILY [facility] Humulin /2017-04-13 03:45:45 Yes Ahmad Jeroudi 25 units [facility] Insulin 30 2017-04-13 03:45:42 Yes Ahmad Jeroudi not defined [facility]- 2017-04-13 03:45:42 Yes Cruzd Jeroudi 1 tablet [facility] Clopidogrel Bisulfate 2017-04-13 03:45:42 Yes Ahmad Jeroudi 1 tablet [facility] HumuLIN N KwikPen 2017-04-13 03:45:39 Yes Rosauraamed Jeroudi as directed [facility] Apidra 2017-04-13 03:45:39 Yes Rosauraamed Joeloudi as directed [facility] Byetta 10 MCG Pen 2017-04-13 03:45:39 Yes Jorge Luis Casiano i 0.02 ml up to 1 hour before breakfast and evening meal [facility] Pantoprazole Sodium 2017-04-13 03:45:39 Yes Rosauraamed Jeroudi 1 tablet [facility] Aspir-81 2017-04-13 03:45:26 Yes Mohamed Jeroudi 1 tablet [facility] Metformin HCl 2017-04-13 03:45:26 Yes Mohamed Jeroudi 1 tablet [facility] Gabapentin 2017-04-13 03:45:26 Yes Rosauraamed Jeroudi 2 capsules [facility] Simvastatin 2017-04-13 03:45:26 Yes Rosauraamed Jeroudi 1 tablet [facility] Metoprolol Tartrate 2017-04-13 03:45:26 Yes Rosauraamed Jeroudi 1 tablet [facility] Lisinopril-Hydrochlorothiazide 2017-04-13 03:45:26 Yes Jorge Luis Liriano 1 tablet [facility] Clopidogrel Bisulfate 2017-04-13 03:45:26 Yes Jorge Luis murray 1 tablet [facility] simvastatin (ZOCOR) 20 MG tablet 2016-11-30 16:00:30 Yes 20mg QD Take 20 mg by mouth nightly. Augustus Barboza insulin ASPART (NovoLOG) 100 unit/mL injection 2016-11-30 16:00: 30 Yes 15U [id number] Inject 15 Units under the sk in 3 (three) times a day before meals. Augustus Barboza clopidogrel (PLAVIX) 75 mg tablet 2016-09-26 00:00:00 Yes 75mg QD Take 75 mg by mouth every morning. Augustus guzman gabapentin (NEURONTIN) 300 mg capsule 2016-09-26 00:00:00 Yes 300mg Q.5D Take 300 mg by mouth 2 (two) times a day. Augustus Barboza lisinopril-hydrochlorothiazide (PRINZIDE,ZESTORETIC) 20-25 m g per tablet 2016-09-26 00:00:00 Yes 1{tbl} QD Take 1 table t by mouth every morning. Augustus Barboza metFORMIN (GLUCOPHAGE) 1,000 mg tablet 2016-09-26 00:00:00 Yes 1000mg Q.5D Take 1,000 mg by mouth 2 (two) times a day. Augustus Barboza metoprolol tartrate (LOPRESSOR) 25 mg tablet 2016-09-26 00:00:00 Yes 25mg QD Take 25 mg by mouth every morning. Augustus Barboza LANTUS SOLOSTAR 100 unit/mL injection (pen) 2016-09-26 00:00:00 Yes 30U QD Inject 30 Units under the skin every evening. Augustus Barboza Metoprolol Tartrate (Lopressor) 25 Mg Tab, 25 Mg Oral Metoprolol Tartrate (Lopressor) 25 Mg Tab, 25 Mg Oral 2014-01-22 00:00:00 2017-12-17 00:00:00 No Amanda Liriano Md 25 Twice A Day [facility] Prasugrel Hcl (Effient) 10 Mg Tablet, 10 Mg Oral Prasu grel Hcl (Effient) 10 Mg Tablet, 10 Mg Oral 2014-01-22 00:00:00 2017-03-26 00:00:00 No Amanda Liriano Md 10 Daily [facility] Metoprolol Tartrate 2014-01-06 00:00:00 Yes Jorge Luis Liriano 1 tablet Eros Kathleen Amlodipine Besylate 5 Mg Tablet Amlodipine Besylate 5 Mg Tablet Yes 5 Daily [facility] Aspirin (Aspir 81) 81 Mg Tablet. Aspirin (Aspir 81) 81 Mg Tablet. Yes 81 Daily [facility] Atorvastatin Calcium 40 Mg Tablet Atorvastatin Calcium 40 Mg Tablet Yes 40 Bedtime [facility] Clopidogrel Bisulfate (Plavix) 75 Mg Tablet Clopidogre l Bisulfate (Plavix) 75 Mg Tablet Yes 75 Daily [facility] Escitalopram Oxalate (Lexapro) 10 Mg Tablet Escitalopr am Oxalate (Lexapro) 10 Mg Tablet Yes 10 Daily [facility] Furosemide 40 Mg Tablet Furosemide 40 Mg Tablet Yes 40 Daily [facility] Gabapentin 300 Mg Capsule Gabapentin 300 Mg Capsule Yes 300 Every 12 Hours [facility] Insulin Human Nph (Humulin N) 100 Units/Ml Ml Insulin Human Nph (Humulin N) 100 Units/Ml Ml Yes 40 Bedtime [facility] Insulin Lispro (Humalog) 100 Unit/1 Ml Insuln.pen Insu rosalind Lispro (Humalog) 100 Unit/1 Ml Insuln.pen Yes 25 Before Meals [facility] Metformin Hcl (Metformin Hcl Er) 500 Mg Tab.er.24h Met formin Hcl (Metformin Hcl Er) 500 Mg Tab.er.24h Yes 1000 Twice A Day [facility] Metoprolol Tartrate 50 Mg Tablet Metoprolol Tartrate 50 Mg Tablet Yes 25 Daily [facility] Potassium Chloride 10 Meq Tab.er.prt Potassium Chloride 10 Meq Tab. er.prt Yes 10 Daily [facility] Tresiba Units Tresiba Units Yes 30 Bedtime [facility] Hydrocodone Bit/Acetaminophen ([place] 7.5-325 Tablet) 1 Each Tablet, 1 Ea Oral Hydrocodone Bit/Acetaminophen ([place] 7.5-325 Tablet) 1 Each Tablet, 1 Ea Oral 2018-11-04 00:00:00 No 1 As Needed [facility] Lisinopril/Hydrochlorothiazide (Lisinopr il-Hctz 20-25 Mg Tab) 1 Each Tablet, 1 Tab Oral Lisinopril/Hydrochlorothiazide (Lisinopr il-Hctz 20-25 Mg Tab) 1 Each Tablet, 1 Tab Oral 2018-11-04 00:00:00 No 1 Daily [facility] Omeprazole 40 Mg Capsule., 40 Mg Oral Omeprazole 40 Mg Cap jeanie., 40 Mg Oral 2018-11-04 00:00:00 No 40 Before Breakfast [facility] Pantoprazole Sodium (Protonix) 40 Mg Tablet., 40 Mg Oral Pantoprazole Sodium (Protonix) 40 Mg Tablet., 40 Mg Oral 2018-11-04 00:00:00 No 40 Daily as needed for Indigestion [facility] Duloxetine Hcl (Cymbalta) 20 Mg Capcr, 20 Mg Oral Dulo xetine Hcl (Cymbalta) 20 Mg Capcr, 20 Mg Oral 2018-07-12 00:00:00 No 20 Mayra ly [facility] Potassium Chloride 20 Meq Tab.er.prt, Potassium Chloride 20 Meq Tab.er.prt, 2018-07-12 00:00:00 No [facility] Simvastatin 20 Mg Tablet, 20 Mg Oral Simvastatin 20 Mg Tablet, 2 0 Mg Oral 2018-07-11 00:00:00 No 20 Today At 9:00PM [facility] Escitalopram Oxalate (Lexapro) 10 Mg Tablet, 10 Mg Ora l Escitalopram Oxalate (Lexapro) 10 Mg Tablet, 10 Mg Oral 2017-12-27 00:00:00 No 10 Bedtime [facility] Atorvastatin Calcium 20 Mg Tablet, 40 Mg Oral Atorvast atin Calcium 20 Mg Tablet, 40 Mg Oral 2017-12-24 00:00:00 No 40 Bedtime [facility] Nystatin 100,000 Unit/1 Ml Oral.susp, Oral Nystatin 100,000 Unit/1 Ml Oral.susp, Oral 2017-12-24 00:00:00 No Twice A Day [facility] Hum Insulin Nph/Reg Insulin Hm (Humulin 70-30 Vial) 100 Unit/1 Ml Vial, 20 Units Subcutaneously Hum Insulin Nph/Reg Insulin Hm (Humulin 70-30 Vial) 100 Unit/1 Ml Vial, 20 Units Subcutaneously 2017-12-23 00:00:00 No 20 Twice A Day [facility] Metformin Hcl 500 Mg Tablet, 1000 Mg Oral Metformin Hc l 500 Mg Tablet, 1000 Mg Oral 2017-12-19 00:00:00 No 1000 Twice A Day [facility] Novolin 70/30 , 45 Units Subcutaneously Novolin 70/30 , 45 U nits Subcutaneously 2017-12-19 00:00:00 No 45 Daily [facility] Novolin 70/30 , 35 Units Subcutaneously Novolin 70/30 , 35 U nits Subcutaneously 2017-12-19 00:00:00 No 35 Bedtime [facility] Gabapentin 300 Mg Capsule, 300 Mg Oral Gabapentin 300 Mg Capsule , 300 Mg Oral 2017-12-17 00:00:00 No 300 Twice A Day [facility] Insulin 70-30 , 40 Units Subcutaneously Insulin 70-30 , 40 U nits Subcutaneously 2017-12-17 00:00:00 No 40 Twice A Day [facility] Isosorbide Mononitrate (Isosorbide Mononitrate Er) 30 Mg Tab.er.24h, 30 Mg Oral Isosorbide Mononitrate (Isosorbide Mononitrate Er) 30 Mg Tab.er.24h, 30 Mg Oral 2017-12-17 00:00:00 No 30 Daily [facility] Levofloxacin (Levaquin) 500 Mg Tablet, 500 Mg Oral Lev ofloxacin (Levaquin) 500 Mg Tablet, 500 Mg Oral 2017-12-17 00:00:00 No 500 D aily [facility] Nph, Human Insulin Isophane (Novolin N) 100 Unit/1 Ml Vial, 45 Units Subcutaneously Nph, Human Insulin Isophane (Novolin N) 100 Unit/1 Ml Vial, 45 Units Subcutaneously 2017-12-17 00:00:00 No 45 Mayra ly [facility] Nph, Human Insulin Isophane (Novolin N) 100 Unit/1 Ml Vial, 35 Units Subcutaneously Nph, Human Insulin Isophane (Novolin N) 100 Unit/1 Ml Vial, 35 Units Subcutaneously 2017-12-17 00:00:00 No 35 Bed time [facility] Exenatide (Byetta) 5 Mcg/0.02 Ml Pen.injctr, Exenatide (Byetta) 5 Mcg/0.02 Ml Pen.injctr, 2017-03-26 00:00:[address] [facility] Hydrochlorothiazide 25 Mg Tablet, 25 Mg Oral Hydrochlo rothiazide 25 Mg Tablet, 25 Mg Oral 2017-03-26 00:00:00 No 25 Daily [facility] Lisinopril 10 Mg Tablet, 20 Mg Oral Lisinopril 10 Mg Tablet, 20 Mg Oral 2017-03-26 00:00:00 No 20 Daily [facility] Aspirin (Aspir 81) 81 Mg Tablet., 81 Mg Oral Aspirin (Aspir 81) 81 Mg Tablet., 81 Mg Oral 2014-08-23 00:00:00 No 81 Da brandi [facility] Gabapentin 100 Mg Capsule, 200 Mg Oral Gabapentin 100 Mg Capsule , 200 Mg Oral 2014-08-23 00:00:00 No 200 Twice A Day [facility] Insulin Human Nph (Humulin N) 100 Units/Ml Ml, Insulin Human Nph (Humulin N) 100 Units/Ml Ml, 2014-08-23 00:00:00 No [facility] Lisinopril/Hydrochlorothiazide (Lisinopr il-Hctz 20-25 Mg Tab) 1 Each Tablet, 25 Mg Oral Lisinopril/Hydrochlorothiazide (Lisinopr il-Hctz 20-25 Mg Tab) 1 Each Tablet, 25 Mg Oral 2014-08-23 00:00:00 No 25 Twice A Day [facility] Metformin Hcl (Metformin Hcl Er) 500 Mg Tab.er.24h, 10 00 Mg Oral Metformin Hcl (Metformin Hcl Er) 500 Mg Tab.er.24h, 1000 Mg Oral 2014-08-23 00:00:0 0 No 1000 Twice A Day [facility] Simvastatin 40 Mg Tablet, 40 Mg Oral Simvastatin 40 Mg Tablet, 4 0 Mg Oral 2014-08-23 00:00:00 No [address] [facility] Vital Signs Vital Name Observation Time Observation Value Comments Source Weight 2016-12-04 21:00:00 [facility] Height 2016-12-04 21:00:00 [facility] Temperature Oral (F) 2016-12-04 21:00:00 96.8 F [facility] Heart Rate 2016-12-04 21:00:00 [facility] Diastolic (mm Hg) 2016-12-04 21:00:00 [facility] [place] Systolic (mm Hg) 2016-12-04 21:00:00 Sanjay Caroann Weight 2016 19:00:00 [facility] Height 2016 19:00:00 [facility] Temperature Oral (F) 2016 19:00:00 95.4 F [facility] Heart Rate 2016 19:00:00 [facility] [place] Diastolic (mm Hg) 2016 19:00:00 [facility] [place] Systolic (mm Hg) 2016 19:00:00 Sanjay woody Caroann Weight 2016-05-29 20:00:00 [facility] Height 2016-05-29 20:00:00 [facility] Temperature Oral (F) 2016-05-29 20:00:00 97.6 F [facility] Heart Rate 2016-05-29 20:00:00 [facility] [place] Diastolic (mm Hg) 2016-05-29 20:00:00 [facility] [place] Systolic (mm Hg) 2016-05-29 20:00:00 Sanjay Caroann Weight 2016-05-17 19:30:00 [facility] Height 2016-05-17 19:30:00 [facility] Temperature Oral (F) 2016-05-17 19:30:00 97.0 F [facility] [place] Heart Rate 2016-05-17 19:30:00 [facility] Diastolic (mm Hg) 2016-05-17 19:30:00 [facility] [place] Systolic (mm Hg) 2016-05-17 19:30:00 Sanjay woody Caroann Weight 2016-04-26 19:00:00 [facility] [place] Height 2016-04-26 19:00:00 [facility] [place] Temperature Oral (F) 2016-04-26 19:00:00 97.6 F [facility] [place] Heart Rate 2016-04-26 19:00:00 [facility] [place] Diastolic (mm Hg) 2016-04-26 19:00:00 [facility] [place] Systolic (mm Hg) 2016-04-26 19:00:00 Sanjay [place] Weight 2015-12-22 19:00:00 [facility] Height 2015-12-22 19:00:00 [facility] Temperature Oral (F) 2015-12-22 19:00:00 96.5 F [facility] Heart Rate 2015-12-22 19:00:00 [facility] Diastolic (mm Hg) 2015-12-22 19:00:00 [facility] [place] Systolic (mm Hg) 2015-12-22 19:00:00 Sanjay [facility] [place] Weight 2015-01-17 19:00:00 [facility] [place] Height 2015-01-17 19:00:00 [facility] Temperature Oral (F) 2015-01-17 19:00:00 97.0 F [facility] [place] Heart Rate 2015-01-17 19:00:00 [facility] [place] Diastolic (mm Hg) 2015-01-17 19:00:00 [facility] Systolic (mm Hg) 2015-01-17 19:00:00 Sanjay [facility] [place] Weight 2014-10-14 19:30:00 [facility] Height 2014-10-14 19:30:00 [facility] Temperature Oral (F) 2014-10-14 19:30:00 97.4 F [facility] Heart Rate 2014-10-14 19:30:00 [facility] Diastolic (mm Hg) 2014-10-14 19:30:00 [facility] [place] Systolic (mm Hg) 2014-10-14 19:30:00 [facility]jay [place] Weight 2014-04-07 21:45:00 [facility] [place] Height 2014-04-07 21:45:00 [facility] Temperature Oral (F) 2014-04-07 21:45:00 97.0 F [facility] Heart Rate 2014-04-07 21:45:00 [facility] [place] Diastolic (mm Hg) 2014-04-07 21:45:00 [facility] [place] Systolic (mm Hg) 2014-04-07 21:45:00 Sanjay [facility] [place] Weight 2014-03-23 19:30:00 [facility] Height 2014-03-23 19:30:00 [facility] Temperature Oral (F) 2014-03-23 19:30:00 95.4 F [facility] Heart Rate 2014-03-23 19:30:00 [facility] Diastolic (mm Hg) 2014-03-23 19:30:00 [facility] [place] Systolic (mm Hg) 2014-03-23 19:30:00 Sanjay [facility] [place] Weight 2014-02-08 18:30:00 [facility] [place] Height 2014-02-08 18:30:00 [facility] Temperature Oral (F) 2014-02-08 18:30:00 95.9 F [facility] [place] Heart Rate 2014-02-08 18:30:00 [facility] [place] Diastolic (mm Hg) 2014-02-08 18:30:00 [facility] [place] Systolic (mm Hg) 2014-02-08 18:30:00 [facility]jay [facility] [place] Weight 2014-01-06 17:30:00 [facility] Height 2014-01-06 17:30:00 [facility] Temperature Oral (F) 2014-01-06 17:30:00 97.6 F [facility] Heart Rate 2014-01-06 17:30:00 [facility] Diastolic (mm Hg) 2014-01-06 17:30:00 [facility] [place] Systolic (mm Hg) 2014-01-06 17:30:00 Sanjay [facility] [place] Weight 2013-12-15 17:30:00 [facility] Height 2013-12-15 17:30:00 [facility] Temperature Oral (F) 2013-12-15 17:30:00 97.1 F [facility] [place] Heart Rate 2013-12-15 17:30:00 [facility] [place] Diastolic (mm Hg) 2013-12-15 17:30:00 [facility] [place] Systolic (mm Hg) 2013-12-15 17:30:00 Sanjay [facility] Procedures Procedure Date / Time Performed Performing Clinician [facility] COLONOSCOPY AND BIOPSY 2018-11-06 00:00:[address] [facility] COLONOSCOPY W/LESION REMOVAL 2018-11-06 00:00:00 MCLEOD, DERRICK [facility] Computed tomography of abdomen and pelvis with contrast 2018 00:00:00 ROBINA CHE [facility] US abdomen complete 2018-09-29 00:00:00 SERGO MUHAMMAD [facility] Plan of Care Planned Activity Planned Date Details Comments Source Future Scheduled Test 2019-09-19 00:00:00 INFLUENZA VACCINE [code = INFLUENZA VACCINE] [facility] Future Scheduled Test 2005 00:00:00 65+ PNEUMOCOCCAL V ACCINE (1 of 2 - PCV13) [code = 65+ PNEUMOCOCCAL VACCINE (1 of 2 - PCV13)] [facility] Scheduled Test 1990 00:00:00 SHINGLES VACCINES (#1) [code = SHINGLES VACCINES (#1)] [facility] Future Scheduled Test 1950 00:00:00 DIABETIC FOOT EXAM [code = DIABETIC FOOT EXAM] [facility] Future Scheduled Test 1950 00:00:00 URINE MICROALBUMIN [code = URINE MICROALBUMIN] [facility] Future Scheduled Test 1940 00:00:00 DIABETIC RETINAL E YE EXAM [code = DIABETIC RETINAL EYE EXAM] [facility] Encounters Start Date/Time End Date/Time Encounter Type Admission Type Attendi [email or web address] Care Department Encounter ID Source 2019-07-07 00:00:00 2019-07-07 00:00:00 RefLeanna Steinberg [facility] Medical Office Building [id number] 2019-03-23 12:11:00 2019-03-23 15:41:[address] [facility] [id number] [facility] 2019-03-11 00:00:00 2019-03-11 00:00:00 Telephone Indra Bryant [facility] Medical Office Building [id number] 2019-03-06 10:56:04 2019-03-06 16:10:51 Office Visit Indra Moyer [facility] Medical Office Building [id number] 2018-11-06 08:05:00 2018-11-06 08:05:00 Reg[address] Surgical Day Care [facility] [id number] [facility] 2018-10-03 13:40:00 2018-10-03 20:22:00 Departed Emergency Room [address] [facility] [id number] [facility] 2018-09-29 08:39:00 2018-09-29 08:39:00 Registered Clinic [address] [facility] [id number] [facility] 2018-07-11 19:10:00 2018-07-16 18:04:00 Discharged Inpatient (obs) [address] [facility] [id number] [facility] 2018-02-05 13:17:00 2018-02-05 13:17:00 Registered Clinic [address] [facility] [id number] [facility] 2017-12-26 14:34:00 2017-12-27 13:30:00 Discharged [facility]patient [address] [facility] [id number] [facility] 2017-12-19 12:28:00 2017-12-19 12:28:00 Registered Surgical Day Care [facility] [id number] [facility] 2017-12-10 12:38:00 2017-12-10 12:38:00 Outpatient Jorge Luis GEE [id number] [employer] 2017-04-16 13:07:00 2017-04-16 13:07:00 Outpatient Jorge Luis GEE [id number] [employer] 2017-03-26 11:15:00 2017-03-26 11:15:00 Registered Emergency Room THOMAS SUM[facility] [id number] [facility] 2016-12-04 15:00:00 2016-12-04 15:00:00 Outpatient Jorge Luis Liriano MD [place] [id number] [facility]Works 2016 13:00:00 2016 13:00:00 Outpatient Jorge Luis Liriano MD [place] [id number] [employer] 2016-05-29 14:00:00 2016-05-29 14:00:00 Outpatient Jorge Luis Liriano MD [place] [id number] [facility] 2016-05-17 13:30:00 2016-05-17 13:30:00 Outpatient Jorge Luis Liriano MD [place] [id number] [employer] 2016-04-26 13:00:00 2016-04-26 13:00:00 Outpatient Jorge Luis Liriano MD [place] [id number] [employer] 2015-12-22 13:00:00 2015-12-22 13:00:00 Outpatient Jorge Luis Liriano MD [place] [id number] [employer] 2015-08-29 10:30:00 2015-08-29 10:30:00 Outpatient MD MARLEN Carter MD [place] [id number] [employer]Works 2015-01-17 13:00:00 2015-01-17 13:00:00 [place] [id number] [employer] 2014-10-14 13:30:00 2014-10-14 13:30:00 [place] [id number] [employer] 2014-04-07 15:45:00 2014-04-07 15:45:00 [place] [id number] [employer] 2014-03-23 13:30:00 2014-03-23 13:30:00 Outpatient Jorge Luis GEE [id number] eClinicalLoandesk 2014-02-08 12:30:00 2014-02-08 12:30:00 Outpatient Jorge Luis GEE [id number] [employer] 2014-01-06 11:30:00 2014-01-06 11:30:00 Outpatient Jorge Luis GEE [id number] [employer] 2013-12-15 11:30:00 2013-12-15 11:30:00 [place] [id number] [employer] Results Test Description Test Time Test Comments Results Result Comments Source CHEST 2 VIEWS 2019-07-24 18:16:00 [place] [address] Patient Name: CHARISSE ARROYO MR #: [id number] : 1940 Age/Sex: 78/M Req #: [id number] Adm Physician: Ordered by: LOU ADAMS MD Report #: [id number] Location: OR Room/Bed: Procedure: [id number] DX/CHEST 2 VIEWS Exam Date: Exam Time: REPORT STATUS: Signed EXAMINATION: CHEST 2 VIEWS INDICATION: Prostatism. Preoperative evaluation. COMPARISON: 07/11/2018. FINDINGS: TUBES and LINES: None. LUNGS: Lungs are well inflated. There are bibasilar atelectasis. There is no evidence of pneumonia or pulmonary edema. PLEURA: No pleural effusion or pneumothorax. HEART AND MEDIASTINUM: The cardiomediastinal silhouette is unremarkable. There are atherosclerotic calcifications within the aorta. BONES AND SOFT TISSUES: No acute osseous lesion. Lower cervical fusion hardware. UPPER ABDOMEN: No free air under the diaphragm. IMPRESSION: No acute thoracic abnormality. Signed by: Dr. Ladonna Savage M.D. on 07/24/2019 6:17 PM Dictated By: BEAU SAVAGE MD, MD 16 Transcribed By: FLACO on 07/24/191816 COPY TO: LOU ADAMS MD Urine WBC 2019-03-23 14:20:00 Test Item Urine WBC (test code = 5821-4) NONE 0-5 [facility] [id number] 14:20:00* Test Item Value Reference Range Interpretation Comments Urine RBC (test code = 16319-6) 11-20 0-5 H [facility] Jcelcact9574-71-42 14:20:00* Test Item Value Reference Range Interpretation Comments Urine Bacteria (test code = 99565-8) FEW NONE [facility] Epithelial Zfeoo6117-54-70 14:20:00 * Test Item Value Reference Range Interpretation Comments Urine Epithelial Cells (test code = 05623-0) FEW NONE [facility] Khpvp9842-05-45 14:07:00* Test Item Value Reference Range Interpretation Comments Urine Color (test code = 5778-6) YELLOW YELLOW [facility] Uxqwtcz6859-93-60 14:07:00* Test Item Value Reference Range Interpretation Comments Urine Clarity (test code = 23931-0) SL CLOUDY CLEAR H [facility]wayU[facility] Specific Gaztfah5863-79-82 14:07:00 * Test Item Value Reference Range Interpretation Comments Urine Specific [place] (test code = 5811-5) 1.015 1.010-1.02 5 [facility] [id number] 14:07:00* Test Item Value Reference Range Interpretation Comments Urine pH (test code = 35390-2) 5 5-7 [facility] Leukocyte Gdyhhqgi0670-44-73 14:07:00* Test Item Value Reference Range Interpretation Comments Urine Leukocyte Esterase (test code = 5799-2) NEGATIVE NEGATIVE [facility] Icgsrfu8332-12-61 14:07:00* Test Item Value Reference Range Interpretation Comments Urine Nitrite (test code = 45419-3) NEGATIVE NEGATIVE [facility] Ffqhzeu9170-41-87 14:07:00* Test Item Value Reference Range Interpretation Comments Urine Protein (test code = 5804-0) 2+ NEGATIVE H [facility] Glucose (UA)2019-03-23 14:07:00* Test Item Value Reference Range Interpretation Comments Urine Glucose (UA) (test code = 2349-9) 1+ NEGATIVE H [facility]wayU[facility] Jzorgox3474-53-41 14:07:00* Test Item Value Reference Range Interpretation Comments Urine Ketones (test code = 09211-1) NEGATIVE NEGATIVE [facility] Uurpeaizwdbj1277-25-93 14:07:00* Test Item Value Reference Range Interpretation Comments Urine Urobilinogen (test code = 36993-3) 0.2 0.2-1 [facility] Dqayupxqu5040-05-51 14:07:00* Test Item Value Reference Range Interpretation Comments Urine Bilirubin (test code = 1978-6) NEGATIVE NEGATIVE [facility] Zpmnp5274-61-28 14:07:00* Test Item Value Reference Range Interpretation Comments Urine Blood (test code = 58160-5) 2+ NEGATIVE [facility] Ridvz6303-42-98 13:20:00* Test Item Value Reference Range Interpretation Comments Sodium Level (test code = 2951-2) 137 136-145 [facility] Yzphs5024-11-91 13:20:00* Test Item Value Reference Range Interpretation Comments Potassium Level (test code = 2823-3) 3.8 3.5-5.1 [facility]wayChloride Ihotd8005-66-77 13:20:00* Test Item Value Reference Range Interpretation Comments Chloride Level (test code = 2075-0) 104 98-107 [facility]wayCarbon Dioxide Ebhzh2940-76-23 13:20:00* Test Item Value Reference Range Interpretation Comments Carbon Dioxide Level (test code = 2028-9) 19 22-29 L [facility]wayAnion Zge3515-52-62 13:20:00* Test Item Value Reference Range Interpretation Comments Anion Gap (test code = 87354-8) 17.8 8-16 H [facility]wayBlood Urea Gytqvdwm3228-92-46 13:20:00* Test Item Value Reference Range Interpretation Comments Blood Urea Nitrogen (test code = 3094-0) 15 7-26 [facility]wayCreatinine2020-02-03 13:20:00* Test Item Value Reference Range Interpretation Comments Creatinine (test code = 2160-0) 0.85 0.72-1.25 [facility]wayBUN/Creatinine Fczef6628-99-88 13:20:00* Test Item Value Reference Range Interpretation Comments BUN/Creatinine Ratio (test code = 3097-3) 18 6-25 [facility]wayEstimat Glomerular Filtration Rate 2019-03-23 13:20:00* Test Item Value Reference Range Interpretation Comments Estimat Glomerular Filtration Rate (test code = 090553095) > 60 >60 Ranges were taken from the National Kidney Disease Education Program and the [facility] Foundation literature.Reference ranges:60 or greater: Rasytc03-23 ( for 3 consecutive months): Chronic kidney disease 15 or less: Kidney failureWise Health Surgical Hospital at ParkwayGlucose Ovziq4327-58-16 13:20:00* Test Item Value Reference Range Interpretation Comments Glucose Level (test code = JCO2287) 223 74-118 H [facility]wayCalcium Lncns7589-96-85 13:20:00* Test Item Value Reference Range Interpretation Comments Calcium Level (test code = 87085-4) 8.9 8.4-10.2 [facility]wayTotal Iodclmtgm8882-57-99 13:20:00* Test Item Value Reference Range Interpretation Comments Total Bilirubin (test code = 1975-2) 0.3 0.2-1.2 [facility] ParkwayAspartate Amino Transf (AST/SGOT) 2019-03-23 13:20:00* Test Item Value Reference Range Interpretation Comments Aspartate Amino Transf (AST/SGOT) (test code = Aspartate Amino Transf (AST/SGOT)) 17 5-34 [facility]wayAlanine Aminotransferase (ALT/SGPT) 2019-03-23 13:20:00* Test Item Value Reference Range Interpretation Comments Alanine Aminotransferase (ALT/SGPT) (test code = 1742-6) 15 0-55 [facility]wayTotal Eqveclv2640-85-90 13:20:00* Test Item Value Reference Range Interpretation Comments Total Protein (test code = 2885-2) 7.1 6.5-8.1 [facility]wayAlbumin2020-02-03 13:20:00* Test Item Value Reference Range Interpretation Comments Albumin (test code = 1751-7) 3.0 3.5-5.0 L [facility]wayGlobulin2020-02-03 13:20:00* Test Item Value Reference Range Interpretation Comments Globulin (test code = 75821-7) 4.1 2.3-3.5 H [facility]wayAlbumin/Globulin Frkbo8933-10-67 13:20:00 * Test Item Value Reference Range Interpretation Comments Albumin/Globulin Ratio (test code = 1759-0) 0.7 0.8-2.0 L [facility]wayAlkaline Hqenhydcqsl2443-89-13 13:20:00* Test Item Value Reference Range Interpretation Comments Alkaline Phosphatase (test code = 6768-6) 80 40-150 [facility] ParkwayWhite Blood Nanhc0160-19-08 12:59:00* Test Item Value Reference Range Interpretation Comments White Blood Count (test code = 6690-2) 10.86 4.8-10.8 H [facility] ParkwayRed Blood Gfqaz3322-57-85 12:59:00* Test Item Value Reference Range Interpretation Comments Red Blood Count (test code = 789-8) 4.41 4.3-5.7 [facility]wayHemoglobin2020-02-03 12:59:00* Test Item Value Reference Range Interpretation Comments Hemoglobin (test code = 83637-0) 12.9 14.0-18.0 L [facility]wayHematocrit2020-02-03 12:59:00* Test Item Value Reference Range Interpretation Comments Hematocrit (test code = 4544-3) 38.6 38.2-49.6 [facility] ParkwayMean Corpuscular Equlif9980-44-32 12:59:00* Test Item Value Reference Range Interpretation Comments Mean Corpuscular Volume (test code = 787-2) 87.5 81-99 [facility]wayMean Corpuscular Rrisiiongz2026-80-76 12:59:00* Test Item Value Reference Range Interpretation Comments Mean Corpuscular Hemoglobin (test code = 785-6) 29.3 28-32 [facility] ParkwayMean Corpuscular Hemoglobin Concent 2019-03-23 12:59:00* Test Item Value Reference Range Interpretation Comments Mean Corpuscular Hemoglobin Concent (test code = 786-4) 33.4 31-35 [facility] ParkwayRed Cell Distribution Jodgu8949-15-39 12:59:00* Test Item Value Reference Range Interpretation Comments Red Cell Distribution Width (test code = 85723-0) 12.7 11.7 -14.4 [facility] ParkwayPlatelet Xucum1105-48-36 12:59:00* Test Item Value Reference Range Interpretation Comments Platelet Count (test code = 777-3) 353 140-360 [facility]wayNeutrophils (%) (Auto)2019-03-23 12:59:00 * Test Item Value Reference Range Interpretation Comments Neutrophils (%) (Auto) (test code = 20043-3) 74.7 38.7-80.0 [facility]wayLymphocytes (%) (Auto)2019-03-23 12:59:00 * Test Item Value Reference Range Interpretation Comments Lymphocytes (%) (Auto) (test code = 736-9) 15.4 18.0-39.1 L [facility]wayMonocytes (%) (Auto)2019-03-23 12:59:00* Test Item Value Reference Range Interpretation Comments Monocytes (%) (Auto) (test code = 5905-5) 6.3 4.4-11.3 [facility]wayEosinophils (%) (Auto)2019-03-23 12:59:00 * Test Item Value Reference Range Interpretation Comments Eosinophils (%) (Auto) (test code = 713-8) 2.9 0.0-6.0 [facility]wayBasophils (%) (Auto)2019-03-23 12:59:00* Test Item Value Reference Range Interpretation Comments Basophils (%) (Auto) (test code = 706-2) 0.4 0.0-1.0 [facility] ParkwayIM GRANULOCYTES %2019-03-23 12:59:00* Test Item Value Reference Range Interpretation Comments IM GRANULOCYTES % (test code = IM GRANULOCYTES %) 0.3 0.0- 1.0 [facility]wayNeutrophils # (Auto)2019-03-23 12:59:00* Test Item Value Reference Range Interpretation Comments Neutrophils # (Auto) (test code = 751-8) 8.1 2.1-6.9 H [facility] ParkwayLymphocytes # (Auto)2019-03-23 12:59:00* Test Item Value Reference Range Interpretation Comments Lymphocytes # (Auto) (test code = 03242-3) 1.7 1.0-3.2 [facility]wayMonocytes # (Auto)2019-03-23 12:59:00* Test Item Value Reference Range Interpretation Comments Monocytes # (Auto) (test code = 742-7) 0.7 0.2-0.8 [facility]wayEosinophils # (Auto)2019-03-23 12:59:00* Test Item Value Reference Range Interpretation Comments Eosinophils # (Auto) (test code = 711-2) 0.3 0.0-0.4 [facility]wayBasophils # (Auto)2019-03-23 12:59:00* Test Item Value Reference Range Interpretation Comments Basophils # (Auto) (test code = 704-7) 0.0 0.0-0.1 [facility] ParkwayAbsolute Immature Granulocyte (auto 2019-03-23 12:59:00* Test Item Value Reference Range Interpretation Comments Absolute Immature Granulocyte (auto (charleen t code = Absolute Immature Granulocyte (auto) 0.03 0-0.1 [facility] FLEX IBK4784-37-49 09:58:00 [facility] [address] [place] [address] Patient Name: CHARISSE ARROYO MR #: [id number] : 1940 Age/Sex: 78/M Req #: [id number] Adm Physician: Ordered by: MARIBEL ANTONIO MD Report #: [id number] Location: [facility] Room/Bed: Procedure: [id number] D X/SPINE CERVICAL AP LAT FLEX EXT Exam Date: 12/05/18 Exam Time: 919 REPORT STATUS: Sig yoshi EXAMINATION: SPINE CERVICAL AP LAT FLEX EXT INDICATION: Cervica l disc herniation COMPARISON: None FINDINGS: AP radiograph a nd lateral radiographs in neutral, flexion and extension were obtained. T here are postoperative findings of anterior cervical discectomy and fusion at C4-5. There is grade 1 anterolisthesis at C4-5. A rim of lucency surrounds the anterior aspect of the fusion hardware. Alignment is essentially unchanged on extension and flexion radiographs. There is straightening of the normal cervi kyle lordosis. Extensive multilevel degenerative changes with disc space narrow ing and osteophyte formation. The prevertebral soft tissues are normal in thic kness. IMPRESSION: Status post anterior cervical discectomy and fusion a t C4-5. Straightening of normal cervical lordosis and Grade 1 anterolisthesis at C4-5. A rim of lucency surrounds the anterior aspect of the fusion hardware . In the absence of prior radiographs, it is difficult to ascertain if this re presents new appearance of hardware loosening. Alignment remains unchanged on flexion and extension radiographs. Signed by: Dominog King MD on 9 10:03 AM Dictated By: DOMINGO KING MD 100 Transcribed By: FLACO on 12/05/181002 COPY TO: MARIBEL ANTONIO MD Bedside Ftjpxjd2792-76-99 09:42:00* Test Item Value Reference Range Interpretation Comments Bedside Glucose (test code = 36216-0) 317 70-120 H Meter ID: [id number] [facility] 2018-10-03 18:19:00 [place] [address] Patient Name: CHARISSE ARROYO MR #: [id number] : 1940 Age/Sex: 77/M Req #: [id number] Adm Physician: Ordered by: ROBINA CHE TIP STITCHER Report #: [id number] Location: ER Room/Bed: Procedure: [id number] CT/CT ABDOMEN/PELVIS W Exam Date: Exam Time: REPORT STATUS: Signed EXAM: CT Abdomen and Pelvis WITH contrast INDICATION: Abdominal pain. COMPARISON: None. TECHNIQUE: Abdomen and pelvis were scanned utilizing a multidetector helical scanner from the lung base to the pubic symphysis after administration of IV contrast. Coronal and sagittal reformations were obtained. Routine protocol was performed. Scan was performed when during portal venous phase. IV CONTRAST: 100 cc isovue 300 ORAL CONTRAST: Water R ADIATION DOSE: Total DLP: 747.15 mGy*cm Estimated effective dose: (DLP x 0.015 x size factor) mSv COMPLICATIONS: None FINDINGS: LINES and TUBES: None. LOWER THORAX: Multivessel coronary artery ca lcifications. HEPATOBILIARY: No focal hepatic lesions. No biliary ductal di lation. GALLBLADDER: No radio-opaque stones or sludge. No wall thickening . SPLEEN: No splenomegaly. PANCREAS: No focal masses or ductal dilata tion. ADRENALS: No adrenal nodules KIDNEYS/URETERS: Kidneys enha nce symmetrically. No hydronephrosis. No cystic or solid mass lesions. No st ones. GI TRACT: No abnormal distention, wall thickening, or evidence of bow el obstruction. Appendix is normal. PELVIC ORGANS/BLADDER: Unremark able. LYMPH NODES: No lymphadenopathy. VESSELS: There is mild atherosc lerotic disease in the aorta and major arterial branches. PERITONEUM / RE TROPERITONEUM: No free air or fluid. BONES: There are degenerative changes in the lumbar spine. Status post L4 laminectomy. Remote healed lower left-side d rib fractures. SOFT TISSUES: Unremarkable. IMPRESSION: 1. No acute abdominopelvic abnormality. Signed by: Dr. Ladonna salazar M.D. on 10/03/2018 6:33 PM Dictated By: BEAU SAVAGE MD, MD Electro nically Signed By: BEAU SAVAGE MD, MD on 10/03/18 183 Transcribed By: JUDIE Castro on 10/03/18 183 COPY TO: ROBINA CHE NP Creatine Kinase [id number] 16:36:00* Test Item Value Reference Range Interpretation Comments Creatine Kinase MB (test code = 10583-9) 5.90 0-5.0 H [facility] G2289-78-81 16:36:00* Test Item Value Reference Range Interpretation Comments Troponin I (test code = KWI2432) 0.020 0-0.300 [facility]wayCreatine Kinase [id number] 16:36:00* Test Item Value Reference Range Interpretation Comments Creatine Kinase MB (test code = 42378-1) 5.90 0-5.0 H [facility] F6340-01-70 16:36:00* Test Item Value Reference Range Interpretation Comments Troponin I (test code = XRT7778) 0.020 0-0.300 [facility]odium Zuflj3264-74-83 16:32:00* Test Item Value Reference Range Interpretation Comments Sodium Level (test code = 2951-2) 132 136-145 L [facility]wayPotassium Bnomi9938-12-62 16:32:00* Test Item Value Reference Range Interpretation Comments Potassium Level (test code = 2823-3) 3.8 3.5-5.1 [facility] ParkwayChloride Rjixu4842-16-42 16:32:00* Test Item Value Reference Range Interpretation Comments Chloride Level (test code = 2075-0) 95 98-107 L [facility] ParkwayCarbon Dioxide Oxwsv3356-82-42 16:32:00* Test Item Value Reference Range Interpretation Comments Carbon Dioxide Level (test code = 2028-9) 27 22-29 [facility] ParkwayAnion Jvr7554-74-64 16:32:00* Test Item Value Reference Range Interpretation Comments Anion Gap (test code = 66082-4) 13.8 8-16 [facility] ParkwayBlood Urea Nzandwkh6119-72-66 16:32:00* Test Item Value Reference Range Interpretation Comments Blood Urea Nitrogen (test code = 3094-0) 20 7-26 [facility] ParkwayCreatinine2019-08-16 16:32:00* Test Item Value Reference Range Interpretation Comments Creatinine (test code = 2160-0) 1.16 0.72-1.25 [facility]wayBUN/Creatinine Idpgc3476-79-57 16:32:00* Test Item Value Reference Range Interpretation Comments BUN/Creatinine Ratio (test code = 3097-3) 17 6-25 [facility] ParkwayEstimat Glomerular Filtration Rate 2018-10-03 16:32:00* Test Item Value Reference Range Interpretation Comments Estimat Glomerular Filtration Rate (test code = 599246310) > 60 >60 Ranges were taken from the National Kidney Disease Education Program and the [facility] Kid[facility] Foundation literature.Reference ranges:60 or greater: Cmfptp60-58 ( for 3 consecutive months): Chronic kidney disease 15 or less: Kidney failureWise Health Surgical Hospital at ParkwayGlucose Dapwd2041-34-99 16:32:00* Test Item Value Reference Range Interpretation Comments Glucose Level (test code = BQB7685) 399 74-118 H [facility] ParkwayCalcium Mciuu8735-66-87 16:32:00* Test Item Value Reference Range Interpretation Comments Calcium Level (test code = 94451-2) 9.4 8.4-10.2 [facility] ParkwayMagnesium Ylmjd3364-66-55 16:32:00* Test Item Value Reference Range Interpretation Comments Magnesium Level (test code = 33428-7) 1.9 1.3-2.1 [facility] ParkwayTotal Zffxwoyte6868-65-44 16:32:00* Test Item Value Reference Range Interpretation Comments Total Bilirubin (test code = 1975-2) 1.0 0.2-1.2 [facility] ParkwayAspartate Amino Transf (AST/SGOT) 2018-10-03 16:32:00* Test Item Value Reference Range Interpretation Comments Aspartate Amino Transf (AST/SGOT) (test code = Aspartate Amino Transf (AST/SGOT)) 19 5-34 [facility] ParkwayAlanine Aminotransferase (ALT/SGPT) 2018-10-03 16:32:00* Test Item Value Reference Range Interpretation Comments Alanine Aminotransferase (ALT/SGPT) (test code = 1742-6) 17 0-55 [facility] ParkwayTotal Qmjiamr0983-62-38 16:32:00* Test Item Value Reference Range Interpretation Comments Total Protein (test code = 2885-2) 7.7 6.5-8.1 [facility] ParkwayAlbumin2019-08-16 16:32:00* Test Item Value Reference Range Interpretation Comments Albumin (test code = 1751-7) 3.6 3.5-5.0 [facility] ParkwayGlobulin2019-08-16 16:32:00* Test Item Value Reference Range Interpretation Comments Globulin (test code = 22806-0) 4.1 2.3-3.5 H [facility] ParkwayAlbumin/Globulin Turlp8651-70-20 16:32:00 * Test Item Value Reference Range Interpretation Comments Albumin/Globulin Ratio (test code = 1759-0) 0.9 0.8-2.0 [facility] ParkwayAlkaline Gerghmxtadl5219-21-44 16:32:00* Test Item Value Reference Range Interpretation Comments Alkaline Phosphatase (test code = 6768-6) 119 40-150 [facility] ParkwayCreatine Msxsjk8525-89-44 16:32:00* Test Item Value Reference Range Interpretation Comments Creatine Kinase (test code = 2157-6) 86 30-200 [facility] ParkwayAmylase Schwd4916-83-53 16:32:00* Test Item Value Reference Range Interpretation Comments Amylase Level (test code = 1798-8) 51 25-125 [facility] ParkwayLipase2019-08-16 16:32:00* Test Item Value Reference Range Interpretation Comments Lipase (test code = 3040-3) 28 78 [facility] ParkwayMagnesium Vpmkf8815-14-96 16:32:00* Test Item Value Reference Range Interpretation Comments Magnesium Level (test code = 92976-9) 1.9 1.3-2.1 [facility] ParkwayCreatine Jywlrv1266-32-72 16:32:00* Test Item Value Reference Range Interpretation Comments Creatine Kinase (test code = 2157-6) 86 30-200 [facility] ParkwayAmylase Dpzwo6346-18-32 16:32:00* Test Item Value Reference Range Interpretation Comments Amylase Level (test code = 1798-8) 51 25-125 [facility] ParkwayLipase2019-08-16 16:32:00* Test Item Value Reference Range Interpretation Comments Lipase (test code = 3040-3) 28 78 [facility] ParkwayActivated Partial Thromboplast Time 2018-10-03 16:10:00* Test Item Value Reference Range Interpretation Comments Activated Partial Thromboplast Time (test code = 30703-3) 25.8 23.8-35.5 [facility] ParkwayActivated Partial Thromboplast Time 2018-10-03 16:10:00* Test Item Value Reference Range Interpretation Comments Activated Partial Thromboplast Time (test code = 71168-4) 25.8 23.8-35.5 [facility] ParkwayProthrombin Vify7882-94-19 16:09:00* Test Item Value Reference Range Interpretation Comments Prothrombin Time (test code = 5902-2) 12.7 11.9-14.5 [facility] ParkwayProthromb Time International Ratio 2018-10-03 16:09:00* Test Item Value Reference Range Interpretation Comments Prothromb Time International Ratio (test code = 6301-6) 0.91 Oral Anticoagulant Therapy INR Values:1. Low Intensity Therapy 1.5 - 2.02 . Moderate Intensity Therapy 2.0 - 3.03. High Intensity Therapy(1) 2.5 - 3. 54. High Intensity Therapy(2) 3.0 - 4.05. Panic Value INR > 5.0 [facility] ParkwayProthrombin Dfoz2882-84-43 16:09:00* Test Item Value Reference Range Interpretation Comments Prothrombin Time (test code = 5902-2) 12.7 11.9-14.5 [facility] ParkwayProthromb Time International Ratio 2018-10-03 16:09:00* Test Item Value Reference Range Interpretation Comments Prothromb Time International Ratio (test code = 6301-6) 0.91 Oral Anticoagulant Therapy INR Values:1. Low Intensity Therapy 1.5 - 2.02 . Moderate Intensity Therapy 2.0 - 3.03. High Intensity Therapy(1) 2.5 - 3. 54. High Intensity Therapy(2) 3.0 - 4.05. Panic Value INR > 5.0 [facility] ParkwayWhite Blood Qonjn4571-01-21 15:58:00* Test Item Value Reference Range Interpretation Comments White Blood Count (test code = 6690-2) 6.58 4.8-10.8 [facility] ParkwayRed Blood Lwzxm4575-89-20 15:58:00* Test Item Value Reference Range Interpretation Comments Red Blood Count (test code = 789-8) 4.84 4.3-5.7 [facility] ParkwayHemoglobin2019-08-16 15:58:00* Test Item Value Reference Range Interpretation Comments Hemoglobin (test code = 55092-5) 14.7 14.0-18.0 [facility] ParkwayHematocrit2019-08-16 15:58:00* Test Item Value Reference Range Interpretation Comments Hematocrit (test code = 4544-3) 41.7 38.2-49.6 [facility] ParkwayMean Corpuscular Xxijwv5720-05-61 15:58:00* Test Item Value Reference Range Interpretation Comments Mean Corpuscular Volume (test code = 787-2) 86.2 81-99 [facility]wayMean Corpuscular Mdiimvshuz3346-70-74 15:58:00* Test Item Value Reference Range Interpretation Comments Mean Corpuscular Hemoglobin (test code = 785-6) 30.4 28-32 [facility] Hemoglobin Concent 2018-10-03 15:58:00* Test Item Value Reference Range Interpretation Comments Mean Corpuscular Hemoglobin Concent (test code = 786-4) 35.3 31-35 H [facility] ParkwayRed Cell Distribution Nuyvh3588-30-77 15:58:00* Test Item Value Reference Range Interpretation Comments Red Cell Distribution Width (test code = 64349-0) 12.6 11.7 -14.4 [facility] ParkwayPlatelet Jyhms3296-16-57 15:58:00* Test Item Value Reference Range Interpretation Comments Platelet Count (test code = 777-3) 243 140-360 [facility] ParkwayNeutrophils (%) (Auto)2018-10-03 15:58:00 * Test Item Value Reference Range Interpretation Comments Neutrophils (%) (Auto) (test code = 89224-5) 66.6 38.7-80.0 [facility] ParkwayLymphocytes (%) (Auto)2018-10-03 15:58:00 * Test Item Value Reference Range Interpretation Comments Lymphocytes (%) (Auto) (test code = 736-9) 20.7 18.0-39.1 [facility] ParkwayMonocytes (%) (Auto)2018-10-03 15:58:00* Test Item Value Reference Range Interpretation Comments Monocytes (%) (Auto) (test code = 5905-5) 9.4 4.4-11.3 [facility]wayEosinophils (%) (Auto)2018-10-03 15:58:00 * Test Item Value Reference Range Interpretation Comments Eosinophils (%) (Auto) (test code = 713-8) 2.7 0.0-6.0 [facility]wayBasophils (%) (Auto)2018-10-03 15:58:00* Test Item Value Reference Range Interpretation Comments Basophils (%) (Auto) (test code = 706-2) 0.3 0.0-1.0 [facility] ParkwayIM GRANULOCYTES %2018-10-03 15:58:00* Test Item Value Reference Range Interpretation Comments IM GRANULOCYTES % (test code = IM GRANULOCYTES %) 0.3 0.0- 1.0 [facility]wayNeutrophils # (Auto)2018-10-03 15:58:00* Test Item Value Reference Range Interpretation Comments Neutrophils # (Auto) (test code = 751-8) 4.4 2.1-6.9 [facility] ParkwayLymphocytes # (Auto)2018-10-03 15:58:00* Test Item Value Reference Range Interpretation Comments Lymphocytes # (Auto) (test code = 57601-6) 1.4 1.0-3.2 [facility]wayMonocytes # (Auto)2018-10-03 15:58:00* Test Item Value Reference Range Interpretation Comments Monocytes # (Auto) (test code = 742-7) 0.6 0.2-0.8 [facility]wayEosinophils # (Auto)2018-10-03 15:58:00* Test Item Value Reference Range Interpretation Comments Eosinophils # (Auto) (test code = 711-2) 0.2 0.0-0.4 [facility]wayBasophils # (Auto)2018-10-03 15:58:00* Test Item Value Reference Range Interpretation Comments Basophils # (Auto) (test code = 704-7) 0.0 0.0-0.1 [facility] ParkwayAbsolute Immature Granulocyte (auto 2018-10-03 15:58:00* Test Item Value Reference Range Interpretation Comments Absolute Immature Granulocyte (auto (charleen t code = Absolute Immature Granulocyte (auto) 0.02 0-0.1 [facility] ParkwayUrine AXC8416-42-77 14:54:00* Test Item Value Reference Range Interpretation Comments Urine WBC (test code = 5821-4) 0-5 0-5 [facility] ParkwayUrine JHH2721-88-84 14:54:00* Test Item Value Reference Range Interpretation Comments Urine RBC (test code = 98463-1) 0-5 0-5 [facility] ParkwayUrine Dtlrjvnx6183-73-20 14:54:00* Test Item Value Reference Range Interpretation Comments Urine Bacteria (test code = 40936-7) FEW NONE [facility] ParkwayUrine Epithelial Sjwhm6567-99-08 14:54:00 * Test Item Value Reference Range Interpretation Comments Urine Epithelial Cells (test code = 21869-4) FEW NONE [facility] ParkwayUrine Dgktv2739-35-07 14:39:00* Test Item Value Reference Range Interpretation Comments Urine Color (test code = 5778-6) YELLOW YELLOW [facility] ParkwayUrine Psbodxk2165-43-50 14:39:00* Test Item Value Reference Range Interpretation Comments Urine Clarity (test code = 93325-7) SL CLOUDY CLEAR H [facility] ParkwayUrine Specific Eabajaq9035-67-50 14:39:00 * Test Item Value Reference Range Interpretation Comments Urine Specific [place] (test code = 5811-5) 1.010 1.010-1.02 5 [facility] ParkwayUrine mC3361-40-87 14:39:00* Test Item Value Reference Range Interpretation Comments Urine pH (test code = 51355-6) 5 5-7 [facility] ParkwayUrine Leukocyte Piflzwxf3880-52-76 14:39:00* Test Item Value Reference Range Interpretation Comments Urine Leukocyte Esterase (test code = 59600-2) NEGATIVE NEGATIV E [facility] ParkwayUrine Vnnzydh3038-95-01 14:39:00* Test Item Value Reference Range Interpretation Comments Urine Nitrite (test code = 04588-5) NEGATIVE NEGATIVE [facility] ParkwayUrine Nbuqyup7177-67-97 14:39:00* Test Item Value Reference Range Interpretation Comments Urine Protein (test code = 08081-7) 2+ NEGATIVE H [facility] ParkwayUrine Glucose (UA)2018-10-03 14:39:00* Test Item Value Reference Range Interpretation Comments Urine Glucose (UA) (test code = 89306-8) 3+ NEGATIVE [facility] ParkwayUrine Kgnmsus1617-99-88 14:39:00* Test Item Value Reference Range Interpretation Comments Urine Ketones (test code = 72517-2) NEGATIVE NEGATIVE [facility] ParkwayUrine Fvvvudqcrtez0280-37-17 14:39:00* Test Item Value Reference Range Interpretation Comments Urine Urobilinogen (test code = 68457-3) 0.2 0.2-1 [facility] ParkwayUrine Ixkbjxkob8286-71-11 14:39:00* Test Item Value Reference Range Interpretation Comments Urine Bilirubin (test code = 1977-8) NEGATIVE NEGATIVE [facility] ParkwayUrine Cvkjy6913-90-44 14:39:00* Test Item Value Reference Range Interpretation Comments Urine Blood (test code = 24174-0) 1+ NEGATIVE [facility] ParkwayUS ABDOMEN JMKWWTUU7691-74-08 10:02:00 [facility] [address] [place] [address] Patient Name: CHARISSE ARROYO MR #: [id number] : 1940 Age/Sex: 77/M Req #: [id number] Adm Physician: Ordered by: SERGO MUHAMMAD MD Report #: [id number] Location: US Room/Bed: Procedure: [id number] U S/US ABDOMEN COMPLETE Exam Date: 09/29/18 Exam Time: 917 REPORT STATUS: Signed EXAM: US ABDOMEN COMPLETE DATE: 09/29/2018 8:49 AM INDICATION: Left-sided back, flank pain COMPARISON: None TECHNIQUE: Transverse and longitudinal young scale and color doppler sonographic images of the upper abdomen were obtained. FINDINGS: There is no evidence of fluid or masses seen in the area of clinical concern in the right lower quadrant. LIVER 16.7 cm in the right midclavicular line, upper limits of normal Normal echogenicity of the l iver with normal contour, no masses. SPLEEN 10.2 cm in maximum diameter. Normal echogenicity, no masses. GALLBLADDER No gallbladder wall thicken ing, distension, stone, or pericholecystic fluid. NEgative reported sonographi c Jaimes's sign. 2 mm gallbladder wall BILE DUCTS No intra nor extra-hepa tic biliary dilation. Common bile duct measures 0.4cm PANCREAS: Not well seen due to overlying bowel gas. RIGHT KIDNEY: 10.6 cm Echogenicity: Norm al Collecting System: No hydronephrosis Stones: None Cyst/Mass: None LEFT KIDNEY: 12.5 cm Echogenicity: Normal Collecting System: No hydroneph rosis Stones: None Cyst/Mass: None VESSELS: Aorta: Proximal aorta ar e not well-seen due to overlying bowel gas. Mid aorta measures 1.9 cm. Infer ior Vena Cava: Not well seen due to overlying bowel gas. Main Portal Vein: 1.1 cm, normal size with hepatopetal flow. FREE FLUID: None IMPRESSION: No hydronephrosis or renal calculi. No cholelithiasis or cholecystitis. Liver size at the upper limits of normal. Signed by: Domingo King MD on 10:05 AM Dictated By: DOMINGO KING MD 1005 Transcribed By: FLACO on 09/29/18 1005 CO PY TO: SERGO MUHAMMAD MD Sodium Yjsua4595-73-99 16:16:00* Test Item Value Reference Range Interpretation Comments Sodium Level (test code = 2951-2) 132 136-145 L [facility] ParkwayPotassium Fdosy5824-95-77 16:16:00* Test Item Value Reference Range Interpretation Comments Potassium Level (test code = 2823-3) 4.2 3.5-5.1 [facility] ParkwayChloride Eisap8537-84-85 16:16:00* Test Item Value Reference Range Interpretation Comments Chloride Level (test code = 2075-0) 102 98-107 [facility] ParkwayCarbon Dioxide Iphii4620-15-83 16:16:00* Test Item Value Reference Range Interpretation Comments Carbon Dioxide Level (test code = 2028-9) 22 22-29 [facility] ParkwayAnion Zop3336-00-56 16:16:00* Test Item Value Reference Range Interpretation Comments Anion Gap (test code = 13781-9) 12.2 8-16 [facility] ParkwayBlood Urea Vuciayds5778-89-84 16:16:00* Test Item Value Reference Range Interpretation Comments Blood Urea Nitrogen (test code = 3094-0) 14 7-26 [facility] ParkwayCreatinine2019-05-29 16:16:00* Test Item Value Reference Range Interpretation Comments Creatinine (test code = 2160-0) 0.97 0.72-1.25 [facility] ParkwayBUN/Creatinine Nxybb1721-93-89 16:16:00* Test Item Value Reference Range Interpretation Comments BUN/Creatinine Ratio (test code = 3097-3) 14 - [facility] ParkwayEstimat Glomerular Filtration Rate 2018-07-16 16:16:00* Test Item Value Reference Range Interpretation Comments Estimat Glomerular Filtration Rate (test code = 849564570) > 60 >60 Ranges were taken from the National Kidney Disease Education Program and the [facility] Foundation literature.Reference ranges:60 or greater: Bfwkqa42-42 ( for 3 consecutive months): Chronic kidney disease 15 or less: Kidney failureW[facility] Health Surgical Hospital at ParkwayGlucose Ssqzm0855-74-51 16:16:00* Test Item Value Reference Range Interpretation Comments Glucose Level (test code = ZTU8688) 179 74-118 H [facility] ParkwayCalcium Wghdj0703-74-71 16:16:00* Test Item Value Reference Range Interpretation Comments Calcium Level (test code = 73607-4) 9.2 8.4-10.2 [facility] Aqbopai5606-24-24 15:40:00* Test Item Value Reference Range Interpretation Comments Bedside Glucose (test code = 71428-9) 168 70-120 H Meter ID: [id number] [facility] Glucose 2018-07-16 15:40:00* Test Item Value Reference Range Interpretation Comments Bedside Glucose (test code = 11106-1) 168 70-120 H Meter ID: [id number] [facility] Culture 2018-07-16 13:08:00* Test Item Value Reference Range Interpretation Comments Blood Culture (test code = 91784344) NO GROWTH AFTER 5 DAYS, FINAL REPORT [facility] Qyryfbt2514-08-24 13:08:00* Test Item Value Reference Range Interpretation Comments Blood Culture (test code = 77743755) NO GROWTH AFTER 5 DAYS, FINAL REPORT [facility] Vzqallm9454-12-17 13:08:00* Test Item Value Reference Range Interpretation Comments Blood Culture (test code = 86928503) NO GROWTH AFTER 5 DAYS, FINAL REPORT [facility] ParkwayThyroid Stimulating Hormone (TSH) 2018-07-13 08:29:00* Test Item Value Reference Range Interpretation Comments Thyroid Stimulating Hormone (TSH) (test code = 91387-8) 0.860 0.350-4.940 [facility] ParkwayThyroid Stimulating Hormone (TSH) 2018-07-13 08:29:00* Test Item Value Reference Range Interpretation Comments Thyroid Stimulating Hormone (TSH) (test code = 98234-7) 0.860 0.350-4.940 [facility] ParkwayThyroid Stimulating Hormone (TSH) 2018-07-13 08:29:00* Test Item Value Reference Range Interpretation Comments Thyroid Stimulating Hormone (TSH) (test code = 60540-5) 0.860 0.350-4.940 [facility] ParkwayTotal Vmbnyciql3663-21-66 07:55:00* Test Item Value Reference Range Interpretation Comments Total Bilirubin (test code = 1975-2) 0.9 0.2-1.2 [facility] ParkwayAspartate Amino Transf (AST/SGOT) 2018-07-13 07:55:00* Test Item Value Reference Range Interpretation Comments Aspartate Amino Transf (AST/SGOT) (test code = Aspartate Amino Transf (AST/SGOT)) 17 5-34 [facility] ParkwayAlanine Aminotransferase (ALT/SGPT) 2018-07-13 07:55:00* Test Item Value Reference Range Interpretation Comments Alanine Aminotransferase (ALT/SGPT) (test code = 1742-6) 13 0-55 [facility] ParkwayTotal Zxlzazr8671-43-44 07:55:00* Test Item Value Reference Range Interpretation Comments Total Protein (test code = 2885-2) 5.9 6.5-8.1 L [facility] ParkwayAlbumin2019-05-26 07:55:00* Test Item Value Reference Range Interpretation Comments Albumin (test code = 1751-7) 2.7 3.5-5.0 L [facility] ParkwayGlobulin2019-05-26 07:55:00* Test Item Value Reference Range Interpretation Comments Globulin (test code = 01067-2) 3.2 2.3-3.5 [facility] ParkwayAlbumin/Globulin Bsogl1208-33-07 07:55:00 * Test Item Value Reference Range Interpretation Comments Albumin/Globulin Ratio (test code = 1759-0) 0.8 0.8-2.0 [facility] ParkwayAlkaline Jbmfbduuuaq2179-02-09 07:55:00* Test Item Value Reference Range Interpretation Comments Alkaline Phosphatase (test code = 6768-6) 84 40-150 [facility] ParkwayTriglycerides Tlkkp1709-94-38 07:55:00* Test Item Value Reference Range Interpretation Comments Triglycerides Level (test code = 2571-8) 97 0-149 [facility] ParkwayCholesterol Pdpgz6904-55-39 07:55:00* Test Item Value Reference Range Interpretation Comments Cholesterol Level (test code = 2093-3) 95 0-199 Less than 200 mg/dL Low Gxpi583 - 239 mg/dL Borderline Qxdv937 m g/dl and greater High Risk [facility] ParkwayLDL Goaovbbyamk2093-01-98 07:55:00* Test Item Value Reference Range Interpretation Comments LDL Cholesterol (test code = 2089-1) 44 60-130 L [facility] Fhzuiqtapki2823-83-68 07:55:00* Test Item Value Reference Range Interpretation Comments HDL Cholesterol (test code = 2085-9) 32 40-60 L [facility] ParkwayCholesterol/HDL Jrohk2431-27-50 07:55:00 * Test Item Value Reference Range Interpretation Comments Cholesterol/HDL Ratio (test code = 9830-1) 3.0 3.9-4.7 L [facility] ParkwayTriglycerides Ixdiw1026-53-11 07:55:00* Test Item Value Reference Range Interpretation Comments Triglycerides Level (test code = 2571-8) 97 0-149 [facility] ParkwayCholesterol Hzyop5940-84-85 07:55:00* Test Item Value Reference Range Interpretation Comments Cholesterol Level (test code = 2093-3) 95 0-199 Less than 200 mg/dL Low Cwpc725 - 239 mg/dL Borderline Xsnl234 m g/dl and greater High Risk [facility] ParkwayLDL Qjvaoralfnf3370-14-15 07:55:00* Test Item Value Reference Range Interpretation Comments LDL Cholesterol (test code = 2089-1) 44 60-130 L [facility] Rwngbbimktn6488-47-62 07:55:00* Test Item Value Reference Range Interpretation Comments HDL Cholesterol (test code = 2085-9) 32 40-60 L [facility] ParkwayCholesterol/HDL Kmpdm2735-54-81 07:55:00 * Test Item Value Reference Range Interpretation Comments Cholesterol/HDL Ratio (test code = 9830-1) 3.0 3.9-4.7 L [facility] ParkwayTriglycerides Xetyw4219-93-89 07:55:00* Test Item Value Reference Range Interpretation Comments Triglycerides Level (test code = 2571-8) 97 0-149 [facility] ParkwayCholesterol Faasc7096-19-55 07:55:00* Test Item Value Reference Range Interpretation Comments Cholesterol Level (test code = 2093-3) 95 0-199 Less than 200 mg/dL Low Kehb949 - 239 mg/dL Borderline Schc075 m g/dl and greater High Risk [facility] ParkwayLDL Rbzyayeuaxw0513-96-01 07:55:00* Test Item Value Reference Range Interpretation Comments LDL Cholesterol (test code = 2089-1) 44 60-130 L [facility] ParkwayHDL Zwpfziranqx1437-31-43 07:55:00* Test Item Value Reference Range Interpretation Comments HDL Cholesterol (test code = 2085-9) 32 40-60 L [facility] ParkwayCholesterol/HDL Ddyan0935-88-19 07:55:00 * Test Item Value Reference Range Interpretation Comments Cholesterol/HDL Ratio (test code = 9830-1) 3.0 3.9-4.7 L [facility] ParkwayHemoglobin A1c Krqoksx9039-30-09 07:21:00 * Test Item Value Reference Range Interpretation Comments Hemoglobin A1c Percent (test code = Hemoglobin A1c Percent) 11.7 4.0-7.0 H [facility] ParkwayHemoglobin A1c Zoqokqu9596-07-66 07:21:00 * Test Item Value Reference Range Interpretation Comments Hemoglobin A1c Percent (test code = Hemoglobin A1c Percent) 11.7 4.0-7.0 H [facility] ParkwayHemoglobin A1c Tiidljc2912-43-83 07:21:00 * Test Item Value Reference Range Interpretation Comments Hemoglobin A1c Percent (test code = Hemoglobin A1c Percent) 11.7 4.0-7.0 H [facility] ParkwayWhite Blood Crhzh8832-12-51 06:52:00* Test Item Value Reference Range Interpretation Comments White Blood Count (test code = 6690-2) 6.50 4.8-10.8 [facility] ParkwayRed Blood Gbecb6603-49-71 06:52:00* Test Item Value Reference Range Interpretation Comments Red Blood Count (test code = 789-8) 3.99 4.3-5.7 L [facility] ParkwayHemoglobin2019-05-26 06:52:00* Test Item Value Reference Range Interpretation Comments Hemoglobin (test code = 83555-9) 11.8 14.0-18.0 L [facility] ParkwayHematocrit2019-05-26 06:52:00* Test Item Value Reference Range Interpretation Comments Hematocrit (test code = 4544-3) 33.9 38.2-49.6 L [facility] ParkwayMean Corpuscular Vhebgf8422-49-17 06:52:00* Test Item Value Reference Range Interpretation Comments Mean Corpuscular Volume (test code = 787-2) 85.0 81-99 [facility] ParkwayMean Corpuscular Mrecnujgsf3669-64-06 06:52:00* Test Item Value Reference Range Interpretation Comments Mean Corpuscular Hemoglobin (test code = 785-6) 29.6 28-32 [facility] ParkwayMean Corpuscular Hemoglobin Concent 2018-07-13 06:52:00* Test Item Value Reference Range Interpretation Comments Mean Corpuscular Hemoglobin Concent (test code = 786-4) 34.8 31-35 [facility] ParkwayRed Cell Distribution Jcjhd3792-23-59 06:52:00* Test Item Value Reference Range Interpretation Comments Red Cell Distribution Width (test code = 75334-0) 13.2 11.7 -14.4 [facility] ParkwayPlatelet Kbtir7035-79-85 06:52:00* Test Item Value Reference Range Interpretation Comments Platelet Count (test code = 777-3) 183 140-360 [facility] ParkwayNeutrophils (%) (Auto)2018-07-13 06:52:00 * Test Item Value Reference Range Interpretation Comments Neutrophils (%) (Auto) (test code = 77730-8) 53.2 38.7-80.0 [facility]wayLymphocytes (%) (Auto)2018-07-13 06:52:00 * Test Item Value Reference Range Interpretation Comments Lymphocytes (%) (Auto) (test code = 736-9) 29.7 18.0-39.1 [facility]wayMonocytes (%) (Auto)2018-07-13 06:52:00* Test Item Value Reference Range Interpretation Comments Monocytes (%) (Auto) (test code = 5905-5) 11.1 4.4-11.3 [facility]wayEosinophils (%) (Auto)2018-07-13 06:52:00 * Test Item Value Reference Range Interpretation Comments Eosinophils (%) (Auto) (test code = 713-8) 5.2 0.0-6.0 [facility]wayBasophils (%) (Auto)2018-07-13 06:52:00* Test Item Value Reference Range Interpretation Comments Basophils (%) (Auto) (test code = 706-2) 0.5 0.0-1.0 [facility] ParkwayIM GRANULOCYTES %2018-07-13 06:52:00* Test Item Value Reference Range Interpretation Comments IM GRANULOCYTES % (test code = IM GRANULOCYTES %) 0.3 0.0- 1.0 [facility]wayNeutrophils # (Auto)2018-07-13 06:52:00* Test Item Value Reference Range Interpretation Comments Neutrophils # (Auto) (test code = 751-8) 3.5 2.1-6.9 [facility] ParkwayLymphocytes # (Auto)2018-07-13 06:52:00* Test Item Value Reference Range Interpretation Comments Lymphocytes # (Auto) (test code = 61496-5) 1.9 1.0-3.2 [facility]wayMonocytes # (Auto)2018-07-13 06:52:00* Test Item Value Reference Range Interpretation Comments Monocytes # (Auto) (test code = 742-7) 0.7 0.2-0.8 [facility]wayEosinophils # (Auto)2018-07-13 06:52:00* Test Item Value Reference Range Interpretation Comments Eosinophils # (Auto) (test code = 711-2) 0.3 0.0-0.4 [facility]wayBasophils # (Auto)2018-07-13 06:52:00* Test Item Value Reference Range Interpretation Comments Basophils # (Auto) (test code = 704-7) 0.0 0.0-0.1 [facility] ParkwayAbsolute Immature Granulocyte (auto 2018-07-13 06:52:00* Test Item Value Reference Range Interpretation Comments Absolute Immature Granulocyte (auto (charleen t code = Absolute Immature Granulocyte (auto) 0.02 0-0.1 [facility] ParkwayMagnesium Rqsdt4029-72-93 13:54:00* Test Item Value Reference Range Interpretation Comments Magnesium Level (test code = 39657-6) 1.5 1.3-2.1 [facility] ParkwayUrine ASS8530-13-09 16:00:00* Test Item Value Reference Range Interpretation Comments Urine WBC (test code = 5821-4) NONE 0-5 [facility] ParkwayUrine TDQ9330-33-76 16:00:00* Test Item Value Reference Range Interpretation Comments Urine RBC (test code = 31157-3) 0-5 0-5 [facility] ParkwayUrine Ffhymswx6843-23-89 16:00:00* Test Item Value Reference Range Interpretation Comments Urine Bacteria (test code = 34492-9) NONE NONE [facility] ParkwayUrine Epithelial Uskpr4096-86-07 16:00:00 * Test Item Value Reference Range Interpretation Comments Urine Epithelial Cells (test code = 41578-1) NONE NONE [facility] ParkwayUrine Hyaline Vhmlv1768-91-97 16:00:00* Test Item Value Reference Range Interpretation Comments Urine Hyaline Casts (test code = 60429-2) 0-1 0-1 [facility] ParkwayUrine [id number] 16:00:00* Test Item Value Reference Range Interpretation Comments Urine WBC (test code = 5821-4) NONE 0-5 [facility] ParkwayUrine ULB0172-42-77 16:00:00* Test Item Value Reference Range Interpretation Comments Urine RBC (test code = 37492-1) 0-5 0-5 [facility] ParkwayUrine Lwyelbjb9821-41-18 16:00:00* Test Item Value Reference Range Interpretation Comments Urine Bacteria (test code = 92866-7) NONE NONE [facility] ParkwayUrine Epithelial Gwwxf9795-54-46 16:00:00 * Test Item Value Reference Range Interpretation Comments Urine Epithelial Cells (test code = 09386-5) NONE NONE [facility] ParkwayUrine Hyaline Xalow9892-11-69 16:00:00* Test Item Value Reference Range Interpretation Comments Urine Hyaline Casts (test code = 82580-9) 0-1 0-1 [facility] ParkwayUrine Hyaline Zccai3177-82-44 16:00:00* Test Item Value Reference Range Interpretation Comments Urine Hyaline Casts (test code = 66996-1) 0-1 0-1 [facility] ParkwayUrine Hyaline Fjskv0167-20-11 16:00:00* Test Item Value Reference Range Interpretation Comments Urine Hyaline Casts (test code = 32902-0) 0-1 0-1 [facility] ParkwayUrine Dqowh9685-75-02 15:49:00* Test Item Value Reference Range Interpretation Comments Urine Color (test code = 5778-6) YELLOW YELLOW [facility] ParkwayUrine Tqeslzn5120-04-32 15:49:00* Test Item Value Reference Range Interpretation Comments Urine Clarity (test code = 48231-3) CLEAR CLEAR [facility] ParkwayUrine Specific Zbqscyt8675-47-39 15:49:00 * Test Item Value Reference Range Interpretation Comments Urine Specific [place] (test code = 5811-5) 1.005 1.010-1.02 5 L [facility] ParkwayUrine sF4370-45-72 15:49:00* Test Item Value Reference Range Interpretation Comments Urine pH (test code = 08581-8) 6 5-7 [facility] ParkwayUrine Leukocyte Jetbjzri5408-57-37 15:49:00* Test Item Value Reference Range Interpretation Comments Urine Leukocyte Esterase (test code = 56249-1) NEGATIVE NEGATIV E [facility] ParkwayUrine Ytaqvpu3342-28-14 15:49:00* Test Item Value Reference Range Interpretation Comments Urine Nitrite (test code = 99235-9) NEGATIVE NEGATIVE [facility] ParkwayUrine Xgoundi4535-43-99 15:49:00* Test Item Value Reference Range Interpretation Comments Urine Protein (test code = 07467-4) 1+ NEGATIVE H [facility] ParkwayUrine Glucose (UA)2018-07-11 15:49:00* Test Item Value Reference Range Interpretation Comments Urine Glucose (UA) (test code = 46177-9) NEGATIVE NEGATIVE [facility] ParkwayUrine Ixiqnlo5677-62-30 15:49:00* Test Item Value Reference Range Interpretation Comments Urine Ketones (test code = 15500-9) NEGATIVE NEGATIVE [facility] ParkwayUrine Mfcfotqfjgfw6038-40-03 15:49:00* Test Item Value Reference Range Interpretation Comments Urine Urobilinogen (test code = 76269-1) 0.2 0.2-1 [facility] ParkwayUrine Mnlumaini1292-38-17 15:49:00* Test Item Value Reference Range Interpretation Comments Urine Bilirubin (test code = 1977-8) NEGATIVE NEGATIVE [facility] Lmtok8504-78-45 15:49:00* Test Item Value Reference Range Interpretation Comments Urine Blood (test code = 39826-9) TRACE NEGATIVE [facility] ParkwayUrine Jmjlt5837-15-23 15:49:00* Test Item Value Reference Range Interpretation Comments Urine Color (test code = 5778-6) YELLOW YELLOW [facility] ParkwayUrine Lzdxzgf8591-53-39 15:49:00* Test Item Value Reference Range Interpretation Comments Urine Clarity (test code = 58223-3) CLEAR CLEAR [facility] ParkwayUrine Specific Vbatjag9186-60-12 15:49:00 * Test Item Value Reference Range Interpretation Comments Urine Specific [place] (test code = 5811-5) 1.005 1.010-1.02 5 L [facility] ParkwayUrine eX6639-00-93 15:49:00* Test Item Value Reference Range Interpretation Comments Urine pH (test code = 51072-1) 6 5-7 [facility] ParkwayUrine Leukocyte Wapyvoix9994-12-79 15:49:00* Test Item Value Reference Range Interpretation Comments Urine Leukocyte Esterase (test code = 21743-0) NEGATIVE NEGATIV E [facility] ParkwayUrine Oazfhdg3665-52-38 15:49:00* Test Item Value Reference Range Interpretation Comments Urine Nitrite (test code = 94213-9) NEGATIVE NEGATIVE [facility] ParkwayUrine Gizfpvu6854-84-99 15:49:00* Test Item Value Reference Range Interpretation Comments Urine Protein (test code = 27388-9) 1+ NEGATIVE H [facility] ParkwayUrine Glucose (UA)2018-07-11 15:49:00* Test Item Value Reference Range Interpretation Comments Urine Glucose (UA) (test code = 09802-2) NEGATIVE NEGATIVE [facility] ParkwayUrine Fkmumae3655-90-72 15:49:00* Test Item Value Reference Range Interpretation Comments Urine Ketones (test code = 44796-6) NEGATIVE NEGATIVE [facility] ParkwayUrine Myumpivdhiqz8107-83-35 15:49:00* Test Item Value Reference Range Interpretation Comments Urine Urobilinogen (test code = 45698-5) 0.2 0.2-1 [facility] ParkwayUrine Cslclztsg6817-97-98 15:49:00* Test Item Value Reference Range Interpretation Comments Urine Bilirubin (test code = 1977-8) NEGATIVE NEGATIVE [facility] ParkwayUrine Slilt5132-13-95 15:49:00* Test Item Value Reference Range Interpretation Comments Urine Blood (test code = 05832-9) TRACE NEGATIVE [facility] ParkwayCHEST SINGLE (PORTABLE)2018-07-11 14:24:00 [place] [address] Patient Name: CHARISSE ARROYO MR #: [id number] : 1940 Age/Sex: 77/M Req #: [id number] Adm Physician: Ordered by: THOMAS LIANG MD Report #: [id number] Location: ER Room/Bed: Procedure: [id number] D X/CHEST SINGLE (PORTABLE) Exam Date: 07/11/18 Exam T red: 1355 REPORT STATUS: Signed Examination: Single AP view of the chest. COMPARISON: 12/23/2017 INDICA TION: Shortness of breath DISCUSSION: Lungs are well-inflated and without focal consolidation, pleural effusion, or pneumothorax. Hazy left hem idiaphragmatic contour is unchanged and likely related to prominent mediastina l fat. Cardiomediastinal contour is notable for tortuous thoracic aorta. No overt pulmonary edema. No acute osseous abnormality. IMPRESSION: No acute cardiopulmonary abnormality. Stable chest relative to 12/23/2017. Signed by: Dr. Sarath Castle M.D. on 07/11/2018 2:26 PM Dictated By: Margaux CASTLE MD 1426 Tr anscribed By: FLACO on 07/11/18 1426 COPY TO: THOMAS LIANG MD Creatine Kinase [id number] 13:47:00* Test Item Value Reference Range Interpretation Comments Creatine Kinase MB (test code = 69294-7) 5.40 0-5.0 H [facility]wayTr[facility] [id number] 13:47:00* Test Item Value Reference Range Interpretation Comments Troponin I (test code = DRD1151) 0.010 0-0.300 [facility] ParkwayCreatine Kinase FU7794-88-67 13:47:00* Test Item Value Reference Range Interpretation Comments Creatine Kinase MB (test code = 08034-3) 5.40 0-5.0 H [facility] ParkwayTroponin B4867-67-67 13:47:00* Test Item Value Reference Range Interpretation Comments Troponin I (test code = QLR1274) 0.010 0-0.300 [facility]odium Fqhtp1627-27-45 13:40:00* Test Item Value Reference Range Interpretation Comments Sodium Level (test code = 2951-2) 139 136-145 [facility] ParkwayPotassium Nzcqw3561-46-24 13:40:00* Test Item Value Reference Range Interpretation Comments Potassium Level (test code = 2823-3) 2.9 3.5-5.1 LL Results repeated and called to celestine calvillo at 1340 on 07/11/18 by Sam fontenot Read back and verified.[facility] ParkwayChloride Level 2018-07-11 13:40:00* Test Item Value Reference Range Interpretation Comments Chloride Level (test code = 2075-0) 102 98-107 [facility] ParkwayCarbon Dioxide Tetwu7031-54-41 13:40:00* Test Item Value Reference Range Interpretation Comments Carbon Dioxide Level (test code = 8-9) 29 22-29 [facility] ParkwayAnion Uvc8612-07-38 13:40:00* Test Item Value Reference Range Interpretation Comments Anion Gap (test code = 38586-0) 10.9 8-16 [facility] ParkwayBlood Urea Booovacq6484-87-91 13:40:00* Test Item Value Reference Range Interpretation Comments Blood Urea Nitrogen (test code = 3094-0) 29 7-26 H [facility] ParkwayCreatinine2019-05-24 13:40:00* Test Item Value Reference Range Interpretation Comments Creatinine (test code = 2160-0) 1.46 0.72-1.25 H [facility] ParkwayBUN/Creatinine Vfzal5712-77-13 13:40:00* Test Item Value Reference Range Interpretation Comments BUN/Creatinine Ratio (test code = 3097-3) 20 6-25 [facility] ParkwayEstimat Glomerular Filtration Rate 2018-07-11 13:40:00* Test Item Value Reference Range Interpretation Comments Estimat Glomerular Filtration Rate (test code = 162337836) 47 >60 L Ranges were taken from the National Kidney Disease Education Program and the [facility] literature.Reference ranges:60 or greater: Ecbhuf06-74 ( for 3 consecutive months): Chronic kidney disease 15 or less: Kidney failureW[facility] Health Surgical Hospital at ParkwayGlucose Nokor9547-89-61 13:40:00* Test Item Value Reference Range Interpretation Comments Glucose Level (test code = VDY1410) 60 74-118 L [facility] ParkwayCalcium Gmegv4345-62-61 13:40:00* Test Item Value Reference Range Interpretation Comments Calcium Level (test code = 34722-5) 9.5 8.4-10.2 [facility] ParkwayTotal Erkrmtxts4331-78-85 13:40:00* Test Item Value Reference Range Interpretation Comments Total Bilirubin (test code = 1975-2) 0.7 0.2-1.2 [facility] ParkwayAspartate Amino Transf (AST/SGOT) 2018-07-11 13:40:00* Test Item Value Reference Range Interpretation Comments Aspartate Amino Transf (AST/SGOT) (test code = Aspartate Amino Transf (AST/SGOT)) 16 5-34 [facility] ParkwayAlanine Aminotransferase (ALT/SGPT) 2018-07-11 13:40:00* Test Item Value Reference Range Interpretation Comments Alanine Aminotransferase (ALT/SGPT) (test code = 1742-6) 16 0-55 [facility] ParkwayTotal Kvekwoo7412-72-82 13:40:00* Test Item Value Reference Range Interpretation Comments Total Protein (test code = 2885-2) 7.0 6.5-8.1 [facility] ParkwayAlbumin2019-05-24 13:40:00* Test Item Value Reference Range Interpretation Comments Albumin (test code = 1751-7) 3.3 3.5-5.0 L [facility] ParkwayGlobulin2019-05-24 13:40:00* Test Item Value Reference Range Interpretation Comments Globulin (test code = 10509-9) 3.7 2.3-3.5 H [facility] ParkwayAlbumin/Globulin Fgjvz2321-47-78 13:40:00 * Test Item Value Reference Range Interpretation Comments Albumin/Globulin Ratio (test code = 1759-0) 0.9 0.8-2.0 [facility] ParkwayAlkaline Notjxnpohlj3850-27-96 13:40:00* Test Item Value Reference Range Interpretation Comments Alkaline Phosphatase (test code = 6768-6) 104 40-150 [facility] ParkwayCreatine Mrolmn6364-41-49 13:40:00* Test Item Value Reference Range Interpretation Comments Creatine Kinase (test code = 2157-6) 156 30-200 [facility] ParkwayCreatine Owxoqn6117-45-92 13:40:00* Test Item Value Reference Range Interpretation Comments Creatine Kinase (test code = 2157-6) 156 30-200 [facility] ParkwayLactic Acid Ntnic6168-89-67 13:32:00* Test Item Value Reference Range Interpretation Comments Lactic Acid Level (test code = Lactic Acid Level) 20.3 4.5- 19.8 HH Results repeated and called to DR. LIANG at 1332 on 07/11/18 by MARÍA KING . Read back and verified.[facility] ParkwayLactic Acid Aeest1050-48-83 13:32:00* Test Item Value Reference Range Interpretation Comments Lactic Acid Level (test code = Lactic Acid Level) 20.3 4.5- 19.8 HH Results repeated and called to DR. LIANG at 1332 on 07/11/18 by MARÍA KING . Read back and verified.[facility] ParkwayLactic Acid Pqiid3242-43-49 13:32:00* Test Item Value Reference Range Interpretation Comments Lactic Acid Level (test code = Lactic Acid Level) 20.3 4.5- 19.8 HH Results repeated and called to DR. LIANG at 1332 on 07/11/18 by MARÍA KING . Read back and verified.[facility] ParkwayLactic Acid Pxmnd4023-66-10 13:32:00* Test Item Value Reference Range Interpretation Comments Lactic Acid Level (test code = Lactic Acid Level) 20.3 4.5- 19.8 HH Results repeated and called to DR. LIANG at 1332 on 07/11/18 by MARÍA KING . Read back and verified.[facility] ParkwayProthrombin Time 2018-07-11 13:30:00* Test Item Value Reference Range Interpretation Comments Prothrombin Time (test code = 5902-2) 13.0 11.9-14.5 [facility] ParkwayProthromb Time International Ratio 2018-07-11 13:30:00* Test Item Value Reference Range Interpretation Comments Prothromb Time International Ratio (test code = 6301-6) 0.93 Oral Anticoagulant Therapy INR Values:1. Low Intensity Therapy 1.5 - 2.02 . Moderate Intensity Therapy 2.0 - 3.03. High Intensity Therapy(1) 2.5 - 3. 54. High Intensity Therapy(2) 3.0 - 4.05. Panic Value INR > 5.0 [facility] ParkwayActivated Partial Thromboplast Time 2018-07-11 13:30:00* Test Item Value Reference Range Interpretation Comments Activated Partial Thromboplast Time (test code = 23917-3) 24.7 23.8-35.5 [facility] ParkwayProthrombin Aajs3663-72-26 13:30:00* Test Item Value Reference Range Interpretation Comments Prothrombin Time (test code = 5902-2) 13.0 11.9-14.5 [facility] ParkwayProthromb Time International Ratio 2018-07-11 13:30:00* Test Item Value Reference Range Interpretation Comments Prothromb Time International Ratio (test code = 6301-6) 0.93 Oral Anticoagulant Therapy INR Values:1. Low Intensity Therapy 1.5 - 2.02 . Moderate Intensity Therapy 2.0 - 3.03. High Intensity Therapy(1) 2.5 - 3. 54. High Intensity Therapy(2) 3.0 - 4.05. Panic Value INR > 5.0 [facility] ParkwayActivated Partial Thromboplast Time 2018-07-11 13:30:00* Test Item Value Reference Range Interpretation Comments Activated Partial Thromboplast Time (test code = 39082-0) 24.7 23.8-35.5 [facility] ParkwayWhite Blood Aawgn3059-36-50 13:18:00* Test Item Value Reference Range Interpretation Comments White Blood Count (test code = 6690-2) 8.96 4.8-10.8 [facility] ParkwayRed Blood Wwcxw2554-92-23 13:18:00* Test Item Value Reference Range Interpretation Comments Red Blood Count (test code = 789-8) 4.59 4.3-5.7 [facility] ParkwayHemoglobin2019-05-24 13:18:00* Test Item Value Reference Range Interpretation Comments Hemoglobin (test code = 64267-1) 13.7 14.0-18.0 L [facility] ParkwayHematocrit2019-05-24 13:18:00* Test Item Value Reference Range Interpretation Comments Hematocrit (test code = 4544-3) 39.1 38.2-49.6 [facility] ParkwayMean Corpuscular Unvycp8323-47-12 13:18:00* Test Item Value Reference Range Interpretation Comments Mean Corpuscular Volume (test code = 787-2) 85.2 81-99 [facility] ParkwayMean Corpuscular Ysnpihfquv6059-56-72 13:18:00* Test Item Value Reference Range Interpretation Comments Mean Corpuscular Hemoglobin (test code = 785-6) 29.8 28-32 [facility] ParkwayMean Corpuscular Hemoglobin Concent 2018-07-11 13:18:00* Test Item Value Reference Range Interpretation Comments Mean Corpuscular Hemoglobin Concent (test code = 786-4) 35.0 31-35 [facility] ParkwayRed Cell Distribution Wmvjo3301-76-54 13:18:00* Test Item Value Reference Range Interpretation Comments Red Cell Distribution Width (test code = 06231-5) 13.3 11.7 -14.4 [facility] ParkwayPlatelet Pxoaf1890-30-76 13:18:00* Test Item Value Reference Range Interpretation Comments Platelet Count (test code = 777-3) 226 140-360 [facility] ParkwayNeutrophils (%) (Auto)2018-07-11 13:18:00 * Test Item Value Reference Range Interpretation Comments Neutrophils (%) (Auto) (test code = 69683-6) 54.4 38.7-80.0 [facility] ParkwayLymphocytes (%) (Auto)2018-07-11 13:18:00 * Test Item Value Reference Range Interpretation Comments Lymphocytes (%) (Auto) (test code = 736-9) 30.2 18.0-39.1 [facility] ParkwayMonocytes (%) (Auto)2018-07-11 13:18:00* Test Item Value Reference Range Interpretation Comments Monocytes (%) (Auto) (test code = 5905-5) 11.5 4.4-11.3 H [facility] ParkwayEosinophils (%) (Auto)2018-07-11 13:18:00 * Test Item Value Reference Range Interpretation Comments Eosinophils (%) (Auto) (test code = 713-8) 3.2 0.0-6.0 [facility] ParkwayBasophils (%) (Auto)2018-07-11 13:18:00* Test Item Value Reference Range Interpretation Comments Basophils (%) (Auto) (test code = 706-2) 0.4 0.0-1.0 [facility] ParkwayIM GRANULOCYTES %2018-07-11 13:18:00* Test Item Value Reference Range Interpretation Comments IM GRANULOCYTES % (test code = IM GRANULOCYTES %) 0.3 0.0- 1.0 [facility] ParkwayNeutrophils # (Auto)2018-07-11 13:18:00* Test Item Value Reference Range Interpretation Comments Neutrophils # (Auto) (test code = 751-8) 4.9 2.1-6.9 [facility] ParkwayLymphocytes # (Auto)2018-07-11 13:18:00* Test Item Value Reference Range Interpretation Comments Lymphocytes # (Auto) (test code = 34495-9) 2.7 1.0-3.2 [facility] ParkwayMonocytes # (Auto)2018-07-11 13:18:00* Test Item Value Reference Range Interpretation Comments Monocytes # (Auto) (test code = 742-7) 1.0 0.2-0.8 H [facility] ParkwayEosinophils # (Auto)2018-07-11 13:18:00* Test Item Value Reference Range Interpretation Comments Eosinophils # (Auto) (test code = 711-2) 0.3 0.0-0.4 [facility] ParkwayBasophils # (Auto)2018-07-11 13:18:00* Test Item Value Reference Range Interpretation Comments Basophils # (Auto) (test code = 704-7) 0.0 0.0-0.[address] [facility] HospitalAbsolute Immature Granulocyte (auto 2018-07-11 13:18:00* Test Item Value Reference Range Interpretation Comments Absolute Immature Granulocyte (auto (charleen t code = Absolute Immature Granulocyte (auto) 0.03 0-0.1 [facility] ParkwayUS BREAST COMPLETE UOGS0390-84-42 14:43:00 [place] [address] Patient Name: CHARISSE ARROYO MR #: [id number] : 1940 Age/Sex: 77/M Req #: [id number] Adm Physician: Ordered by: SERGO MUHAMMAD MD Report #: [id number] Location: Room/Bed: Procedure: [id number] U S/US BREAST COMPLETE LEFT Exam Date: 02/05/18 Exam T red: 1344 REPORT STATUS: Signed Exam: Left breast ultrasound History: Pain in the lower aspect of the left breast Comparison: None available Findings: Real-time scanning of the left breast was performed in all four quadrants and the retroareolar region. There is no cystic or solid mass. Impression: Normal breast ult rasound. Signed by: Dr. Jocelynn Stallings DO on 02/05/2018 2:45 PM Dict ated By: JOCELYNN STALLINGS DO 8707 COPY TO: SHAHBAZ MUHAMMAD MD C-SPINE 2 VIEWS AP [id number] 12:44:[address] [address] Patient Name: CHARISSE ARROYO MR #: [id number] : 1940 Age/Sex: 77/M Req #: [id number] Adm Physician: SERGO MUHAMMAD MD Ordered by: MARIBEL ANTONIO MD Report #: [id number] Location: MED/SURG Room/Bed: [facility] Procedure: [id number] 2 DX/C-SPINE 2 VIEWS AP LATERAL Exam Date: 12/27/17 Exam Time: 909 REPORT STATUS: Si gned PROCEDURE: X-RAY CERVICAL SPINE, TWO VIEWS COMPARISON: MRI of cer vical spine dated 12/24/2017 INDICATIONS: POST CERVICAL SPINE SURGERY FINDINGS: See conclusion. CONCLUSION: AP and lateral views of t he cervical spine from the skull base to C7 show anterior cervical spine surg ical fusion from C4-C5 with an intervertebral body disc spacer. There is ante rior subluxation of C4 on C5 that was present on the prior MRI. Complete fusi on of C5-C6 is noted that is old. The visualized vertebral bodies are well-al igned. There is mild pre-vertebral soft-tissue swelling consistent with recen t surgery. Jocelynn Stallings D.O. Dictated by: Shavon Gotti n 12/27/2017 at 12:44 Electronically approved by: Jocelynn Stallings D.O. on 12/27/2017 at 12:44 Dictated By: JOCELYNN STALLINGS DO Electronic ally Signed By: JOCELYNN STALLINGS DO on 12/27/17 1244 Transcribed By: AMISH on 11/05 1244 COPY TO: MARIBEL ANTONIO MD Bedside Bunnzgl2795-11-27 12:38:00* Test Item Value Reference Range Interpretation Comments Bedside Glucose (test code = 81024-6) 138 70-120 H Meter ID: [id number] [facility] 2017-12-25 10:28:00 [facility] [address] [address] Patient Name: CHARISSE ARROYO MR #: [id number] : 1940 Age/Sex: 77/M Req #: [id number] Adm Physician: SERGO MUHAMMAD MD Ordered by: MARIBEL ANTONIO MD Report #: [id number] Location: MED/SURG Room/Bed: [facility] Procedure: 1106-000 8 MRI/MRI SPINE CERVICAL WO Exam Date: Exam Time: REPORT STATUS: Signed History: N sid pain Comparison studies: None Technique: Sagittal T1, T2 and IR, a xial T2 and axial gradient echo Intravenous contrast: None Findings: Alignment: Straightening of the cervical spine lordosis. Grade 1 anterolist hesis of C4 over C5 (4 mm). No scoliosis. Cervicomedullary junction: No abnorm alities. Patent foramen magnum. Soft tissues: No T2 hyperintense inflammatory changes. Spinal cord: Increased signal at the right lateral cord with associa avani volume loss at C4-5, the remaining signal intensity of the spinal cord gustavo ears normal down to T4. Vertebrae: Normal in height and signal intens ity. No fractures, infection or neoplasm. Degenerative changes: C2-C 3: Disc degeneration with loss of T2 signal. Moderate right facet hypertrophy without significant canal stenosis and moderate right foraminal narrowing. Bone marrow edema at the right facet joint C3-C4: Disc degeneration with l oss of T2 signal. Central disc osteophyte complex, bilateral uncinate process hypertrophy, moderate right and mild left facet hypertrophy results in mild ca nal stenosis, moderate right and mild left foraminal narrowing. Bone marrow ed krunal at the right facet joint C4-C5: Disc degeneration with low T2 signal and decreased intervertebral space. Central disc osteophyte complex, intermitt ently thickening, uncinate process and facet hypertrophy results in severe iván tral canal stenosis, severe right and moderate left foraminal narrowing C 5-C6: Fused intervertebral disc. Right uncinate process hypertrophy without significant canal stenosis and mild right foraminal narrowing C6-C7: Disc degeneration with loss of T2 signal. Bilateral uncinate process and facet hyp ertrophy results in no significant canal stenosis and mild bilateral foraminal narrowing C7-T1: Disc degeneration with loss of T2 signal. Uncinate proc ess and facet hypertrophy results in no significant canal stenosis and mild bi lateral foraminal narrowing IMPRESSION: 1. Severe canal stenosis, s evere right and moderate left foraminal narrowing at C4-5 secondary to degener ative changes and grade 1 anterolisthesis. Spinal cord signal intensity change s at this level with associated volume loss, likely related to myelomalacia 2. Multilevel degenerative foraminal narrowing, moderate right at C2-C3, moderate right and mild left at C3-4, mild right at C5-6, mild bilateral at C6 -7 and C7-T1. 3. Diffuse disc degeneration more significant at C4-5 withou t Modic type I changes. Moderate right facet hypertrophy at C2-3 and C3-4 with associated bone marrow edema Signed by: DR Alvin Jean M.D. on 12/25/2017 10:47 AM Dictated By: ALVIN MICHAEL MD Electronically Si gned By: ALVIN MICHAEL MD on 12/25/17 1047 Transcribed By: FLACO on 09/04 1047 COPY TO: MARIBEL ANTONIO MD Thyroid Stimulating Hormone (TSH)2017-12-24 10:36:00* Test Item Value Reference Range Interpretation Comments Thyroid Stimulating Hormone (TSH) (test code = 47559-0) 0.519 0.350-4.940 [facility]wayTriglycerides Zwkal9350-37-84 05:53:00* Test Item Value Reference Range Interpretation Comments Triglycerides Level (test code = 2571-8) 42 0-149 [facility] ParkwayCholesterol Zkiez0503-46-39 05:53:00* Test Item Value Reference Range Interpretation Comments Cholesterol Level (test code = 2093-3) 118 0-199 Less than 200 mg/dL Low Bnci933 - 239 mg/dL Borderline Ddwy391 m g/dl and greater High Risk [facility] ParkwayLDL Vvkybthpndn2948-99-17 05:53:00* Test Item Value Reference Range Interpretation Comments LDL Cholesterol (test code = 2089-1) 68 60-130 [facility] ParkwayHDL Xhcwlbemdzh9204-69-56 05:53:00* Test Item Value Reference Range Interpretation Comments HDL Cholesterol (test code = 2085-9) 42 40-60 [facility] ParkwayCholesterol/HDL Xkigt5574-54-75 05:53:00 * Test Item Value Reference Range Interpretation Comments Cholesterol/HDL Ratio (test code = 9830-1) 2.8 3.9-4.7 L [facility] ParkwayCT THORACIC SPINE VW0484-08-04 18:43:[address] [address] Patient Name: CHARISSE ARROYO MR #: [id number] : 1940 Age/Sex: 77/M Req #: [id number] Adm Physician: SERGO MUHAMMAD MD Ordered by: THADDEUS BILLINGSLEY MD Report #: [id number] Location: [facility] Room/Bed: [address] [place] [address] Procedure: 1105-[address]/CT THORACIC SPINE WO Exam Date: 12/23/17 Exam Time: 1526 REPORT STATUS: Signed History: 77-year-old male with back pain and chest pain Comparison studies: None Technique: Axial were obtained without IV contrast through the thora cic region. Coronal and sagittal images reconstructed from the axial data. D ose modulation, iterative reconstruction, and/or weight based adjustment of t he mA/kV was utilized to reduce the radiation dose to as low as reasonably ac hievable. Intravenous contrast: None Findings: Alignment: Normal kyphosis. No scoliosis. Soft tissues: No abnormalities.. Paraspinal muscles: Unremarkable Spinal cord: Can not be evaluated. Vertebrae: Incomple te fusion of the posterior elements of T2 and T3. A couple 5 mm bone islands a re in the L1 vertebral body. Degenerative changes: The C5 and C6 vertebra l bodies are fused. Severe right facet arthropathy at C5-C6 with moderate righ t foraminal stenosis. Moderate right facet arthropathy at C6-C7 with mild [place] stenosis on the right. No thoracic degenerative changes. Incid ental: * Subsegmental atelectasis in the dependent portion of both lower lobe s. * Moderate coronary artery atherosclerosis. * Mild amount of calcified atherosclerotic in the aortic arch and proximal branch vessels. * Mild plaq ue in the upper abdominal aorta and proximal branch vessels. The common hepati c artery arises directly from the aorta. IMPRESSION: No acute abnormal ities. Specifically, no fractures or dislocations. Preliminary report pr ovided by Dr. Ana Valdovinos, neuroradiology fellow, on 12/23/2017 at 1852 hours . The images and preliminary report were reviewed and signed by Dr. Charlene Garces, neuroradiology faculty, on 12/23/2017 at 1940 hours.. Signed by: Dr. Pinky Garecs M.D. on 12/23/2017 7:40 PM Dictated By: PINKY MARTINEZ MD 39 Transcribed By: FLACO on 12/23/171939 COPY TO: THADDEUS BILLINGSLEY MD Urine Amorphous Eqbqhhjc1490-08-12 18:12:00* Test Item Value Reference Range Interpretation Comments Urine Amorphous Sediment (test code = 8246-1) FEW FEW [facility] ParkwayUrine Nqszy0068-42-46 18:12:00* Test Item Value Reference Range Interpretation Comments Urine Mucus (test code = 8247-9) [facility] Endinyzc5967-18-01 18:12:00* Test Item Value Reference Range Interpretation Comments Urine Amorphous Sediment (test code = 8246-1) [facility] Zoewc1324-31-79 18:12:00* Test Item Value Reference Range Interpretation Comments Urine Mucus (test code = 8247-9) [facility] Amorphous Qfatrjny8924-43-83 18:12:00* Test Item Value Reference Range Interpretation Comments Urine Amorphous Sediment (test code = 8246-1) [facility] Pkxdv2468-59-14 18:12:00* Test Item Value Reference Range Interpretation Comments Urine Mucus (test code = 8247-9) [facility] ([facility])2017-12-23 15:12:00 [facility] [address] [place] [address] Patient Name: CHARISSE ARROYO MR #: [id number] : 1940 Age/Sex: 77/M Req #: [id number] Adm Physician: Ordered by: THADDEUS BILLINGSLEY MD Report #: [id number] Location: ER Room/Bed: Procedure: [id number] DX/CHEST SINGLE (PORTABLE) Exam Date: Exam Time: REPORT STATUS: Signed Examination: Single AP view of the chest. COMPARISON: None. INDICATION: Chest pain DISCUSSION: Lines/tubes: None. Lungs: The lungs are well inflated and clear. No pneumonia or pulmonary edema. Pleura: No pleural effusion or pneumothorax. Heart and mediastinum: Prominent heart size. Bones and soft tissues: No acute bony abnormalities. IMPRESSION: 1. No acute cardiopulmonary abnormalities. Signed by: Dr. Salina cannon M.D. on 12/23/2017 3:15 PM Dictated By: SALINA Fields ically Signed By: SALINA CORTES MD on 12/23/171514 Transcribed By: FLACO on 12/23/171514 COPY TO: THADDEUS BILLINGSLEY MD B-Type Natriuretic Pntovqn3416-35-23 14:30:00* Test Item Value Reference Range Interpretation Comments B-Type Natriuretic Peptide (test code = 15567-7) 66.2 0-100 [facility] ParkwayB-Type Natriuretic Qzfvauh8082-75-62 14:30:00* Test Item Value Reference Range Interpretation Comments B-Type Natriuretic Peptide (test code = 52730-3) 66.2 0-100 [facility] ParkwayB-Type Natriuretic Cwstqqw6408-23-03 14:30:00* Test Item Value Reference Range Interpretation Comments B-Type Natriuretic Peptide (test code = 18812-0) 66.2 0-100 [facility] ParkwayCreatine Kinase SD7930-39-35 15:22:00* Test Item Value Reference Range Interpretation Comments Creatine Kinase MB (test code = 12664-5) 4.50 0.00-5.00 [facility] ParkwayTroponin R2629-59-86 15:22:00* Test Item Value Reference Range Interpretation Comments Troponin I (test code = 07697-6) 0.018 0-0.300 [facility] Centerodium Nhjew1900-39-27 14:13:00* Test Item Value Reference Range Interpretation Comments Sodium Level (test code = 2951-2) 138 136-145 [facility] ParkwayPotassium Irsfb9150-32-22 14:13:00* Test Item Value Reference Range Interpretation Comments Potassium Level (test code = 2823-3) 3.3 3.5-5.1 L [facility] ParkwayChloride Wjljx1632-69-75 14:13:00* Test Item Value Reference Range Interpretation Comments Chloride Level (test code = 2075-0) 98 98-107 [facility] ParkwayCarbon Dioxide Rxuyz7066-11-14 14:13:00* Test Item Value Reference Range Interpretation Comments Carbon Dioxide Level (test code = 2028-9) 27 22-29 [facility] ParkwayAnion Hqf0642-98-85 14:13:00* Test Item Value Reference Range Interpretation Comments Anion Gap (test code = 59250-2) 16.3 8-16 H [facility] ParkwayB-Type Natriuretic Prstmig0680-31-06 14:02:00* Test Item Value Reference Range Interpretation Comments B-Type Natriuretic Peptide (test code = 21179-3) 64.9 0-100 [facility] ParkwayBlood Urea Dotnicds5976-99-30 14:01:00* Test Item Value Reference Range Interpretation Comments Blood Urea Nitrogen (test code = 3094-0) 16 7-26 [facility] ParkwayCreatinine2018-02-06 14:01:00* Test Item Value Reference Range Interpretation Comments Creatinine (test code = 2160-0) 1.29 0.72-1.25 H [facility] ParkwayBUN/Creatinine Pnaoj6659-40-70 14:01:00* Test Item Value Reference Range Interpretation Comments BUN/Creatinine Ratio (test code = 3097-3) 12 6-25 [facility] ParkwayEstimat Glomerular Filtration Rate 2017-03-26 14:01:00* Test Item Value Reference Range Interpretation Comments Estimat Glomerular Filtration Rate (test code = 89412-4) 54 >60 L Ranges were taken from the National Kidney Disease Education Program and the [facility] Foundation literature.Reference ranges:60 or greater: Jffwrl62-73 ( for 3 consecutive months): Chronic kidney disease 15 or less: Kidney failureW[facility] Health Surgical Hospital at ParkwayGlucose Qgwip1236-20-42 14:01:00* Test Item Value Reference Range Interpretation Comments Glucose Level (test code = SMR9608) 113 74-118 [facility] ParkwayCalcium Fjfei5620-59-16 14:01:00* Test Item Value Reference Range Interpretation Comments Calcium Level (test code = 64974-9) 8.8 8.4-10.2 [facility] ParkwayTotal Pmblxsbzf5273-39-13 14:01:00* Test Item Value Reference Range Interpretation Comments Total Bilirubin (test code = 1975-2) 1.2 0.2-1.2 [facility] ParkwayAspartate Amino Transf (AST/SGOT) 2017-03-26 14:01:00* Test Item Value Reference Range Interpretation Comments Aspartate Amino Transf (AST/SGOT) (test code = Aspartate Amino Transf (AST/SGOT)) 19 5-34 [facility] ParkwayAlanine Aminotransferase (ALT/SGPT) 2017-03-26 14:01:00* Test Item Value Reference Range Interpretation Comments Alanine Aminotransferase (ALT/SGPT) (test code = 1742-6) 14 0-55 [facility] Ijsmqne5695-97-47 14:01:00* Test Item Value Reference Range Interpretation Comments Total Protein (test code = 2885-2) 7.7 6.5-8.1 [facility] ParkwayAlbumin2018-02-06 14:01:00* Test Item Value Reference Range Interpretation Comments Albumin (test code = 1751-7) 3.4 3.5-5.0 L [facility] ParkwayGlobulin2018-02-06 14:01:00* Test Item Value Reference Range Interpretation Comments Globulin (test code = 65672-9) 4.3 2.3-3.5 H [facility] ParkwayAlbumin/Globulin Mqhwr6870-41-17 14:01:00 * Test Item Value Reference Range Interpretation Comments Albumin/Globulin Ratio (test code = 1759-0) 0.8 0.8-2.0 [facility] ParkwayAlkaline Ewysfqmghco9873-13-62 14:01:00* Test Item Value Reference Range Interpretation Comments Alkaline Phosphatase (test code = 6768-6) 64 40-150 [facility] ParkwayCreatine Fifsum7624-84-30 14:01:00* Test Item Value Reference Range Interpretation Comments Creatine Kinase (test code = 2157-6) 163 30-200 [facility] ParkwayProthrombin Pbst4237-56-02 13:50:00* Test Item Value Reference Range Interpretation Comments Prothrombin Time (test code = 5902-2) 13.2 11.9-14.5 [facility] ParkwayProthromb Time International Ratio 2017-03-26 13:50:00* Test Item Value Reference Range Interpretation Comments Prothromb Time International Ratio (test code = 6301-6) 0.95 Oral Anticoagulant Therapy INR Values:1. Low Intensity Therapy 1.5 - 2.02 . Moderate Intensity Therapy 2.0 - 3.03. High Intensity Therapy(1) 2.5 - 3. 54. High Intensity Therapy(2) 3.0 - 4.05. Panic Value INR > 5.0 [facility] ParkwayActivated Partial Thromboplast Time 2017-03-26 13:50:00* Test Item Value Reference Range Interpretation Comments Activated Partial Thromboplast Time (test code = 46414-4) 26.6 23.8-35.5 [facility] ParkwayWhite Blood Ipdng2088-64-46 13:43:00* Test Item Value Reference Range Interpretation Comments White Blood Count (test code = 6690-2) 5.98 4.8-10.8 [facility] ParkwayRed Blood Tfpoj0141-21-38 13:43:00* Test Item Value Reference Range Interpretation Comments Red Blood Count (test code = 789-8) 4.62 4.3-5.7 [facility] ParkwayHemoglobin2018-02-06 13:43:00* Test Item Value Reference Range Interpretation Comments Hemoglobin (test code = 68479-9) 14.0 14.0-18.0 [facility] ParkwayHematocrit2018-02-06 13:43:00* Test Item Value Reference Range Interpretation Comments Hematocrit (test code = 4544-3) 40.1 38.2-49.6 [facility] ParkwayMean Corpuscular Wvhcxp9855-92-72 13:43:00* Test Item Value Reference Range Interpretation Comments Mean Corpuscular Volume (test code = 787-2) 86.8 81-99 [facility] ParkwayMean Corpuscular Zaebaepnfg4993-87-55 13:43:00* Test Item Value Reference Range Interpretation Comments Mean Corpuscular Hemoglobin (test code = 785-6) 30.3 28-32 [facility] ParkwayMean Corpuscular Hemoglobin Concent 2017-03-26 13:43:00* Test Item Value Reference Range Interpretation Comments Mean Corpuscular Hemoglobin Concent (test code = 786-4) 34.9 31-35 [facility] ParkwayRed Cell Distribution Eiqwx2412-51-70 13:43:00* Test Item Value Reference Range Interpretation Comments Red Cell Distribution Width (test code = 54741-1) 12.5 11.7 -14.4 [facility] ParkwayPlatelet Wzpda0523-08-93 13:43:00* Test Item Value Reference Range Interpretation Comments Platelet Count (test code = 777-3) 217 140-360 [facility] ParkwayNeutrophils (%) (Auto)2017-03-26 13:43:00 * Test Item Value Reference Range Interpretation Comments Neutrophils (%) (Auto) (test code = 46574-1) 61.9 38.7-80.0 [facility] ParkwayLymphocytes (%) (Auto)2017-03-26 13:43:00 * Test Item Value Reference Range Interpretation Comments Lymphocytes (%) (Auto) (test code = 736-9) 27.8 18.0-39.1 [facility] ParkwayMonocytes (%) (Auto)2017-03-26 13:43:00* Test Item Value Reference Range Interpretation Comments Monocytes (%) (Auto) (test code = 5905-5) 8.7 4.4-11.3 [facility] ParkwayEosinophils (%) (Auto)2017-03-26 13:43:00 * Test Item Value Reference Range Interpretation Comments Eosinophils (%) (Auto) (test code = 713-8) 1.2 0.0-6.0 [facility] ParkwayBasophils (%) (Auto)2017-03-26 13:43:00* Test Item Value Reference Range Interpretation Comments Basophils (%) (Auto) (test code = 706-2) 0.2 0.0-1.0 [facility] ParkwayIM GRANULOCYTES %2017-03-26 13:43:00* Test Item Value Reference Range Interpretation Comments IM GRANULOCYTES % (test code = IM GRANULOCYTES %) 0.2 0.0- 1.0 [facility] ParkwayNeutrophils # (Auto)2017-03-26 13:43:00* Test Item Value Reference Range Interpretation Comments Neutrophils # (Auto) (test code = 751-8) 3.7 2.1-6.9 [facility] ParkwayLymphocytes # (Auto)2017-03-26 13:43:00* Test Item Value Reference Range Interpretation Comments Lymphocytes # (Auto) (test code = 29299-9) 1.7 1.0-3.2 [facility] ParkwayMonocytes # (Auto)2017-03-26 13:43:00* Test Item Value Reference Range Interpretation Comments Monocytes # (Auto) (test code = 742-7) 0.5 0.2-0.8 [facility] ParkwayEosinophils # (Auto)2017-03-26 13:43:00* Test Item Value Reference Range Interpretation Comments Eosinophils # (Auto) (test code = 711-2) 0.1 0.0-0.4 [facility] ParkwayBasophils # (Auto)2017-03-26 13:43:00* Test Item Value Reference Range Interpretation Comments Basophils # (Auto) (test code = 704-7) 0.0 0.0-0.1 [facility] ParkwayAbsolute Immature Granulocyte (auto 2017-03-26 13:43:00* Test Item Value Reference Range Interpretation Comments Absolute Immature Granulocyte (auto (charleen t code = Absolute Immature Granulocyte (auto) 0.01 0-0.1 [facility] ParkwayBedside Iwypztg3229-06-85 12:16:00* Test Item Value Reference Range Interpretation Comments Bedside Glucose (test code = 79781-3) 113 70-120 Meter ID: [id number] Health Surgical Hospital at ParkwayCT BRAIN [place] [address] Patient Name: DEEDEE ARROYOO Star MR #: [id number] : 1940 Age/Sex: 76/M Req #: [id number] [facility] Physician: Ordered by: THOMAS LIANG MD Report #: [id number] Location: Room/B ed: Procedure: [id number] CT/CT BRAIN WO Exam Date: 03/26/17 Exam Time: 1313 REPORT STATUS: Signed Exam: Head CT without contrast History: Nausea, blurry vision Comparison studies: None Technique: Axial images were obtained from the skull base to the vertex. Coronal and sagittal images reconstructed from the axial data. Intravenous contrast: None Findings: Scalp: No abnormalities. Bone s: No fractures, blastic or lytic lesions. Brain sulci: Appropriate for age . Ventricles: Normal in size and configuration. No hydrocephalus. Extra-axia l spaces: No masses, no fluid collection. Parenchyma: No mass, acute he morrhage or acute or chronic cortical vascular insults. Confluent hypodensitie s in the supratentorial white matter are nonspecific but most compatible with chronic small vessel ischemic changes. Small chronic lacunar infarct in the po sterior right putamen. Sellar/suprasellar region: No abnormalities. Crani ocervical junction: Patent foramen magnum. No Chiari one malformation. Inci dental findings: Atherosclerotic calcifications in the carotid siphons and in tradural vertebral arteries. IMPRESSION: 1. No acute abnormalities . 2. Moderately confluent supratentorial chronic microvascular changes wit h small chronic right putaminal lacunar infarct. Signed by: Dr. Sarath loza M.D. on 03/26/2017 1:44 PM Dictated By: SARATH BHAT MD [facility] Signed By: SARATH BHAT MD on 03/26/17 1346 Transcribed By: FLACO on 03/26/17 1346 COPY TO: THOMAS LIANG MD CHEST [address] [facility] [address] [address] Patient Name: CHARISSE ARROYO MR #: [id number] : 1940 Age/Sex: 76/M Req #: [id number] Adm Physician: Ordered by: THOMAS LIANG MD Report #: [id number] Location: ER Room/B ed: Procedure: [id number] DX/CHEST 2 VIEWS Exam Date: 03/26/17 Exam Time: 1315 REPORT STATUS: Signed PROCEDURE: Frontal and lateral views of the chest. COMPARISON: [facility], DX, CHEST 2 VIEWS, 01/18/2014, 10:16. INDICATIONS: COUGH, ALTERED MENTAL STATUS FINDINGS: Lines/tubes: None. L ungs: The lungs are well inflated and clear. There is no evidence of pneumon ia or pulmonary edema. Pleura: There is no pleural effusion or pneumothor ax. Heart and mediastinum: The thoracic aorta is tortuous. Cardiac indu houette is mildly enlarged. Bones: No acute bony abnormality. IMPRESSIO N: 1. mild cardiomegaly without pulmonary edema. No acute thoracic abn ormality. Ladonna Savage M.D. Dictated by: Ladonna luu M.D. on 03/26/2017 at 14:03 Electronically approved by: Ladonna Savage M.D. on 03/26/2017 at 14:03 Dictated By: BEAU RIOS MD, MD 1403 Tr anscribed By: AMISH on 03/26/17 1403 COPY TO: THOMAS LIANG MD
--- OUTSIDE RECORDS SUMMARY | 2019-07-29 14:46 | XMS REPORT | Summary of Care ---
Author Author [facility] - Health Organization [facility] - Health Address Unknown Phone Unavailable Care Team Providers Care Welt Beater Name Role Phone Doctor Unassigned, Noonday PCP Unavailable Reason for Visit * Reason Comments Follow-up pt confirm all meds and pha rmacy Diabetes Mellitus II pt stated he is fasting to have labs done today Encounter Details Care Team Description Date Type Department Leanna Michelle MD [address] [place] [address] [id number] Indra Bryant, [facility] [address] [place] [address] Type 2 diabetes mellitus with diabetic p olyneuropathy, with long-term current use of insulin (Primary Dx); Mixed hyperlipidemia 03/06/2019 Office Visit [facility], [address] [address] Allergies No Known Allergiesdocumented as [...] use of insulin Coronary artery disease involving [place] coronary art carlo of [place] heart 04/30/2018 without angina pectoris Mixed hyperlipidemia [...] Comments Vital Sign 116/79 03/06/2019 11:24 AM WORDPRESS DEVELOPER Blood Pressure 87 03/06/2019 11:24 AM WORDPRESS DEVELOPER Pulse - - Temperature - - Respiratory Rate 95% 03/06/2019 11:24 AM WORDPRESS DEVELOPER Oxygen Saturation - - Inhaled Oxygen Concentration 91 kg (200 lb 9.6 oz) 03/06/2019 11:24 AM WORDPRESS DEVELOPER Weight 170.2 cm (5' 7") 03/06/2019 11:24 AM WORDPRESS DEVELOPER Height 31.42 03/06/2019 11:24 AM WORDPRESS DEVELOPER Body Mass Index documented in this encounter Progress Notes * Indra Bryant, CHIEF PETROLEUM ENGINEER - 03/06/2019 11:00 AM [employer]ORD[employer] DEVELOPER Cc: Chief Complaint Patient presents with Follow-up [...] file Gets together: Not on file Attends quaker service: Not on file Active member of [...] (primary encounter diagnosis) Plan: COMP. METABOLIC PANEL (78195), CBC WITH DIFF -metformin 1000 mg BID Tresiba 30 units BID Humalog 20 units TIDAC - patient had education on insulin pump with [employer] staff today - educated on ADA diet, [...] plan. AVS printed and given to patient/family/guardian PRESS DEVELOPER documented in this encounter Plan of Treatment [...] this encounter Results * COMP. METABOLIC PANEL (06108) (03/06/2019 12:27 PM WORDPRESS DEVELOPER) NA 137 135 - 145 mmol/L [facility] K 4.0 3.5 - 5.0 mmol/L [facility] CL 98 98 - 108 mmol/L [facility] CO2 TOTAL 25 23 - 31 mmol/L [facility] AGAP 14 2 - 16 [facility] BUN 21 7 - 23 mg/dL [facility] GLUCOSE 165 (H) 70 - 110 mg/dL [facility] CREATININE 1.03 0.60 - 1.25 mg/dL [facility] TOTAL BILI 0.9 0.1 - 1.1 mg/dL [facility] CALCIUM 8.7 8.6 - 10.6 mg/dL [facility] T PROTEIN 6.9 6.3 - 8.2 g/dL [facility] ALBUMIN 3.7 3.5 - 5.0 g/dL [facility] ALK PHOS 85 34 - 122 U/L [facility] ALTv 20 5 - 50 U/L [facility] AST(SGOT) 25 13 - 40 U/L [facility] eGFR 69.8 mL/min/1.73m2 [facility] Calculation [facility] ([facility]) eGFR 84.7 mL/min/1.73m2 [facility] ([facility]) Specimen Blood - ARM, RIGHT Narrative Performed At Association of Glomerular Filtration Rate (GFR) and S taging of Kidney Disease* [facility] + + +------ + SERVICES-[facility] [place] | GFR (mL/min/1.73 m2) | With Kidney Damage | [facility] + + -------+ + [...] Performing Organization Address City/State/Zipcode Ph one Number [facility] CLIA: [id number], [address] [place], [place] [address] [facility] [place] documented in this encounter Visit Diagnoses Diagnosis Type 2 diabetes mellitus with diabetic polyneuropathy, with long-term current use of insulin - Primary Mixed hyperlipidemia documented in this encounter Insurance Type Payer Benefit Subscriber ID Effective Phone Address Plan / Dates Group Medicare MEDICARE MEDICARE xxxxxxxxxxx 2005- [phone] [address] PART A & B Present [id number] [place] [address] HMO/PPO/POS CIGNA CIGNA II [id number] 2015-P resent documented as of this encounter
--- OUTSIDE RECORDS SUMMARY | 2019-07-29 14:46 | XMS REPORT | Summary of Care ---
Author Author [facility] - Health Organization [facility] - Health Address Unknown Phone Unavailable Care Team Providers Care Toy Maker Name Role Phone Doctor Unassigned, [place] PCP Unavailable Reason for Visit * Reason Comments Refill Request Encounter Details Care Team Description Date Type Department Leanna Michelle MD [address] [place] [address] [id number] Refill Request 07/07/[address] [address] Allergies No Known Allergiesdocumented as of this encounter (statuses as of 07/08/2019) Medications End Date Status Medication Sig Dispensed [...] mEq Take by 0 tablet mouth. Active flash glucose sensor 2 Devices 2 [...] daily. with long-term current use of insulin Active GABAPENTIN 300 mg TAKE 1 270 capsule 1 07/08/19 2 capsuleIndications: Type CAPSULE BY 0 2 diabetes mellitus with MOUTH THREE diabetic polyneuropathy, TIMES A DAY with long-term current use of insulin 07/08/2019 Discontinued gabapentin 300 mg capsule Take 1 270 capsule 1 capsule by 9 mouth 3 (three) times daily. 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, with long-term current use of insulin Type 2 diabetes mellitus with diabetic polyneuropathy , with long-term 04/30/2018 current use of insulin Coronary artery disease involving [place] coronary art carlo of [place] heart 04/30/2018 without angina pectoris Mixed hyperlipidemia 04/30/2018 documented as of this encounter (statuses as of 07/08/2019) Social History Date Tobacco Use Types Packs/Day Years Used Former Smoker Smokeless Tobacco: Never Used Comments: stopped in 1980 Drinks/Week oz/Week Comments Alcohol Use Not Currently Sex Assigned at Date Recorded Not on file Industry Job Start Date Occupation Not on file Not on file Not on file Travel End Travel History Travel Start No recent travel history available. documented as of this encounter Last Filed Vital Signs Not on filedocumented in this encounter Plan of Treatment Health Maintenance Due Date Last Done Comments EYE EXAM 1950 LDL-C 1950 URINE MICROALBUMIN 1950 DTaP,Tdap,and Td Vaccines 11/27/1951 (1 - Tdap) Zoster Recombinant 1990 Vaccine (SHINGRIX) (1 of 2) LUNG CANCER SCREEN: 11/27/1995 Recommended for age 55-80 with 30 + pack year history Medicare Wellness Visit 2005 PNEUMOCOCCAL VACCINES 65+ 2005 (1 of 2 - PCV13) HgA1C 09/04/2019 03/06/2019 INFLUENZA VACCINE (Season 10/20/2019 Ended) CREATININE (SERUM) 03/06/2020 03/06/2019 FOOT EXAM 03/07/2020 03/07/2019, 020, 03/06/2019 documented as of this encounter Results Not on filedocumented in this encounter Visit Diagnoses Diagnosis Type 2 diabetes mellitus with diabetic polyneuropathy, with long-term current use of insulin - Primary documented in this encounter Insurance Type Payer Benefit Subscriber ID Effective Phone Address Plan / Dates Group HMO/PPO/POS CIGNA CIGNA II [id number] 2015-P resent Medicare MEDICARE MEDICARE xxxxxxxxxxx 2005- [phone] [address] PART A & B Present [id number] [place] [id number] documented as of this encounter
--- OUTSIDE RECORDS SUMMARY | 2019-07-29 14:46 | XMS REPORT | Summary of Care ---
Author Author [facility] - Health Organization [facility] - Health Address Unknown Phone Unavailable Care Team Providers Care Touch Up Painter Name Role Phone Doctor Unassigned, [place] PCP Unavailable Reason for Visit * Reason Comments Orders Encounter Details Care Team Description Date Type Department Indra Bryant, [facility] [address] [place] [address] Orders 03/11/[address] [facility], [address] [address] Allergies No Known Allergiesdocumented as of this encounter (statuses as of 03/12/2019) Medications End Date Status Medication Sig Dispensed Refills Start Date Active METOPROLOL TARTRATE 25 mg TAKE 1 TABLET 30 tablet 4 tablet BY MOUTH 9 EVERY DAY Active LISINOPRIL-HYDROCHLOROTHI TAKE 1 TABLET 30 tablet 4 AZIDE 20-25 mg per tablet BY MOUTH 9 EVERY DAY Active ONETOUCH VERIO strip Use to check 200 Strip 0 06/1 blood glucose 9 twice daily. Dx: E11.42 [...] daily. 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, with long-term current use of insulin Type 2 diabetes mellitus with diabetic polyneuropathy , with long-term 04/30/2018 current use of insulin Coronary artery disease involving kaw coronary art carlo of kaw heart 04/30/2018 without angina pectoris Mixed hyperlipidemia 04/30/2018 documented as of this encounter (statuses as of 03/12/2019) Social History Date Tobacco Use Types Packs/Day [...] 03/06/2019 CREATININE (SERUM) 03/06/2020 03/06/2019 FOOT EXAM 03/07/2020 03/07/2019, 020, 03/06/2019 documented as of this encounter Results Not on filedocumented in this encounter Insurance Type Payer Benefit Subscriber ID Effective Phone Address Plan / Dates Group HMO/PPO/POS CIGNA CIGNA II [id number] 2015-P resent Medicare MEDICARE MEDICARE xxxxxxxxxxx 2005- [phone] [address] PART A & B Present [id number] [place] [id number] documented as of this encounter
[2019-07-29] MEDS ORDERED: MORPHINE SULFATE INJ 4 MG/ML INJ 1ML ONE (14:58)
[2019-07-29 15:07] LABS: BASOPHILS % 0.4 % (0.0-1.0); EOSINOPHILS # (AUTO) 0.1 (0.0-0.4); EOSINOPHILS % 1.1 % (0.0-6.0); HEMATOCRIT 41.7 % (38.2-49.6); HEMOGLOBIN 13.9 g/dL (14.0-18.0); LYMPHOCYTES # (AUTO) 1.1 (1.0-3.2); LYMPHOCYTES % 10.1 % (18.0-39.1); MEAN CORPUSCULAR HGB CONC 33.3 g/dL (31-35); MEAN CORPUSCULAR VOLUME 86.9 fL (81-99); MONOCYTES # (AUTO) 0.3 (0.2-0.8); MONOCYTES % 2.5 % (4.4-11.3); NEUTROPHILS # (AUTO) 9.6 (2.1-6.9); NEUTROPHILS % 85.5 % (38.7-80.0); PLATELET COUNT 245 x10e3/uL (140-360); RED CELL DISTRIBUTION WIDTH 13.2 % (11.7-14.4)
[2019-07-29 15:24] LABS: ANION GAP 15.5 mmol/L (8-16); BLOOD UREA NITROGEN 17 mg/dL (7-26); BUN/CREATININE RATIO 16 (6-25); CALCIUM 9.2 mg/dL (8.4-10.2); CARBON DIOXIDE 22 mmol/L (22-29); CHLORIDE 107 mmol/L (98-107); CREATININE, SERUM 1.08 mg/dL (0.72-1.25); EST GLOMERULAR FILTRATION RATE > 60 ML/MIN (60-); GLUCOSE 168 mg/dL (74-118); POTASSIUM 3.5 mmol/L (3.5-5.1); SODIUM 141 mmol/L (136-145)
[2019-07-29] MEDS: SOD CHL 0.45%/POT CHL 20MEQ 1,000 ML IV SCH (16:00)
[2019-07-29] MEDS: ACETAMINOPHEN 1000 MG/100 ML IV SCH ×2 (16:00→22:00)
--- NOTE | 2019-07-29 16:00 | NUR ---
RECEIVED TO RM AAOX3 NO DISTRESS NOTED, UPDATED ON POC VOICED UNDERSTANDING, CBI INFUSING TO CABELLO WITH PINK URINE NOTED, IVF INFUSING TO L WRIST NO SS OF INFILTRATION NOTED, DENIES PAIN AT THIS TIME, CALL LIGHT IN REACH WILL CONTINUE TO MONITOR
[2019-07-29 16:27] VITALS: BP 168/88
[2019-07-29 17:10] VITALS: BP 168/88
[2019-07-29] MEDS: DOCUSATE SODIUM 100 MG CAP PO SCH (17:29)
[2019-07-29] MEDS ORDERED: LIDOCAINE HCL 2% LOCAL INJ 5 ML SDV VIAL INJ ONE (18:48)
[2019-07-29] MEDS ORDERED: EPHEDRINE SULFATE INJ 50 MG/ML VIAL ONE (18:48)
[2019-07-29] MEDS ORDERED: DEXAMETHASONE SOD PHOS INJ 4 MG/ML VIAL ONE (18:48)
[2019-07-29] MEDS ORDERED: PROPOFOL IV EMULSION 10 MG/ML 20 ML VIAL ONE (18:48)
[2019-07-29] MEDS ORDERED: ONDANSETRON HCL INJ 2MG/ML 2ML 2 MG/ML VIAL ONE (18:48)
[2019-07-29] MEDS ORDERED: SEVOFLURANE INHAL SOLN 250 ML PEN BTL ONE (18:48)
--- NOTE | 2019-07-29 19:26 | NUR ---
page dr schaeffer for orders spoke with alex with the answering service, awaiting call back
[2019-07-29 20:00] VITALS: BP 185/99
--- NOTE | 2019-07-29 20:35 | NUR ---
SPOKE TO MD MUHAMMAD. NEW ORDERS RECEIVED.
[2019-07-29] MEDS ORDERED: DEXTROSE 50% SYRINGE 50 ML IV PRN (20:45)
[2019-07-29] MEDS: ATORVASTATIN 40 MG TAB PO SCH (21:49)
[2019-07-29] MEDS: INSULIN LISPRO 100 UNIT/1 ML 3ML VIAL SQ SCH (21:49)
[2019-07-29] MEDS: CLONIDINE HCL 0.1 MG TAB PO PRN (21:50)
[2019-07-30] VITALS (7 sets, daily range): BP systolic 116–165; BP diastolic 70–83
--- NOTE | 2019-07-30 00:06 | NUR ---
CALLED MD MUHAMMAD REGARDING CRITICAL B/P. AWAITING CALL BACK.
--- NOTE | 2019-07-30 00:31 | NUR ---
RECHECKED B/P WITH MANUAL CUFF 165/80.
[2019-07-30] MEDS: SOD CHL 0.45%/POT CHL 20MEQ 1,000 ML IV SCH ×3 (00:40→16:00)
--- NOTE | 2019-07-30 00:47 | NUR ---
SPOKE TO MD MUHAMMAD. NEW ORDERS RECEIVED.
[2019-07-30] MEDS ORDERED: ALPRAZOLAM 1 MG TAB PO PRN (01:00)
--- NOTE | 2019-07-30 02:06 | Operative Report ---
DATE OF PROCEDURE: 07/29/2019 SURGEON: Chavez Thakkar MD PREOPERATIVE DIAGNOSES: 1. Obstructive benign prostatic hypertrophy. 2. Urinary tract infections. 3. Gross hematuria. 4. Microhematuria. POSTOPERATIVE DIAGNOSES: 1. Obstructive benign prostatic hypertrophy. 2. Urinary tract infections. 3. Gross hematuria. 4. Microhematuria. 5. Distal urethral stricture. 6. Post circumcision adhesions. 7. Hypospadias. OPERATIONS PERFORMED: 1. Release of penile adhesions and post circumcision adhesions (separate procedure performed for the adhesions). 2. Regional nerve block (separate procedure performed for postoperative pain control and not required for the actual performance of surgery, which was done under general anesthesia). 3. Cystourethroscopy with calibration and dilation of distal urethral stricture (separate procedure performed for the diagnosis of stricture). 4. Cystourethroscopy with bilateral ureteral catheterization and retrograde ureteropyelography (separate procedure performed for the hematuria, and urinary tract infections). 5. Interpretation of retrograde ureteropyelography, no radiologist present. 6. Supervision of fluoroscopy, no radiologist present. 7. Cystourethroscopy with transurethral resection of prostate utilizing a plasma button electrode. ANESTHESIA: General. COMPLICATIONS: None. CLINICAL SUMMARY: Vikram is a pleasant 78-year-old man, underwent a GreenLight laser approximately 11 years ago. The patient has had recurrent BPH symptomatology. He is brought for the above procedures. He is aware of the risks of bleeding, infection, injury to adjacent structures, incontinence, impotence, retrograde ejaculation, need for additional procedures and elected to proceed. OPERATIVE PROCEDURE IN DETAIL: Informed consent was verified. Vikram Arroyo was properly identified, taken to the operating room, placed on the cystoscopy table in supine position. Anesthesia was uneventfully begun. The patient was then carefully and gently repositioned in dorsal lithotomy position. All pressure points well padded. His genitalia were prepared and draped in the usual sterile fashion. The preputial adhesions were taken down. They were circumferential adhesions at the garcia as the result of prior circumcision in combination with the patient's diabetes and poor healing function. We took down all the preputial adhesions. The patient's penis was then we re-prepared with Betadine. Marcaine without epinephrine was utilized to infiltrate subcutaneously circumferentially at the base of the penis as well as in the region over the dorsal penile nerves. This was done for postoperative pain control and not required. The cystoscope sheath with visual obturator in place was atraumatically inserted into the patient's urethral meatus, but could not be guided past the buried meatus. We dilated the distal meatus with Zach sounds and then we were able to place the cystoscope sheath into the urethra, which was otherwise unremarkable. Sphincteric region was normal. Prostatic bed was significant for visually obstructing BPH from regrowth of nodule. BPH throughout the prostate bed region, there was a cavity in the center of the prostate bed. The patient's regrowth obstructed at the apex as well. We went to the patient's bladder. Panendoscopy revealed grade 2 trabeculations, but no tumors, no stones, and no diverticula, normally positioned configured ureteral orifices were identified. An 8-Romanian catheter was used to cannulate each ureter and retrograde ureteral pyelograms were performed. Interpretation of retrograde ureteropyelography contrast was instilled in retrograde fashion bilaterally. There were no tumors, no stones, and no diverticula. Unobstructed drainage was observed bilaterally fluoroscopically. There was dilation of the left distal ureter and we continued this into the right distal ureter down to the level of the intramural ureter. Nevertheless, with nonobstructive drainage across this region. The cystoscope was withdrawn. Zach sounds were then utilized to dilate all the way to 28-Romanian progressively. We then atraumatically placed the resectoscope sheath into the patient's bladder. We proceeded with utilizing the plasma button electrode to vaporize the prostate from the bladder neck to maneuver past the verumontanum and down the surgical capsule. There was rather significant amount of regrowth of prostate present. After pinpoint electrocautery, confirmed hemostasis, the patient had a wide open prostatic bed with excellent hemostasis. The patient's bladder was drained with a continuous irrigation catheter. It was irrigated to-and-fro to ensure it worked properly. It was placed on continuous irrigation with clear efflux. A belladonna and opium suppository were placed revealing a large at least 40 g prostate, smooth, nonfluctuant without any nodules. The patient was then uneventfully reversed from anesthesia and taken to recovery room in stable condition. There were no complications to the procedure. He tolerated the procedure well. PLANS: Will be to proceed with routine postoperative care and of course ongoing urological followup. Chavez MD CHRISTIAN Thakkar/LEODAN /[id number] cc: Caroline Jones MD
[2019-07-30] MEDS: ACETAMINOPHEN 1000 MG/100 ML IV SCH ×2 (04:00→09:20)
[2019-07-30] MEDS: ALPRAZOLAM 1 MG TAB PO PRN (04:35)
[2019-07-30 05:26] LABS: BASOPHILS # (AUTO) 0.1 (0.0-0.1); BASOPHILS % 0.5 % (0.0-1.0); EOSINOPHILS % 0.2 % (0.0-6.0); HEMATOCRIT 38.7 % (38.2-49.6); HEMOGLOBIN 12.8 g/dL (14.0-18.0); LYMPHOCYTES # (AUTO) 1.4 (1.0-3.2); MEAN CORPUSCULAR HEMOGLOBIN 28.7 pg (28-32); MEAN CORPUSCULAR HGB CONC 33.1 g/dL (31-35); MEAN CORPUSCULAR VOLUME 86.8 fL (81-99); MONOCYTES # (AUTO) 0.9 (0.2-0.8); MONOCYTES % 8.6 % (4.4-11.3); NEUTROPHILS # (AUTO) 7.7 (2.1-6.9); NEUTROPHILS % 76.4 % (38.7-80.0); PLATELET COUNT 237 x10e3/uL (140-360); RED BLOOD COUNT 4.46 x10e6/uL (4.3-5.7); RED CELL DISTRIBUTION WIDTH 13.3 % (11.7-14.4)
[2019-07-30 05:42] LABS: ANION GAP 16.9 mmol/L (8-16); CALCIUM 8.4 mg/dL (8.4-10.2); CREATININE, SERUM 1.25 mg/dL (0.72-1.25); POTASSIUM 3.9 mmol/L (3.5-5.1)
--- NOTE | 2019-07-30 06:48 | NUR ---
CABELLO CARE PROVIDED VIA CASTILE SOAP WIPES.
--- NOTE | 2019-07-30 07:00 | NUR ---
bedside shift report received pt in stable condition denies pain at this time, stringer to gravity with cbi infusing ivf infusing to left wrist 20g no ss of infiltration noted, no other co voiced call light in reach will continue to monitor
--- NOTE | 2019-07-30 07:03 | NUR ---
REPORT GIVEN TO [facility] AAOX3. RESTING. IN STABLE CONDITION. NO SIGNS OF IV INFILTRATION. BED LOCKED AND IN LOW POSITION. CALL LIGHT WITHIN REACH. Addendum: 07/30/19 at 0710 by Swapna Barker RN PLEASE INCLUDE BED ALARM ACTIVATED.
[2019-07-30] MEDS: INSULIN LISPRO 100 UNIT/1 ML 3ML VIAL SQ SCH ×7 (07:30→21:00)
--- NOTE | 2019-07-30 09:01 | Operative Report ---
DATE OF PROCEDURE: 07/29/2019 SURGEON: Chavez Thakkar MD PREOPERATIVE DIAGNOSES: 1. Obstructive BPH. 2. Urinary tract infections. 3. Gross hematuria. 4. Microhematuria. POSTOPERATIVE DIAGNOSES: 1. Obstructive BPH. 2. Urinary tract infections. 3. Gross hematuria. 4. Microhematuria. 5. Distal urethral stricture disease. 6. Post circumcision adhesions. 7. Hypospadias. OPERATIONS PERFORMED: Vikram Arroyo is a 78-year-old man with the above preoperative diagnoses. He is brought for the above procedures. The patient is status post photoselective vaporization of the prostate with a GreenLight laser 11 years ago. The patient is aware of the risks of bleeding, infection, injury to adjacent structures, incontinence, impotence, retrograde ejaculation, need for additional procedures and elected to proceed. OPERATIVE PROCEDURE IN DETAIL: Informed consent was verified. Vikram Arroyo was properly identified, taken to the operating room, placed on the cystoscopy table in supine position. Anesthesia was uneventfully begun. The patient was then carefully and gently repositioned in dorsal lithotomy position. All pressure points were padded. His genitalia were prepared and draped in the usual sterile fashion. DICTATION ENDS HERE Chavez Thakkar MD [place]/MODL /[id number]
[2019-07-30] MEDS: ASPIRIN 81 MG CHEW TAB PO SCH (09:16)
[2019-07-30] MEDS: DOCUSATE SODIUM 100 MG CAP PO SCH ×2 (09:17→17:27)
[2019-07-30] MEDS: POTASSIUM CHLORIDE 10MEQ EA PO SCH (09:17)
[2019-07-30] MEDS: FUROSEMIDE 40 MG TAB PO SCH (09:17)
[2019-07-30] MEDS: ESCITALOPRAM OXALATE 10 MG TAB PO SCH (09:18)
[2019-07-30] MEDS: GABAPENTIN 300 MG CAP PO SCH ×2 (09:19→17:27)
[2019-07-30] MEDS: METOPROLOL TARTRATE 25 MG TAB PO SCH (09:19)
[2019-07-30] MEDS: CLOPIDOGREL BISULFATE 75 MG TAB PO SCH (09:20)
[2019-07-30] MEDS: CEFTRIAXONE SOD 1 GM/NS 50 ML 50 ML IV SCH (09:20)
[2019-07-30] MEDS: AMLODIPINE BESYLATE 5 MG TAB PO SCH (09:20)
--- NOTE | 2019-07-30 09:26 | History and Physical ---
HISTORY OF PRESENT ILLNESS: Mr. Arroyo is a 78-year-old man with history of coronary artery disease, diabetes, hypertension, BPH, hyperlipidemia, who was admitted yesterday directly to the OR for a prostate surgery and then transferred to the floor. PAST MEDICAL HISTORY: He has coronary artery disease, hypertension, BPH, hyperlipidemia, stents x5, diabetes. ALLERGIES: NO KNOWN DRUG ALLERGIES. SOCIAL HISTORY: He does not smoke and he does not drink. He lives at home with his . PRIOR SURGERIES: He said for the stents, and actual surgery, he denies having any other surgeries. PHYSICAL EXAMINATION: GENERAL: Today, he is awake and alert. He is feeling a little better. VITAL SIGNS: Temperature is 97.8, blood pressure 116/70. HEART: Regular rate. LUNGS: Clear to auscultation. ABDOMEN: Soft. LABORATORY DATA: On the blood work white count is 10.09, hemoglobin is 12.8, hematocrit 38.7, potassium 3.9, creatinine is 1.25, glucose is 149. COVID test came back negative. No cultures to show. ASSESSMENT: 1. An enlarged prostate status post TURP. 2. History of coronary artery disease, status post stent. 3. Diabetes type 2 with hyperglycemia. 4. Uncontrolled hypertension. 5. Hyperlipidemia. 6. Anxiety. PLAN: At present time is to continue to monitor the patient. An ADA diet, sliding scale with insulin. Restart other home medications. He also was started on clonidine 0.1 p.r.n. for elevated blood pressure. Alprazolam for anxiety. The expected stay is going to be 24-48 hours. All this was discussed in extension with the patient and at bedside. All questions were answered to satisfaction. MD TRESSA Rodriguez/MODL /[id number]
[2019-07-30] MEDS ORDERED: ONDANSETRON HCL 4 MG ORAL DISINTEGRATING TAB PO PRN (13:15)
[2019-07-30] MEDS: TRESIBA 30 UNIT SQ SCH (21:00)
[2019-07-30] MEDS: NPH, HUMAN INSULIN ISOPHANE 100 UNIT/1 ML 3ML VIAL SQ SCH (21:00)
[2019-07-30] MEDS: ATORVASTATIN 40 MG TAB PO SCH (22:02)
[2019-07-31] VITALS (9 sets, daily range): BP systolic 123–188; BP diastolic 72–92
[2019-07-31] MEDS: SOD CHL 0.45%/POT CHL 20MEQ 1,000 ML IV SCH ×3 (02:59→14:57)
[2019-07-31 06:04] LABS: BASOPHILS % 0.3 % (0.0-1.0); EOSINOPHILS # (AUTO) 0.4 (0.0-0.4); EOSINOPHILS % 4.3 % (0.0-6.0); HEMATOCRIT 36.9 % (38.2-49.6); HEMOGLOBIN 11.9 g/dL (14.0-18.0); LYMPHOCYTES # (AUTO) 1.6 (1.0-3.2); LYMPHOCYTES % 18.3 % (18.0-39.1); MEAN CORPUSCULAR HEMOGLOBIN 30.3 pg (28-32); MEAN CORPUSCULAR HGB CONC 32.2 g/dL (31-35); MEAN CORPUSCULAR VOLUME 93.9 fL (81-99); MONOCYTES # (AUTO) 0.8 (0.2-0.8); MONOCYTES % 8.8 % (4.4-11.3); NEUTROPHILS # (AUTO) 5.9 (2.1-6.9); NEUTROPHILS % 68.2 % (38.7-80.0); PLATELET COUNT 167 x10e3/uL (140-360); RED BLOOD COUNT 3.93 x10e6/uL (4.3-5.7); RED CELL DISTRIBUTION WIDTH 13.6 % (11.7-14.4)
[2019-07-31 06:27] LABS: ANION GAP 14.2 mmol/L (8-16); BLOOD UREA NITROGEN 21 mg/dL (7-26); BUN/CREATININE RATIO 20 (6-25); CALCIUM 8.4 mg/dL (8.4-10.2); CARBON DIOXIDE 18 mmol/L (22-29); CHLORIDE 111 mmol/L (98-107); CREATININE, SERUM 1.03 mg/dL (0.72-1.25); EST GLOMERULAR FILTRATION RATE > 60 ML/MIN (60-); POTASSIUM 4.2 mmol/L (3.5-5.1); SODIUM 139 mmol/L (136-145)
[2019-07-31 06:28] LABS: GLUCOSE 58 mg/dL (74-118)
--- NOTE | 2019-07-31 06:32 | NUR ---
REPORT RECEIVED FROM LAB OF LOW BLOOD GLUCOSE LEVEL. PT IS AAOX3, NO S/SX OF LOW BS. PT REFUSED JUICES. X1 PUDDING PROVIDED.
--- NOTE | 2019-07-31 07:15 | NUR ---
REPORT GIVEN TO DAYSHIFT NURSE. RESTING IN BED. IN STABLE CONDITION. NO SIGNS OF IV INFILTRATION. BED LOCKED AND IN LOW POSITION. CALL LIGHT WITHIN REACH.
[2019-07-31] MEDS: INSULIN LISPRO 100 UNIT/1 ML 3ML VIAL SQ SCH ×7 (07:30→21:00)
[2019-07-31] MEDS: FUROSEMIDE 40 MG TAB PO SCH (09:13)
[2019-07-31] MEDS: METOPROLOL TARTRATE 25 MG TAB PO SCH (09:13)
[2019-07-31] MEDS: ESCITALOPRAM OXALATE 10 MG TAB PO SCH (09:13)
[2019-07-31] MEDS: ASPIRIN 81 MG CHEW TAB PO SCH (09:13)
[2019-07-31] MEDS: CLOPIDOGREL BISULFATE 75 MG TAB PO SCH (09:13)
[2019-07-31] MEDS: POTASSIUM CHLORIDE 10MEQ EA PO SCH (09:13)
[2019-07-31] MEDS: DOCUSATE SODIUM 100 MG CAP PO SCH ×2 (09:13→17:19)
[2019-07-31] MEDS: GABAPENTIN 300 MG CAP PO SCH ×2 (09:13→17:19)
[2019-07-31] MEDS: AMLODIPINE BESYLATE 5 MG TAB PO SCH (09:14)
[2019-07-31] MEDS: BACITRACIN ZINC 15 GM OINT TOP SCH (09:17)
[2019-07-31] MEDS: CEFTRIAXONE SOD 1 GM/NS 50 ML 50 ML IV SCH (11:39)
[2019-07-31] MEDS: METFORMIN HCL 500 MG TAB CR PO SCH ×2 (12:15→17:19)
[2019-07-31] MEDS: TRESIBA 30 UNIT SQ SCH (21:00)
[2019-07-31] MEDS: NPH, HUMAN INSULIN ISOPHANE 100 UNIT/1 ML 3ML VIAL SQ SCH (21:00)
[2019-07-31] MEDS: ATORVASTATIN 40 MG TAB PO SCH (21:58)
[2019-07-31] MEDS: ALPRAZOLAM 1 MG TAB PO PRN (22:05)
[2019-08-01] VITALS: BP 149/93
[2019-08-01] MEDS: SOD CHL 0.45%/POT CHL 20MEQ 1,000 ML IV SCH ×2 (01:50→08:00)
[2019-08-01 04:00] VITALS: BP 160/90
--- NOTE | 2019-08-01 04:21 | Discharge Summary ---
HOSPITAL COURSE: Mr. Arroyo is a 78-year-old man with history of coronary artery disease, status post stent, diabetes, hypertension, BPH, hyperlipidemia, was a direct admission to the OR for prostate surgery. At present time, the patient is doing better and once he gets cleared by Dr. Thakkar, he is going to be able to go home. PHYSICAL EXAMINATION: GENERAL: He is awake and alert. He is feeling better. VITAL SIGNS: Temperature is 98.1, blood pressure 152/76. HEART: Regular rate. LUNGS: Clear to auscultation. ABDOMEN: Distended and soft. LABORATORY DATA: On the blood work; white count is 8.59, hemoglobin 11.9, hematocrit 36.9. Potassium is 4.2, creatinine is 1.03, glucose was 58. DISCHARGE DIAGNOSES: 1. Status post prostatic surgery, status post transurethral resection of prostate. 2. Coronary artery disease, status post stent. 3. Diabetes type 2, uncontrolled. 4. Hypertension. 5. Hyperlipidemia. 6. Anxiety. 7. Diabetes with peripheral neuropathy. 8. Peripheral neuropathy. PLAN: At present time is to discharge the patient home if it is okay with Dr. Thakkar. Continue ADA diet. Continue home medications. He needs to follow up with me in one week. All this was discussed with the patient. All questions were answered to satisfaction. Please see home medication reconciliation list. MD TRESSA Rodriguez/LEODAN /[id number]
[2019-08-01 05:40] LABS: BASOPHILS % 0.6 % (0.0-1.0); EOSINOPHILS # (AUTO) 0.4 (0.0-0.4); EOSINOPHILS % 6.1 % (0.0-6.0); HEMOGLOBIN 11.2 g/dL (14.0-18.0); LYMPHOCYTES # (AUTO) 1.8 (1.0-3.2); LYMPHOCYTES % 25.2 % (18.0-39.1); MEAN CORPUSCULAR HEMOGLOBIN 28.9 pg (28-32); MEAN CORPUSCULAR VOLUME 90.2 fL (81-99); MONOCYTES # (AUTO) 0.8 (0.2-0.8); MONOCYTES % 10.5 % (4.4-11.3); NEUTROPHILS # (AUTO) 4.2 (2.1-6.9); NEUTROPHILS % 57.3 % (38.7-80.0); PLATELET COUNT 187 x10e3/uL (140-360); RED BLOOD COUNT 3.88 x10e6/uL (4.3-5.7); RED CELL DISTRIBUTION WIDTH 13.4 % (11.7-14.4)
[2019-08-01 06:23] LABS: CALCIUM 8.5 mg/dL (8.4-10.2); CARBON DIOXIDE 21 mmol/L (22-29); CHLORIDE 106 mmol/L (98-107); CREATININE, SERUM 1.01 mg/dL (0.72-1.25); EST GLOMERULAR FILTRATION RATE > 60 ML/MIN (60-); GLUCOSE 196 mg/dL (74-118); SODIUM 137 mmol/L (136-145)
[2019-08-01 07:14] LABS: BLOOD UREA NITROGEN 16 mg/dL (7-26); BUN/CREATININE RATIO 16 (6-25)
[2019-08-01] MEDS: CLONIDINE HCL 0.1 MG TAB PO PRN (07:51)
[2019-08-01] MEDS: AMLODIPINE BESYLATE 5 MG TAB PO SCH (07:51)
[2019-08-01] MEDS: METOPROLOL TARTRATE 25 MG TAB PO SCH (07:51)
[2019-08-01 08:04] VITALS: BP 218/115
[2019-08-01] MEDS: METFORMIN HCL 500 MG TAB CR PO SCH (08:04)
[2019-08-01] MEDS: POTASSIUM CHLORIDE 10MEQ EA PO SCH (08:10)
[2019-08-01] MEDS: ASPIRIN 81 MG CHEW TAB PO SCH (08:10)
[2019-08-01] MEDS: FUROSEMIDE 40 MG TAB PO SCH (08:10)
[2019-08-01] MEDS: DOCUSATE SODIUM 100 MG CAP PO SCH (08:10)
[2019-08-01] MEDS: ESCITALOPRAM OXALATE 10 MG TAB PO SCH (08:10)
[2019-08-01] MEDS: GABAPENTIN 300 MG CAP PO SCH (08:11)
[2019-08-01] MEDS: CLOPIDOGREL BISULFATE 75 MG TAB PO SCH (08:11)
[2019-08-01] MEDS: BACITRACIN ZINC 15 GM OINT TOP SCH (08:11)
[2019-08-01] MEDS: INSULIN LISPRO 100 UNIT/1 ML 3ML VIAL SQ SCH ×4 (08:12→11:30)
[2019-08-01 08:18] VITALS: BP 218/115
[2019-08-01] MEDS: CEFTRIAXONE SOD 1 GM/NS 50 ML 50 ML IV SCH (10:07)
[2019-08-01] MEDS ORDERED: TYLENOL WITH C1 EACH PO (12:05)
[2019-08-01] MEDS ORDERED: LEVOFLOXACIN250 MG PO (12:06)
[2019-08-01 12:09] VITALS: BP 124/76
== END 2019-08-01 13:40 | disposition home or self-care (01) | DRG 709 ==
LOC: OR 09:20 → PACU V 14:42 → MED/SURG 15:35
PROVIDERS: ADMIT Internal Medicine; ATTEND Internal Medicine
PROC: 0VN Male Reproductive System, Release (ICD-10-PCS; 2019-07-29)
PROC: 0T7D8ZZ Dilation of Urethra, Via Natural or Artificial Opening Endoscopic (ICD-10-PCS; 2019-07-29)
PROC: 0T788ZZ Dilation of Bilateral Ureters, Via Natural or Artificial Opening Endoscopic (ICD-10-PCS; 2019-07-29)
PROC: BT141ZZ Fluoroscopy of Kidneys, Ureters and Bladder using Low Osmolar Contrast (ICD-10-PCS; 2019-07-29)
PROC: 0VB08ZZ Excision of Prostate, Via Natural or Artificial Opening Endoscopic (ICD-10-PCS; principal; 2019-07-29 11:30)
DX: N40.1 Benign prostatic hyperplasia with lower urinary tract symptoms (principal); N13.8 Other obstructive and reflux uropathy; N39.0 Urinary tract infection, site not specified; N47.5 Adhesions of prepuce and glans penis; I25.10 Atherosclerotic heart disease of native coronary artery without angina pectoris; Z95.5 Presence of coronary angioplasty implant and graft; E11.65 Type 2 diabetes mellitus with hyperglycemia; E11.42 Type 2 diabetes mellitus with diabetic polyneuropathy; F41.9 Anxiety disorder, unspecified; I10 Essential (primary) hypertension; E78.5 Hyperlipidemia, unspecified; Q54.9 Hypospadias, unspecified; N35.919 Unspecified urethral stricture, male, unspecified site; I25.2 Old myocardial infarction; N32.81 Overactive bladder; E27.9 Disorder of adrenal gland, unspecified; N39.498 Other specified urinary incontinence
CPT/HCPCS: 36415; 71046; 74420; 80048; 82948; 83735; 85025; 93005; C1758; J0696; J1100; J1170; J1580; J2001; J2270; J2405; J3010; U0002

== ENCOUNTER 2019-08-09 18:44 | Inpatient (IN) | payer OTHER, MEDICARE ==
[~2019-08-09] VITALS: Ht 172.7 cm; Wt 87.6 kg
[~2019-08-09 18:44] MED LIST changes: +LEVOFLOXACIN250 MG PO; +TYLENOL WITH C1 EACH PO
--- NOTE | 2019-08-09 19:58 | Emergency Department Note ---
History of Present Illnes History of Present Illness Chief Complaint: General Medicine Complaints History of Present Illness This is a 78 year old male PATIENT IN FROM HOME; PER EMS, FAMILY CALLED FOR PATIENT BEING UNRESPONSIVE. PATIENT HYPOTENSIVE AT HOME, RECENTLY HAD A PROSTATE SURGERY. FAMILY DESCRIBES HE PASSED OUT, SHE ALOS STATES WHEN IT HAPPENED SHE BEGAN TO DO CHEST COMPRESSIONS ON PT, I ASKED IF SHE CHECKED FOR A PULSE FIRST AND SHE SAID HE HAD ONE BUT IT FELT WEAK. P IS ALSO STILL HAVING HEMATURIA FROM PROSTATE SURGERY A COUPLE OF WEEKS AGO. Historian: Patient, Catering Assistant/EMS Arrival Mode: [facility] EMS Treatment SAL[employer]ETING: IV Onset (how long ago): hour(s) (2) Location: NONE Quality: BECAME UNRESPONSIVE Severity: moderate Onset quality: sudden Duration (how long): hour(s) (2) Progression: resolved Chronicity: new Context: Reports recent surgery (PROSTATE 2 WEEKS AGO) Relieving factors: none Exacerbating factors: none Associated symptoms: Reports other (GENERALIZED WEAKNESS) Treatments prior to arrival: none Past Medical/Family History Physician Review I have reviewed the patient's past medical and family history. Any updates have been documented here. Past Medical History Recent Fever: No Clinical Suspicion of Infectio: No New/Unexplained Change in Ment: No Past Medical History: Hypertension, Diabetes, CVA, CAD Other Medical History: neuropathy Past Surgical History: Appendectomy, PCI Other Surgery: HEART STENTS X2 L shoulder surgery ankle CYSTOSCOPY Social History Smoking Cessation: Never Smoker Alcohol Use: None Any Illegal Drug Use: No Family History Family history of heart diseas: No Other Last Tetanus: Unknown Review of Systems Review of Systems Constitutional: Reports no symptoms EENTM: Reports no symptoms Cardiovascular: Reports no symptoms Respiratory: Reports no symptoms Gastrointestinal: Reports no symptoms Genitourinary: Reports as per HPI Musculoskeletal: Reports no symptoms Integumentary: Reports no symptoms Neurological: Reports as per HPI Psychological: Reports no symptoms Endocrine: Reports no symptoms Hematological/Lymphatic: Reports no symptoms Physical Exam Related Data Allergies: Coded Allergies: No Known Drug Allergies (Unverified Allergy, Unknown, 12/23/17) Triage Vital Signs Vital Signs Date Time Temp Pulse Resp B/P (MAP) Pulse Ox O2 Delivery O2 Flow Rate FiO2 08/09/19 18:57 98.9 76 16 124/82 99 Vital signs reviewed: Yes Physical Exam CONSTITUTIONAL Constitutional: Present well-developed, Present well-nourished HENT HENT: Present normocephalic, Present atraumatic, Present oropharynx clear/moist, Present nose normal HENT L/R: Present left ext ear normal, Present right ext ear normal EYES Eyes: Reports PERRL, Reports conjunctivae normal NECK Neck: Present ROM normal PULMONARY Pulmonary: Present effort normal, Present breath sounds normal CARDIOVASCULAR Cardiovascular: Present regular rhythm, Present heart sounds normal, Present capillary refill normal, Present normal rate GASTROINTESTINAL Abdominal: Present soft, Present nontender, Present bowel sounds normal GENITOURINARY Genitourinary: Present exam deferred, Present other (CABELLO WITH LEG BAG WITH HEMATURIA.) SKIN Skin: Present warm, Present dry MUSCULOSKELETAL Musculoskeletal: Present ROM normal NEUROLOGICAL Neurological: Present alert, Present oriented x 3, Present no gross motor or sensory deficits PSYCHOLOGICAL Psychological: Present mood/affect normal, Present judgement normal Results Laboratory Laboratory Laboratory Tests Test 08/09/19 22:05 08/09/19 20:43 Bedside Glucose 64 mg/dL (70-120) White Blood Count 10.52 x10e3/uL (4.8-10.8) Red Blood Count 3.51 x10e6/uL (4.3-5.7) Hemoglobin 10.2 g/dL (14.0-18.0) Hematocrit 30.8 % (38.2-49.6) Mean Corpuscular Volume 87.7 fL (81-99) Mean Corpuscular Hemoglobin 29.1 pg (28-32) Mean Corpuscular Hemoglobin Concent 33.1 g/dL (31-35) Red Cell Distribution Width 13.2 % (11.7-14.4) Platelet Count 274 x10e3/uL (140-360) Neutrophils (%) (Auto) 82.0 % (38.7-80.0) Lymphocytes (%) (Auto) 10.0 % (18.0-39.1) Monocytes (%) (Auto) 6.4 % (4.4-11.3) Eosinophils (%) (Auto) 0.9 % (0.0-6.0) Basophils (%) (Auto) 0.4 % (0.0-1.0) Neutrophils # (Auto) 8.6 (2.1-6.9) Lymphocytes # (Auto) 1.1 (1.0-3.2) Monocytes # (Auto) 0.7 (0.2-0.8) Eosinophils # (Auto) 0.1 (0.0-0.4) Basophils # (Auto) 0.0 (0.0-0.1) Absolute Immature Granulocyte (auto 0.03 x10e3/uL (0-0.1) Prothrombin Time 13.0 seconds (11.9-14.5) Prothromb Time International Ratio 0.93 Activated Partial Thromboplast Time 26.3 seconds (23.8-35.5) Sodium Level 137 mmol/L (136-145) Potassium Level 3.4 mmol/L (3.5-5.1) Chloride Level 104 mmol/L (98-107) Carbon Dioxide Level 26 mmol/L (22-29) Anion Gap 10.4 mmol/L (8-16) Blood Urea Nitrogen 23 mg/dL (7-26) Creatinine 1.71 mg/dL (0.72-1.25) Estimat Glomerular Filtration Rate 39 ML/MIN (60-) BUN/Creatinine Ratio 13 (6-25) Glucose Level 53 mg/dL (74-118) Calcium Level 8.3 mg/dL (8.4-10.2) Creatine Kinase 91 IU/L (30-200) Creatine Kinase MB 3.20 ng/mL (0-5.0) Troponin I 0.005 ng/mL (0-0.300) Lab results reviewed: Yes Imaging Imaging results reviewed: Yes Impressions Procedure: [id number] DX/CHEST SINGLE (PORTABLE) Exam Date: 08/09/19 Exam Time: 1999 REPORT STATUS: Signed EXAMINATION: CHEST SINGLE (PORTABLE) INDICATION: Syncope COMPARISON: Chest x-ray 07/24/2019; abdominal CT 10/03/2018 FINDINGS: TUBES and LINES: None. LUNGS: Normal lung volumes. Lungs are clear. No consolidations. PLEURA: No pleural effusion or pneumothorax. HEART AND MEDIASTINUM: The cardiomediastinal silhouette is unremarkable. Aortic calcifications. BONES AND SOFT TISSUES: No acute osseous lesion. Soft tissues are unremarkable. UPPER ABDOMEN: No free air under the diaphragm. IMPRESSION: No acute thoracic radiographic abnormality although sensitivity along film evaluation is limited due to portable AP technique and patient body habitus.. Signed by: David Levine DO on 08/09/2019 9:15 PM Procedure: [id number] CT/CT BRAIN WO Exam Date: 08/09/19 Exam Time: 2004 REPORT STATUS: Signed CT BRAIN WO HISTORY: Syncope COMPARISON: Head CT 03/26/2017 Technique: Noncontrast axial scans were obtained from skull base to the vertex. Coronal and sagittal reconstructions obtained from the axial data. One or more of the following dose reduction techniques were used: Automated exposure control, adjustment of the mA and/or kV according to patient size, and/or utilization of iterative reconstruction technique. DISCUSSION: Scalp/Skull: Unremarkable. Brain sulci: Mildly prominent. Ventricles: Compensatory dilatation. Extra-axial spaces: No masses or fluid collections. Carotid and vertebral artery calcifications are present. Parenchyma: Moderate bilateral deep white matter hypodensity is likely chronic microvascular ischemic change. Otherwise, no masses, hemorrhage, or large vascular territory acute infarct. Dural sinuses: No abnormal densities. Sellar/Suprasellar region: Intact. Skull base: Intact. Incidental findings: Bilateral ocular lens replacement. IMPRESSION: 1. No acute intracranial abnormalities. 2. Moderate supratentorial chronic microvascular ischemic change. Mild generalized cerebral volume loss. Signed by: Dr. Jason Manley M.D. on 08/09/2019 8:27 PM Procedures 12 Lead ECG Interpretation ECG Interpretation : ECG: ECG 1 Die Setter: Interpreted by ED physician Date: Aug 09, 2019 Time: 19:03 Rhythm: sinus rhythm Rate: normal BPM: 70 QRS axis: normal Conduction: LAFB T waves normal: Yes Clinical Impression: abnormal ECG Additional Comments SINUS ARRHYTHMIA Assessment & Plan Medical Decision Making MDM PT HAD SYNCOPAL EPISODE CBC, BMP, EKG, CARDIAC ENZYMES, UA, CXR, CT BRAIN ORDERED TO EVAL FOR ARRYTHMIA, MYOCARDIAL INFARCTION, ANEMIA, ELECTROLYTE ABNORMALITY, INTRACRANIAL ABNORMALITY, UTI, PNEUMONIA PT' HEART RATE DROPS INTO 50'S OCCASIONALLY, APPEARS TO HAVE MARKED SINUS ARRHYTHMIA I SPOKE WITH DR VILLALBA, DR DICKINSON, AND DR ADAMS, PER DR VILLALBA ADMIT PT INPATIENT STATUS Assessment & Plan Final Impression: (1) Syncopal episodes (2) Sinus arrhythmia (3) Sinus arrhythmia seen on electrocardiogram (4) Sinus arrhythmia seen on electrocardiography (5) Hematuria Depart Disposition: ADMITTED Last Vital Signs Date Time Temp Pulse Resp B/P (MAP) Pulse Ox O2 Delivery O2 Flow Rate FiO2 08/09/19 18:57 98.9 76 16 124/82 99 Home Meds Reported Medications Levofloxacin (LEVOFLOXACIN) 250 Mg Tablet, 250 MG PO DAILY for 7 Days, TAB 08/01/19 Acetaminophen With Codeine (TYLENOL WITH CODEINE #3 TABLET) 1 Each Tablet, 300 MG PO, TAB 08/01/19 Gabapentin (GABAPENTIN) 300 Mg Capsule, 300 MG PO BID, #60 CAP 07/29/19 Amlodipine Besylate (AMLODIPINE BESYLATE) 5 Mg Tablet, 5 MG PO DAILY, #30 TAB 07/16/18 Insulin Human Nph (HUMULIN N) 100 Units/Ml Ml, 40 UNITS SC HS 07/12/18 Escitalopram Oxalate (LEXAPRO) 10 Mg Tablet, 10 MG PO DAILY, #30 TAB 07/12/18 Potassium Chloride (POTASSIUM CHLORIDE) 10 Meq Tab.er.prt, 10 MEQ PO DAILY, TAB 07/12/18 Metformin Hcl (METFORMIN HCL ER) 500 Mg Tab.er.24h, 1000 MG PO BID 07/11/18 Furosemide (FUROSEMIDE) 40 Mg Tablet, 40 MG PO DAILY 07/11/18 [Tresiba] UNITS No Conflict Check, 30 UNITS SC HS 12/23/17 Insulin Lispro (HUMALOG) 100 Unit/1 Ml Insuln.pen, 25 UNITS SC AC 12/23/17 Atorvastatin Calcium (ATORVASTATIN CALCIUM) 40 Mg Tablet, 40 MG PO HS 12/23/17 Aspirin (ASPIR 81) 81 Mg Tablet.dr, 81 MG PO DAILY 12/17/17 Metoprolol Tartrate (METOPROLOL TARTRATE) 50 Mg Tablet, 25 MG PO DAILY, TAB 12/17/17 Clopidogrel Bisulfate* (PLAVIX) 75 Mg Tablet, 75 MG PO DAILY, #30 TAB 03/26/17 LIAT CAZARES MD Aug 09, 2019 19:58
--- NOTE | 2019-08-09 20:30 | Diagnostic Imaging Report ---
CT BRAIN WO HISTORY: Syncope COMPARISON: Head CT 03/26/2017 Technique: Noncontrast axial scans were obtained from skull base to the vertex. Coronal and sagittal reconstructions obtained from the axial data. One or more of the following dose reduction techniques were used: Automated exposure control, adjustment of the mA and/or kV according to patient size, and/or utilization of iterative reconstruction technique. DISCUSSION: Scalp/Skull: Unremarkable. Brain sulci: Mildly prominent. Ventricles: Compensatory dilatation. Extra-axial spaces: No masses or fluid collections. Carotid and vertebral artery calcifications are present. Parenchyma: Moderate bilateral deep white matter hypodensity is likely chronic microvascular ischemic change. Otherwise, no masses, hemorrhage, or large vascular territory acute infarct. Dural sinuses: No abnormal densities. Sellar/Suprasellar region: Intact. Skull base: Intact. Incidental findings: Bilateral ocular lens replacement. IMPRESSION: 1. No acute intracranial abnormalities. 2. Moderate supratentorial chronic microvascular ischemic change. Mild generalized cerebral volume loss. Signed by: Dr. Jason Manley M.D. on 08/09/2019 8:27 PM
--- NOTE | 2019-08-09 21:19 | Diagnostic Imaging Report ---
EXAMINATION: CHEST SINGLE (PORTABLE) INDICATION: Syncope COMPARISON: Chest x-ray 07/24/2019; abdominal CT 10/03/2018 FINDINGS: TUBES and LINES: None. LUNGS: Normal lung volumes. Lungs are clear. No consolidations. PLEURA: No pleural effusion or pneumothorax. HEART AND MEDIASTINUM: The cardiomediastinal silhouette is unremarkable. Aortic calcifications. BONES AND SOFT TISSUES: No acute osseous lesion. Soft tissues are unremarkable. UPPER ABDOMEN: No free air under the diaphragm. IMPRESSION: No acute thoracic radiographic abnormality although sensitivity along film evaluation is limited due to portable AP technique and patient body habitus.. Signed by: David Levine DO on 08/09/2019 9:15 PM
[2019-08-09 21:20] LABS: BASOPHILS % 0.4 % (0.0-1.0); EOSINOPHILS # (AUTO) 0.1 (0.0-0.4); EOSINOPHILS % 0.9 % (0.0-6.0); HEMATOCRIT 30.8 % (38.2-49.6); HEMOGLOBIN 10.2 g/dL (14.0-18.0); LYMPHOCYTES # (AUTO) 1.1 (1.0-3.2); MEAN CORPUSCULAR HEMOGLOBIN 29.1 pg (28-32); MEAN CORPUSCULAR HGB CONC 33.1 g/dL (31-35); MEAN CORPUSCULAR VOLUME 87.7 fL (81-99); MONOCYTES # (AUTO) 0.7 (0.2-0.8); MONOCYTES % 6.4 % (4.4-11.3); NEUTROPHILS # (AUTO) 8.6 (2.1-6.9); PLATELET COUNT 274 x10e3/uL (140-360); RED BLOOD COUNT 3.51 x10e6/uL (4.3-5.7); RED CELL DISTRIBUTION WIDTH 13.2 % (11.7-14.4)
[2019-08-09 21:31] LABS: INR 0.93; PARTIAL THROMBOPLASTIN TIME 26.3 seconds (23.8-35.5)
[2019-08-09 21:40] LABS: ANION GAP 10.4 mmol/L (8-16); CALCIUM 8.3 mg/dL (8.4-10.2); CREATININE, SERUM 1.71 mg/dL (0.72-1.25); POTASSIUM 3.4 mmol/L (3.5-5.1)
[2019-08-09 21:46] LABS: CREATINE KINASE MB 3.2 ng/mL (0-5.0)
[2019-08-09] MEDS ORDERED: DEXTROSE 50% SYRINGE 50 ML IV STA (22:06)
[2019-08-09] MEDS ORDERED: DEXTROSE 50% SYRINGE 50 ML IV ONE (22:13)
[2019-08-10] VITALS (8 sets, daily range): BP systolic 123–178; BP diastolic 78–103
[2019-08-10] MEDS ORDERED: DEXTROSE 50% SYRINGE 50 ML IV PRN (00:30)
[2019-08-10] MEDS ORDERED: SODIUM CHLORIDE FLUSH 10 ML SYR INJ PRN (00:30)
[2019-08-10] MEDS ORDERED: ONDANSETRON HCL INJ 2MG/ML 2ML 2 MG/ML VIAL IV PRN (00:30)
[2019-08-10 01:19] LABS: BILIRUBIN,URINE MODERATE (NEGATIVE); CLARITY,URINE CLOUDY (CLEAR); COLOR,URINE RED (YELLOW); KETONES,URINE TRACE (NEGATIVE); LEUKOCYTE ESTERASE ,URINE NEGATIVE (NEGATIVE); NITRITE,URINE NEGATIVE (NEGATIVE); URINE UROBILINOGEN 1 mg/dL (0.2 - 1)
[2019-08-10 01:20] LABS: PROTEIN,URINE DIPSTICK 3+ (NEGATIVE)
[2019-08-10 01:24] LABS: BACTERIA,URINE FEW /HPF; EPITHELIAL CELLS,URINE FEW /LPF; RBC,URINE >50 /HPF (0-5)
--- NOTE | 2019-08-10 03:51 | NUR ---
RECEIVED REPORT FROM GILBERT, ER NURSE. PATIENT ARRIVED VIA STRETCHER WITH THEIR OWN CLOTHES OWN AND A CABELLO DRAINING RED URINE. CALL LIGHT WITHIN REACH. PATIENT IN BED AND A&OX3.
[2019-08-10 06:28] LABS: CREATINE KINASE MB 2.6 ng/mL (0-5.0)
--- NOTE | 2019-08-10 07:10 | NUR ---
PATIENT IS ALERT, AWAKE, AND IN STABLE CONDITION WITH NO S/S OF RESPIRATORY DISTRESS. NO PAIN VOICED. CABELLO INTACT AND DRAINING; URINE IS DARK RED. TELEMETRY APPLIED. BED ALARM APPLIED. CALL LIGHT IS WITHIN REACH, PATIENT INSTRUCTED TO CALL FOR ASSISTANCE NEEDED.
--- NOTE | 2019-08-10 07:28 | NUR ---
GAVE BEDSIDE SHIFT REPORT TO ONCOMING NURSE. PATIENT IN BED. CALL LIGHT WITHIN REACH. HOURLY ROUNDING PERFORMED. PATIENT IS A&OX3.
[2019-08-10] MEDS: INSULIN REGULAR, HUMAN 100 UNIT/1 ML 3ML VIAL SQ SCH ×4 (07:30→21:00)
[2019-08-10] MEDS ORDERED: LINZESS145 MCG (08:22)
[2019-08-10] MEDS ORDERED: MELATONIN3 MG PO (08:22)
[2019-08-10] MEDS ORDERED: METOPROLOL TARTRATE 25 MG TAB PO SCH (09:00)
[2019-08-10] MEDS: FUROSEMIDE 40 MG TAB PO SCH (10:02)
[2019-08-10] MEDS: ESCITALOPRAM OXALATE 10 MG TAB PO SCH (10:02)
--- NOTE | 2019-08-10 10:30 | NUR ---
SPOKE WITH SARATH AUGUST N.P. OF DR. DICKINSON REGARDING PATIENT'S EKG AND TELEMETRY RHYTHMS. PATIENT IS CURRENT SINUS RHYTHM AT THE MOMENT. N.P. WILL STOP THE METOPROLOL- NO NEW ORDERS GIVEN BUT TO MONITOR PATIENT.
[2019-08-10 11:15] LABS: THYROID STIMULATING HORMONE 0.822 uIU/mL (0.350-4.940)
[2019-08-10] MEDS ORDERED: POTASSIUM CHLORIDE 20 MEQ TAB CR PO ONE (11:50)
--- NOTE | 2019-08-10 12:25 | NUR ---
INFORMED N.P., SARATH AUGUST, OF PATIENT'S BP OF 172/88. NO NEW ORDERS GIVEN AT THIS TIME.
[2019-08-10] MEDS: AMLODIPINE BESYLATE 5 MG TAB PO SCH (12:57)
--- NOTE | 2019-08-10 13:50 | NUR ---
URINARY CARE PROVIDED TO PATIENT WELL IRRIGATION. NEW STAT LOCK APPLIED. OUTPUT: 900CC OF URINE (DARK RED NO CLOTS NOTED). PRESENT AT BEDSIDE.
--- NOTE | 2019-08-10 14:32 | Consultation ---
DATE OF CONSULTATION: 08/10/2019 REASON FOR CONSULTATION: Cardiac arrhythmia. CHIEF COMPLAINT: Weakness, hematuria. HISTORY OF PRESENT ILLNESS: This is a 78-year-old male, well known to practice with history of CAD, status post PCI, hypertension, hyperlipidemia, diabetes, CVA with left-sided weakness, and reflux disease. The patient presents to [facility] ER with complaints of weakness, fatigue, and hematuria, was noted with sinus arrhythmia. Cardiology was consulted to evaluate the patient. The patient is seen in room. He reports he does not know what happened yesterday. Reports that he felt dizzy, weak for the past several days. However, yesterday while sitting in his chair, he "passed out." He is not quite sure what happened. Next recollection that he was here in the ER. Denies any chest pains or shortness of breath. Does report hematuria post TURP. Has been off his aspirin and Plavix for several weeks. Denies any chest pains or shortness of breath. Telemetry reviewed, noted second-degree heart block type 1 and intermittent type 2, on beta-elvia therapy. Currently, EKG done at bedside showing first-degree heart block. The patient reports he feels back to baseline. 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 PAST SURGICAL HISTORY: Multiple PCIs, left ankle, lumbar laminectomy, bilateral cataract, and left shoulder. FAMILY HISTORY: Mother at age 72, history of hypertension and diabetes. Father of unknown cause of . HOME MEDICATIONS: Include Lasix 40 mg daily, aspirin 81 mg daily, Clopidogrel 75 mg daily, atorvastatin 40 mg daily, metoprolol 25 mg b.i.d., Tresiba 30 units at bedtime, metformin 1000 mg twice a day, gabapentin 300 mg twice a day, Lexapro 10 mg twice a day, and Protonix 40 mg twice a day. ALLERGIES: NO KNOWN ALLERGIES. REVIEW OF SYSTEMS: GENERAL: Denies any weight changes. Positive for fatigue and weakness. No fevers or chills. SKIN: No rashes or bruises. HEENT: No nausea, vomiting, vision changes, blurred vision, double vision, epistaxis, sore throat, or swollen neck. CARDIAC: Denies any chest pain or palpitations. Positive for dyspnea on exertion. No orthopnea, PND, or lower extremity edema. RESPIRATORY: Denies any shortness of breath, wheezing, coughing, or hemoptysis. GI: Reports good appetite. No nausea, vomiting, diarrhea, or constipation. : Reports hematuria for the past several weeks, status post TURP. VASCULAR: Denies any lower extremity edema or claudication. MUSCULOSKELETAL: Positive for generalized joint pains and back pain. NEUROLOGIC: Denies any numbness or tingling. Positive for "passing out." Denies any seizures. HEMATOLOGY: Denies any bruising or anemia. ENDOCRINE: Denies any heat or cold intolerance, any polyuria, polydipsia, or polyphagia. PHYSICAL EXAMINATION: VITAL SIGNS: Height 68 inches, weight 209 pounds. Temperature 98.5, pulse 73, respiratory rate 18, blood pressure 163/90, and pulse ox 98% on room air. GENERAL: Appears stated age, reliable informant. SKIN: No rashes or bruises noted. HEENT: Normocephalic. Pupils are equal and reactive. Extraocular movements intact. Trachea midline. No JVD. No carotid bruits noted. HEART: Regular rate and rhythm. PMI about 4th and 5th intercostal space. LUNGS: Clear to auscultation. Good airway entry and exit. ABDOMEN: Soft, nontender, and nondistended. No organomegaly. MUSCULOSKELETAL: Good muscle strength throughout. No lower extremity edema noted. VASCULAR: +2 radial pulses bilaterally. +1 DP/PT pulses bilaterally. NEUROLOGIC: Cranial nerves 2 through 12 seem intact. LABORATORY DATA: White count 10, hemoglobin 10, hematocrit 30, and platelets 274. Chemistry; sodium 137, potassium 3.4, chloride 104, bicarb 26, BUN 23, creatinine 1.7, and glucose of 53. Troponin 0.005, next 0.012. Chest x-ray, no acute abnormalities. CT of the brain, no acute intracranial abnormalities. EKG showing first-degree AV block. Telemetry reviewed, showing intermittent second-degree AV block type 1/type 2. ASSESSMENT: 1. Syncopal episode. 2. 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 3. Diabetes with hypoglycemia. 4. Hypertension. 5. Hyperlipidemia. PLAN: The patient presents to [facility] ER for reported syncopal episode, noted to be in first-degree AV block on EKG. However, tele reviewed, showing intermittent second-degree AV block type 1 and 2. We will discontinue AV cristobal blocking agents. Also, the patient presents with a hematuria. We will hold anti- platelet therapy. Continue the patient on telemetry monitoring. We will do echo to evaluate heart function and structure. We will continue to follow. Further recommendations as clinical course dictates. Thank you very much for this consult. Seen and examined Agree with note Dictated by Josh Kamara, NIA Jorge Luis Liriano MD DC/LEODAN /[id number] MTDMargaux
[2019-08-10 14:44] LABS: CREATINE KINASE MB 2.4 ng/mL (0-5.0)
[2019-08-10 14:49] LABS: CHOL/HDL RATIO 2.8 (3.9-4.7)
--- NOTE | 2019-08-10 18:08 | Consultation ---
DATE OF CONSULTATION: 08/10/2019 REASON FOR CONSULTATION: Syncope and bradycardia. HISTORY OF PRESENT ILLNESS: Mr. Arroyo is a 78-year-old man with a history of coronary artery disease with coronary intervention, hypertension, hyperlipidemia, cerebral vascular accident as well as diabetes mellitus, who [facility] with [facility]. The patient states that he has been feeling fatigue and weak for the past several weeks and he did not call, because syncopal episode though his witnessed the event. Based on her report, the patient was in his usual state and then suddenly became incoherent and was speaking gibberish and so he had a syncopal episode. EMS was called and the patient was brought to the hospital. He currently is being worked up for syncope and telemetry demonstrated episodes of second-degree heart block. Both Wenckebach as well as type 2 heart block. The patient does have sinus dysrhythmia, but more so sinoatrial block as well. He has been taking beta blockers she requires for his coronary artery disease. REVIEW OF SYSTEMS: He currently denies any fevers, chills, lightheadedness, dizziness, discharge from the eyes, nose, mouth, swollen of lymph nodes in the neck or groin, chest pains, palpitations, shortness of breath, coughing, abdominal pain, nausea, vomiting, dysuria, hematuria, swelling in the joints, joint pain, numbness, tingling, weakness, swelling in the legs or arms, skin rashes or ulcers, swelling in the legs or arms, depression or anxiety. PAST MEDICAL HISTORY: As noted above. PAST SURGICAL HISTORY: Percutaneous coronary intervention. The patient has not had any other cardiac surgeries. FAMILY HISTORY: No significant history of early cardiac or sudden arrhythmias. MEDICATIONS: Please see MAR. The patient had been taking metoprolol for which he currently is discontinued. He was using it for his coronary disease. ALLERGIES: NO KNOWN DRUG ALLERGIES. SOCIAL HISTORY: The patient denies smoking cigarettes, drinking alcohol, or using illicit drugs. PHYSICAL EXAMINATION: VITAL SIGNS: Temperature is 98.5, heart rate currently is in a sinus 70s, respiratory rate is 12, and blood pressure 151/103. GENERAL: No acute distress. Alert, awake, oriented x3. HEENT: Normocephalic, atraumatic. Pupils equal, reactive to light. NECK: No supraclavicular, submandibular lymphadenopathy appreciated. CV: S1, S2. Regular rate and rhythm. RESPIRATORY: Good air entry globally. No issues. MUSCULOSKELETAL: No effusions or erythema noted in the knees or elbows bilaterally. GI. Abdomen is soft, nontender. : No bladder fullness. No CVA tenderness. The patient has a Moore catheter with some bloody urine. NEURO: Moves all extremities spontaneously. No focal deficits. EXTREMITIES: No edema in lower extremities or upper extremities bilaterally. SKIN: No bruising or ulcers noted. PSYCH: Mood is normal. Answers questions appropriately. LABORATORY DATA: Hemoglobin 10.2, platelets 64. INR is 0.9. Transthoracic echocardiogram demonstrates normal left ventricle ejection fraction. ASSESSMENT AND PLAN: Mr. Arroyo is a 78-year-old man with history of coronary artery disease status post percutaneous coronary intervention on beta-elvia therapy for coronary artery disease, hypertension, and diabetes mellitus, who presents to the hospital after having syncopal episode. The patient was noted to have second- degree heart block with type 1 and type 2 morphology. The patient on EKG noted to have sinoatrial block. The patient is need of having beta-elvia therapy for his coronary artery disease as well as evidence of conduction abnormality and syncopal episode. The patient does meet the medical indications for dual-chamber pacemaker implantation. I have discussed this with the patient as well as his over the telephone. We discussed the procedure in detail as well as the risks and benefits. The patient's and him would like to decide on whether or not they want to have the procedure performed. Discussed this with the Cardiology service as well. EP will continue to follow. Thank you very much for allowing me to participate in Mr. Arroyo's care. DO AKUA BATES/LEODAN /[id number] MTDMargaux
--- NOTE | 2019-08-10 19:32 | NUR ---
PATIENT IS IN STABLE CONDITION WITH NO S/S OF RESPIRATORY DISTRESS. NO PAIN VOICED. CABELLO INTACT AND DRAINING; URINE IS DARK RED IN COLOR. BED ALARM APPLIED. CALL LIGHT IS WITHIN REACH, PATIENT INSTRUCTED TO CALL FOR ASSISTANCE NEEDED. BEDSIDE SHIFT REPORT GIVEN TO ONCOMING NURSE.
--- NOTE | 2019-08-10 19:43 | NUR ---
DR. SABINA QUIJANOD D/T PATIENT REQUESTING SLEEP MEDS - AWAITING CALLBACK AND NIGHT NURSE INFORM OF PAGE.
--- NOTE | 2019-08-10 21:22 | NUR ---
RECEIVED PT IN BED AOX3 .RESPIRATIONS ARE EVEN AND UNLABORED .F/C DRAINING ABER COLORED URINE .TELE #3 SB.PT C/O INSOMNIA .DR ABARCA HAS GIVEN THE ORDER FOR SLEEPING MEDICINE .CALL LIGHT WITH IN REACH .CONTINUE TO MONITOR
[2019-08-10] MEDS: TRAZODONE HCL 50 MG TAB PO PRN (21:33)
[2019-08-10] MEDS: ATORVASTATIN 40 MG TAB PO SCH (21:33)
--- NOTE | 2019-08-10 22:45 | NUR ---
MEDICATED WITH SLEEPING MEDICATION AND PT RESTING .CONTINUE TO MONITOR
[2019-08-11] VITALS (8 sets, daily range): BP systolic 132–165; BP diastolic 75–91
--- NOTE | 2019-08-11 05:50 | NUR ---
PT SLEPT DURING THE NIGHT .IRRIGATED THE F/C DRAINING [place] COLORED URINE .CALL LIGHT WITH IN REACH .CONTINUE TO MONITOR
[2019-08-11 06:02] LABS: BASOPHILS # (AUTO) 0.1 (0.0-0.1); BASOPHILS % 0.6 % (0.0-1.0); EOSINOPHILS # (AUTO) 0.4 (0.0-0.4); EOSINOPHILS % 4.5 % (0.0-6.0); HEMOGLOBIN 10.6 g/dL (14.0-18.0); LYMPHOCYTES # (AUTO) 1.3 (1.0-3.2); LYMPHOCYTES % 16.1 % (18.0-39.1); MEAN CORPUSCULAR HEMOGLOBIN 28.7 pg (28-32); MEAN CORPUSCULAR HGB CONC 33.1 g/dL (31-35); MEAN CORPUSCULAR VOLUME 86.7 fL (81-99); MONOCYTES # (AUTO) 0.6 (0.2-0.8); MONOCYTES % 7.9 % (4.4-11.3); NEUTROPHILS # (AUTO) 5.6 (2.1-6.9); NEUTROPHILS % 70.8 % (38.7-80.0); PLATELET COUNT 285 x10e3/uL (140-360); RED BLOOD COUNT 3.69 x10e6/uL (4.3-5.7); RED CELL DISTRIBUTION WIDTH 13.2 % (11.7-14.4)
[2019-08-11 06:22] LABS: ALANINE AMINOTRANSFERASE 10 IU/L (0-55); ALBUMIN 2.7 g/dL (3.5-5.0); ALBUMIN/GLOBULIN RATIO 0.8 (0.8-2.0); ALKALINE PHOSPHATASE 72 IU/L (40-150); ANION GAP 13.3 mmol/L (8-16); BLOOD UREA NITROGEN 16 mg/dL (7-26); BUN/CREATININE RATIO 15 (6-25); CALCIUM 8.6 mg/dL (8.4-10.2); CARBON DIOXIDE 26 mmol/L (22-29); CHLORIDE 104 mmol/L (98-107); CREATININE, SERUM 1.08 mg/dL (0.72-1.25); EST GLOMERULAR FILTRATION RATE > 60 ML/MIN (60-); GLUCOSE 91 mg/dL (74-118); POTASSIUM 3.3 mmol/L (3.5-5.1); SODIUM 140 mmol/L (136-145)
--- NOTE | 2019-08-11 07:23 | NUR ---
BEDSIDE REPORT GIVEN TO THE ONCOMING NURSE
[2019-08-11] MEDS: INSULIN REGULAR, HUMAN 100 UNIT/1 ML 3ML VIAL SQ SCH ×4 (07:30→21:00)
[2019-08-11] MEDS: FUROSEMIDE 40 MG TAB PO SCH (08:06)
[2019-08-11] MEDS: ESCITALOPRAM OXALATE 10 MG TAB PO SCH (08:06)
[2019-08-11] MEDS: AMLODIPINE BESYLATE 5 MG TAB PO SCH (08:06)
--- NOTE | 2019-08-11 09:46 | Progress Note ---
DATE: 08/11/2019 SUBJECTIVE: Mr. Arroyo is a 78-year-old man with history of coronary artery disease, status post stent, hypertension, hyperlipidemia, peripheral neuropathy, who came to the emergency room after having a syncopal episode. Apparently, the patient fell at home. They called 911 and the only thing he remembers is when he opened his eyes, he was already in the emergency room. EKG shows on and off second-degree AV block type 1 and type 2. PHYSICAL EXAMINATION: GENERAL: Today, he is awake and alert. VITAL SIGNS: Temperature is 98.1, blood pressure 165/91. HEART: Regular rate, right now 65 per minute. LUNGS: Poor inspiratory effort. ABDOMEN: Soft. He has a Moore catheter. LABORATORY DATA: On the blood work, white count 7.96, hemoglobin 10.6, hematocrit 32. Potassium is 3.3, creatinine is 1.08. Cardiac enzymes negative. Chest CT was negative. He had a carotid Doppler that shows 50% of the right carotid artery and 37% on the left. ASSESSMENT: 1. Syncopal episode. 2. Intermittent second-degree AV block, 1 and 2. 3. Coronary artery disease, status post stent. 4. Diabetes with neuropathy. 5. Hypertension. 6. Hyperlipidemia. 7. Peripheral neuropathy. 8. Status post recent prostate surgery. 9. Moore catheter is in place. PLAN: 1. At the present time is to continue with the Moore catheter after the surgery as per Dr. Fletcher. 2. Anticoagulation was on hold due to the hematuria, beta-blockers due to the AV block. The patient was already evaluated for pacemaker, family to decide if they are going to go ahead and do it. All this was discussed with the patient. All questions were answered to satisfaction. MD TRESSA Rodriguez/LEODAN /[id number]
[2019-08-11] MEDS ORDERED: POTASSIUM CHLORIDE 20 MEQ TAB CR PO ONE (09:50)
--- NOTE | 2019-08-11 18:05 | NUR ---
CALL PLACED OUT TO DR. JAMES REGARDING PROCEDURE ORDERS PLACED BY DR. PASCUAL. AWAITING CALLBACK.
--- NOTE | 2019-08-11 19:15 | NUR ---
PATIENT IS IN STABLE CONDITION WITH NO S/S OF RESPIRATORY DISTRESS- NO PAIN VOICED. PATIENT AND HIS ARE REFUSING THE PROCEDURE AT THIS TIME BUT WOULD LIKE TO SPEAK WITH DR. JAMES OR HIS ASSOCIATE. CALL PLACED OUT TO DR. JAMES BUT NO CALLBACK. NIGHT NURSE INFORMED OF THIS INFORMATION. CABELLO INTACT AND DRAINING; URINE IS BRIGHT RED. CALL LIGHT IS WITHIN REACH, PATIENT INSTRUCTED TO CALL FOR ASSISTANCE NEEDED. BEDSIDE SHIFT REPORT GIVEN TO ONCOMING NURSE
--- NOTE | 2019-08-11 20:01 | NUR ---
RECEIVED PT IN BED AOX3 .RESPIRATIONS ARE EVEN AND UNLABORED .F/C DRAINING ABER COLORED URINE .PT AND THE FAMILY REFUSED TO PUT PACE MAKER NOW PUT .CALL LIGHT WITH IN REACH .CONTINUE TO MONITOR
[2019-08-11] MEDS: TRAZODONE HCL 50 MG TAB PO PRN (22:02)
[2019-08-11] MEDS: ATORVASTATIN 40 MG TAB PO SCH (22:02)
[2019-08-12] VITALS (7 sets, daily range): BP systolic 107–157; BP diastolic 72–87
--- NOTE | 2019-08-12 06:19 | NUR ---
PT RESTING .PT AND THE FAMILY DO NOT WANT TO PUT PACEMAKER NOW .LATER ON .F/C IRRIGATED .CALL LIGHT WITH IN REACH .CONTINUE TO MONITOR
[2019-08-12] MEDS: INSULIN REGULAR, HUMAN 100 UNIT/1 ML 3ML VIAL SQ SCH ×4 (07:30→21:20)
--- NOTE | 2019-08-12 07:32 | NUR ---
BEDSIDE REPORT GIVEN TO THE ONCOMING NURSE.
[2019-08-12] MEDS: ESCITALOPRAM OXALATE 10 MG TAB PO SCH (09:45)
[2019-08-12] MEDS: AMLODIPINE BESYLATE 5 MG TAB PO SCH (09:45)
[2019-08-12] MEDS: FUROSEMIDE 40 MG TAB PO SCH (09:45)
--- NOTE | 2019-08-12 10:00 | NUR ---
ASSESSMENT: Spiritual distress Pt grieving losses due to illness and aging. Pt's at bedside. Intervention: Provided empathic listening and prayer. Provided information on how to reach oracle etl developer, if needed. Outcome: Pt and expressed appreciation for visit. No need to follow at this time. JASEN VILLATORO [facility] Spiritual [facility] Department O: [phone]
--- NOTE | 2019-08-12 10:10 | Discharge Summary ---
HOSPITAL COURSE: Mr. Arroyo is a 78-year-old man with history of coronary artery disease, status post stent, hypertension, hyperlipidemia, peripheral neuropathy, who came to the emergency room after having a syncopal episode. He was found to have a second-degree block type #1 and #2 on and off. He needs a pacemaker. He recently had prostate surgery. He still has a Moore catheter, so as per nurse, the patient and are refusing to have that pacemaker placed until they can remove the Moore catheter. PHYSICAL EXAMINATION: GENERAL: He is awake and alert. VITAL SIGNS: Temperature is 98.1, blood pressure 157/87, heart has regular rate of 75 per minute. LUNGS: Clear to auscultation. ABDOMEN: Soft. He has a Moore catheter. LABORATORY DATA: On the blood work, white count 7.96, hemoglobin 10.6, hematocrit 32, blood sugar 172. Coronavirus was negative. Head CT and chest x-ray, no acute findings. DISCHARGE DIAGNOSES: 1. Status post syncopal episode. 2. Intermittent second-degree AV block, 1 and 2. 3. Coronary artery disease, status post stent. 4. Diabetes with neuropathy. 5. Hypertension. 6. Hyperlipidemia. 7. Status post recent prostate surgery. 8. Peripheral neuropathy. 9. Moore catheter in place. PLAN: At the present time, we are going to continue to hold beta-blockers. He is okay with Dr. Liriano. Consider to restart Plavix if it is okay with Dr. Liriano. Apparently, the patient is needing a pacemaker, but if it is okay with Dr. Thakkar and Dr. Liriano since the patient wants to wait till his Moore catheter is soft. We are going to discharge him home. All this was discussed in extension with the patient. All questions were answered to satisfaction. Please see home medication reconciliation. MD TRESSA Rodriguez/LEODAN /[id number]
[2019-08-12] MEDS: AMPICILLIN SOD 1 GM/NS 50ML 50 ML IV SCH ×2 (13:16→20:23)
[2019-08-12] MEDS ORDERED: SODIUM CHLORIDE 0.9% 250ML 250 ML ONE (13:53)
--- NOTE | 2019-08-12 19:05 | NUR ---
COMPLETED BEDSIDE SHIFT REPORT WITH MORNING NURSE. PT ALERT AND ORIENTED TO NAME, LYING IN BED HOB 45 DEGREES. PT DENIES PAIN AT THIS TIME. CALL LIGHT WITHIN REACH. BED LOW AND LOCKED.
--- NOTE | 2019-08-12 19:30 | NUR ---
walking rounds complete, pt stable at shift change.
[2019-08-12] MEDS: ATORVASTATIN 40 MG TAB PO SCH (20:23)
[2019-08-12] MEDS: TRAZODONE HCL 50 MG TAB PO PRN (22:30)
[2019-08-13] VITALS: BP 154/86
[2019-08-13] MEDS: AMPICILLIN SOD 1 GM/NS 50ML 50 ML IV SCH ×2 (03:59→12:11)
[2019-08-13 04:00] VITALS: BP 149/85
[2019-08-13] MEDS: INSULIN REGULAR, HUMAN 100 UNIT/1 ML 3ML VIAL SQ SCH ×2 (07:30→13:19)
[2019-08-13 07:53] VITALS: BP 142/100
[2019-08-13] MEDS: ESCITALOPRAM OXALATE 10 MG TAB PO SCH (09:01)
[2019-08-13] MEDS: FUROSEMIDE 40 MG TAB PO SCH (09:01)
[2019-08-13] MEDS: AMLODIPINE BESYLATE 5 MG TAB PO SCH (09:01)
--- NOTE | 2019-08-13 11:01 | Discharge Summary ---
HOSPITAL COURSE: Mr. Arroyo is a 78-year-old man with history of coronary artery disease, status post stent, hyperlipidemia, hypertension, diabetes, peripheral neuropathy, who came to the emergency room after having a syncopal episode. The patient had recently prostate surgery. The EKG showed second-degree AV block on and off, #1 and #2. He has a Moore catheter that we are irrigating. The patient is going to need a pacemaker. If it is okay with the consultants, he is going to be discharged home and then he is going to come back for a pacemaker placement. PHYSICAL EXAMINATION: GENERAL: He is awake and alert. He is feeling better. VITAL SIGNS: Temperature is 98.5, blood pressure 142/100. HEART: Regular rate. LUNGS: Clear to auscultation. ABDOMEN: Soft. He has a Moore catheter. He still has a lot of hematuria. LABORATORY DATA: On the blood work, white count 7.96, hemoglobin 10.6, hematocrit 32, blood sugar 149. COVID test was negative. DISCHARGE DIAGNOSES: 1. Status post syncopal episode. 2. Intermittent second-degree AV block, #1 and #2. 3. Coronary artery disease, status post stent. 4. Diabetes with neuropathy. 5. Hypertension. 6. Hyperlipidemia. 7. Status post recent prostate surgery. 8. Peripheral neuropathy. 9. Moore catheter in place. PLAN: The plan at the present time is to continue to hold beta-blockers. We need to discuss with Dr. Liriano regarding continuing Plavix, continuing irrigation of the Moore catheter. Dr. Thakkar and Dr. Liriano are okay. The patient is going to be discharged home. Once he had the Moore catheter off, he will be able to come back to get a pacemaker in place. All this was discussed in detail with the patient. All questions were answered to satisfaction. Please see home medication reconciliation list. MD TRESSA Rodriguez/LEODAN /[id number]
[2019-08-13 11:14] VITALS: BP 142/100
[2019-08-13 11:54] VITALS: BP 143/81
--- NOTE | 2019-08-13 12:46 | NUR ---
ORDERS RECEIVED FOR HOME HEALTH FOR SN FOR CABELLO IRRIGATION. CALL TO PT TO DISCUSS HOME HEALTH ARRANGEMENTS. INFORMED HIS INSURANCE HAS [employer] THEIR COORDINATOR FOR POST ACUTE SERVICES. INFORMED THEY WILL BE CONTACTING HIM W HIS HH INFO. SPOKE W PT AND BEDSIDE NURSE REGARDING TEACHING BLADDER IRRIGATION PRIOR TO DISCHARGE AND GIVE SUPPLIES. REFERRAL WAS FAXED TO [email or web address] @ OFF: [phone] / FAX: [phone].
[2019-08-13 16:00] VITALS: BP 115/72
[2019-08-13] MEDS ORDERED: PENICILLIN V P500 MG PO (16:56)
== END 2019-08-13 17:28 | disposition home health service (06) | DRG 309 ==
LOC: ER 18:44 → ERHOLD 08-10 00:25 → MED/SURG3 08-10 02:55
PROVIDERS: ADMIT Internal Medicine; ATTEND Internal Medicine
DX: I44.1 Atrioventricular block, second degree (principal); N39.0 Urinary tract infection, site not specified; I25.10 Atherosclerotic heart disease of native coronary artery without angina pectoris; Z95.5 Presence of coronary angioplasty implant and graft; R00.1 Bradycardia, unspecified; Z79.4 Long term (current) use of insulin; E78.5 Hyperlipidemia, unspecified; E11.42 Type 2 diabetes mellitus with diabetic polyneuropathy; E11.649 Type 2 diabetes mellitus with hypoglycemia without coma; E27.9 Disorder of adrenal gland, unspecified; N39.41 Urge incontinence; I12.9 Hypertensive chronic kidney disease with stage 1 through stage 4 chronic kidney disease, or unspecified chronic kidney disease; N18.9 Chronic kidney disease, unspecified; N32.81 Overactive bladder; E66.9 Obesity, unspecified; Z68.29 Body mass index [BMI] 29.0-29.9, adult; Z11.59 Encounter for screening for other viral diseases; B95.2 Enterococcus as the cause of diseases classified elsewhere; R31.9 Hematuria, unspecified
CPT/HCPCS: 36415; 70450; 71045; 80048; 80053; 80061; 81001; 82550; 82553; 82948; 83036; 84443; 84484; 85025; 85610; 85730; 87086; 87186; 87635; 93005; 93306; 93880; 99284; J0290; J1817; J7050; J7799

== ENCOUNTER → 2019-10-02 | Outpatient (CLI) | payer OTHER, MEDICARE ==
[~2019-10-02] MED LIST changes: +LINZESS145 MCG; +MELATONIN3 MG PO; +PENICILLIN V P500 MG PO
--- NOTE | 2019-10-02 17:06 | Diagnostic Imaging Report ---
EXAM: SPINE CERVICAL AP LAT FLEX EXT DATE: 10/02/2019 12:25 PM INDICATION: Postop COMPARISON: None FINDINGS: There are postsurgical changes from anterior cervical fusion at C4-C5. Hardware appears intact and in appropriate position. There is osseous fusion at C5-C6. There is no evidence for acute fracture or dislocation. There are multilevel degenerative changes present with lower cervical spine. The prevertebral soft tissues are unremarkable. The visualized lung apices are clear. IMPRESSION: Postsurgical changes of anterior cervical fusion at C4-C5. Signed by: Dr. Jt Pollock MD on 10/02/2019 5:03 PM
== END ==
LOC: RAD 11:47
PROVIDERS: ATTEND Neurological Surgery
DX: M50.20 Other cervical disc displacement, unspecified cervical region (principal); M43.22 Fusion of spine, cervical region
CPT/HCPCS: 72050

== ENCOUNTER → 2019-10-14 | Outpatient (CLI) | payer OTHER, MEDICARE ==
--- NOTE | 2019-10-14 13:53 | Diagnostic Imaging Report ---
EXAMINATION: SHOULDER RIGHT COMPLETE INDICATION: Trauma COMPARISON: None FINDINGS: Internal and a rotation views of the right shoulder demonstrate no acute fracture or dislocation. Alignment is anatomic. Soft tissues appear unremarkable. Moderate degenerative changes of the right glenohumeral joint and mild degenerative changes of the right acromioclavicular joint. The partially visualized right lung is clear. IMPRESSION: No acute fracture or dislocation. Moderate right glenohumeral joint and mild right acromioclavicular joint degenerative changes. Signed by: Victoriano Olson MD on 10/14/2019 1:50 PM
== END ==
LOC: RAD 13:02
PROVIDERS: ATTEND Internal Medicine
DX: M25.511 Pain in right shoulder (principal); W19.XXXA Unspecified fall, initial encounter

== ENCOUNTER → 2019-10-21 | Day surgery (SDC) | payer OTHER, MEDICARE ==
[2019-10-16 09:58] LABS: BASOPHILS % 0.4 % (0.0-1.0); EOSINOPHILS # (AUTO) 0.3 (0.0-0.4); EOSINOPHILS % 4.6 % (0.0-6.0); HEMATOCRIT 37.7 % (38.2-49.6); HEMOGLOBIN 12.1 g/dL (14.0-18.0); LYMPHOCYTES # (AUTO) 1.9 (1.0-3.2); LYMPHOCYTES % 27.8 % (18.0-39.1); MEAN CORPUSCULAR HEMOGLOBIN 27.5 pg (28-32); MEAN CORPUSCULAR HGB CONC 32.1 g/dL (31-35); MEAN CORPUSCULAR VOLUME 85.7 fL (81-99); MONOCYTES # (AUTO) 0.7 (0.2-0.8); MONOCYTES % 9.4 % (4.4-11.3); NEUTROPHILS % 57.5 % (38.7-80.0); PLATELET COUNT 260 x10e3/uL (140-360); RED CELL DISTRIBUTION WIDTH 13.6 % (11.7-14.4)
[2019-10-16 10:14] LABS: ANION GAP 18.4 mmol/L (8-16); CALCIUM 8.7 mg/dL (8.4-10.2); CREATININE, SERUM 1.26 mg/dL (0.72-1.25); POTASSIUM 3.4 mmol/L (3.5-5.1)
[2019-10-16 10:23] LABS: PROTHROMBIN TIME 13.7 seconds (11.9-14.5)
[2019-10-21] VITALS (7 sets, daily range): BP systolic 132–154; BP diastolic 61–94
[~2019-10-21] VITALS: Ht 172.7 cm; Wt 89.8 kg
[~2019-10-21] MED LIST changes: +BACITRACIN 50,000 UNIT VIAL ONE; +BACTRIM DS TAB1 EACH PO; +CEFAZOLIN SOD 2 GM/D5W 50ML 50 ML IV ONE; +FENTANYL CITRATE/PF 100MCG/2 ML INJ ONE; +FLOMAX0.4 MG PO; +LIDOCAINE 1% W/EPINEPHRINE 20 ML VIAL ONE; +LINZESS145 MCG PO; +MIDAZOLAM HCL 2 MG/2 ML VIAL ONE; +SODIUM CHLORIDE 0.9% 1000ML 2,000 ML ONE; +SODIUM CHLORIDE 0.9% 500ML 500 ML ONE; +TRESIBA100 UNIT/1 SC; +VANCOMYCIN 1GM/NS 250 ML 250 ML ONE
--- NOTE | 2019-10-21 13:45 | NUR ---
1345pm RECEIVING NOTE SUPERVISOR DRY [employer] RECOVERY DEPT............................................................... Bedside report received from NGA Morgan. Identifierx2. Alert oriented and appropriate, PERRLA, respirations even and unlabored to room air. Pulses x4 extremeties equal and strong. Pedal pulses PT/DP X4 and marked. Cap fill brisk < 3 sec. Left sc pressure dressing in place ok to remove with shower Saturday. Kep arm sling on. Skin warm and dry integrity appears D/I IV 20g to left ac presents healthy w/o s/s of infiltration or complaint. Abdomen soft and supple. pt offered toileting, denies need to urinate or defecate. No personal affects with patient. Family at bedside Pt and family verbalizes understanding of POC. Currently w/o complaint of pain or need. Patient ds/rn
--- NOTE | 2019-10-21 14:30 | NUR ---
1430 stat CXR done, Pacer interigation done by front desk representative ds/rn
--- NOTE | 2019-10-21 14:53 | Diagnostic Imaging Report ---
TECHNIQUE: Frontal view of the chest. INDICATION: ^s/p pacer insert A/P ^[id number] ^1420 ^kocated CCL recovery #9 COMPARISON: 08/09/2019 DISCUSSION: Limited evaluation due to portable technique. Lines and hardware: Left chest wall dual-lead pacemaker is noted with leads grossly intact. Overlying EKG leads are noted. Heart and mediastinum: Cardiomediastinal silhouette is mildly enlarged, similar to prior exam. Trachea projects midline. Thoracic air is tortuous. Lungs and pleura: No focal airspace consolidation. No pleural effusion. No pneumothorax. Soft tissues and bones: No acute abnormality. IMPRESSION: Status post left chest wall dual-lead pacemaker placement. Negative for pneumothorax. Signed by: Ceasar Ye MD on 10/21/2019 2:50 PM
--- NOTE | 2019-10-21 16:00 | NUR ---
1600pm MANIPULATOR OPERATOR RECOVERY DISCHARGE NURSING NOTE Pt meets DC criteria. left sc assessed for s/s of complication and presecence of hematoma. Skin warm, dry, no discolor, and pulses present. IV removed from left ac. Distal tip appears intact. VS WNL. Pt denies pain, sob, or need at this time. Family at bedside. Review of discharge paperwork and follow up instructions. verbalized understanding. Pt to wheelchair and transported to front of hospital. Transferred to private vehicle under own strength w/o incident with DC paperwork in hand. - radha/gopal
--- NOTE | 2019-10-22 04:21 | Operative Report ---
DATE OF PROCEDURE: 10/21/2019 SURGEON: Alcides Rizvi MD PREPROCEDURE DIAGNOSES: 1. Intermittent second-degree and third-degree AV block. 2. Dizziness, no reversible causes. POSTPROCEDURE DIAGNOSIS: 1. Intermittent second-degree and third-degree AV block. 2. Dizziness, no reversible causes. ATTENDING PHYSICIAN: Alcides Rizvi MD. ESTIMATED BLOOD LOSS: 10 mL. COMPLICATIONS: None. PROCEDURES PERFORMED: 1. Dual-chamber pacemaker placement. 2. Moderate sedation. Moderate conscious sedation was provided under my direct supervision by sedation trained nurse. Sedation approximate time for 30 minutes. Versed and fentanyl. There were no complications. See sedation form for details. DESCRIPTION OF PROCEDURE: After informed consent was obtained, the patient was brought to the electrophysiology laboratory in a fasting, nonsedated state. Area over his chest was prepped and draped in usual sterile fashion. Moderate sedation and prophylactic antibiotics were given. 1% lidocaine was used as local anesthetic and a 3 cm skin incision was made in the left subclavicular area. Electrocautery with sharp and blunt dissection were used to bridge the muscular fascia and a pocket was created for event implantation of the device. Vascular access was obtained x2 in the left axillary vein using modified Seldinger technique under fluoroscopic guidance. Two sheaths were placed, ventricular lead to the RV apex R-wave 5, pacing 0.4. Atrial lead to the right atrial appendage, P-wave 3, pacing 0.8. Sheaths were removed from the body. Leads were secured to fascia using Ethibond. Pocket was irrigated with antibiotic solution using the pulse manager acquisition. Hemostasis was meticulous. Leads connected to the device and entire pacemaker system placed in the pocket. Incision was closed using absorbable sutures and Dermabond. The patient tolerated the procedure well. Procedure was incomplete. SUMMARY OF HARDWARE IMPLANT: 1. The new pacemaker lead is [employer], serial #[id number]. 2. RV lead is [employer] [id number]. 3. RA lead is [employer]. [id number]. IMPRESSION: Successful dual-chamber pacemaker implant via left axillary vein. PLAN: 1. Routine postop monitoring on telemetry bed. 2. Chest x-ray. 3. Follow up in two weeks. MD MARII Dunbar/LEODAN /[id number]
== END | disposition home or self-care (01) ==
LOC: CATH LAB 11:34 → EDSTATUS 13:00
PROVIDERS: ATTEND Internal Medicine
DX: I44.2 Atrioventricular block, complete (principal); I25.10 Atherosclerotic heart disease of native coronary artery without angina pectoris; E11.9 Type 2 diabetes mellitus without complications; Z01.812 Encounter for preprocedural laboratory examination; Z11.59 Encounter for screening for other viral diseases; Z79.4 Long term (current) use of insulin
CPT/HCPCS: 33208; 36415 ×2; 71045; 80048; 82948; 85025; 85610; C1785; C1898; J0690; J2250; J3010; J3370; J7030; J7040; U0002; 99152; 99153

== ENCOUNTER 2020-01-25 14:36 | Emergency (ER) | payer OTHER, MEDICARE ==
[~2020-01-25] VITALS: Ht 172.7 cm; Wt 89.8 kg
[~2020-01-25 14:36] MED LIST changes: -BACITRACIN 50,000 UNIT VIAL ONE; -CEFAZOLIN SOD 2 GM/D5W 50ML 50 ML IV ONE; -FENTANYL CITRATE/PF 100MCG/2 ML INJ ONE; -LIDOCAINE 1% W/EPINEPHRINE 20 ML VIAL ONE; -MIDAZOLAM HCL 2 MG/2 ML VIAL ONE; -SODIUM CHLORIDE 0.9% 1000ML 2,000 ML ONE; -SODIUM CHLORIDE 0.9% 500ML 500 ML ONE; -VANCOMYCIN 1GM/NS 250 ML 250 ML ONE
== END 2020-01-25 17:04 | disposition home or self-care (01) ==
LOC: ER 15:16
DX: M25.551 Pain in right hip (principal); W18.30XA Fall on same level, unspecified, initial encounter; Y92.008 Other place in unspecified non-institutional (private) residence as the place of occurrence of the external cause; I10 Essential (primary) hypertension; E11.9 Type 2 diabetes mellitus without complications; I25.10 Atherosclerotic heart disease of native coronary artery without angina pectoris; Z86.73 Personal history of transient ischemic attack (TIA), and cerebral infarction without residual deficits; Z95.5 Presence of coronary angioplasty implant and graft
CPT/HCPCS: 99283

== ENCOUNTER 2020-02-21 16:03 | Inpatient (IN) | payer MEDICARE, OTHER ==
[~2020-02-21] VITALS: Ht 172.7 cm; Wt 89.8 kg
[2020-02-21] MEDS ORDERED: ASPIRIN 81 MG CHEW TAB PO ONE (16:15)
[2020-02-21] MEDS ORDERED: SODIUM CHLORIDE 0.9% 1000ML 1,000 ML IV STA ×2 (16:27)
[2020-02-21] MEDS: PIPER-TAZ 3.375 GM 50 ML IV SCH (17:14)
[2020-02-21 17:18] LABS: BASOPHILS % 0.3 % (0.0-1.0); EOSINOPHILS # (AUTO) 0.1 (0.0-0.4); EOSINOPHILS % 0.7 % (0.0-6.0); HEMATOCRIT 42.6 % (38.2-49.6); HEMOGLOBIN 14.2 g/dL (14.0-18.0); LYMPHOCYTES # (AUTO) 1.4 (1.0-3.2); LYMPHOCYTES % 15.5 % (18.0-39.1); MEAN CORPUSCULAR HGB CONC 33.3 g/dL (31-35); MONOCYTES # (AUTO) 0.7 (0.2-0.8); MONOCYTES % 8.2 % (4.4-11.3); NEUTROPHILS # (AUTO) 6.6 (2.1-6.9); PLATELET COUNT 246 x10e3/uL (140-360); RED BLOOD COUNT 5.07 x10e6/uL (4.3-5.7); RED CELL DISTRIBUTION WIDTH 14.8 % (11.7-14.4)
[2020-02-21 17:35] LABS: ALBUMIN 3.4 g/dL (3.5-5.0); ALBUMIN/GLOBULIN RATIO 0.9 (0.8-2.0); ANION GAP 24.8 mmol/L (8-16); CALCIUM 9.3 mg/dL (8.4-10.2); CREATININE, SERUM 1.89 mg/dL (0.72-1.25)
[2020-02-21 17:42] LABS: CREATINE KINASE MB 2.4 ng/mL (0-5.0)
[2020-02-21 17:44] LABS: POTASSIUM 2.8 mmol/L (3.5-5.1)
[2020-02-21] MEDS ORDERED: POTASSIUM CHLORIDE 10MEQ EA PO STA (17:57)
[2020-02-21] MEDS ORDERED: POTASSIUM CHLORIDE 10MEQ/100ML 100 ML IV STA (17:57)
[2020-02-21 18:21] LABS: CLARITY,URINE HAZY (CLEAR); COLOR,URINE YELLOW (YELLOW); KETONES,URINE NEGATIVE (NEGATIVE); LEUKOCYTE ESTERASE ,URINE NEGATIVE (NEGATIVE); NITRITE,URINE NEGATIVE (NEGATIVE); PROTEIN,URINE DIPSTICK 2+ (NEGATIVE); URINE UROBILINOGEN 0.2 mg/dL (0.2 - 1)
[2020-02-21 18:24] LABS: BACTERIA,URINE FEW /HPF; EPITHELIAL CELLS,URINE FEW /LPF
[2020-02-21 20:11] VITALS: BP 117/96
[2020-02-21] MEDS: SODIUM CHLORIDE 0.9% 1000ML 1,000 ML IV SCH (20:40)
[2020-02-21] MEDS ORDERED: ACETAMINOPHEN 325 MG TAB PO PRN (21:00)
[2020-02-21 22:00] VITALS: BP 117/96
[2020-02-21] MEDS: ZOLPIDEM TARTRATE 5 MG TAB PO PRN (22:20)
[2020-02-21] MEDS ORDERED: PLAVIX75 MG PO (23:37)
[2020-02-21] MEDS ORDERED: ULTRAM50 MG PO (23:37)
[2020-02-21] MEDS ORDERED: IBUPROFEN200 MG PO (23:37)
[2020-02-21] MEDS ORDERED: NYSTATIN1 EAC9 TOP (23:37)
[2020-02-21] MEDS ORDERED: GLUCOSE PO (23:37)
[2020-02-22] VITALS (8 sets, daily range): BP systolic 157–187; BP diastolic 74–99
[2020-02-22] MEDS: PIPER-TAZ 3.375 GM 50 ML IV SCH ×5 (00:02→23:48)
[2020-02-22 00:39] LABS: CREATINE KINASE MB 6.5 ng/mL (0-5.0)
[2020-02-22] MEDS: SODIUM CHLORIDE 0.9% 1000ML 1,000 ML IV SCH ×3 (04:30→20:51)
[2020-02-22 06:20] LABS: BASOPHILS % 0.5 % (0.0-1.0); EOSINOPHILS # (AUTO) 0.2 (0.0-0.4); EOSINOPHILS % 1.9 % (0.0-6.0); HEMATOCRIT 36.9 % (38.2-49.6); HEMOGLOBIN 12.5 g/dL (14.0-18.0); LYMPHOCYTES # (AUTO) 1.6 (1.0-3.2); LYMPHOCYTES % 20.3 % (18.0-39.1); MEAN CORPUSCULAR HEMOGLOBIN 28.8 pg (28-32); MEAN CORPUSCULAR HGB CONC 33.9 g/dL (31-35); MONOCYTES # (AUTO) 0.9 (0.2-0.8); MONOCYTES % 11.6 % (4.4-11.3); NEUTROPHILS # (AUTO) 5.3 (2.1-6.9); NEUTROPHILS % 65.5 % (38.7-80.0); PLATELET COUNT 202 x10e3/uL (140-360); RED BLOOD COUNT 4.34 x10e6/uL (4.3-5.7); RED CELL DISTRIBUTION WIDTH 14.6 % (11.7-14.4)
[2020-02-22 06:36] LABS: ALBUMIN 2.9 g/dL (3.5-5.0); ALBUMIN/GLOBULIN RATIO 0.9 (0.8-2.0); ANION GAP 13.7 mmol/L (8-16); CREATININE, SERUM 1.38 mg/dL (0.72-1.25)
[2020-02-22 06:38] LABS: POTASSIUM 2.7 mmol/L (3.5-5.1)
[2020-02-22 07:05] LABS: CREATINE KINASE MB 6.7 ng/mL (0-5.0)
[2020-02-22] MEDS ORDERED: POTASSIUM CHLORIDE 20 MEQ TAB CR PO ONE (08:15)
[2020-02-22] MEDS: POTASSIUM CHLORIDE 20 MEQ TAB CR PO SCH (09:45)
[2020-02-22 13:43] LABS: CREATINE KINASE MB 5.1 ng/mL (0-5.0)
[2020-02-22] MEDS ORDERED: METOPROLOL SUCCINATE 50 MG TAB XL PO ONE (19:15)
[2020-02-22] MEDS: ZOLPIDEM TARTRATE 5 MG TAB PO PRN (20:51)
[2020-02-22] MEDS: ATORVASTATIN 40 MG TAB PO SCH (20:51)
[2020-02-22] MEDS ORDERED: INSULIN LISPRO 100 UNIT/1 ML 3ML VIAL SQ SCH (23:00)
[2020-02-22] MEDS ORDERED: DEXTROSE 50% SYRINGE 50 ML IV PRN (23:00)
[2020-02-23] VITALS (8 sets, daily range): BP systolic 163–212; BP diastolic 84–96
[2020-02-23] MEDS: PIPER-TAZ 3.375 GM 50 ML IV SCH ×3 (05:24→18:07)
[2020-02-23] MEDS: SODIUM CHLORIDE 0.9% 1000ML 1,000 ML IV SCH ×2 (05:24→12:19)
[2020-02-23 05:56] LABS: BASOPHILS % 0.4 % (0.0-1.0); EOSINOPHILS # (AUTO) 0.1 (0.0-0.4); EOSINOPHILS % 0.7 % (0.0-6.0); HEMATOCRIT 33.5 % (38.2-49.6); HEMOGLOBIN 11.3 g/dL (14.0-18.0); LYMPHOCYTES % 12.5 % (18.0-39.1); MEAN CORPUSCULAR HEMOGLOBIN 28.4 pg (28-32); MEAN CORPUSCULAR HGB CONC 33.7 g/dL (31-35); MEAN CORPUSCULAR VOLUME 84.2 fL (81-99); MONOCYTES # (AUTO) 0.9 (0.2-0.8); MONOCYTES % 10.5 % (4.4-11.3); NEUTROPHILS # (AUTO) 6.1 (2.1-6.9); NEUTROPHILS % 75.5 % (38.7-80.0); PLATELET COUNT 202 x10e3/uL (140-360); RED BLOOD COUNT 3.98 x10e6/uL (4.3-5.7); RED CELL DISTRIBUTION WIDTH 14.7 % (11.7-14.4)
[2020-02-23 06:19] LABS: ALANINE AMINOTRANSFERASE 10 IU/L (0-55); ALBUMIN 2.5 g/dL (3.5-5.0); ALBUMIN/GLOBULIN RATIO 0.8 (0.8-2.0); ALKALINE PHOSPHATASE 101 IU/L (40-150); ANION GAP 10.6 mmol/L (8-16); BLOOD UREA NITROGEN 13 mg/dL (7-26); BUN/CREATININE RATIO 13 (6-25); CALCIUM 7.8 mg/dL (8.4-10.2); CARBON DIOXIDE 23 mmol/L (22-29); CHLORIDE 110 mmol/L (98-107); CHOL/HDL RATIO 2.8 (3.9-4.7); CHOLESTEROL 83 MD/DL (0-199); CREATININE, SERUM 0.98 mg/dL (0.72-1.25); EST GLOMERULAR FILTRATION RATE > 60 ML/MIN (60-); HDL CHOLESTEROL 30 MG/DL (40-60); LDL CHOLESTEROL 39 MG/DL (60-130); SODIUM 141 mmol/L (136-145); TRIGLYCERIDES 68 MG/DL (0-149)
[2020-02-23 06:25] LABS: GLUCOSE 49 mg/dL (74-118)
[2020-02-23 06:26] LABS: POTASSIUM 2.6 mmol/L (3.5-5.1)
[2020-02-23 06:40] LABS: THYROID STIMULATING HORMONE 1.096 uIU/mL (0.350-4.940)
[2020-02-23] MEDS: POTASSIUM CHLORIDE 20 MEQ TAB CR PO SCH (07:07)
[2020-02-23] MEDS: INSULIN LISPRO 100 UNIT/1 ML 3ML VIAL SQ SCH ×4 (07:30→21:00)
[2020-02-23] MEDS ORDERED: MAGNESIUM OXIDE 400 MG TAB PO NR (09:15)
[2020-02-23] MEDS: METOPROLOL SUCCINATE 50 MG TAB XL PO SCH (09:18)
[2020-02-23] MEDS: CLOPIDOGREL BISULFATE 75 MG TAB PO SCH (09:18)
[2020-02-23] MEDS ORDERED: POTASSIUM CHLORIDE 20 MEQ TAB CR PO ONE ×2 (12:00→16:00)
[2020-02-23] MEDS ORDERED: AMLODIPINE BESYLATE 5 MG TAB PO SCH (12:15)
[2020-02-23] MEDS ORDERED: HYDRALAZINE HCL 20 MG/ML VIAL IV PRN (12:15)
[2020-02-23] MEDS ORDERED: MAGNESIUM SULFATE 2GM/50ML 50 ML IV ONE (14:30)
[2020-02-23] MEDS ORDERED: AMILORIDE HCL 5 MG TAB PO ONE (14:30)
[2020-02-23 14:45] LABS: ANION GAP 11.5 mmol/L (8-16); BLOOD UREA NITROGEN 12 mg/dL (7-26); BUN/CREATININE RATIO 11 (6-25); CALCIUM 8.2 mg/dL (8.4-10.2); CARBON DIOXIDE 22 mmol/L (22-29); CHLORIDE 109 mmol/L (98-107); CREATININE, SERUM 1.12 mg/dL (0.72-1.25); EST GLOMERULAR FILTRATION RATE > 60 ML/MIN (60-); GLUCOSE 72 mg/dL (74-118); POTASSIUM 3.5 mmol/L (3.5-5.1); SODIUM 139 mmol/L (136-145)
[2020-02-23 15:30] LABS: FREE THYROXINE INDEX 2.1504 (1.4-3.8); THYROID STIMULATING HORMONE 1.002 uIU/mL (0.350-4.940)
[2020-02-23] MEDS ORDERED: POTASSIUM CHLORIDE 20 MEQ TAB CR PO NR (16:00)
[2020-02-23] MEDS ORDERED: IOPAMIDOL 370 MG/ML 200 ML INFUS..BTL INJ ONE (17:10)
[2020-02-23] MEDS ORDERED: SODIUM CHLORIDE 0.9% 50ML 50 ML ONE (17:10)
[2020-02-23] MEDS ORDERED: POTASSIUM CHLORIDE 20MEQ/100ML 100 ML IV ONE (19:00)
[2020-02-23] MEDS: ATORVASTATIN 40 MG TAB PO SCH (21:00)
[2020-02-23] MEDS: ZOLPIDEM TARTRATE 5 MG TAB PO PRN (21:30)
[2020-02-24] VITALS: BP 170/92
[2020-02-24 04:00] VITALS: BP 180/88
[2020-02-24] MEDS: PIPER-TAZ 3.375 GM 50 ML IV SCH ×3 (05:59→11:53)
[2020-02-24 06:59] LABS: ALANINE AMINOTRANSFERASE 13 IU/L (0-55); ALBUMIN 2.9 g/dL (3.5-5.0); ALBUMIN/GLOBULIN RATIO 0.8 (0.8-2.0); ALKALINE PHOSPHATASE 121 IU/L (40-150); ANION GAP 11.7 mmol/L (8-16); BLOOD UREA NITROGEN 9 mg/dL (7-26); BUN/CREATININE RATIO 8 (6-25); CALCIUM 8.2 mg/dL (8.4-10.2); CARBON DIOXIDE 24 mmol/L (22-29); CHLORIDE 106 mmol/L (98-107); CREATININE, SERUM 1.09 mg/dL (0.72-1.25); EST GLOMERULAR FILTRATION RATE > 60 ML/MIN (60-); GLUCOSE 94 mg/dL (74-118); POTASSIUM 3.7 mmol/L (3.5-5.1); SODIUM 138 mmol/L (136-145)
[2020-02-24] MEDS: INSULIN LISPRO 100 UNIT/1 ML 3ML VIAL SQ SCH ×2 (07:30→11:50)
[2020-02-24 07:36] VITALS: BP 182/81
[2020-02-24 07:53] VITALS: BP 182/81
[2020-02-24] MEDS: CLOPIDOGREL BISULFATE 75 MG TAB PO SCH (08:47)
[2020-02-24] MEDS: METOPROLOL SUCCINATE 50 MG TAB XL PO SCH (08:48)
[2020-02-24] MEDS ORDERED: AMLODIPINE BESYLATE 10 MG TAB PO SCH (09:00)
[2020-02-24] MEDS ORDERED: AMLODIPINE BESYLATE 5 MG TAB PO SCH (09:00)
[2020-02-24 11:39] VITALS: BP 172/80
== END 2020-02-24 14:23 | disposition home or self-care (01) | DRG 640 ==
LOC: ER 16:29 → ERHOLD 18:42 → MED/SURG 20:11 → OBSVTOIN 02-22 11:03
PROVIDERS: ADMIT Internal Medicine; ATTEND Internal Medicine
DX: E87.6 Hypokalemia (principal); R57.1 Hypovolemic shock; G93.41 Metabolic encephalopathy; I69.354 Hemiplegia and hemiparesis following cerebral infarction affecting left non-dominant side; N18.30 Chronic kidney disease, stage 3 unspecified; I12.9 Hypertensive chronic kidney disease with stage 1 through stage 4 chronic kidney disease, or unspecified chronic kidney disease; E11.22 Type 2 diabetes mellitus with diabetic chronic kidney disease; I25.10 Atherosclerotic heart disease of native coronary artery without angina pectoris; Z95.5 Presence of coronary angioplasty implant and graft; E78.5 Hyperlipidemia, unspecified; K21.9 Gastro-esophageal reflux disease without esophagitis; Z95.0 Presence of cardiac pacemaker; Z83.3 Family history of diabetes mellitus; Z82.49 Family history of ischemic heart disease and other diseases of the circulatory system; R53.81 Other malaise; E11.65 Type 2 diabetes mellitus with hyperglycemia; E11.42 Type 2 diabetes mellitus with diabetic polyneuropathy; E83.42 Hypomagnesemia
CPT/HCPCS: 36415; 70450; 71045; 74160; 80048; 80053; 80061; 81001; 82550; 82553; 82948; 83605; 83735; 83880; 84132; 84133; 84436; 84443; 84479; 84484; 85025; 87040; 87086; 93005; 93306; 99284; G0378; J2543; J3475; J3480; J7030; Q9967; U0002

== ENCOUNTER → 2020-08-03 | Outpatient (CLI) | payer MEDICARE ==
[~2020-08-03] MED LIST changes: +GLUCOSE PO; +IBUPROFEN200 MG PO; +NYSTATIN1 EAC9 TOP; +ULTRAM50 MG PO
== END ==
LOC: DX 12:47
PROVIDERS: ATTEND Internal Medicine
DX: M89.9 Disorder of bone, unspecified (principal)
CPT/HCPCS: 77080

== ENCOUNTER → 2020-08-24 | Outpatient (CLI) | payer MEDICARE | LOC: US 10:21 | PROVIDERS: ATTEND Urology | DX: R31.21 Asymptomatic microscopic hematuria (principal) | CPT/HCPCS: 74018; 76770 ==

== ENCOUNTER 2020-09-16 13:29 | Emergency (ER) | payer MEDICARE, OTHER ==
[~2020-09-16] VITALS: Ht 170.2 cm; Wt 85.3 kg
[2020-09-16] MEDS ORDERED: IBUPROFEN 200 MG TAB PO ONE (13:45)
[2020-09-16] MEDS ORDERED: ACETAMINOPHEN 325 MG TAB PO ONE (13:45)
[2020-09-16] MEDS ORDERED: ESGIC 50-325-41 EACH PO (13:47)
[2020-09-16] MEDS ORDERED: ACETAMINOPHEN 325 MG TAB ONE (14:24)
[2020-09-16] MEDS ORDERED: IBUPROFEN 600 MG TAB ONE (14:24)
== END 2020-09-16 14:52 | disposition home or self-care (01) ==
LOC: FSED 13:40
DX: G44.219 Episodic tension-type headache, not intractable (principal); E11.65 Type 2 diabetes mellitus with hyperglycemia; E11.40 Type 2 diabetes mellitus with diabetic neuropathy, unspecified; I10 Essential (primary) hypertension; I25.10 Atherosclerotic heart disease of native coronary artery without angina pectoris; Z86.73 Personal history of transient ischemic attack (TIA), and cerebral infarction without residual deficits; Z95.810 Presence of automatic (implantable) cardiac defibrillator; Z95.5 Presence of coronary angioplasty implant and graft
CPT/HCPCS: 70450; 80053; 85025; 99283